=== PATIENT | male | born 1940 | race Caucasian/White ===

== ENCOUNTER 2016-07-18 06:54 | Inpatient (IN) | payer OTHER ==
[~2016-07-18] VITALS: Ht 175.3 cm; Wt 72.6 kg
[2016-07-18] VITALS (8 sets, daily range): BP systolic 85–138; BP diastolic 62–83; PULSE 54–68; TEMP 36.9–37.5; O2SAT 95–100; Ht 175.3 cm; Wt 72.6 kg
[~2016-07-18 06:54] MED LIST: ASPEC81 PO; ATOR10TA88 PO; IPRA1AER2 INH; LACTATED RINGER'S 1000ML 1,000 ML IV SCH; PRED20TA PO; calcium
--- NOTE | 2016-07-18 08:14 | History & Physical Bridge Note ---
H&P Re-Evaluation Bridge Note: I have examined the patient, reviewed the History & Physical and in the interval since the performance of the History & Physical I have noted the following changes of clinical significance: No changes noted
[2016-07-18] MEDS ORDERED: KETAMINE HCL INJ 50 MG/ML 10 ML VIAL ONE (09:08)
[2016-07-18] MEDS ORDERED: FENTANYL CITRATE INJ 50 MCG/1 ML 2 ML VIAL ONE ×3 (09:08→11:53)
[2016-07-18] MEDS ORDERED: BUPIVACAINE LIPOSOME 1/3% 266 MG/20 ML VIAL INFIL ONE (09:19)
[2016-07-18] MEDS ORDERED: CEFAZOLIN IV 2,000 MG/60 ML D5W IV ONE (10:09)
[2016-07-18] MEDS ORDERED: PROPOFOL IV EMULSION 10 MG/ML 20 ML VIAL IV ONE (10:41)
[2016-07-18] MEDS ORDERED: LIDOCAINE HCL 2% 2 ML VIAL (20MG/ML) ONE (10:41)
[2016-07-18] MEDS ORDERED: LABETALOL HCL IV 5 MG/ML 20ML ONE (10:41)
[2016-07-18] MEDS ORDERED: EpHEDrine SULFATE 50MG/5ML SYR ONE (10:41)
[2016-07-18] MEDS ORDERED: LARYING-O-JET KIT (LTA) EXT ONE ×2 (10:41)
[2016-07-18] MEDS ORDERED: ONDANSETRON INJ 2 MG/ML 2 ML VIAL ONE (10:41)
[2016-07-18] MEDS ORDERED: DEXAMETHASONE SOD INJ 4 MG/ML VIAL ONE (10:41)
[2016-07-18] MEDS ORDERED: MIX: 266 MG EXPAREL + 40 ML INJ SALINE INJ ONE (10:56)
[2016-07-18] MEDS ORDERED: NEOSTIGMINE METHYLSULFATE 5 MG/5 ML SYR ONE (11:52)
[2016-07-18] MEDS ORDERED: GLYCOPYRROLATE INJ 0.2 MG/ML VIAL ONE (11:52)
[2016-07-18] MEDS ORDERED: MoRPHine SULFATE 2 MG/ML CARP IV PRN ×2 (12:15→13:00)
[2016-07-18] MEDS ORDERED: ONDANSETRON INJ 2 MG/ML 2 ML VIAL IV PRN (12:15)
[2016-07-18] MEDS: D5W AND 1/2NSS 1,000 ML IV SCH ×2 (12:15→22:15)
--- NOTE | 2016-07-18 12:44 | DIAGNOSTIC IMAGING REPORT ---
CHEST ONE VIEW PORTABLE CLINICAL HISTORY: s/p left pneumonectomy COMPARISON STUDY: Chest radiograph July 07, 2016. FINDINGS: Gas within the left hemithorax is noted consistent with pneumonectomy. There is gas within the left chest wall. Right lung is clear. There is no evidence of pulmonary edema. Cardiac size is stable. An old left clavicular fracture is incidentally noted IMPRESSION: Expected findings following left pneumonectomy with gas within the left hemithorax and chest wall. Electronically signed by: Jose E Abdi M.D. 07/18/2016 12:43 PM
[2016-07-18 13:17] LABS: ARTERIAL BLD GAS O2 SATURATION 97.7 % (90-95); ARTERIAL BLOOD GAS BASE EXCESS -0.6 mEq/L (-9-1.8); ARTERIAL BLOOD GAS HCO3 22 mmol/L (19-24); ARTERIAL BLOOD GAS PO2 95 mm/Hg (80-95); ARTERIAL BLOOD GAS pH 7.46 (7.35-7.45)
[2016-07-18 13:18] LABS: ALLEN TEST ALINE (POS)
--- NOTE | 2016-07-18 13:18 | OPERATIVE REPORT ---
DATE OF OPERATION: 07/18/2016 PREOPERATIVE DIAGNOSIS: Squamous cell carcinoma, left hilum. POSTOPERATIVE DIAGNOSIS: Same. PROCEDURES: 1. Left pneumonectomy. 2. Mediastinal lymphadenectomy. SURGEON: Dr. David. ZINC PLATING MACHINE OPERATOR: Nathaly Nelson, Oxyacetylene Welder ANESTHESIA: General anesthesia endotracheal intubation with a double lumen tube. SPECIFICS OF PROCEDURE: Mr. Henry is a 77-year-old male who was found to have a squamous cell carcinoma, left hilum. We worked him up and appeared to be confined to his left chest; however, it involved the bifurcation of the left upper and left lower lobes, so that a lesser resection could be offered. His mediastinal nodes were negative for cancer, need for carcinoma and endobronchial ultrasound. After much deliberation with the patient and his family, we elected to proceed with a left pneumonectomy. On 07/18/2016, the patient underwent an uncomplicated intrapericardial left pneumonectomy. I had to go into the pericardium to get the inferior pulmonary veins and superior pulmonary veins. I fired a TA stapler right at the gunnar. Our margins were negative. A mediastinal lymphadenectomy followed. He really did not have much in the way of lymph nodes. Blood loss was negligible. He tolerated it well. I did do an Exparel block. DESCRIPTION OF PROCEDURE: The patient was brought to the operating, laid in supine position. General anesthesia induced and endotracheal intubation was performed with a double lumen tube. After this had been placed appropriately, the patient was then positioned in the right lateral decubitus position after Davis catheter and arterial line had been placed. The patient was then prepped and draped in usual sterile fashion. Appropriate timeout given, the prophylactic antibiotics administered. I then made an incision about the fifth interspace anteriorly and got right to the anterior border of the latissimus dorsi muscle. Upon entering the chest, it could be seen there were a few adhesions which were taken down. This actually came out quite nicely. The patient was then inspected and it could be seen that the hilum was a bit concerning anteriorly. I identified the pulmonary artery quite easily. I then opened the pericardium in order to gain access to the superior and inferior pulmonary veins. The superior pulmonary vein actually was not difficult to get without going to the pericardium; however, the pulmonary vein was a bit more concerning. I took down the inferior pulmonary ligament and sent off lymph nodes 8 and 9. There were several level 8 lymph nodes. I then went around the superior pulmonary vein with Endo-MICHELLE stapler and fired this. This came out very nicely. I then went and divided intrapericardial inferior pulmonary vein. The lingular vein was still attached. I had to go a bit more medial in order to go into the pericardium to make sure grossly all of this was clean. After firing this, it freed up nicely. I then the left mainstem bronchus from the left main pulmonary artery. I put a vessel loop around the main pulmonary artery on the left and then fired Endo-MICHELLE stapler. I let this set for several minutes before firing it slowly. There was no bleeding and this looked quite good. Attention was then turned towards the bronchus and I went all the way into the gunnar. Dr. Ian Bowers from anesthesia pulled the tube back with a bronchoscope at the tip of the bronchial lumen and was able to get above the gunnar and saw that we had closed this off almost flush with the gunnar. This was by closing the stapler. I then used a #10 blade and divided this and sent it off. I sent off the inferior pulmonary vein and the right main stem bronchus and the margins were negative. I took out the level 4 node, level 5, level 6, level 7, level 10, level 8 and level 9. There were multiple nodes from level 10 and level 8. There was no air leak. We had control bleeding quite nicely with the Aquamantys as well as the cautery. Care was taken to avoid injury to the phrenic nerve. We irrigated out the chest, there was no air leak. The left main stem bronchus retracted nicely up under the arch and it was essentially covered with soft tissue and I left this alone. I did not put a flap over this. There was no significant bleeding. 266 mg of Exparel were reconstituted with 60 mL of normal saline and injected from the 2nd to the 11th rib for an intrathoracic block. This went quite nicely. We did not fracture any ribs. A #1 PDS was used x2 to reapproximate the ribs. The serratus muscle reapproximated with 0 Vicryl in a running fashion. A 3-0 Vicryl was then used to reapproximate the skin edges in a running continuous fashion. He was awaked without difficulty in the operating room. He tolerated it well. I attest to the content of the Intraoperative Record and any orders documented therein. Any exceptions are noted below. HELEN
--- NOTE | 2016-07-18 13:18 | Anesthesiology Progress Note ---
Anesthesia Post Op Note Date & Time Jul 18, 2016 at 13:17 Vital Signs Pain Intensity: 0 Vital Signs Past 12 Hours Date Time Temp Pulse Resp B/P Pulse Ox O2 Delivery O2 Flow Rate FiO2 07/18/16 13:10 57 18 124/71 97 Room Air 07/18/16 12:55 36 53 16 104/72 99 Room Air 07/18/16 12:40 54 12 113/81 99 Room Air 07/18/16 12:30 53 16 131/75 98 Room Air 07/18/16 12:20 59 11 126/78 100 Mask 10 07/18/16 12:12 36.2 64 13 136/89 100 Mask 10 07/18/16 07:33 36.9 54 20 119/79 95 Room Air Notes Mental Status: alert / awake / arousable, participated in evaluation Pt Amnestic to Procedure: Yes Nausea / Vomiting: adequately controlled Pain: adequately controlled Airway Patency, RR, SpO2: stable & adequate BP & HR: stable & adequate Hydration State: stable & adequate Anesthetic Complications: no major complications apparent
[2016-07-18 13:20] LABS: O2 ADMINISTRATION RA
[2016-07-18] MEDS ORDERED: AMIODARONE IV BOLUS / DRIP IV PRN (13:45)
[2016-07-18] MEDS: MAGNESIUM SULFATE 1GM / D5W 1 GM in PREMIXED IN D5W 100 ML IV SCH ×2 (16:10→17:06)
[2016-07-18] MEDS: IPRATROPIUM BROMIDE/ALBUTEROL respimat INH INH SCH ×3 (16:10→21:58)
[2016-07-18] MEDS: KETOROLAC TROMETHAMINE 15 MG/ML VIAL IV. SCH ×2 (16:11→21:58)
[2016-07-18] MEDS: METOCLOPRAMIDE HCL INJ 5 MG/ML 2 ML VIAL IV. SCH ×2 (16:11→21:58)
[2016-07-18] MEDS: CEFAZOLIN IV 2,000 MG in DEXTROSE 5% 50ML 100 ML IV SCH (17:06)
--- NOTE | 2016-07-18 20:32 | Critical Care Consultation ---
Critical Care Consultation Date of Consultation: Jul 18, 2016. Attending Physician: Dixon David MD Reason for Consultation: Status post left pneumonectomy and thoracotomy for lung mass. History of Present Illness Patient is a 76-year-old male who underwent a left pneumonectomy with thoracotomy for moderately invasive squamous cell carcinoma of the lung. Social History Smoking Status: Former Smoker Drug Use: none Marital Status: Occupation Status: retired Allergies Coded Allergies: No Known Allergies (Verified , 07/18/16) Home Medications Scheduled Aspirin Enteric Coated (Ecotrin Or Generic *), 81 MG PO DAILY Atorvastatin (Lipitor), 1 TAB PO HS Ipratropium-Albuterol (Combivent Respimat), 1 PUFFS INH QID Prednisone (Prednisone), 2 TAB PO DAILY [calcium], 600 MG DAILY Current Inpatient Medications Current Inpatient Medications Medications (Trade) Dose Ordered Sig/Mamie Route Start Time Stop Time Status Last Admin Dose Admin Enoxaparin Sodium 40 mg 40 mg DAILY@0800 SQ 07/19/16 08:00 08/18/16 07:59 Dextrose/Sodium Chloride (D5W And 1/2nss) 1,000 ml @ 100 mls/hr Q10H IV 07/18/16 12:15 08/17/16 12:14 07/18/16 12:15 100 MLS/HR Ondansetron HCl 4 mg 4 mg Q4H PRN IV 07/18/16 12:15 08/17/16 12:14 Cefazolin Sodium/ Dextrose (Ancef Iv/D5 50ml) 110 ml @ 100 mls/hr Q8H IV 07/18/16 18:00 07/19/16 03:05 07/18/16 17:06 100 MLS/HR Ketorolac Tromethamine (Toradol Inj) 15 mg Q8H IV. 07/18/16 14:00 07/20/16 06:01 07/18/16 16:11 15 MG Metoclopramide HCl (Reglan Inj) 10 mg Q8 IV. 07/18/16 14:00 07/19/16 13:59 07/18/16 16:11 10 MG Oxycodone/ Acetaminophen (Percocet 5-325MG Tab) `1-2 tabs for pain 1 tab ... Q3H PRN PO 07/19/16 06:00 08/02/16 05:59 Morphine Sulfate (MoRPHine SULFATE INJ) 1 mg Q1H PRN IV 07/18/16 12:15 08/01/16 12:14 Aspirin (Ecotrin Tab) 81 mg DAILY PO 07/19/16 09:00 08/18/16 08:59 Atorvastatin Calcium (Lipitor Tab) 10 mg HS PO 07/18/16 21:00 08/17/16 20:59 Albuterol/ Ipratropium (Combivent Respimat Inh) 1 puffs QID INH 07/18/16 13:00 08/17/16 12:59 07/18/16 17:07 1 PUFFS Prednisone (PredniSONE TAB) 40 mg DAILY PO 07/19/16 09:00 08/18/16 08:59 Morphine Sulfate (MoRPHine SULFATE INJ) 2 mg Q1H PRN IV 07/18/16 13:00 08/01/16 12:59 Amiodarone HCl (Cordarone IV Bolus / Drip) 1 ea PRN PRN IV 07/18/16 13:45 08/17/16 13:44 Review of Systems No chest pain no shortness of breath, no nausea, no vomiting, 10 point review of systems is otherwise negative Physical Exam Date Time Temp Pulse Resp B/P Pulse Ox O2 Delivery O2 Flow Rate FiO2 07/18/16 18:00 67 16 104/66 95 Room Air 07/18/16 16:00 64 18 108/75 95 Room Air 115/71 07/18/16 16:00 96 Room Air 07/18/16 15:00 66 16 127/80 95 Room Air 122/83 07/18/16 14:00 66 16 130/82 97 Room Air 138/71 07/18/16 13:40 37.5 56 18 135/78 100 Room Air 07/18/16 13:10 57 18 124/71 97 Room Air 07/18/16 12:55 36 53 16 104/72 99 Room Air 07/18/16 12:40 54 12 113/81 99 Room Air 07/18/16 12:30 53 16 131/75 98 Room Air 07/18/16 12:20 59 11 126/78 100 Mask 10 07/18/16 12:12 36.2 64 13 136/89 100 Mask 10 07/18/16 07:33 36.9 54 20 119/79 95 Room Air Neuro: Sitting in his chair watching CVS S1-S2, regular rate and rhythm, no murmurs rubs gallops Pulmonary: Good air movement right lung Abdomen soft nondistended nontender Extremities no clubbing cyanosis edema Neuro: No focal deficits Laboratory Results Last 24 Hours Test 07/18/16 12:44 Arterial Blood pH 7.46 Arterial Blood Partial Pressure CO2 32 mmHg Arterial Blood Partial Pressure O2 95 mm/Hg Arterial Blood HCO3 22 mmol/L Arterial Blood Oxygen Saturation 97.7 % Arterial Blood Base Excess -0.6 mEq/L Arterial Blood Gas Delivery RA Narciso Test JUAN PABLO Assessment & Plan PLAN: Neuro: Pain well Controlled Resp: Saturating well on room air CV: Continue to monitor for possible atrial fibrillation Fluids/Renal: Tolerating fluids by mouth ID: Preop antibiotics given GI/Nutrition: Tolerating by mouth Heme: Monitor for bleeding
[2016-07-18] MEDS: ATORVASTATIN 10 MG TAB PO SCH (20:52)
[2016-07-19] VITALS (11 sets, daily range): BP systolic 99–140; BP diastolic 60–80; PULSE 59–74; TEMP 36.6–36.9; O2SAT 90–99
[2016-07-19] MEDS: CEFAZOLIN IV 2,000 MG in DEXTROSE 5% 50ML 100 ML IV SCH (01:58)
[2016-07-19] MEDS: D5W AND 1/2NSS 1,000 ML IV SCH (04:15)
[2016-07-19 05:44] LABS: ISTAT ALLEN TEST Pass; ISTAT ARTERIAL BLOOD GAS HCO3 22 meq/L (19-24); ISTAT ARTERIAL BLOOD GAS PCO2 35 mmHg (35-46); ISTAT ARTERIAL BLOOD GAS PO2 80 mmHg (80-95); ISTAT CARBON DIOXIDE 23 mEq/l (24-31); ISTAT DELIVERY SYSTEM Room Air; ISTAT SITE R Radial
[2016-07-19] MEDS: METOCLOPRAMIDE HCL INJ 5 MG/ML 2 ML VIAL IV. SCH (06:00)
[2016-07-19] MEDS ORDERED: OXYCODONE/ACETAMINOPHEN 5-325 TAB PO PRN (06:00)
[2016-07-19] MEDS: KETOROLAC TROMETHAMINE 15 MG/ML VIAL IV. SCH ×3 (06:01→20:46)
[2016-07-19 06:42] LABS: CALCIUM 8.3 mg/dl (8.5-10.1)
[2016-07-19 06:48] LABS: MAGNESIUM 2.9 mg/dl (1.8-2.4); PHOSPHORUS 3.4 mg/dl (2.5-4.9)
--- NOTE | 2016-07-19 07:27 | DIAGNOSTIC IMAGING REPORT ---
CHEST ONE VIEW PORTABLE CLINICAL HISTORY: s/p left pneumonectomy COMPARISON STUDY: 07/18/2016 FINDINGS: There are post pneumonectomy changes on the left. Air fills the left pneumonectomy space. There is subcutaneous emphysema on the left. Heart is borderline enlarged. There is subtle right lung interstitial thickening/edema. There is no lobar consolidation. There is an old left clavicular fracture.[ IMPRESSION: 1. Subtle right lung interstitial thickening/edema 2. Post pneumonectomy changes on the left. Electronically signed by: Phoenix Edwards M.D. 07/19/2016 7:25 AM
[2016-07-19] MEDS: ENOXAPARIN 40 MG/0.4 ML SYR SQ SCH (07:35)
--- NOTE | 2016-07-19 07:53 | Anesthesiology Progress Note ---
Anesthesia Post Op Note Date & Time Jul 19, 2016 at 07:51 Vital Signs Pain Intensity: 0.0 Vital Signs Past 12 Hours Date Time Temp Pulse Resp B/P Pulse Ox O2 Delivery O2 Flow Rate FiO2 07/19/16 06:01 59 18 127/71 97 Room Air 07/19/16 04:00 Room Air 07/19/16 03:59 36.6 61 20 99/61 97 Room Air 07/19/16 02:00 69 20 115/70 90 Room Air 07/19/16 00:00 Room Air 07/19/16 00:00 36.7 73 20 134/80 97 Room Air 102/60 07/18/16 21:59 66 16 110/62 97 Room Air 94/71 07/18/16 20:00 Room Air 07/18/16 19:59 68 22 93/62 97 Room Air 85/67 Notes Mental Status: alert / awake / arousable, participated in evaluation Pt Amnestic to Procedure: Yes Nausea / Vomiting: adequately controlled Pain: adequately controlled Airway Patency, RR, SpO2: stable & adequate BP & HR: stable & adequate Hydration State: stable & adequate Anesthetic Complications: no major complications apparent
[2016-07-19 08:03] LABS: BASO % 0.1 %; BASO ABS # 0.01 K/uL (0-0.2); COMPLETE YES; EOS % 0.4 %; HEMATOCRIT 40.7 % (42-52); IG% 0.4 %; LYMPH % 11.5 %; LYMPH ABS # 1.62 K/uL (1.2-3.4); MEAN CELL VOLUME 94.9 fL (80-100); MEAN CORPUSCULAR HEMOGLOBIN 31.2 pg (25-34); MEAN CORPUSCULAR HGB CONC 32.9 g/dl (32-36); MEAN PLATELET VOLUME 10.1 fL (7.4-10.4); MONO % 8.8 %; NEUT % 78.8 %; PLATELET COUNT 294 K/uL (130-400); RED BLOOD COUNT 4.29 M/uL (4.7-6.1); WHITE BLOOD COUNT 14.13 K/uL (4.8-10.8)
[2016-07-19 08:30] LABS: BUN/CREATININE RATIO 15.9 (10-20); CALCIUM 8.2 mg/dl (8.5-10.1); POTASSIUM 4.3 mmol/L (3.5-5.1)
[2016-07-19] MEDS ORDERED: FUROSEMIDE INJ 10 MG in SYRINGE 0 ML IV ONE (09:00)
[2016-07-19] MEDS: ASPIRIN 81 MG ECTAB PO SCH (09:40)
[2016-07-19] MEDS: IPRATROPIUM BROMIDE/ALBUTEROL respimat INH INH SCH ×4 (09:40→20:49)
--- NOTE | 2016-07-19 09:56 | Critical Care Progress Note ---
Critical Care Progress Note Date of Service Jul 19, 2016. Attending Dr. Marie Subjective Patient alert and oriented in bedside chair. No fever or chills. No palpitations. NSR on telemetry. No n/v/d. Last BM on Monday before admission. No acute complaints. Tolerated breakfast this morning. Urine output adequate per patient report. Objective Vital Signs - as noted below Laboratory Data - as noted below Physical Exam: General - NAD. In bedside chair Eyes - No icterus, gaze conjugate. PERRL ENT - Mucosa moist, no lesions or candidiasis Dentures in place Neck - Supple, No JVD Lungs - No bronchospasm, rales, or rhonchi. Breath sounds decreased on the left base Heart - Regular, rate controlled Chest - Dressing dry and in place to left flank. No c hest tube in place Abdomen - Soft, NT, ND, BS present Extremities - No LE edema, pedal pulses intact. SCDs in place Neuro - A&OX3 Assessment & Plan (1) Status post pneumonectomy Assessment & Plan: POD #[address] David No chest tube Pain controlled Former smoker quit 03/2016 Plan to transfer to telemetry No hypoxia Ambulating in the hallways well (2) Carcinoma of left lung Assessment & Plan: Squamous cell cancer per biopsy Being presented to tumor board Will most likely need chemotherapy as an outpatient (3) Chronic osteoarthritis Assessment & Plan: Denies pain No acute issues (4) Hyperlipidemia Assessment & Plan: Continue Atorvastatin Follow outpatient (5) Emphysema of lung Assessment & Plan: Smoked 1/2 ppd of cigarettes most of his adult life Quit smoking in March 2016 Continue bronchodilators as needed No respiratory distress or bronchospasm on examination Oxygenating well on room air and with ambulation (6) Tobacco abuse Assessment & Plan: Quit in 03/2016 Squamous cell lung CA as listed above - new diagnosis (7) Microscopic hematuria Assessment & Plan: H&H 13.4/40.7 respectively No gross hematuria Follow up with oncology for lung ca Labs stable IV ACCESS PIV in place No indication for a central line at this time DVT PROPHYLAXIS Enoxaparin CCT: 0 mins. Level II inpatient bill Thank you for including tus in the care of this patient. Please refer to Dr. Marie's addendum for further recommendations. Data Medications: Current Inpatient Medications Medications (Trade) Dose Ordered Sig/Mamie Route Start Time Stop Time Status Last Admin Dose Admin Enoxaparin Sodium (Lovenox Inj) 40 mg DAILY@0800 SQ 07/19/16 08:00 08/18/16 07:59 07/19/16 07:35 40 MG Ondansetron HCl (Zofran Inj) 4 mg Q4H PRN IV 07/18/16 12:15 08/17/16 12:14 Ketorolac Tromethamine (Toradol Inj) 15 mg Q8H IV. 07/18/16 14:00 07/20/16 06:01 07/19/16 06:01 15 MG Metoclopramide HCl (Reglan Inj) 10 mg Q8 IV. 07/18/16 14:00 07/19/16 13:59 07/19/16 06:00 10 MG Oxycodone/ Acetaminophen (Percocet 5-325MG Tab) `1-2 tabs for pain 1 tab ... Q3H PRN PO 07/19/16 06:00 08/02/16 05:59 Morphine Sulfate (MoRPHine SULFATE INJ) 1 mg Q1H PRN IV 07/18/16 12:15 08/01/16 12:14 Aspirin (Ecotrin Tab) 81 mg DAILY PO 07/19/16 09:00 08/18/16 08:59 07/19/16 09:40 81 MG Atorvastatin Calcium (Lipitor Tab) 10 mg HS PO 07/18/16 21:00 08/17/16 20:59 Albuterol/ Ipratropium (Combivent Respimat Inh) 1 puffs QID INH 07/18/16 13:00 08/17/16 12:59 07/19/16 09:40 1 PUFFS Prednisone (PredniSONE TAB) 40 mg DAILY PO 07/19/16 09:00 08/18/16 08:59 07/19/16 09:40 40 MG Morphine Sulfate (MoRPHine SULFATE INJ) 2 mg Q1H PRN IV 07/18/16 13:00 08/01/16 12:59 Amiodarone HCl (Cordarone IV Bolus / Drip) 1 ea PRN PRN IV 07/18/16 13:45 08/17/16 13:44 I & O: 24-Hour Column 07/19/16 08:00 Intake Total 2912 ml Output Total 850 ml Balance 2062 ml Vital Signs: Date Time Temp Pulse Resp B/P Pulse Ox O2 Delivery O2 Flow Rate FiO2 1/3/17 06:01 59 18 127/71 97 Room Air 07/19/16 04:00 Room Air 07/19/16 03:59 36.6 61 20 99/61 97 Room Air 07/19/16 02:00 69 20 115/70 90 Room Air 07/19/16 00:00 Room Air 07/19/16 00:00 36.7 73 20 134/80 97 Room Air 102/60 07/18/16 21:59 66 16 110/62 97 Room Air 94/71 07/18/16 20:00 Room Air 07/18/16 19:59 68 22 93/62 97 Room Air 85/67 07/18/16 18:00 67 16 104/66 95 Room Air 07/18/16 16:00 64 18 108/75 95 Room Air 115/71 07/18/16 16:00 96 Room Air 07/18/16 15:00 66 16 127/80 95 Room Air 122/83 07/18/16 14:00 66 16 130/82 97 Room Air 138/71 07/18/16 13:40 37.5 56 18 135/78 100 Room Air 07/18/16 13:10 57 18 124/71 97 Room Air 07/18/16 12:55 36 53 16 104/72 99 Room Air 07/18/16 12:40 54 12 113/81 99 Room Air 07/18/16 12:30 53 16 131/75 98 Room Air 07/18/16 12:20 59 11 126/78 100 Mask 10 07/18/16 12:12 36.2 64 13 136/89 100 Mask 10 Laboratory Results: 07/19/16 07:53 Red Blood Count 4.29, Mean Corpuscular Volume 94.9, Mean Corpuscular Hemoglobin 31.2, Mean Corpuscular Hemoglobin Concent 32.9, Mean Platelet Volume 10.1, Neutrophils (%) (Auto) 78.8, Lymphocytes (%) (Auto) 11.5, Monocytes (%) (Auto) 8.8, Eosinophils (%) (Auto) 0.4, Basophils (%) (Auto) 0.1, Neutrophils # (Auto) 11.15, Lymphocytes # (Auto) 1.62, Monocytes # (Auto) 1.25, Eosinophils # (Auto) 0.05, Basophils # (Auto) 0.01 1/3/17 07:53 Test 07/19/16 05:31 07/19/16 05:43 07/19/16 06:34 07/19/16 07:53 Blood Gas Sample Site R Radial Bedside Blood Gas pH (LAB) 7.40 (7.35-7.45) Bedside Blood Gas pCO2 (LAB) 35 mmHg (35-46) Bedside Blood Gas pO2 (LAB) 80 mmHg (80-95) Bedside Blood Gas HCO3 (LAB) 22 meq/L (19-24) Bedside Blood Gas Total CO2 23 mEq/l (24-31) Bedside Blood Gas Base Excess (LAB) -3.0 meq/L (-9-1.8) Bedside Blood Gas O2 Saturation 96.0 % (90-95) Narciso Test Pass Oxygen Delivery Device Room Air Phosphorus Level 3.4 mg/dl (2.5-4.9) Magnesium Level 2.9 mg/dl (1.8-2.4) Bedside Glucose 114 mg/dl (70-99) White Blood Count 14.13 K/uL (4.8-10.8) Red Blood Count 4.29 M/uL (4.7-6.1) Hemoglobin 13.4 g/dL (14.0-18.0) Hematocrit 40.7 % (42-52) Mean Corpuscular Volume 94.9 fL (80-100) Mean Corpuscular Hemoglobin 31.2 pg (25-34) Mean Corpuscular Hemoglobin Concent 32.9 g/dl (32-36) Platelet Count 294 K/uL (130-400) Mean Platelet Volume 10.1 fL (7.4-10.4) Neutrophils (%) (Auto) 78.8 % Lymphocytes (%) (Auto) 11.5 % Monocytes (%) (Auto) 8.8 % Eosinophils (%) (Auto) 0.4 % Basophils (%) (Auto) 0.1 % Neutrophils # (Auto) 11.15 K/uL (1.4-6.5) Lymphocytes # (Auto) 1.62 K/uL (1.2-3.4) Monocytes # (Auto) 1.25 K/uL (0.11-0.59) Eosinophils # (Auto) 0.05 K/uL (0-0.5) Basophils # (Auto) 0.01 K/uL (0-0.2) RDW Standard Deviation 47.9 fL (36.4-46.3) RDW Coefficient of Variation 14.0 % (11.5-14.5) Immature Granulocyte % (Auto) 0.4 % Immature Granulocyte # (Auto) 0.05 K/uL (0.00-0.02) Anion Gap 8.0 mmol/L (3-11) Est Creatinine Clear Calc Drug Dose 62.9 ml/min Estimated GFR () 84.4 Estimated GFR (Non- 72.8 BUN/Creatinine Ratio 15.9 (10-20) Calcium Level 8.2 mg/dl (8.5-10.1) Last 24 Hours Test 07/18/16 12:44 07/18/16 22:07 07/19/16 05:31 07/19/16 05:43 Arterial Blood pH 7.46 Arterial Blood Partial Pressure CO2 32 mmHg Arterial Blood Partial Pressure O2 95 mm/Hg Arterial Blood HCO3 22 mmol/L Arterial Blood Oxygen Saturation 97.7 % Arterial Blood Base Excess -0.6 mEq/L Arterial Blood Gas Delivery RA Narciso Test JUAN PABLO Pass Bedside Glucose 151 mg/dl Blood Gas Sample Site R Radial Bedside Blood Gas pH (LAB) 7.40 Bedside Blood Gas pCO2 (LAB) 35 mmHg Bedside Blood Gas pO2 (LAB) 80 mmHg Bedside Blood Gas HCO3 (LAB) 22 meq/L Bedside Blood Gas Total CO2 23 mEq/l Bedside Blood Gas Base Excess (LAB) -3.0 meq/L Bedside Blood Gas O2 Saturation 96.0 % Oxygen Delivery Device Room Air Calcium Level 8.3 mg/dl Phosphorus Level 3.4 mg/dl Magnesium Level 2.9 mg/dl Test 07/19/16 06:34 07/19/16 07:53 Bedside Glucose 114 mg/dl White Blood Count 14.13 K/uL Red Blood Count 4.29 M/uL Hemoglobin 13.4 g/dL Hematocrit 40.7 % Mean Corpuscular Volume 94.9 fL Mean Corpuscular Hemoglobin 31.2 pg Mean Corpuscular Hemoglobin Concent 32.9 g/dl Platelet Count 294 K/uL Mean Platelet Volume 10.1 fL Neutrophils (%) (Auto) 78.8 % Lymphocytes (%) (Auto) 11.5 % Monocytes (%) (Auto) 8.8 % Eosinophils (%) (Auto) 0.4 % Basophils (%) (Auto) 0.1 % Neutrophils # (Auto) 11.15 K/uL Lymphocytes # (Auto) 1.62 K/uL Monocytes # (Auto) 1.25 K/uL Eosinophils # (Auto) 0.05 K/uL Basophils # (Auto) 0.01 K/uL RDW Standard Deviation 47.9 fL RDW Coefficient of Variation 14.0 % Immature Granulocyte % (Auto) 0.4 % Immature Granulocyte # (Auto) 0.05 K/uL Sodium Level 139 mmol/L Potassium Level 4.3 mmol/L Chloride Level 105 mmol/L Carbon Dioxide Level 26 mmol/L Anion Gap 8.0 mmol/L Blood Urea Nitrogen 16 mg/dl Creatinine 1.00 mg/dl Est Creatinine Clear Calc Drug Dose 62.9 ml/min Estimated GFR () 84.4 Estimated GFR (Non- 72.8 BUN/Creatinine Ratio 15.9 Random Glucose 117 mg/dl Calcium Level 8.2 mg/dl
--- NOTE | 2016-07-19 15:21 | SURGERY PROGRESS NOTE ---
DATE: 07/19/2016 DATE: 07/19/2016. Mr. Henry is 1 day status post a left pneumonectomy for squamous cell carcinoma. His heart rate has been very well controlled in the 50s to the 70s and sinus rhythm. He has had no arrhythmias whatsoever. He is afebrile. Respiration rate 18 on room air with saturations in 99%. Blood pressure has been stable. He has had good urine output without a Davis catheter. Upon exam his mucous membranes are a bit dry but we have not allowed him to eat or drink since yesterday, although we are going to change that today. He has no neck vein distention. He has no tracheal deviation. He has good aeration on the right with no wheezing, rales or rhonchi. He has decreased breath sounds on the left. His dressing is dry on the left chest. He has no chest tube. He has a regular rate and rhythm of his heart at about a rate of 60 without a significant rub. His abdomen is nice and soft. He has good bowel sounds. He has no peripheral edema. He has no Davis catheter. His sequential compression devices are in place. Neurologically he is completely intact. DATA: I reviewed chest x-ray looks quite good. He is not collecting much fluid as of yet in his left chest. He has minimal deviation of his trachea to the left. His right lung is clear. Reviewing his data his white count is 14,130, hemoglobin stable at 13.4, platelet count is stable at 294,000. Blood gas this morning reveals pH 7.40, pCO2 of 35, pO2 of 80, bicarbonate of 22. Saturation was 96% on room air. Review of his chemistries reveal sodium 139, potassium 4.3, chloride 105, bicarbonate 26, BUN and creatinine of 16 and 1.0. His glucoses have been stable from 114 to 151. Calcium 8.2. His magnesium is up a bit at 2.9, but I supplemented him yesterday. ASSESSMENT AND PLAN: Postoperative day #1 status post anterior muscle sparing thoracotomy with pneumonectomy and mediastinal lymph node dissection. He looks quite good today. I had a long discussion with the patient and his . We will move him up to a monitored floor upstairs on second floor telemetry.
[2016-07-19] MEDS: ATORVASTATIN 10 MG TAB PO SCH (20:45)
[2016-07-20] VITALS (7 sets, daily range): BP systolic 120–153; BP diastolic 70–83; PULSE 50–66; TEMP 36.4–36.9; O2SAT 96–98
[2016-07-20] MEDS: KETOROLAC TROMETHAMINE 15 MG/ML VIAL IV. SCH (05:29)
--- NOTE | 2016-07-20 07:10 | DIAGNOSTIC IMAGING REPORT ---
CHEST ONE VIEW PORTABLE CLINICAL HISTORY: s/p left pneumonectomy COMPARISON STUDY: 07/19/2016 FINDINGS: The heart is mildly enlarged. There are post pneumonectomy changes present on the left. There is extensive subcutaneous emphysema on the left. There is progressive cardiac images all shift to the left. There is no focal pulmonary consolidation on the right. There is an old left clavicular fracture.[ IMPRESSION: 1. Postpneumonectomy changes in the left 2. No evidence of focal pulmonary consolidation within the right lung Electronically signed by: Phoenix Edwards M.D. 07/20/2016 7:08 AM
[2016-07-20] MEDS: ASPIRIN 81 MG ECTAB PO SCH (07:54)
[2016-07-20] MEDS: IPRATROPIUM BROMIDE/ALBUTEROL respimat INH INH SCH ×4 (07:54→20:16)
[2016-07-20] MEDS: ENOXAPARIN 40 MG/0.4 ML SYR SQ SCH (07:54)
[2016-07-20 09:17] LABS: BASO % 0.2 %; BASO ABS # 0.03 K/uL (0-0.2); COMPLETE YES; EOS % 0.5 %; HEMATOCRIT 39.6 % (42-52); IG% 0.4 %; LYMPH % 12.7 %; MEAN CORPUSCULAR HEMOGLOBIN 31.7 pg (25-34); MEAN CORPUSCULAR HGB CONC 33.3 g/dl (32-36); MEAN PLATELET VOLUME 10.4 fL (7.4-10.4); MONO % 6.2 %; PLATELET COUNT 306 K/uL (130-400); RED BLOOD COUNT 4.17 M/uL (4.7-6.1); WHITE BLOOD COUNT 15.72 K/uL (4.8-10.8)
--- NOTE | 2016-07-20 09:36 | SURGERY PROGRESS NOTE ---
DATE: 07/20/2016 Mr. Henry is seen today postop day #2 status post a left pneumonectomy with mediastinal lymph node dissection. The patient has been stable. His heart rate has been in the 50s to 70s in a sinus. He has had no arrhythmias. He has made good urine. His weight today is 70 kilograms, which I do not know that I believe that he came in at 79 kilograms. At any rate his right lung sounds clear. He has had some mild subcutaneous emphysema on the left. He has no peripheral edema. He has regular rate and rhythm of his heart. Neurologically completely awake and alert. His white count is 15,720, hemoglobin stable at 13.2. His platelet count 306,000. Blood sugars have been well controlled. Data reviewed and his chest x-ray shows no evidence of infiltrate on the right. He still has very little in the way of fluid on the left. ASSESSMENT AND PLAN: Postop day #2. The patient is ambulating without oxygen in the hallway and has done very, very well. I am going to monitor him for another 48 hours or so and if he has no arrhythmias we will discharge him home. Pathology is still pending of course.
[2016-07-20 09:47] LABS: BUN/CREATININE RATIO 21.2 (10-20); CALCIUM 8.7 mg/dl (8.5-10.1); POTASSIUM 3.8 mmol/L (3.5-5.1)
[2016-07-20] MEDS ORDERED: SOD PHOSPHATE/SOD BIPHOSPHATE ENEMA 132 ML BTL PR PRN (12:30)
[2016-07-20] MEDS ORDERED: BISACODYL 10 MG SUPP PR PRN (12:30)
[2016-07-20] MEDS ORDERED: POLYETHYLENE (MIRALAX) 17 GM PACK PO ONE (12:34)
[2016-07-20] MEDS: DOCUSATE SODIUM 100 MG CAP PO SCH (20:16)
[2016-07-20] MEDS: ATORVASTATIN 10 MG TAB PO SCH (20:17)
[2016-07-21 03:16] VITALS: BP 132/67; PULSE 67; TEMP 36.7; O2SAT 98
[2016-07-21 06:18] LABS: HEMATOCRIT 42.2 % (42-52); MEAN CELL VOLUME 95.5 fL (80-100); MEAN CORPUSCULAR HEMOGLOBIN 31.9 pg (25-34); MEAN CORPUSCULAR HGB CONC 33.4 g/dl (32-36); MEAN PLATELET VOLUME 10.9 fL (7.4-10.4); PLATELET COUNT 344 K/uL (130-400); RED BLOOD COUNT 4.42 M/uL (4.7-6.1); WHITE BLOOD COUNT 14.78 K/uL (4.8-10.8)
[2016-07-21 06:45] LABS: CREATININE 0.99 mg/dl (0.60-1.40)
[2016-07-21 07:32] LABS: BUN/CREATININE RATIO 17.1 (10-20); CALCIUM 8.9 mg/dl (8.5-10.1); CREATININE 0.96 mg/dl (0.60-1.40); POTASSIUM 4.4 mmol/L (3.5-5.1)
[2016-07-21 07:49] LABS: BASO % 0.2 %; BASO ABS # 0.03 K/uL (0-0.2); COMPLETE YES; IG% 0.5 %; LYMPH % 15.8 %; LYMPH ABS # 2.39 K/uL (1.2-3.4); MONO % 10.1 %; NEUT % 72.4 %
[2016-07-21] MEDS: ASPIRIN 81 MG ECTAB PO SCH (07:56)
[2016-07-21] MEDS: ENOXAPARIN 40 MG/0.4 ML SYR SQ SCH (07:56)
[2016-07-21] MEDS: IPRATROPIUM BROMIDE/ALBUTEROL respimat INH INH SCH ×4 (07:56→20:17)
[2016-07-21] MEDS: POLYETHYLENE (MIRALAX) 17 GM PACK PO SCH (07:56)
[2016-07-21] MEDS: DOCUSATE SODIUM 100 MG CAP PO SCH ×2 (07:56→20:14)
[2016-07-21 08:01] VITALS: BP 127/80; PULSE 57; TEMP 36.5; O2SAT 97
--- NOTE | 2016-07-21 09:28 | SURGERY PROGRESS NOTE ---
DATE: 07/21/2016 Mr. Henry was seen today on 07/21/2016. He looks great. He has been ambulating in the hallway. He moved his bowels. He slept well last night. He is asking to go home today. He has been tolerating a diet and I am quite happy with the way he looks. I have a concern though that he has been having frequent PACs. I am a bit concerned about that. I am going to start him on Lopressor 12.5 mg p.o. b.i.d. and keep him monitored for another 24 hours. I inspected his incision, it looks quite good. Overall, I think he looks very good. His hemoglobin has remained stable at 14.1. His BUN and creatinine are 21 and 1.0 with a sodium of 139. His blood sugars have been very well controlled. At this point, I am quite happy with him other than the fact that he is having PACs. Hopefully, his pathology will be out soon.
[2016-07-21] MEDS: METOPROLOL TARTRATE 25 MG TAB PO SCH ×2 (11:03→20:15)
[2016-07-21 11:18] VITALS: BP 109/70; PULSE 61; TEMP 36.7; O2SAT 97
[2016-07-21 15:19] VITALS: BP 131/69; PULSE 70; TEMP 36.9; O2SAT 96
[2016-07-21] MEDS ORDERED: POLYETHYLENE (MIRALAX) 17 GM PACK ONE (16:13)
[2016-07-21 20:09] VITALS: BP 105/69; PULSE 61; TEMP 36.8; O2SAT 94
[2016-07-21] MEDS: ATORVASTATIN 10 MG TAB PO SCH (20:14)
[2016-07-21 23:29] VITALS: BP 117/72; PULSE 73; TEMP 36.6; O2SAT 95
[2016-07-22 04:00] VITALS: BP 115/66; PULSE 54; TEMP 36.7; O2SAT 98
[2016-07-22 07:25] VITALS: BP 143/70; PULSE 68; O2SAT 98
[2016-07-22] MEDS: DOCUSATE SODIUM 100 MG CAP PO SCH (07:29)
[2016-07-22] MEDS: ENOXAPARIN 40 MG/0.4 ML SYR SQ SCH (07:29)
[2016-07-22] MEDS: ASPIRIN 81 MG ECTAB PO SCH (07:29)
[2016-07-22] MEDS: POLYETHYLENE (MIRALAX) 17 GM PACK PO SCH (07:31)
[2016-07-22] MEDS: IPRATROPIUM BROMIDE/ALBUTEROL respimat INH INH SCH (07:31)
[2016-07-22] MEDS: METOPROLOL TARTRATE 25 MG TAB PO SCH (07:31)
[2016-07-22] MEDS ORDERED: LPR25 PO (07:45)
[2016-07-22] MEDS ORDERED: TRAM-10 PO (07:49)
--- NOTE | 2016-07-22 07:49 | Discharge Instructions ---
Discharge Instructions Admission Reason for Admission: Squamous Cell Lung, Left Discharge Discharge Diagnosis / Problem: Squamous Cell Lung, Left Discharge Goals Goal(s): Learn about illness Activity Recommendations Activity Limitations: as noted below Lifting Limitations: none 1. You may shower and clean incisions with soap and water. No tub baths. 2. Do not drive or operate heavy machinery if taking ultram. 3. Do not fly until cleared to do do by Dr. David. . Instructions / Follow-Up Instructions / Follow-Up 1. Dr. David in 1 week. office will call you with date and time of appointment. You will need a chest x-ray prior to appointment. Current Hospital Diet Patient's current hospital diet: Regular Diet Discharge Diet Recommended Diet: Regular Diet Procedures Procedures Performed: Left thoracotomy, left pneumonectomy Pending Studies Studies pending at discharge: no Medical Emergencies . Who to Call and When: Medical Emergencies: If at any time you feel your situation is an emergency, please call 911 immediately. . Non-Emergent Contact Non-Emergency issues call your: Surgeon Call Non-Emergent contact if: you have a fever, temperature is above 100.5, your pain is not controlled, your pain is worsening, wound has increased drainage, wound has increased redness . "Provider Documentation" section prepared by Leo Gonzalez. VTE Core Measure Inpt VTE Proph given/why not?: Enoxaparin (Lovenox)SQ
--- NOTE | 2016-07-22 08:09 | DISCHARGE SUMMARY ---
DISCHARGE DIAGNOSIS: Squamous cell carcinoma left lung, (T2 N1 M0). HOSPITAL COURSE: This is a very nice 76-year-old male who was found to have a squamous cell carcinoma at the bifurcation of his left upper and left lower lobes. I saw him in the office and worked him up and we elected to proceed with a pneumonectomy. On 07/18/2016, the patient underwent an uncomplicated left pneumonectomy through a limited anterior thoracotomy which was muscle sparing. He had negligible blood loss. He did well, watched him in the unit overnight, and moved him up to telemetry. He was on room air right after surgery. He is ambulating in the hallway and tolerating a regular diet the following day. He really required very little in the way of any pain medications. The only issue was on postop day 3 I was waiting to discharge him and noticed he was having frequent PACs. Given high incidence of atrial fibrillation in postop pneumonectomy patients, I elected to place him on low dose Lopressor (12.5 mg p.o. b.i.d.) and watched him overnight. His heart rate was low as it was, however, he tolerated this quite well. This suppressed the PACs quite nicely. For this reason, we felt comfortable discharging him. He had no dressings. His x-ray showed very little in the way of fluid reaccumulation as of yet. He is on room air, ambulating in the hallway, moving his bowels and tolerating a house diet. I will see him back in the office next week. One point of concern to me is that the patient's margin was positive at the apparent lingular vein. It definitely was not involving the superior pulmonary vein and I sent frozens off on the inferior pulmonary vein which I was most concerned about; however, there was a lingular segment that I stapled across and it did not appear bad to me but the permanent section showed there was foci of metastatic carcinoma here. He had N1 nodes positive, but no N2 nodes positive. He certainly tolerated the procedure well. I will discuss the pathology with the patient and his family in the office next week. I have given him tramadol for pain. I have also given him my cell phone number and told him to call me should any problems arise. HELEN
--- NOTE | 2016-07-22 08:13 | DIAGNOSTIC IMAGING REPORT ---
SINGLE VIEW CHEST CLINICAL HISTORY: Status post pneumonectomy. FINDINGS: An AP, portable, upright chest radiograph is compared to study dated 07/20/2016 and correlated with chest CT dated 06/08/2016. The examination is degraded by portable technique and patient rotation. The heart is mildly enlarged and there is atherosclerotic calcification of the thoracic aorta. The pulmonary vasculature is noncongested. The left lung is surgically absent. Gas is present in the left thoracic cavity and there is pleural fluid at the left base. The right lung appears hyperinflated and is grossly clear. Emphysematous change is noted. No right-sided pneumothorax is seen. The skeletal structures are osteopenic. The bony thorax is grossly intact. Significant subcutaneous gas is present in the lower neck and along the left chest wall. IMPRESSION: 1. Post pneumonectomy change is again identified on the left. 2. The right lung appears hyperinflated but appears clear. 3. Cardiomegaly and emphysema. Electronically signed by: Bg Ambriz M.D. 07/22/2016 8:11 AM Dictated Date/Time: 07/22/2016 8:08 AM
[2016-07-22 08:28] VITALS: BP 143/70; PULSE 68; TEMP 36.7; O2SAT 98
[2016-08-09] MEDS ORDERED: CALC-354 PO (09:35)
[2016-08-09] MEDS ORDERED: ONDA8TAB6 PO (09:35)
[2016-08-09] MEDS ORDERED: PROC1TAB5 PO (09:35)
[2016-08-19] MEDS ORDERED: MULT-506 PO (13:10)
[2016-08-19] MEDS ORDERED: METO25TA56 PO (13:29)
[2016-08-19] MEDS ORDERED: IPRA1AER2 INH (13:29)
[2016-10-03] MEDS ORDERED: SUCR1TAB29 PO (09:27)
== END 2016-07-22 09:50 | disposition home or self-care (01) | DRG 165 ==
LOC: ENRESERVTM → ENRESERVDT → C.ACU 06:54 → UNDOADMIN 08:10 → C.MSICU 08:10 → C.2T 07-19 13:25
PROVIDERS: ADMIT Surgery; ATTEND Surgery
PROC: 07B70ZX Excision of Thorax Lymphatic, Open Approach, Diagnostic (ICD-10-PCS; 2016-07-18)
PROC: 0BT Respiratory System, Resection (ICD-10-PCS; principal; 2016-07-18 09:00)
DX: C34.02 Malignant neoplasm of left main bronchus (principal); Z87.891 Personal history of nicotine dependence; E78.5 Hyperlipidemia, unspecified; M15.9 Polyosteoarthritis, unspecified; G89.29 Other chronic pain; M25.552 Pain in left hip; R73.01 Impaired fasting glucose; M47.816 Spondylosis without myelopathy or radiculopathy, lumbar region; M54.32 Sciatica, left side; Z85.828 Personal history of other malignant neoplasm of skin; Z79.899 Other long term (current) drug therapy; Z79.52 Long term (current) use of systemic steroids; Z96.659 Presence of unspecified artificial knee joint; Z82.49 Family history of ischemic heart disease and other diseases of the circulatory system; Z83.6 Family history of other diseases of the respiratory system; Z80.6 Family history of leukemia; J43.9 Emphysema, unspecified; R31.29 Other microscopic hematuria; I48.91 Unspecified atrial fibrillation

== ENCOUNTER → 2016-07-27 | Outpatient (CLI) | payer OTHER ==
[~2016-07-27] MED LIST changes: +ACET325T96 PO; +CALC-354 PO; -LACTATED RINGER'S 1000ML 1,000 ML IV SCH; +LPR25 PO; +METO25TA56 PO; +MULT-506 PO; +ONDA8TAB6 PO; +PROC1TAB5 PO; +SUCR1TAB29 PO; +TRAM-10 PO
--- NOTE | 2016-07-27 11:38 | DIAGNOSTIC IMAGING REPORT ---
CHEST 2 VIEWS ROUTINE CLINICAL HISTORY: C34.92 Squamous cell lung cancer, [id number] POSTOP PNEUMONECTOMY COMPARISON STUDY: 07/22/2016 FINDINGS: There is an air-fluid level within the left pneumonectomy space. Pleural fluid is increasing as expected. There is cardiac and mediastinal shift to the left. There is decreasing subcutaneous emphysema on the left. The right lung appears clear. IMPRESSION: Postpneumonectomy changes. Increasing fluid within the left pneumonectomy space. Electronically signed by: Phoenix Edwards M.D. 07/27/2016 11:36 AM Dictated Date/Time: 07/27/2016 11:35 AM
== END | disposition home or self-care (01) ==
LOC: C.RAD1850 11:11
PROVIDERS: ATTEND Surgery
DX: C34.92 Malignant neoplasm of unspecified part of left bronchus or lung (principal)

== ENCOUNTER 2016-08-24 04:57 | Day surgery (SDC) | payer OTHER ==
[2016-08-19 13:11] VITALS: BMI 25.0
[~2016-08-24] VITALS: Ht 175.3 cm; Wt 79.5 kg
[~2016-08-24 04:57] MED LIST changes: -ACET325T96 PO; -LPR25 PO; -ONDA8TAB6 PO; -PRED20TA PO; -PROC1TAB5 PO; -SUCR1TAB29 PO; -TRAM-10 PO; -calcium
[2016-08-24 05:38] VITALS: BP 121/77; PULSE 63; TEMP 36.7; O2SAT 96; Ht 175.3 cm; Wt 79.5 kg
[2016-08-24] MEDS ORDERED: CEFAZOLIN 2000 MG/60 ML D5W IV SCH (06:00)
[2016-08-24] MEDS ORDERED: HEPARIN SOD 5000 UNIT/0.5 ML CARP SQ SCH (06:00)
[2016-08-24] MEDS ORDERED: LACTATED RINGER'S 1000ML 1,000 ML IV SCH ×2 (06:00→07:35)
[2016-08-24] MEDS ORDERED: BUPIVACAINE/EPINEPHRINE 0.5% MPF 1:200,000 30 ML VIAL ONE (06:33)
[2016-08-24] MEDS ORDERED: PROPOFOL IV EMULSION 10 MG/ML 20 ML VIAL IV ONE (06:45)
[2016-08-24] MEDS ORDERED: FENTANYL CITRATE INJ 50 MCG/1 ML 2 ML VIAL ONE (06:46)
[2016-08-24] MEDS ORDERED: KETAMINE HCL INJ 50 MG/ML 10 ML VIAL ONE (06:46)
[2016-08-24] MEDS ORDERED: LACTATED RINGER'S 1000ML 1,000 ML IV PRN (06:56)
[2016-08-24] MEDS ORDERED: FENTANYL CITRATE INJ 50 MCG/1 ML 2 ML VIAL IV PRN (07:00)
[2016-08-24] MEDS ORDERED: ONDANSETRON INJ 2 MG/ML 2 ML VIAL IV PRN ×2 (07:00→07:45)
[2016-08-24] MEDS ORDERED: ACET325T96 PO (07:09)
--- NOTE | 2016-08-24 07:11 | Discharge Instructions ---
Discharge Instructions Visit Reason for Visit: Squamous Cell Left Lung Cancer Discharge Discharge Diagnosis / Problem: A-port placement Activity Recommendations Shower/Bathe: no limitations (ok to shower) Driving or Machine Use: resume 1 day after discharge Anesthesia . Post Anesthesia Instructions: If you have had General Anesthesia or IV Sedation: * Do not drive today. * Resume driving when surgeon permits. * Do not make important decisions or sign legal documents today. * Call surgeon for: 1. Temperature elevations greater than 101 degrees F. 2. Uncontrollable pain. 3. Excessive bleeding. 4. Persistent nausea and vomiting. 5. Medication intolerance (nausea, vomiting or rash). * For nausea and vomiting use only clear liquids such as: tea, soda, bouillon until nausea subsides, then gradually increase diet as tolerated. * If you have any concerns or questions, call your surgeon's office. If physician is unavailable and it is an emergency, call 911 or go to the nearest emergency room. . Instructions / Follow-Up Instructions / Follow-Up Dr. Tao in 1-2 weeks, call [phone] if you do not already have an appt Diet Recommendations Recommended Home Diet: no limitations Pending Studies Studies pending at discharge: no Medical Emergencies . Who to Call and When: Medical Emergencies: If at any time you feel your situation is an emergency, please call 911 immediately. . Non-Emergent Contact Non-Emergency issues call your: Surgeon Call Non-Emergent contact if: you have a fever, temperature is above 101.5, your pain is not controlled . . "Provider Documentation" section prepared by Ian Easley.
[2016-08-24] MEDS ORDERED: ONDANSETRON INJ 2 MG/ML 2 ML VIAL ONE (07:21)
--- NOTE | 2016-08-24 07:44 | [facility] Operative Report ---
Operative Report Operative Date Aug 24, 2016. Pre-Operative Diagnosis Left squamous cell lung cancer Post-Operative Diagnosis same Procedure(s) Performed left subclavian mediport insertion under fluoroscopic guidance Surgeon Dr Tao Estimated Blood Loss 5ml Findings normal anatomy Anesthesia MAC/local Complication(s) None Disposition Recovery Room / PACU I attest to the content of the Intraoperative Record and any orders documented therein. Any exceptions are noted below.
[2016-08-24] MEDS ORDERED: HYDROCODONE/ACETAMOPHEN 5/325MG TAB PO PRN (07:45)
[2016-08-24] MEDS ORDERED: MoRPHine SULFATE 2 MG/ML CARP IV PRN (07:45)
--- NOTE | 2016-08-24 07:57 | Anesthesiology Progress Note ---
Anesthesia Post Op Note Date & Time Aug 24, 2016 at 07:58 Vital Signs Pain Intensity: 0 Vital Signs Past 12 Hours Date Time Temp Pulse Resp B/P Pulse Ox O2 Delivery O2 Flow Rate FiO2 08/24/16 07:43 36.0 59 16 117/74 98 Room Air 08/24/16 05:38 36.7 63 18 121/77 96 Room Air Notes Mental Status: alert / awake / arousable, participated in evaluation Pt Amnestic to Procedure: Yes Nausea / Vomiting: adequately controlled Pain: adequately controlled Airway Patency, RR, SpO2: stable & adequate BP & HR: stable & adequate Hydration State: stable & adequate Anesthetic Complications: no major complications apparent
--- NOTE | 2016-08-24 07:59 | OPERATIVE REPORT ---
DATE OF OPERATION: 08/24/2016 PREOPERATIVE DIAGNOSES: Lung cancer in need for chemotherapy. POSTOPERATIVE DIAGNOSIS: Same. PROCEDURE: Left subclavian MediPort insertion under fluoroscopic guidance. SURGEON: Dr. Tao. ESTIMATED BLOOD LOSS: 5 mL. COMPLICATIONS: No immediate. ANESTHESIA: MAC with local. The patient tolerated the procedure well. DESCRIPTION OF PROCEDURE: After informed consent was obtained, the patient was taken to the operating suite and placed in supine position. The left arm was tucked and a rolled towel was placed between his shoulder blades with the neck in slight tension. The left upper chest area was sterilely prepped and draped in usual fashion. IV sedation was given by anesthesia and titrated to effect. Some local was infiltrated around the skin under the left clavicle. A horizontal incision was made with 15 blade scalpel and carried down through the soft tissue using electrocautery. Blunt finger dissection was used to create a housing pocket for the port itself. We then used an 18 gauge needle and accessed the left subclavian vein with 1 stick. The guidewire easily passed under fluoroscopic guidance into the superior vena cava. We then cut the catheter to appropriate length and attached it to the port itself. We inserted the port into the pocket. We then removed the needle and advanced a vascular dilator and peel-away sheath over the guidewire again under fluoroscopic guidance. We then removed the guidewire and dilator leaving behind the sheath. We advanced the catheter through the sheath quite easily. After verifying position we peeled away the sheath leaving just the catheter behind. It flushed easily and withdrew dark venous blood easily. We then secured the port itself to the chest wall using 0 3-poing fixation. We irrigated the wound and closed it in 2 layers using 3-0 Monocryl for both layers. Sterile dressing was applied. The patient was awakened and transferred to recovery in stable condition. Postoperative portable chest x-ray to verify catheter position is currently pending. I attest to the content of the Intraoperative Record and any orders documented therein. Any exceptio ns are noted below.
--- NOTE | 2016-08-24 08:17 | DIAGNOSTIC IMAGING REPORT ---
SINGLE VIEW CHEST CLINICAL HISTORY: Port placement. FINDINGS: An AP, portable, upright chest radiograph is compared to study dated 07/27/2016 and correlated with chest CT dated 06/08/2016. The examination is degraded by portable technique, apical lordotic positioning, and patient rotation. A left subclavian central venous infusion port is new from previous. The tip of the catheter projects over the SVC. The cardiac silhouette is largely obscured. There is atherosclerotic calcification of the thoracic aorta. The pulmonary vasculature is noncongested. The left lung is surgically absent. There is left-sided pleural fluid with gas noted at the left apex. There is associated leftward shift of the mediastinum. There is compensatory hyperinflation of the left lung which appears grossly clear. Emphysematous change is noted. No right-sided pneumothorax is seen. The skeletal structures are osteopenic. Chronic posttraumatic deformity is noted in the left clavicle. Degenerative change is seen throughout the thoracic spine. IMPRESSION: 1. A left subclavian central venous infusion port has been placed as detailed above. 2. Post pneumonectomy change is again identified on the left with associated left-sided pleural fluid, leftward shift the mediastinum, and compensatory hyperinflation of the right lung. 3. Emphysema. The right lung is grossly clear. Electronically signed by: Bg Ambriz M.D. 08/24/2016 8:16 AM Dictated Date/Time: 08/24/2016 8:13 AM
[2016-08-24 08:25] VITALS: BP 111/69; PULSE 56; TEMP 36.6; O2SAT 94
[2016-08-24 08:55] VITALS: BP 132/68; PULSE 61; TEMP 36.3; O2SAT 95
[2016-10-03] MEDS ORDERED: SUCR1TAB29 PO (09:27)
== END 2016-08-24 09:05 | disposition home or self-care (01) ==
LOC: C.ACU 04:57
PROVIDERS: ATTEND Surgery
DX: C34.92 Malignant neoplasm of unspecified part of left bronchus or lung (principal); F17.200 Nicotine dependence, unspecified, uncomplicated; R73.01 Impaired fasting glucose; C43.9 Malignant melanoma of skin, unspecified; I49.1 Atrial premature depolarization; M15.9 Polyosteoarthritis, unspecified

== ENCOUNTER → 2016-09-05 | Outpatient (CLI) | payer OTHER ==
[~2016-09-05] MED LIST changes: +ACET325T96 PO; +SUCR1TAB29 PO
--- NOTE | 2016-09-05 10:13 | DIAGNOSTIC IMAGING REPORT ---
CHEST 2 VIEWS ROUTINE CLINICAL HISTORY: C34.92 Squamous cell lung cancer, [id number] COMPARISON STUDY: 08/24/2016 FINDINGS: There are postsurgical changes of a left-sided pneumonectomy. There is cardiac and mediastinal shift to the left. The left hemithorax is completely opaque. There is a left-sided A-Port catheter is in. There is no evidence of right lung consolidation. There is an old left clavicular fracture.[ IMPRESSION: 1. Postlaminectomy changes in the left 2. No evidence of focal right lung consolidation Electronically signed by: Phoenix Edwards M.D. 09/05/2016 10:12 AM Dictated Date/Time: 09/05/2016 10:11 AM
== END | disposition home or self-care (01) ==
LOC: C.RAD 09:37
PROVIDERS: ATTEND Surgery
DX: C34.92 Malignant neoplasm of unspecified part of left bronchus or lung (principal)

== ENCOUNTER → 2016-11-04 | Outpatient (CLI) | payer OTHER ==
[~2016-11-04] MED LIST changes: +ASPI81TA28 PO; +ATOR10TA82 PO; -ATOR10TA88 PO
[2016-11-04 09:32] VITALS: BP 105/64; PULSE 80; TEMP 36.7; O2SAT 96
--- NOTE | 2016-11-04 10:30 | Radiation Oncology Follow-Up ---
Radiation Oncology Follow-Up Date of Visit Nov 04, 2016. Reason For Visit One-month follow-up and cancer survivorship care plan Radiation Completion Date 10/03/16 Diagnosis (1) Squamous cell carcinoma of lung, stage III Onset Date: 07/07/2016 Stage: lll Permanent Comment: Mr. Henry underwent a left pneumonectomy on 07/18/2016. The tumor measured 5.0 x 4.0 x 4.0 cm. It was a keratinizing squamous cell carcinoma moderately differentiated. There was no pleural or visceral invasion however there was a positive vascular margin. Bronchial margins were negative. There was lymphovascular invasion. 2 peribronchial lymph nodes were positive and one L 10 lymph nodes was positive. Final stage was T2a N2, Stage IIIA Status post combined radiation and chemotherapy, radiation completed 10/03/2016 received 6000 cGy. Chemotherapy comprised of weekly Taxol carboplatin. Initiation of consolidation chemotherapy 11/01/2016, 4 cycles recommended Last Edited By: Lisa Vasquez on Nov 04, 2016 10:21 History of Present Illness Mr. Henry is a 76-year-old male with a long smoking history. He smoked 1-2 packs per day for 50 years. With increasing symptoms at diagnosis he recently quit 2-3 months ago. Patient presented with a cough, increasing shortness of breath and hemoptysis. He was initially treated with antibiotics but when symptoms persisted a CT scan of the chest was ordered on 06/08/2016. This showed a 4.0 x 4.0 x 3.0 cm spiculated left perihilar mass that was consistent with a neoplasm. This mass near narrowed the left upper and left lower bronchi as well as the left lower lobe are pulmonary artery. Segmental branches of the left lower lobe are pulmonary artery were occluded. Significant dependent atelectasis was noted. The left hilum was obscured by the left perihilar mass. No right hilar adenopathy was seen. No obvious mediastinal adenopathy was noted. The skeletal structures were osteopenic without evidence of metastasis. The patient was seen and evaluated by Dr. Dixon David. Dr. William proceeded with additional staging procedures. This included a PET/ CT scan on 06/29/2016. This confirmed a mass measuring 4.5 x 4.0 x 3.8 cm located in the left perihilar region. There was marked FDG uptake within the mass with an SUV max of 12.3. The mass appeared to encase the distal left main stem bronchus and extended to within 3.5 cm of the gunnar. The mass encased the left upper lobe and lower lobe bronchi. No thoracic lymphadenopathy was present. No additional pulmonary nodules or masses were noted. No suspicious FDG uptake was noted in the abdomen and pelvis and no lymphadenopathy present. No suspicious skeletal uptake was appreciated. On 07/07/2016 he underwent a navigational bronchoscopy. Fine-needle EBUS of the lymph node station 7 revealed rare atypical cells but insufficient for diagnosis. Case: [id number]. Multiple fine-needle EBUS of the left upper lobe mass including a biopsy of the L 10 lymph node was positive for malignant cells consistent with squamous cell carcinoma. Case: [id number]. FNA EBUS of the R4 lymph node revealed no malignant cells. Case: [id number]. Fine needle EBUS of the L4 lymph node revealed no malignant cells. Case: [id number]. Fine-needle aspiration of the lung mass was also positive for malignant cells consistent with squamous cell carcinoma. Case [id number]. For set biopsy of the left mainstem bronchus revealed moderately differentiated invasive squamous cell carcinoma. Case: [id number]. Bronchial washings revealed rare atypical cells suspicious for squamous cell carcinoma. Case: [id number]. After discussing treatment options with the patient he proceeded to a definitive surgical procedure that consisted of a left pneumonectomy and bryon sampling. This was performed on 07/18/2016. The left tumor mass measured 5.0 x 4.0 x 4.0 cm. This was a grade 2 moderately differentiated keratinizing squamous cell carcinoma. There was no visceral pleural invasion identified. Tumor was noted within the peribronchial soft tissue. The margins were evaluated. The bronchial margins were uninvolved by invasive carcinoma and by carcinoma in situ. The vascular margin was involved by invasive carcinoma. Parenchymal margin was not applicable and other attached tissue margin were uninvolved by invasive carcinoma. Lymphovascular invasion was identified. 3L8 lymph nodes were negative. One L9 lymph node was negative. Two level 5 lymph nodes were negative. One of 3L 10 lymph nodes were positive for metastatic carcinoma. 2L7 lymph nodes were negative. Biopsy of the L4 lymph node was negative for metastatic carcinoma. Biopsy L6 lymph nodes were negative for metastatic carcinoma. 2 of 3 peribronchial lymph nodes were positive for metastatic squamous cell carcinoma. Her for a total of 3 out of 16 lymph nodes were positive. Case: . Final stage was therefore a pT2a pN2 M0, stage IIIa moderately differentiated squamous cell carcinoma of the left lung. Patient has recovered well from his surgery. Patient was seen by Dr. Miguel Ángel Ruiz for discussion of the role of adjuvant chemotherapy. He reviewed the current NCCN Guidelines and felt the patient would be a candidate for chemoradiation followed by consolidative chemotherapy very recommended weekly Carboplatin and Paclitaxel as a radiosensitizing agent. He recommended 3 cycles of consolidative chemotherapy to follow the combined modality therapy. He recommended Mediport placement and this will be scheduled through Dr. Dixon David. We were asked to see the patient in referral to discuss with him the role of adjuvant radiation. He underwent combined radiation and chemotherapy. Radiation was completed 10/03 he received 6000 cGy. Chemotherapy comprised of weekly Taxol and Carboplatin. Interim History He is been doing well over this past month. His appetite has improved. He has gained 4 pounds. He did have radiation esophagitis at the end of therapy. This steadily improved and last for approximately 2 weeks following the completion of therapy. He did develop an area of redness of the anterior and posterior chest. There was mild itching associated. He denied pain. He feels respiratory status is stable. He did have some soreness of his legs and arms yesterday. He did have chemotherapy on the . He also is working in his garden. He saw Dr. Ruiz in follow-up and has now started consolidation chemotherapy. It is planned that he'll be receiving 4 cycles. These are going to be given every 3 weeks. Allergies Coded Allergies: No Known Allergies (Verified , 08/24/16) Home Medications Scheduled Acetaminophen Tab (Tylenol), 650 MG PO Q4H Aspirin Enteric Coated (Ecotrin Or Generic *), 81 MG PO QAM Atorvastatin (Lipitor), 1 TAB PO HS Calcium Carbonate-Cholecalcife (Caltrate 600+D), 1 TAB PO QAM Metoprolol Tartrate (Lopressor) (Lopressor), 25 MG PO QPM Multivitamin (Multivitamin), 1 TAB PO QAM Review of Systems Gastrointestinal: Symptoms: WNL GI Comments: Has antiemetics; Oral: Symptoms: No Problems Other Oral Symptoms: Dysphagia resolved; Respiratory: Symptoms: SOB With Exertion Skin: Symptoms: No Problems Other Skin Symptoms: Skin mayers and dry mid chest and left upper back;Using natural care gel Additional Notes: He completed a distress management report and answered "no" to all questions. Physical Exam Vital Signs Date Time Temp Pulse Resp B/P Pulse Ox O2 Delivery O2 Flow Rate FiO2 11/04/16 09:32 36.7 80 24 105/64 96 Fatigue: None General Appearance: no apparent distress Eyes: normal inspection, EOMI ENT: normal ENT inspection, hearing grossly normal Neck: no adenopathy, thyroid normal Respiratory/Chest: lungs clear, no respiratory distress, no accessory muscle use, + respiratory distress, + pertinent finding (he has an area of hyperpigmentation and dry skin of the anterior and posterior chest. There is no wet desquamation. There are no signs of infection.) Cardiovascular: regular rate, rhythm, no gallop, no murmur Extremities: no pedal edema Neurologic/Psychiatric: no motor/sensory deficits, alert, normal mood/affect Skin: warm/dry Laboratory Studies Test 09/21/16 08:35 09/28/16 09:15 10/25/16 11:09 11/02/16 08:30 Est Creatinine Clear Calc Drug Dose 66.2 ml/min 66.9 ml/min White Blood Count 5.19 K/uL (4.8-10.8) 7.68 K/uL (4.8-10.8) Red Blood Count 4.37 M/uL (4.7-6.1) 4.28 M/uL (4.7-6.1) Hemoglobin 13.8 g/dL (14.0-18.0) 13.7 g/dL (14.0-18.0) Hematocrit 40.0 % (42-52) 40.8 % (42-52) Mean Corpuscular Volume 91.5 fL (80-100) 95.3 fL (80-100) Mean Corpuscular Hemoglobin 31.6 pg (25-34) 32.0 pg (25-34) Mean Corpuscular Hemoglobin Concent 34.5 g/dl (32-36) 33.6 g/dl (32-36) Platelet Count 247 K/uL (130-400) 242 K/uL (130-400) Mean Platelet Volume 8.9 fL (7.4-10.4) 9.4 fL (7.4-10.4) Neutrophils (%) (Auto) 64.4 % 92.9 % Lymphocytes (%) (Auto) 17.0 % 6.5 % Monocytes (%) (Auto) 16.4 % 0.5 % Eosinophils (%) (Auto) 0.8 % 0.0 % Basophils (%) (Auto) 0.8 % 0.0 % Neutrophils # (Auto) 3.35 K/uL (1.4-6.5) 7.13 K/uL (1.4-6.5) Lymphocytes # (Auto) 0.88 K/uL (1.2-3.4) 0.50 K/uL (1.2-3.4) Monocytes # (Auto) 0.85 K/uL (0.11-0.59) 0.04 K/uL (0.11-0.59) Eosinophils # (Auto) 0.04 K/uL (0-0.5) 0.00 K/uL (0-0.5) Basophils # (Auto) 0.04 K/uL (0-0.2) 0.00 K/uL (0-0.2) RDW Standard Deviation 56.3 fL (36.4-46.3) 60.4 fL (36.4-46.3) RDW Coefficient of Variation 16.9 % (11.5-14.5) 17.3 % (11.5-14.5) Immature Granulocyte % (Auto) 0.6 % 0.1 % Immature Granulocyte # (Auto) 0.03 K/uL (0.00-0.02) 0.01 K/uL (0.00-0.02) Sodium Level 140 mmol/L (136-145) 139 mmol/L (136-145) Potassium Level 4.0 mmol/L (3.5-5.1) 4.2 mmol/L (3.5-5.1) Chloride Level 106 mmol/L (98-107) 107 mmol/L (98-107) Carbon Dioxide Level 28 mmol/L (21-32) 25 mmol/L (21-32) Anion Gap 6.0 mmol/L (3-11) 7.0 mmol/L (3-11) Blood Urea Nitrogen 12 mg/dl (7-18) 13 mg/dl (7-18) Creatinine 0.95 mg/dl (0.60-1.40) 0.96 mg/dl (0.60-1.40) Estimated GFR () 89.8 88.6 Estimated GFR (Non- 77.4 76.5 BUN/Creatinine Ratio 12.4 (10-20) 13.1 (10-20) Random Glucose 91 mg/dl (70-99) 264 mg/dl (70-99) Calcium Level 9.1 mg/dl (8.5-10.1) 8.7 mg/dl (8.5-10.1) Total Bilirubin 0.4 mg/dl (0.2-1) 0.3 mg/dl (0.2-1) Aspartate Amino Transferase (AST) 19 U/L (15-37) 17 U/L (15-37) Alanine Aminotransferase (ALT) 22 U/L (12-78) 20 U/L (12-78) Alkaline Phosphatase 98 U/L (45-117) 99 U/L (45-117) Total Protein 6.9 gm/dl (6.4-8.2) 6.8 gm/dl (6.4-8.2) Albumin 3.3 gm/dl (3.4-5.0) 3.1 gm/dl (3.4-5.0) Globulin 3.6 gm/dl (2.5-4.0) 3.7 gm/dl (2.5-4.0) Albumin/Globulin Ratio 0.9 (0.9-2) 0.8 (0.9-2) Assessment & Plan Plan: Continue follow-up with Dr. Gudino, Dr. Ruiz, and . He started consolidation chemotherapy 11/01/2016. He'll be receiving 4 cycles. These were given every 3 weeks. Today we completed a cancer survivorship care plan. A copy of the document was given to the patient. Later side effects were reviewed. Especially discussed esophageal changes. I reviewed with him that he could possibly develop a esophageal stricture. If he has problems with difficulty swallowing that are persistent, he was instructed to call our office. See the survivorship document for further information. Dr. Ruiz is planning follow-up scanning after the consolidation chemotherapy. We asked patient return to our office in 6 months. He may call if he has any questions or concerns in the interim. Total Time In Follow-Up I spent 20 minutes speaking to the patient and performing examination. I spent 20 minutes reviewing information, preparing the survivorship document, and completing this note. Copy To Jay Gudino M.D.; Miguel Ángel Ruiz D.O.; Dixon David MD Problem Qualifiers (1) Squamous cell carcinoma of lung, stage III: Laterality: left Qualified Codes: C34.92 - Malignant neoplasm of unspecified part of left bronchus or lung
== END | disposition home or self-care (01) ==
LOC: C.ONC 09:19
PROVIDERS: ATTEND Physician Assistant Medical
DX: Z08 Encounter for follow-up examination after completed treatment for malignant neoplasm (principal); Z92.3 Personal history of irradiation; Z85.118 Personal history of other malignant neoplasm of bronchus and lung

== ENCOUNTER → 2016-12-03 | Outpatient (CLI) | payer OTHER ==
[~2016-12-03] MED LIST changes: -IPRA1AER2 INH; -SUCR1TAB29 PO
--- NOTE | 2016-12-03 08:14 | DIAGNOSTIC IMAGING REPORT ---
CHEST 2 VIEWS ROUTINE CLINICAL HISTORY: C34.92 Squamous cell lung cancer, left COMPARISON STUDY: 09/05/2016 FINDINGS: Stable post left pneumonectomy. Right lung is clear. Hemidiaphragm is smooth. Central catheter in superior vena cava. IMPRESSION: Negative study status post left pneumonectomy. No change from the prior exam. Electronically signed by: Ravin Wilson M.D. 12/03/2016 8:12 AM Dictated Date/Time: 12/03/2016 8:11 AM
== END | disposition home or self-care (01) ==
LOC: C.RAD 07:39
PROVIDERS: ATTEND Physician Assistant
DX: C34.92 Malignant neoplasm of unspecified part of left bronchus or lung (principal); Z98.890 Other specified postprocedural states

== ENCOUNTER → 2016-12-30 | Outpatient (CLI) | payer OTHER ==
--- NOTE | 2016-12-30 09:02 | DIAGNOSTIC IMAGING REPORT ---
CHEST CT WITHOUT CONTRAST CT DOSE: 433.16 mGycm HISTORY: C34.92 Squamous cell lung cancer TECHNIQUE: Multiaxial CT images of the chest were performed without contrast. COMPARISON: 07/01/2016 FINDINGS: Interval left pneumonectomy. Compensatory cardiomediastinal silhouette shift to the left. Moderate abscess chronic change thoracic aorta. No significant hilar or mediastinal adenopathy. Right lung shows evidence for subsegmental atelectasis medial trace pleural fluid right base. No significant parenchymal nodularity the current time. Aspect right upper lobe. This appears to be nonneoplastic finding. IMPRESSION: 1. Interval left pneumonectomy. 2. Expected postoperative changes 3. Scattered atelectatic changes right lung. Electronically signed by: Ravin Wilson M.D. 12/30/2016 9:00 AM Dictated Date/Time: 12/30/2016 8:54 AM
== END | disposition home or self-care (01) ==
LOC: C.CTS 08:37
PROVIDERS: ATTEND Surgery
DX: C34.92 Malignant neoplasm of unspecified part of left bronchus or lung (principal); J98.4 Other disorders of lung

== ENCOUNTER → 2017-01-05 | Outpatient (CLI) | payer OTHER ==
--- NOTE | 2017-01-05 10:20 | DIAGNOSTIC IMAGING REPORT ---
BILATERAL LOWER EXTREMITY VENOUS DOPPLER HISTORY: Pain. Edema. METASTASIS OF CANCER TO LYMPH NODES;SQUAMOS CELL LUNG CANCER COMPARISON STUDY: None. FINDINGS: There is normal compressibility, flow, and augmentation within the bilateral lower extremity deep venous systems. IMPRESSION: No DVT within the right or left lower extremity. Electronically signed by: Ravin Wilson M.D. 01/05/2017 10:19 AM Dictated Date/Time: 01/05/2017 10:19 AM
--- NOTE | 2017-01-10 13:42 | CODING QUERY MEDICAL NECESSITY ---
SUPPORTING DIAGNOSIS NEEDED A supporting diagnosis is required for the test/procedure performed on this patient in order for us to be reimbursed by the patient's insurance. Please provide a supporting diagnosis for the following test/procedure listed below next to the test name along with your signature. *If there is no additional diagnosis for this patient that would support the following test/procedure please document that below next to the test/procedure. Test(s)/Procedure(s) that require a supporting diagnosis: * US VENOUS DOPPLER LWR EXT BILA DIAGNOSIS: Provider Signature: Date: Thank you Fabiola [place] [employer] Information Management Once completed, please kindly fax back to [phone] For questions please call [phone]
== END | disposition home or self-care (01) ==
LOC: C.ULTR 09:18
PROVIDERS: ATTEND Nurse Practitioner Family
DX: C34.02 Malignant neoplasm of left main bronchus (principal); C77.1 Secondary and unspecified malignant neoplasm of intrathoracic lymph nodes; R60.9 Edema, unspecified; M79.604 Pain in right leg; M79.605 Pain in left leg

== ENCOUNTER → 2017-01-24 | Outpatient (CLI) | payer OTHER ==
[~2017-01-24] MED LIST changes: -ASPI81TA28 PO; -ATOR10TA82 PO; +ATOR10TA88 PO; +OPTIRAY 320 IV PRN
--- NOTE | 2017-01-24 12:39 | DIAGNOSTIC IMAGING REPORT ---
ABDOMEN AND PELVIS CT WITH IV AND ORAL CONTRAST CT DOSE: 304.18 mGy.cm HISTORY: Lung carcinoma LUNG CA TECHNIQUE: Multiaxial CT images of the abdomen and pelvis were performed following the use of intravenous and oral contrast. COMPARISON STUDY: 04/09/2014 FINDINGS: Changes left base consistent with postoperative pneumonectomy. Right base is considered clear. Liver enhances uniformly. 2 small hypodensities within the right hepatic lobe unchanged. Kidneys enhance uniformly. The adrenal glands are within normal limits. Pancreas is uniform. Bowel pattern overall is nonobstructive no significant retroperitoneal abdominal or pelvic adenopathy. Atherosclerotic change abdominal and pelvic arterial stature. Postoperative changes involving the right femur are noted. Moderate degenerative changes of the osseous structures with no evidence for true lytic or blastic process. IMPRESSION: Chronic and postoperative change. No acute process. Electronically signed by: Ravin Wilson M.D. 01/24/2017 12:38 PM Dictated Date/Time: 01/24/2017 12:34 PM
== END | disposition home or self-care (01) ==
LOC: C.CTS 09:59
PROVIDERS: ATTEND Nurse Practitioner Family
DX: C34.02 Malignant neoplasm of left main bronchus (principal)

== ENCOUNTER → 2017-04-19 | Outpatient (CLI) | payer OTHER ==
[~2017-04-19] MED LIST changes: -ACET325T96 PO
--- NOTE | 2017-04-19 09:56 | DIAGNOSTIC IMAGING REPORT ---
CT OF THE ABDOMEN AND PELVIS WITH CONTRAST CLINICAL HISTORY: Lung cancer. COMPARISON STUDY: CT of the abdomen and pelvis January 24, 2017. TECHNIQUE: Following IV administration of 120 mL of Optiray-320, axial images of the abdomen and pelvis were obtained from the lung bases to the proximal femurs. Images were reviewed in the axial, sagittal, and coronal planes. IV contrast was administered without complication. A dose lowering technique was utilized adhering to the principles of ALARA. Oral contrast was administered. FINDINGS: A left pneumonectomy cavity is partially imaged on this exam and better depicted on the chest CT. A few water attenuation hepatic lesions reflect cysts. Bilateral adrenal nodularity is unchanged since earlier exams. This is similar to CT of March 15, 2013. The spleen, kidneys and pancreas are unremarkable with the exception of a few subcentimeter hypodense renal lesions which likely reflect cysts. There is a diverticulum of the second portion of the duodenum. Moderate atherosclerotic plaque of the abdominal aorta is noted. No enlarged abdominal or pelvic lymph nodes are present. Caliber and wall thickness of small and large bowel are normal. Prostate is moderately enlarged. A previous right femoral internal fixation is noted. There are no suspicious osseous lesions. IMPRESSION: 1. No evidence of metastatic disease within the abdomen or pelvis. 2. Left pneumonectomy cavity which is better depicted on the chest CT. Electronically signed by: Jose E Abdi M.D. 04/19/2017 9:55 AM Dictated Date/Time: 04/19/2017 9:44 AM
--- NOTE | 2017-04-19 10:02 | DIAGNOSTIC IMAGING REPORT ---
(CHEST) THORAX WITH CLINICAL HISTORY: 77 years-old Male presenting with LUNG CA, status post left lung cancer resection. TECHNIQUE: Multidetector CT imaging of the chest was performed after the administration of intravenous contrast. IV contrast: 120 milliliters of Optiray 320. A dose lowering technique was used consistent with the principles of ALARA (as low as reasonably achievable). COMPARISON: 12/30/2016. CT DOSE (mGy.cm): The estimated cumulative dose is 846.03 mGycm. FINDINGS: [employer] topogram: Complete opacification of the left hemithorax as on prior exam. Partially visualized intramedullary nail in the right femur. On soft tissue windows, left subclavian Mediport terminates in the mid SVC. Normal thyroid and thoracic inlet. No axillary, supraclavicular, hilar, or mediastinal lymphadenopathy. Atherosclerosis of the aorta. Postsurgical changes of left pulmonary artery resection. Leftward mediastinal shift as on prior exam. Coronary artery and aortic valve calcification. Normal heart size. Large left pleural effusion unchanged. No gross soft tissue nodularity within the pleural fluid. Focus of early arterial enhancement in the right hepatic lobe suggests flash filling hemangioma. Multiple well-defined hypodensities noted in the left lobe, likely hepatic cysts. These are unchanged from prior exam in 06/08/2016. On lung windows, postsurgical changes of left pneumonectomy and resection of the left bronchus. No gross evidence of abnormal soft tissue density at the suture margin. Minimal groundglass opacities dependently in the right lung likely atelectasis. Trace emphysema at the right apex. Bandlike opacity in the paramediastinal right lung could suggest post radiation change. No new pulmonary nodule in the right lung. Mild bronchial wall thickening in the right lung. On bone windows, degenerative changes of the spine. No destructive osseous lesion. IMPRESSION: 1. Expected postsurgical changes status post left pneumonectomy with large left pleural effusion. 2. Minimal right basilar atelectasis. No right pulmonary nodule or lymphadenopathy. Electronically signed by: Jay Sheehan M.D. 04/19/2017 10:00 AM Dictated Date/Time: 04/19/2017 9:54 AM
== END | disposition home or self-care (01) ==
LOC: C.CTS 08:47
PROVIDERS: ATTEND Internal Medicine Hematology & Oncology
DX: C34.2 Malignant neoplasm of middle lobe, bronchus or lung (principal); C77.1 Secondary and unspecified malignant neoplasm of intrathoracic lymph nodes

== ENCOUNTER → 2017-05-09 | Outpatient (CLI) | payer OTHER ==
[~2017-05-09] MED LIST changes: -OPTIRAY 320 IV PRN
--- NOTE | 2017-05-09 10:30 | DIAGNOSTIC IMAGING REPORT ---
CHEST 2 VIEWS ROUTINE HISTORY: 77 years-old Male J90 Pleural [id number] history of prior left pneumonectomy. COMPARISON: CT chest 04/19/2017, chest radiograph 12/03/2016 TECHNIQUE: PA and lateral views of the chest FINDINGS: Postsurgical changes from prior left-sided pneumonectomy with large left pleural effusion redemonstrated left subclavian [id number] catheter is again seen with distal tip in the region of the mid SVC. Expected mediastinal shift to the left is again seen. The right lung is generally clear with compensatory hyperinflation. Persistent minimal subsegmental linear perihilar opacities are noted suggesting atelectasis or scarring. Bones are grossly intact. Degenerative changes are seen about the shoulders and spine. Remote mid left collicular fracture. IMPRESSION: Stable exam with postsurgical changes again seen compatible with left-sided pneumonectomy and large left pleural effusion. The above report was generated using voice recognition software. It may contain grammatical, syntax or spelling errors. Electronically signed by: Aubrey Jason M.D. 05/09/2017 10:29 AM Dictated Date/Time: 05/09/2017 10:27 AM
== END | disposition home or self-care (01) ==
LOC: C.RAD 09:57
PROVIDERS: ATTEND Surgery
DX: J90 Pleural effusion, not elsewhere classified (principal)

== ENCOUNTER → 2017-06-21 | Day surgery (SDC) | payer OTHER ==
[2017-06-07 11:54] VITALS: Ht 176.5 cm; Wt 75.5 kg
[~2017-06-21] VITALS: Ht 176.5 cm; Wt 75.5 kg
[~2017-06-21] MED LIST changes: +500ML BSS 0.3ML EPI 1:1000PF IRRIG ONE; +ACETAMINOPHEN 325 MG TAB ONE; +ACETAMINOPHEN 325 MG TAB PO PRN; +AMVISC PLUS 0.8ML SYRINGE INT OCU ONE; -ASPEC81 PO; +ASPI81TA28 PO; +ATOR10TA82 PO; -ATOR10TA88 PO; +ATROPINE SULFATE 0.1 MG/ML 5ML SYR IV PRN; +BSS FLUSH ONE; +ENDOCOAT 0.85ML SYRINGE INT OCU ONE; +EpHEDrine SULFATE INJ 50 MG/ML AMP IV PRN; +EpINEphrine INJ 1MG/ML AMP 1 MG/ML AMP ONE; +LACTATED RINGER'S 1000ML 500 ML IV SCH; +LIDOCAINE 4% OP SOLN DROP CHARGE ONE; +LIDOCAINE 4% OP SOLN DROP CHARGE OPR SCH; +LIDOCAINE HCL 1% MPF 2 ML VIAL ONE; +MIDAZOLAM HCL 1 MG/ML 2ML VIAL ONE; +MIX: 4ML BSS 1ML EPI 1:1000 PF TOP ONE; +MOXIFLOXACIN OPH SOLN PER DROP CHARGE ONE; +POVIDONE-IODINE OP SOLN 30 ML BTL ONE; +PROPARACAINE 0.5% OP SOLN PER DROP CHARGE OPR SCH; +TOBRAMYCIN/DEXAMETHASONE OPH OINT PER APPLN CHARGE ONE
[2017-06-21] MEDS: PHENYLEPHRINE HCL 2.5% OP SOLN PER DROP CHARGE OPR SCH ×3 (10:55→11:05)
[2017-06-21] MEDS: TROPICAMIDE 1% OP SOLN PER DROP CHARGE OPR SCH ×3 (10:56→11:05)
[2017-06-21] MEDS: MOXIFLOXACIN OPH SOLN PER DROP CHARGE OPR SCH ×3 (10:57→11:07)
[2017-06-21] MEDS: CYCLOPENTOLATE HCL 1% OP SOLN PER DROP CHARGE OPR SCH ×3 (10:57→11:06)
--- NOTE | 2017-06-21 12:04 | [facility] Post Operative Brief Note ---
Immediate Operative Summary Operative Date Jun 21, 2017. Pre-Operative Diagnosis Cataract Right Eye Post-Operative Diagnosis Same Procedure(s) Performed Right Cataract Phacoemulsification With Intraocular Lens Implant Surgeon Dr. Taylor Running Rigger Surgeon(s) None Estimated Blood Loss 0 Findings right cataract Specimens None Complication(s) None Disposition
[2017-06-21 12:05] VITALS: TEMP 36.1
--- NOTE | 2017-06-21 12:05 | Discharge Instructions-SurgCtr ---
Discharge Instructions Date of Service Jun 21, 2017. Visit Reason for Visit: Cataract Right Eye Discharge Discharge Diagnosis / Problem: right cataract Discharge Goals Goal(s): Decrease discomfort, Improve function Activity Recommendations Activity Limitations: as noted below Anesthesia . Post Anesthesia Instructions: If you have had General Anesthesia or IV Sedation: * Do not drive today. * Resume driving when surgeon permits. * Do not make important decisions or sign legal documents today. * Call surgeon for: 1. Temperature elevations greater than 101 degrees F. 2. Uncontrollable pain. 3. Excessive bleeding. 4. Persistent nausea and vomiting. 5. Medication intolerance (nausea, vomiting or rash). * For nausea and vomiting use only clear liquids such as: tea, soda, bouillon until nausea subsides, then gradually increase diet as tolerated. * If you have any concerns or questions, call your surgeon's office. If physician is unavailable and it is an emergency, call 911 or go to the nearest emergency room. . Instructions / Follow-Up Instructions / Follow-Up ACTIVITY RECOMMENDATIONS: * Light activities. * You may walk outside, read, watch television. * You may notice redness on the white part of the eye and some blurry vision - this is normal. MEDICATIONS: Resume previous medications unless instructed otherwise by your surgeon. Start all eye drops at 2 pm today: * Eye drops (today): Prednisone - one drop in operative eye every 2 hours while awake Ofloxacin - one drop in operative eye every 2 hours while awake Bromfenac - one drop in operative eye daily SPECIAL CARE INSTRUCTIONS: * Tape plastic shield over eye to sleep at night. Call your doctor at with any concerns or problems. FOLLOW UP VISIT: Follow-up with Dr Taylor at [place] office as scheduled. Diet Recommendations Home Diet: no limitations Procedures Procedures Performed: Right Cataract Phacoemulsification With Intraocular Lens Implant Pending Studies Studies pending at discharge: no Medical Emergencies . Who to Call and When: Medical Emergencies: If at any time you feel your situation is an emergency, please call 911 immediately. . Non-Emergent Contact Non-Emergency issues call your: Surgeon . . "Provider Documentation" section prepared by Edward Taylor. .
--- NOTE | 2017-06-21 12:05 | [facility] Operative Report ---
Operative Report Date of Service Jun 21, 2017. Operative Report DATE OF OPERATION: 06/21/17 PREOPERATIVE DIAGNOSIS: Senile nuclear cataract, right eye POSTOPERATIVE DIAGNOSIS: Senile nuclear cataract, right eye PROCEDURE PERFORMED: Phacoemulsification with intraocular lens implantation, right eye SURGEON: Dr. Edward Taylor ANESTHESIA: Topical with 1% intracameral lidocaine and monitored anesthesia care COMPLICATIONS: None DESCRIPTION OF PROCEDURE: After positively identifying the patient both verbally and by wristband in the preoperative area, the right eye was marked as the operative eye. The patient was then brought back to the operating room by the anesthesia and nursing staff where they were given a drop of Lidocaine and betadine into the operative eye. They were then sterilely prepped and draped in the standard fashion typical for ophthalmic surgery. Steri-strips were placed along the upper eyelids to keep the lashes back, and a lid speculum was placed into the operative eye. At this point, a documented time out was performed with members of the ophthalmology, nursing, and anesthesia staffs all agreeing upon the correct patient, correct location for surgery, correct procedure, and correct type and power of intraocular lens to be implanted. The microscope was then swung into position. First, a paracentesis wound was made using a sideport blade. Then, in sequence, 1% preservative-free lidocaine followed by Endocoat viscoelastic was injected into the anterior chamber. Next , the main incision was made with a keratome blade in triplanar fashion. A sharp cystotome was introduced into the eye and used to create a tear in the anterior capsule, which was directed into a continuous curvilinear capsulorrhexis using Utrata forceps. Hydrodissection was then performed with BSS on a flat-tip cannula. Next, the phacoemulsification handpiece was introduced into the eye and used to remove the nucleus in a [id number] fashion. This was done without complication and then the irrigation-aspiration handpiece was introduced into the eye and used to remove all remaining cortical and epinuclear material. Amvisc was then injected into the anterior chamber as well as into the capsular bag and using the lens injector system, an MX60 24.5 D lens, serial number [id number], and expiration date 02/2020 was injected into the capsular bag and rotated into the correct position. Next, the irrigation- aspiration handpiece was used to remove all remaining Amvisc. BSS was used to hydrate the main wound, and then BSS was injected into the paracentesis site to reach physiologic pressure and then the main wound was checked and found to be watertight. The patient was given drops of Vigamox and Tobradex ointment into the operative eye, and then the surrounding area was cleaned and dried. A clear plastic shield was placed over the eye and the patient was then sat up and taken from the operating room by the anesthesia staff having tolerated the procedure well and suffering no complications. DISPOSITION: The patient was returned to the recovery room in stable condition. I attest to the content of the Intraoperative Record and any orders documented therein. Any exceptions are noted below.
--- NOTE | 2017-06-21 12:13 | Anesthesia Progress Nt - [facility] ---
Anesthesia Post Op Note Date & Time Jun 21, 2017 at 12:13 Vital Signs Pain Intensity: 0 Vital Signs Past 12 Hours Date Time Temp Pulse Resp B/P (MAP) Pulse Ox O2 Delivery O2 Flow Rate FiO2 06/21/17 10:40 36.3 77 16 143/64 (90) 100 Room Air Notes Mental Status: alert / awake / arousable, participated in evaluation Pt Amnestic to Procedure: Yes Nausea / Vomiting: adequately controlled Pain: adequately controlled Airway Patency, RR, SpO2: stable & adequate BP & HR: stable & adequate Hydration State: stable & adequate Anesthetic Complications: no major complications apparent
[2017-06-21 12:24] VITALS: BP 125/74; PULSE 69; O2SAT 100
== END | disposition home or self-care (01) ==
LOC: X.SURG 10:33
PROVIDERS: ATTEND Ophthalmology
DX: H25.11 Age-related nuclear cataract, right eye (principal); I10 Essential (primary) hypertension; M19.90 Unspecified osteoarthritis, unspecified site; Z85.118 Personal history of other malignant neoplasm of bronchus and lung; Z96.651 Presence of right artificial knee joint

== ENCOUNTER → 2017-07-26 | Outpatient (CLI) | payer OTHER ==
[~2017-07-26] MED LIST changes: -500ML BSS 0.3ML EPI 1:1000PF IRRIG ONE; -ACETAMINOPHEN 325 MG TAB ONE; -ACETAMINOPHEN 325 MG TAB PO PRN; -AMVISC PLUS 0.8ML SYRINGE INT OCU ONE; -ATROPINE SULFATE 0.1 MG/ML 5ML SYR IV PRN; -BSS FLUSH ONE; -ENDOCOAT 0.85ML SYRINGE INT OCU ONE; -EpHEDrine SULFATE INJ 50 MG/ML AMP IV PRN; -EpINEphrine INJ 1MG/ML AMP 1 MG/ML AMP ONE; -LACTATED RINGER'S 1000ML 500 ML IV SCH; -LIDOCAINE 4% OP SOLN DROP CHARGE ONE; -LIDOCAINE 4% OP SOLN DROP CHARGE OPR SCH; -LIDOCAINE HCL 1% MPF 2 ML VIAL ONE; -METO25TA56 PO; -MIDAZOLAM HCL 1 MG/ML 2ML VIAL ONE; -MIX: 4ML BSS 1ML EPI 1:1000 PF TOP ONE; -MOXIFLOXACIN OPH SOLN PER DROP CHARGE ONE; -POVIDONE-IODINE OP SOLN 30 ML BTL ONE; -PROPARACAINE 0.5% OP SOLN PER DROP CHARGE OPR SCH; -TOBRAMYCIN/DEXAMETHASONE OPH OINT PER APPLN CHARGE ONE
--- NOTE | 2017-07-26 11:42 | DIAGNOSTIC IMAGING REPORT ---
PET/CT HISTORY: LUNG CANCER TECHNIQUE: PET/CT was performed from the base of the skull through the pelvis following the intravenous administration of 14 mCi of F18-FDG. Non-contrast CT imaging was performed over the same range without breath-hold for attenuation correction of PET images and anatomic correlation, but not for primary interpretation as it is not of standard diagnostic quality. CT DOSE: COMPARISON: Chest abdomen pelvis CT 04/19/2017. PET CT 06/29/2016. FINDINGS: HEAD AND NECK: There is no FDG-avid disease or significant lymphadenopathy in the imaged portions of the head and the neck. CHEST: 1.5 cm focus of moderate FDG uptake with an SUV max of 4 within the right hilum adjacent to the distal right main pulmonary artery. No definite corresponding CT abnormality. Therefore, this could be vascular. FDG uptake within the subcarinal location appears to be related to the esophagus but is difficult to characterize due to the motion artifact. There is no air-space disease. There is a new 7 mm subpleural nodule within the superior segment of the right lower lobe on image 81. There is mild FDG uptake adjacent to this nodule overlying the cortex of the adjacent vertebral body. This could be misregistration and therefore this is concerning for FDG uptake associated with this nodule. There appears to be 6 mm nodule within the right lower lobe in image 101 with mild FDG uptake with an SUV max of 1.4. Possible 7 mm nodule within the right lung base in image 114 and possible 4 mm nodule within the superior segment of the right lower lobe on image 72. However, these nodules are difficult to assess due to the motion artifact at this location. The possible 7 mm nodule the right lung base may also demonstrate FDG uptake but is difficult to assess due to the motion artifact/misregistration. Linear scarlike density within the right upper lobe anteriorly, unchanged. Postoperative changes consistent with a prior left pneumonectomy. There is fluid filling the pneumonectomy cavity, unchanged. Small hiatus hernia. ABDOMEN/PELVIS: Below the diaphragm, tracer is distributed physiologically in the gastrointestinal and genitourinary tracts. There is no significant lymphadenopathy and no FDG-avid disease. Left hepatic lobe cysts are again noted. Moderate renal gland thickening, unchanged. MUSCULOSKELETAL: Focal area of mild FDG uptake within the left posterior seventh rib with an SUV max of 2.9. No definite corresponding bony abnormality. However, this is new from the prior study. Stable postoperative changes within the proximal right femur. IMPRESSION: 1. A few new and FDG avid subcentimeter pulmonary nodules within the right lower lobe as described above. This is consistent with metastatic disease. 2. Additional sites of FDG uptake seen within the right hilum, subcarinal location, and left posterior seventh rib as described above. No definite corresponding abnormality by CT. However, these bear watching on future examinations to exclude developing metastatic disease. Electronically signed by: Zelalem Nolan M.D. 07/26/2017 11:40 AM Dictated Date/Time: 07/26/2017 11:11 AM
== END | disposition home or self-care (01) ==
LOC: C.PET 08:05
PROVIDERS: ATTEND Surgery
DX: C34.92 Malignant neoplasm of unspecified part of left bronchus or lung (principal)

== ENCOUNTER → 2017-08-02 | Day surgery (SDC) | payer OTHER ==
[2017-07-03 12:21] VITALS: Ht 176.5 cm; Wt 75.5 kg
[~2017-08-02] VITALS: Ht 176.5 cm; Wt 75.5 kg
[~2017-08-02] MED LIST changes: +500ML BSS 0.3ML EPI 1:1000PF IRRIG ONE; +ACETAMINOPHEN 325 MG TAB PO PRN; +AMVISC PLUS 0.8ML SYRINGE INT OCU ONE; +ATROPINE SULFATE 0.1 MG/ML 5ML SYR IV PRN; +BSS FLUSH ONE; +ENDOCOAT 0.85ML SYRINGE INT OCU ONE; +EpHEDrine SULFATE INJ 50 MG/ML AMP IV PRN; +EpINEphrine INJ 1MG/ML AMP 1 MG/ML AMP ONE; +LACTATED RINGER'S 1000ML 500 ML IV SCH; +LIDOCAINE 4% OP SOLN DROP CHARGE ONE; +LIDOCAINE 4% OP SOLN DROP CHARGE OPL SCH; +LIDOCAINE HCL 1% MPF 2 ML VIAL ONE; +MIDAZOLAM HCL 1 MG/ML 2ML VIAL ONE; +MIX: 4ML BSS 1ML EPI 1:1000 PF TOP ONE; +MOXIFLOXACIN OPH SOLN PER DROP CHARGE ONE; +POVIDONE-IODINE OP SOLN 30 ML BTL ONE; +PROPARACAINE 0.5% OP SOLN PER DROP CHARGE OPL SCH; +TOBRAMYCIN/DEXAMETHASONE OPH OINT PER APPLN CHARGE ONE
[2017-08-02] MEDS: PHENYLEPHRINE HCL 2.5% OP SOLN PER DROP CHARGE OPL SCH ×3 (06:38→06:48)
[2017-08-02] MEDS: TROPICAMIDE 1% OP SOLN PER DROP CHARGE OPL SCH ×3 (06:39→06:49)
[2017-08-02] MEDS: CYCLOPENTOLATE HCL 1% OP SOLN PER DROP CHARGE OPL SCH ×3 (06:40→06:50)
[2017-08-02] MEDS: MOXIFLOXACIN OPH SOLN PER DROP CHARGE OPL SCH ×3 (06:41→06:51)
--- NOTE | 2017-08-02 07:59 | [facility] Post Operative Brief Note ---
Immediate Operative Summary Operative Date Aug 02, 2017. Pre-Operative Diagnosis Cataract Left Eye Post-Operative Diagnosis same as preop Procedure(s) Performed Left Cataract Phacoemulsification With Intraocular Lens Implant Surgeon Dr. Taylor Petroleum Inspector Supervisor Surgeon(s) none Estimated Blood Loss 0ml Findings left cataract Specimens none Complication(s) None Disposition
[2017-08-02 08:01] VITALS: TEMP 36.4
--- NOTE | 2017-08-02 08:01 | [facility] Operative Report ---
Operative Report Date of Service Aug 02, 2017. Operative Report DATE OF OPERATION: 08/02/17 PREOPERATIVE DIAGNOSIS: Senile nuclear cataract, left eye POSTOPERATIVE DIAGNOSIS: Senile nuclear cataract, left eye PROCEDURE PERFORMED: Phacoemulsification with intraocular lens implantation, left eye SURGEON: Dr. Edward Taylor ANESTHESIA: Topical with 1% intracameral lidocaine and monitored anesthesia care COMPLICATIONS: None DESCRIPTION OF PROCEDURE: After positively identifying the patient both verbally and by wristband in the preoperative area, the left eye was marked as the operative eye. The patient was then brought back to the operating room by the anesthesia and nursing staff where they were given a drop of Lidocaine and betadine into the operative eye. They were then sterilely prepped and draped in the standard fashion typical for ophthalmic surgery. Steri-strips were placed along the upper eyelids to keep the lashes back, and a lid speculum was placed into the operative eye. At this point, a documented time out was performed with members of the ophthalmology, nursing, and anesthesia staffs all agreeing upon the correct patient, correct location for surgery, correct procedure, and correct type and power of intraocular lens to be implanted. The microscope was then swung into position. First, a paracentesis wound was made using a sideport blade. Then, in sequence, 1% preservative-free lidocaine followed by Endocoat viscoelastic was injected into the anterior chamber. Next , the main incision was made with a keratome blade in triplanar fashion. A Malyugin ring was inserted due to poor pupil dilation. A sharp cystotome was introduced into the eye and used to create a tear in the anterior capsule, which was directed into a continuous curvilinear capsulorrhexis using Utrata forceps. Hydrodissection was then performed with BSS on a flat-tip cannula. Next, the phacoemulsification handpiece was introduced into the eye and used to remove the nucleus in a [id number] fashion. This was done without complication and then the irrigation-aspiration handpiece was introduced into the eye and used to remove all remaining cortical and epinuclear material. Amvisc was then injected into the anterior chamber as well as into the capsular bag and using the lens injector system, an MX60 24.0 D lens, serial number [id number], and expiration date 02/2020 was injected into the capsular bag and rotated into the correct position. The Malyugin ring was removed. Next, the irrigation-aspiration handpiece was used to remove all remaining Amvisc. BSS was used to hydrate the main wound, and then BSS was injected into the paracentesis site to reach physiologic pressure and then the main wound was checked and found to be watertight. The patient was given drops of Vigamox and Tobradex ointment into the operative eye, and then the surrounding area was cleaned and dried. A clear plastic shield was placed over the eye and the patient was then sat up and taken from the operating room by the anesthesia staff having tolerated the procedure well and suffering no complications. DISPOSITION: The patient was returned to the recovery room in stable condition. I attest to the content of the Intraoperative Record and any orders documented therein. Any exceptions are noted below.
--- NOTE | 2017-08-02 08:02 | Discharge Instructions-[facility]urgCtr ---
Discharge Instructions Date of Service Aug 02, 2017. Visit Reason for Visit: Cataract Left Eye Discharge Discharge Diagnosis / Problem: left cataract Discharge Goals Goal(s): Decrease discomfort, Improve function Activity Recommendations Activity Limitations: as noted below Anesthesia . Post Anesthesia Instructions: If you have had General Anesthesia or IV Sedation: * Do not drive today. * Resume driving when surgeon permits. * Do not make important decisions or sign legal documents today. * Call surgeon for: 1. Temperature elevations greater than 101 degrees F. 2. Uncontrollable pain. 3. Excessive bleeding. 4. Persistent nausea and vomiting. 5. Medication intolerance (nausea, vomiting or rash). * For nausea and vomiting use only clear liquids such as: tea, soda, bouillon until nausea subsides, then gradually increase diet as tolerated. * If you have any concerns or questions, call your surgeon's office. If physician is unavailable and it is an emergency, call 911 or go to the nearest emergency room. . Instructions / Follow-Up Instructions / Follow-Up ACTIVITY RECOMMENDATIONS: * Light activities. * You may walk outside, read, watch television. * You may notice redness on the white part of the eye and some blurry vision - this is normal. MEDICATIONS: Resume previous medications unless instructed otherwise by your surgeon. Start all eye drops at 10 am today: * Eye drops (today): Prednisone - one drop in operative eye every 2 hours while awake Ofloxacin - one drop in operative eye every 2 hours while awake Bromfenac - one drop in operative eye daily SPECIAL CARE INSTRUCTIONS: * Tape plastic shield over eye to sleep at night. Call your doctor at with any concerns or problems. FOLLOW UP VISIT: Follow-up with Dr Taylor at [facility] as scheduled. Diet Recommendations Home Diet: no limitations Procedures Procedures Performed: Left Cataract Phacoemulsification With Intraocular Lens Implant Pending Studies Studies pending at discharge: no Medical Emergencies . Who to Call and When: Medical Emergencies: If at any time you feel your situation is an emergency, please call 911 immediately. . Non-Emergent Contact Non-Emergency issues call your: Surgeon . . "Provider Documentation" section prepared by Edward Taylor. .
--- NOTE | 2017-08-02 08:18 | Anesthesia Progress Nt - [facility] ---
Anesthesia Post Op Note Date & Time Aug 02, 2017 at 08:18 Vital Signs Pain Intensity: 0 Vital Signs Past 12 Hours Date Time Temp Pulse Resp B/P (MAP) Pulse Ox O2 Delivery O2 Flow Rate FiO2 08/02/17 08:01 36.4 83 16 103/68 (80) 96 Room Air 08/02/17 06:24 36.4 83 20 114/75 (88) 97 Room Air Notes Mental Status: alert / awake / arousable, participated in evaluation Pt Amnestic to Procedure: Yes Nausea / Vomiting: adequately controlled Pain: adequately controlled Airway Patency, RR, SpO2: stable & adequate BP & HR: stable & adequate Hydration State: stable & adequate Anesthetic Complications: no major complications apparent
[2017-08-02 08:22] VITALS: BP 120/78; PULSE 73; O2SAT 97
== END | disposition home or self-care (01) ==
LOC: X.SURG 06:13
PROVIDERS: ATTEND Ophthalmology
DX: H25.12 Age-related nuclear cataract, left eye (principal); Z85.118 Personal history of other malignant neoplasm of bronchus and lung; Z90.89 Acquired absence of other organs; E78.00 Pure hypercholesterolemia, unspecified; Z96.651 Presence of right artificial knee joint

== ENCOUNTER → 2017-08-31 | Outpatient (CLI) | payer OTHER ==
[~2017-08-31] MED LIST changes: -500ML BSS 0.3ML EPI 1:1000PF IRRIG ONE; -ACETAMINOPHEN 325 MG TAB PO PRN; -AMVISC PLUS 0.8ML SYRINGE INT OCU ONE; -ATROPINE SULFATE 0.1 MG/ML 5ML SYR IV PRN; +B-CO-25 PO; -BSS FLUSH ONE; -ENDOCOAT 0.85ML SYRINGE INT OCU ONE; +EYED OPL; -EpHEDrine SULFATE INJ 50 MG/ML AMP IV PRN; -EpINEphrine INJ 1MG/ML AMP 1 MG/ML AMP ONE; -LACTATED RINGER'S 1000ML 500 ML IV SCH; -LIDOCAINE 4% OP SOLN DROP CHARGE ONE; -LIDOCAINE 4% OP SOLN DROP CHARGE OPL SCH; -LIDOCAINE HCL 1% MPF 2 ML VIAL ONE; -MIDAZOLAM HCL 1 MG/ML 2ML VIAL ONE; -MIX: 4ML BSS 1ML EPI 1:1000 PF TOP ONE; -MOXIFLOXACIN OPH SOLN PER DROP CHARGE ONE; -MULT-506 PO; -POVIDONE-IODINE OP SOLN 30 ML BTL ONE; -PROPARACAINE 0.5% OP SOLN PER DROP CHARGE OPL SCH; -TOBRAMYCIN/DEXAMETHASONE OPH OINT PER APPLN CHARGE ONE; +[UNRECOGNIZED DRUG - OTHER] OPL
--- NOTE | 2017-08-31 15:31 | DIAGNOSTIC IMAGING REPORT ---
CHEST 2 VIEWS ROUTINE CLINICAL HISTORY: SQUAMOUS CELL LUNG CA lung carcinoma COMPARISON STUDY: No previous studies for comparison. FINDINGS: Prior left-sided pneumonectomy unchanged in appearance. Right lung is considered clear. Potential minimal nodularity seen scattered throughout as described to the patient's PET/CT scan. IMPRESSION: 1. Minimal potential parenchymal nodularity right lung corresponding to the prior PET scan. Prior left-sided pneumonectomy. The above report was generated using voice recognition software. It may contain grammatical, syntax or spelling errors. Electronically signed by: Ravin Wilson M.D. 08/31/2017 3:30 PM Dictated Date/Time: 08/31/2017 3:28 PM
== END | disposition home or self-care (01) ==
LOC: C.RAD 15:11
PROVIDERS: ATTEND Internal Medicine Hematology & Oncology
DX: C34.02 Malignant neoplasm of left main bronchus (principal)

== ENCOUNTER 2017-09-01 06:55 | Inpatient (IN) | payer OTHER ==
[2017-08-17 09:23] VITALS: BMI 24.0
--- NOTE | 2017-08-17 10:00 | PAT Medication Instructions ---
Service Date Aug 17, 2017. Current Home Medication List Aspirin (Aspirin Ec), 81 MG PO QAM Atorvastatin (Lipitor), 1 TAB PO HS B-Complex W/ Folic Acid (Super B Complex Maxi), 1 TAB PO QAM Calcium Carbonate-Cholecalcife (Caltrate 600+D), 1 TAB PO QAM Eye Drops (Eye Drops), 1 DROP OPL QID [Prednisone Forte], 1 DROP OPL BID Medication Instructions For Your Scheduled Surgery - Hold the following medications the morning of surgery: B-Complex W/ Folic Acid (Super B Complex Maxi), 1 TAB PO QAM Calcium Carbonate-Cholecalcife (Caltrate 600+D), 1 TAB PO QAM - Take the following medications the morning of surgery with a sip of water: Eye Drops (Eye Drops), 1 DROP OPL QID (AND BRING THEM WITH YOU TO THE HOSPITAL) [Prednisone Forte], 1 DROP OPL BID Aspirin (Aspirin Ec), 81 MG PO QAM - Take the following medications as scheduled the night before surgery: Eye Drops (Eye Drops), 1 DROP OPL QID [Prednisone Forte], 1 DROP OPL BID Atorvastatin (Lipitor), 1 TAB PO HS If you have any questions please call us at [phone] or [phone] or [phone]
[2017-08-17 11:23] LABS: BASO % 0.6 %; BASO ABS # 0.04 K/uL (0-0.2); EOS % 4.6 %; EOS ABS # 0.29 K/uL (0-0.5); HEMATOCRIT 46.5 % (42-52); IG# 0.01 K/uL (0.00-0.02); LYMPH % 21.6 %; LYMPH ABS # 1.35 K/uL (1.2-3.4); MEAN CELL VOLUME 97.3 fL (80-100); MEAN CORPUSCULAR HEMOGLOBIN 33.5 pg (25-34); MEAN CORPUSCULAR HGB CONC 34.4 g/dl (32-36); MEAN PLATELET VOLUME 10.9 fL (7.4-10.4); MONO % 11.1 %; MONO ABS # 0.69 K/uL (0.11-0.59); NEUT % 61.9 %; NEUT ABS # 3.86 K/uL (1.4-6.5); PLATELET COUNT 208 K/uL (130-400); RED CELL DISTRIBUTION WIDTH CV 13.5 % (11.5-14.5); RED CELL DISTRIBUTION WIDTH SD 47.8 fL (36.4-46.3); WHITE BLOOD COUNT 6.24 K/uL (4.8-10.8)
[2017-08-17 12:06] LABS: CREATININE 1.03 mg/dl (0.60-1.40); POTASSIUM 4.9 mmol/L (3.5-5.1)
[~2017-09-01] VITALS: Ht 175.3 cm; Wt 74.5 kg
[2017-09-01] VITALS (11 sets, daily range): BP systolic 91–148; BP diastolic 58–87; PULSE 56–76; TEMP 36–36.9; O2SAT 94–100; Ht 175.3 cm; Wt 74.5 kg
[~2017-09-01 06:55] MED LIST changes: +LACTATED RINGER'S 1000ML 1,000 ML IV SCH
[2017-09-01] MEDS ORDERED: PROPOFOL IV EMULSION 10 MG/ML 20 ML VIAL IV ONE (07:59)
[2017-09-01] MEDS ORDERED: ONDANSETRON INJ 2 MG/ML 2 ML VIAL ONE (07:59)
[2017-09-01] MEDS ORDERED: DEXAMETHASONE SOD INJ 4 MG/ML VIAL ONE (07:59)
[2017-09-01] MEDS ORDERED: ROCURONIUM BROMIDE 10 MG/ML 5 ML VIAL IV ONE (07:59)
[2017-09-01] MEDS ORDERED: LIDOCAINE HCL 2% 2 ML VIAL (20MG/ML) ONE (07:59)
[2017-09-01] MEDS ORDERED: FENTANYL CITRATE INJ 50 MCG/1 ML 2 ML VIAL ONE ×2 (07:59)
[2017-09-01] MEDS ORDERED: BUPIVACAINE 0.5 % 5 MG/1 ML MPF 30ML VIAL ONE (08:45)
[2017-09-01] MEDS ORDERED: SODIUM CHLORIDE 0.9% PF 50 ML VIAL ONE ×2 (08:45→08:46)
[2017-09-01] MEDS ORDERED: BUPIVACAINE LIPOSOME 1/3% 266 MG/20 ML VIAL INFIL ONE (08:46)
[2017-09-01] MEDS ORDERED: HYDROmorphone INJ 2 MG/ML SYR/VIAL IV PRN (09:00)
[2017-09-01] MEDS ORDERED: ONDANSETRON INJ 2 MG/ML 2 ML VIAL IV PRN ×2 (09:00→10:15)
[2017-09-01] MEDS ORDERED: ATROPINE SULFATE 0.1 MG/ML 5ML SYR IV PRN (09:00)
[2017-09-01] MEDS ORDERED: CEFAZOLIN SOD 1 GM VIAL ONE (09:27)
[2017-09-01] MEDS ORDERED: GLYCOPYRROLATE INJ 0.2 MG/ML VIAL ONE (09:39)
[2017-09-01] MEDS ORDERED: NEOSTIGMINE METHYLSULFATE 5 MG/5 ML SYR ONE (09:39)
--- NOTE | 2017-09-01 10:02 | [facility] Post Operative Brief Note ---
Immediate Operative Summary Operative Date Sep 01, 2017. Pre-Operative Diagnosis Right lower lobe lung masses Post-Operative Diagnosis Right lower lobe lung masses Procedure(s) Performed Right Video Assisted Thoracoscopy with Right Lower Lobe Wedge Resection X2 Surgeon Dr David Quality Control Assessor Surgeon(s) Theodore Gonzalez PA-C Estimated Blood Loss 10ml Findings Consistent with Post-Op Diagnosis Specimens Frozen section #1 superior segment right lower lobe sent out at 0942 A.Right lower lobe lung nodule Anesthesia Type General
[2017-09-01] MEDS ORDERED: MoRPHine SULFATE 2 MG/ML CARP IV PRN ×2 (10:15→11:30)
--- NOTE | 2017-09-01 10:48 | OPERATIVE REPORT ---
DATE OF OPERATION: 09/01/2017 PREOPERATIVE DIAGNOSES: 1. New nodules, right lower lobe. 2. Status post radical left pneumonectomy for squamous cell carcinoma. POSTOPERATIVE DIAGNOSIS: Apparent metastatic squamous carcinoma, right lower lobe. OPERATIVE PROCEDURE: Right thoracoscopy with wedge resection x2, right lower lobe. SURGEON: Dr. David. SORTING SUPERVISOR: Leo Gonzalez. (Mr. Chengard was present for the entire case and was instrumental holding in the camera and closed the skin incisions at the conclusion.) ANESTHESIA: General anesthesia single lumen intubation. INDICATION FOR PROCEDURE AND FINDINGS: Alex Henry is extremely nice 77-year-old male who underwent a radical pneumonectomy for what turned out to be a stage IIIA nonsmall cell lung carcinoma which was a squamous cell carcinoma last year. This was about 13 months ago. He presented back for routine surveillance. He has no signs or symptoms, but a CT scan showed that he had at least 2 new nodules which were small but concerning. Despite the fact that the patient had a pneumonectomy, felt that we could safely do a thoracoscopy and wedge these out for a diagnosis. On 09/01/2017, the patient underwent an uncomplicated right thoracoscopy with CO2 insufflation. We wedged out the superior segment of the right lower lobe apex and then a small segment of the lower lobe. Frozen section showed this to be metastatic squamous cell carcinoma in the apical portion of the superior segment of lower lobe. He tolerated it very well. DESCRIPTION OF PROCEDURE: The patient brought to the operating room and laid in supine position. General anesthesia induced and endotracheal intubation was performed single lumen tube. The patient was turned in left lateral decubitus position, his right chest prepped and draped in the sterile fashion. Appropriate timeout had been called and prophylactic antibiotics given. A 5 mm port was placed just posterior to the tip of the scapula 2 to interspaces. Carbon dioxide was insufflated. When this camera was placed, it could be seen that the lung had collapsed nicely. We still had some ventilation of course and his saturations were very good. Another 5 mm port was placed just anterior to the latissimus dorsi muscle at about the fourth interspace and a 12 mm port was placed about the eighth interspace anteriorly. We immediately found the nodule in the superior segment of the lower lobe and we wedged this out without difficulty with an Endo-MICHELLE stapler. We were then able to find the other nodule in the lower lobe and we wedged this out along the diaphragmatic sulci. We had no bleeding and no air leak from either one of these. 266 mg of Exparel were mixed with 30 mL of 0.5% bupivacaine and 150 mL of normal saline and used to make an intercostal block from the 2nd to the 12th rib. This went very nicely. I also injected the incisions with this Exparel. The frozen section showed the superior segment mass to be a squamous cell carcinoma. A 24-Indian chest tube was directed towards the apex and brought out through the anterior inferior most incision. A 4-0 Monocryl was used in a running subcuticular fashion to approximate the wounds areas of all 3 incisions. He tolerated it well. I attest to the content of the Intraoperative Record and any orders documented therein. Any exception s are noted below.
--- NOTE | 2017-09-01 11:13 | DIAGNOSTIC IMAGING REPORT ---
CHEST ONE VIEW PORTABLE CLINICAL HISTORY: right wedge resection postoperative evaluation COMPARISON STUDY: No previous studies for comparison. FINDINGS: Postoperative changes right hemithorax. Right-sided chest tube in good position. No significant and/or only minimal right apical postprocedural pneumothorax. IMPRESSION: Minimal post procedural right apical pneumothorax. Prior left pneumonectomy. The above report was generated using voice recognition software. It may contain grammatical, syntax or spelling errors. Electronically signed by: Ravin Wilson M.D. 09/01/2017 11:12 AM Dictated Date/Time: 09/01/2017 11:08 AM
--- NOTE | 2017-09-01 11:36 | Anesthesiology Progress Note ---
Anesthesia Post Op Note Date & Time Sep 01, 2017 at 11:35 Vital Signs Pain Intensity: 2.0 Vital Signs Past 12 Hours Date Time Temp Pulse Resp B/P (MAP) Pulse Ox O2 Delivery O2 Flow Rate FiO2 09/01/17 11:22 99 Nasal Cannula 3.0 09/01/17 11:14 36.3 74 19 147/82 (103) 100 Nasal Cannula 3.0 09/01/17 11:01 126/80 09/01/17 10:58 58 22 09/01/17 10:58 58 22 100 09/01/17 10:56 36.4 09/01/17 10:56 128/72 09/01/17 10:53 61 23 09/01/17 10:53 60 23 100 09/01/17 10:52 62 15 09/01/17 10:52 61 15 100 09/01/17 10:51 152/93 09/01/17 10:47 62 15 100 09/01/17 10:47 63 15 09/01/17 10:46 128/88 09/01/17 10:42 74 18 100 09/01/17 10:42 75 18 09/01/17 10:41 136/93 09/01/17 10:37 75 15 100 09/01/17 10:37 75 15 09/01/17 10:36 147/89 09/01/17 10:32 77 14 100 09/01/17 10:32 77 14 09/01/17 10:31 134/91 09/01/17 10:30 78 21 100 09/01/17 10:30 79 21 09/01/17 10:26 150/87 09/01/17 10:25 81 17 100 09/01/17 10:25 81 17 09/01/17 10:20 83 21 09/01/17 10:20 100 21 100 09/01/17 10:16 149/96 09/01/17 10:15 36.0 86 16 149/96 99 Oxymask 10 09/01/17 07:20 36.5 18 129/78 (95) 97 Room Air Notes Mental Status: alert / awake / arousable, participated in evaluation Pt Amnestic to Procedure: Yes Nausea / Vomiting: adequately controlled Pain: adequately controlled Airway Patency, RR, SpO2: stable & adequate BP & HR: stable & adequate Hydration State: stable & adequate Anesthetic Complications: no major complications apparent
[2017-09-01] MEDS ORDERED: D5W AND 1/2NSS 1,000 ML IV SCH (13:00)
[2017-09-01] MEDS: ACETAMINOPHEN IV 1,000 MG in EMPTY BAG 0 ML IV SCH ×2 (13:44→22:06)
[2017-09-01] MEDS: KETOROLAC TROMETHAMINE 15 MG/ML VIAL IV. SCH ×2 (13:44→22:05)
[2017-09-01] MEDS: METOCLOPRAMIDE HCL INJ 5 MG/ML 2 ML VIAL IV. SCH ×2 (13:44→22:05)
[2017-09-01] MEDS: DOCUSATE SODIUM 100 MG CAP PO SCH (20:55)
[2017-09-01] MEDS: ATORVASTATIN 10 MG TAB PO SCH (20:55)
[2017-09-02] VITALS (7 sets, daily range): BP systolic 103–145; BP diastolic 68–88; PULSE 59–81; TEMP 36.5–36.7; O2SAT 92–96
[2017-09-02] MEDS: ACETAMINOPHEN IV 1,000 MG in EMPTY BAG 0 ML IV SCH ×3 (05:46→21:57)
[2017-09-02] MEDS: KETOROLAC TROMETHAMINE 15 MG/ML VIAL IV. SCH ×3 (05:47→21:58)
[2017-09-02] MEDS: METOCLOPRAMIDE HCL INJ 5 MG/ML 2 ML VIAL IV. SCH (05:47)
--- NOTE | 2017-09-02 07:38 | DIAGNOSTIC IMAGING REPORT ---
CHEST ONE VIEW PORTABLE HISTORY: right wedge resection COMPARISON: Chest 09/01/2017. FINDINGS: Prior left pneumonectomy with complete opacification of the left hemithorax and left mediastinal shift. This remains unchanged. Left subclavian Port-A-Cath terminates in the expected location of the proximal SVC. This is also unchanged in position. Old, healed clavicle fracture. Right-sided chest tube has been pulled back and now resides within the lateral mid lung zone. Tiny right apical pneumothorax has decreased in size. Small amount of right chest wall subcutaneous emphysema. Small patchy airspace opacities within the periphery of the right lung base. IMPRESSION: Tiny right apical pneumothorax has improved. Right chest tube is in slightly pulled back compared to the prior study. Right chest wall subcutaneous emphysema has progressed. Left-sided pneumonectomy is again noted. Electronically signed by: Zelalem Nolan M.D. 09/02/2017 7:36 AM Dictated Date/Time: 09/02/2017 7:32 AM
[2017-09-02] MEDS: DOCUSATE SODIUM 100 MG CAP PO SCH ×2 (09:12→20:42)
[2017-09-02] MEDS: CALCIUM 600MG + VIT D 400 IU TAB PO SCH (09:12)
[2017-09-02] MEDS: ASPIRIN 81 MG ECTAB PO SCH (09:14)
[2017-09-02] MEDS: VITAMIN B COMPLEX TAB PO SCH (09:15)
[2017-09-02] MEDS: ENOXAPARIN 40 MG/0.4 ML SYR SQ SCH (09:17)
--- NOTE | 2017-09-02 11:15 | SURGERY PROGRESS NOTE ---
DATE: 09/02/2017 SUBJECTIVE: Mr. Henry was seen today. He is on room air, ambulating in the hallway and looks quite good. Unfortunately, he has a small air leak. I thought his x-ray looked good, but at this point, I do not want to chance removing his chest tube. I had a long talk with the patient and his daughter and . He looks good otherwise. We are going to keep him for another day, at least. He is moving air well on auscultation and he does have some subcutaneous emphysema. His air leak is small and he is not draining really much in the way of fluid. HELEN
[2017-09-02] MEDS: ATORVASTATIN 10 MG TAB PO SCH (20:42)
[2017-09-03] VITALS (7 sets, daily range): BP systolic 115–158; BP diastolic 74–94; PULSE 77–102; TEMP 36.6–36.8; O2SAT 92–97
[2017-09-03] MEDS: ACETAMINOPHEN IV 1,000 MG in EMPTY BAG 0 ML IV SCH (05:41)
[2017-09-03] MEDS: KETOROLAC TROMETHAMINE 15 MG/ML VIAL IV. SCH (05:42)
[2017-09-03] MEDS: VITAMIN B COMPLEX TAB PO SCH (09:15)
[2017-09-03] MEDS: ASPIRIN 81 MG ECTAB PO SCH (09:16)
[2017-09-03] MEDS: ENOXAPARIN 40 MG/0.4 ML SYR SQ SCH (09:16)
[2017-09-03] MEDS: DOCUSATE SODIUM 100 MG CAP PO SCH ×2 (09:16→21:21)
[2017-09-03] MEDS: CALCIUM 600MG + VIT D 400 IU TAB PO SCH (09:16)
--- NOTE | 2017-09-03 11:10 | Progress Note ---
Progress Note Date of Service Sep 03, 2017. Progress Note Mr. Alex Henry was seen today. He is ambulating in the hallway on room air without difficulty. It appears he does have some cutaneous emphysema. He has a very tiny intermittent air leak however, given the fact he has a pneumonectomy on the left, I would like to leave this right chest tube in for a bit longer. His incisions are clean. We will check a chest x-ray in the morning. It is possible we can remove this chest tube tomorrow or more likely on Monday. He did complain of an inability to breathe which he stated was intermittent and he is "fine now". Looks great on physical exam.
[2017-09-03] MEDS ORDERED: NURSING VERBAL MED ORDER ONE ×2 (15:30→23:45)
[2017-09-03] MEDS: ACETAMINOPHEN 500 MG TAB PO SCH ×2 (16:23→23:34)
[2017-09-03] MEDS: ATORVASTATIN 10 MG TAB PO SCH (21:21)
--- NOTE | 2017-09-03 23:17 | DIAGNOSTIC IMAGING REPORT ---
CHEST ONE VIEW PORTABLE HISTORY: increased swelling. COMPARISON: Chest 09/02/2017. FINDINGS: Progressive subcutaneous emphysema seen throughout the neck and chest, right greater than left. Moderate right pneumothorax has increased in size. This demonstrates a maximal pleural gap of 2.3 cm. The right chest tube has moved to the right midlung zone likely due to the change in position of the lung. Left subclavian Port-A-Cath terminates in the expected location of the proximal SVC. There is persistent left mediastinal shift. Left pneumonectomy with near complete opacification the left hemithorax is again noted. IMPRESSION: Increase in size in the moderate right pneumothorax. There is also significant progression in the subcutaneous emphysema predominantly along the right chest wall. Findings discussed with Dr. David at 11:20 PM on 09/03/2017. Electronically signed by: Zelalem Nolan M.D. 09/03/2017 11:22 PM Dictated Date/Time: 09/03/2017 11:12 PM
[2017-09-03] MEDS ORDERED: LORAZEPAM 0.5 MG TAB PO PRN (23:45)
[2017-09-04 03:15] VITALS: BP 118/81; PULSE 101; TEMP 37; O2SAT 98
--- NOTE | 2017-09-04 06:30 | DIAGNOSTIC IMAGING REPORT ---
CHEST ONE VIEW PORTABLE CLINICAL HISTORY: chest tube, increased swelling. COMPARISON STUDY: Chest radiograph September 03, 2017. FINDINGS: A right chest tube is in place. A small right pneumothorax has decreased in size. Pleural separation now measures 7 mm. A left subclavian [id number]-[id number]-Afwn placed. The patient is status post left pneumonectomy. Near complete opacification of the left hemithorax is noted. Lucency projects over the pneumonectomy cavity which may reflect pneumomediastinum/subcutaneous gas. Extensive subcutaneous gas within the chest wall and neck has progressed. Pneumomediastinum is noted. IMPRESSION: 1. Right chest tube in place. Small right pneumothorax has decreased in size. 2. Progression of extensive subcutaneous gas within the chest wall and neck as well as pneumomediastinum since exam of September 03, 2017. 3. Status post left pneumonectomy. Near complete opacification of the left hemithorax. Lucency projecting over the pneumonectomy bed may reflect pneumomediastinum/subcutaneous gas. Electronically signed by: Jose E Abdi M.D. 09/04/2017 6:28 AM Dictated Date/Time: 09/04/2017 6:25 AM
--- NOTE | 2017-09-04 06:33 | DIAGNOSTIC IMAGING REPORT ---
CHEST ONE VIEW PORTABLE CLINICAL HISTORY: CHEST TUBE, INCREASED SWELLING COMPARISON STUDY: Chest radiograph September 03, 2017 11:46 PM. FINDINGS: A right chest tube is in place. A small right pneumothorax is noted with superior pleural separation of 1.2 cm. This is slightly increased since prior exam. A left subclavian [id number]-g-Ljbz is in place. The patient is status post left pneumonectomy. There is near complete opacification of left hemithorax. Extensive subcutaneous gas within the neck and chest is noted with pneumomediastinum. This has mildly progressed. IMPRESSION: 1. Right chest tube in place. Small right pneumothorax which has slightly increased in size. 2. Extensive subcutaneous gas within the chest and neck and pneumomediastinum which has slightly progressed. 3. Near complete opacification of left hemithorax status post pneumonectomy. Abnormal partial aeration of the left pneumonectomy bed. Electronically signed by: Jose E Abdi M.D. 09/04/2017 6:31 AM Dictated Date/Time: 09/04/2017 6:28 AM
[2017-09-04 07:02] VITALS: BP 128/86; PULSE 99; TEMP 36.8; O2SAT 96
--- NOTE | 2017-09-04 08:35 | SURGERY PROGRESS NOTE ---
DATE: 09/04/2017 Mr. Henry is now postoperative day #3 status post a thoracoscopic wedge resection x2 of apparent metastatic squamous cell carcinoma, although the final pathology is not back yet. The patient developed increasing subcutaneous emphysema last night. I came in and readjusted his chest tube and he has had a small but persistent air leak this morning. I have explained to the patient that the subcutaneous emphysema will go away. His oxygenation is great with 97% sats on room air. He is ambulating in the hallway. He has very little fluid drainage from his chest tube. I think that he will settle down from this, but it is going to take some time.
[2017-09-04] MEDS: DOCUSATE SODIUM 100 MG CAP PO SCH ×2 (08:50→20:32)
[2017-09-04] MEDS: ACETAMINOPHEN 500 MG TAB PO SCH ×3 (08:50→23:41)
[2017-09-04] MEDS: CALCIUM 600MG + VIT D 400 IU TAB PO SCH (08:50)
[2017-09-04] MEDS: ENOXAPARIN 40 MG/0.4 ML SYR SQ SCH (08:50)
[2017-09-04] MEDS: VITAMIN B COMPLEX TAB PO SCH (08:50)
[2017-09-04] MEDS: ASPIRIN 81 MG ECTAB PO SCH (08:50)
[2017-09-04 15:09] VITALS: BP 127/78; PULSE 102; TEMP 37; O2SAT 94
--- NOTE | 2017-09-04 15:33 | DIAGNOSTIC IMAGING REPORT ---
SINGLE VIEW CHEST CLINICAL HISTORY: Right-sided pneumothorax. FINDINGS: An AP, portable, upright chest radiograph is compared to study performed earlier the same day 09/04/17 and correlated with chest CT dated 04/19/2017. The examination is severely degraded by portable technique and patient rotation. The examination is also degraded by extensive subcutaneous emphysema which appears clear as the lung markings. A left subclavian central venous infusion port is unchanged in position. A chest tube is again seen on the right. Advanced emphysema and chronic interstitial thickening are similar to previous. There are postoperative changes from left pneumonectomy with leftward shift of mediastinum and compensatory hypertrophy of the right lung. The heart is enlarged and there is atherosclerotic calcification of the thoracic aorta. Pleural fluid is again seen on the left. A trace right apical pneumothorax likely persists but is difficult to discretely visualize. The skeletal structures are osteopenic. There is chronic posttraumatic deformity of the left clavicle. IMPRESSION: 1. Cardiomegaly, emphysema, and postoperative change from left pneumonectomy as above. 2. A right-sided chest tube is again noted. A trace right apical pneumothorax likely persists but is difficult to visualize due to extensive overlying subcutaneous emphysema. Electronically signed by: Bg Ambriz M.D. 09/04/2017 3:31 PM Dictated Date/Time: 09/04/2017 3:28 PM
--- NOTE | 2017-09-04 15:51 | ONCOLOGY CONSULTATION ---
DATE OF CONSULTATION: 09/04/2017 MEDICAL ONCOLOGY CONSULTATION REASON FOR CONSULTATION: A 77-year-old gentleman with metastatic squamous cell carcinoma of the lung. HISTORY OF PRESENT ILLNESS: Alex is a pleasant 77-year-old gentleman well known to [facility] with the original diagnosis of locally advanced squamous cell carcinoma status post left pneumonectomy and chemoradiation. The patient has also received 4 cycles of consolidative chemotherapy. I would continue to follow Alex in clinic both clinically and radiographically. A PET scan performed in early July suggested 2 enlarging right lower lobe pulmonary nodules that were in close proximity. The patient was subsequently referred back to Dr. Dixon David and he had recommended a wedge resection for biopsy. The patient underwent right video-assisted thoracoscopy and right lower lobe wedge resection x2 on 09/01/2017. Unfortunately, developed a pneumomediastinum and subcutaneous emphysema as a result and continues in observatory status on the 3rd floor. Preliminary pathology suggests metastatic squamous cell carcinoma. PD-L1 testing is recommended to determine Alex's next course of treatment. Clinically, doing quite well other than the subcutaneous emphysema which is translated to the upper chest wall into his neck and into his eyelids. He is experiencing no significant discomfort at this time. PAST MEDICAL HISTORY: Again, significant for original diagnosis of stage IIIA squamous cell carcinoma, adrenal disorder, dyslipidemia, skin cancer and osteoarthritis. PAST SURGICAL HISTORY: Includes a left pneumonectomy and an internal fixation of femur. MEDICATIONS: He is on albuterol nebulizer 4 times daily, aspirin 81 mg p.o. daily, Caltrate with vitamin D 1 p.o. daily, cholecalciferol 1000 units p.o. daily, gabapentin 100 mg p.o. at bedtime, and vitamin B complex. ALLERGIES: No known drug allergies. 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 He is a nondrinker. FAMILY HISTORY: Father of myocardial infarction. Mother's cause of is unclear. No first degree family members with history of neoplasia otherwise. REVIEW OF SYSTEMS: GENERAL: Negative for fevers, chills or sweats. HEENT: Denies headaches, lightheadedness or dizziness presently, no acute visual or hearing deficits. No sinus symptoms, sore throat or dysphagia. LYMPH: No history of lymphadenopathy or lymphoproliferative disorder. CARDIAC: No history of coronary artery disease. No current angina or palpitations. PULMONARY: As per HPI, a recent right video-assisted thoracoscopy with wedge resection x2, current pneumomediastinum and translated subcutaneous emphysema. GASTROINTESTINAL: Negative for abdominal pain, nausea, vomiting, diarrhea or constipation, hematochezia or melena stools. GENITOURINARY: No history of prostate cancer. No hematuria, dysuria, urinary incontinence. PSYCHIATRIC: Negative for anxiety, depression or psychoses. ENDOCRINE: Negative for diabetes or thyroid disease. NEUROLOGIC: Negative for seizure, stroke, or migraine headache by history. HEMATOLOGIC: Negative for anemia, thrombophilia or bleeding diathesis. PHYSICAL EXAMINATION: GENERAL: Very pleasant 77-year-old gentleman in no acute distress. VITAL SIGNS: Temperature 36.8, pulse 99, respiratory rate 18, blood pressure 128/86. SKIN: Without rash or lesion. HEENT: HEAD: Atraumatic, normocephalic. EYES: Could not be examined, difficult to open at this juncture because of the subcutaneous emphysema. NOSE: Nares are patent. MOUTH: Throat is clear. Tongue is midline. Mucous membranes are moist. NECK: Considerable swelling again from subcutaneous emphysema with translation down into the anterior chest wall. HEART: Regular rate and rhythm. No clicks, rubs, murmurs, gallops. LUNGS: Breath sounds in the right hemithorax are clear. Chest tube in place. ABDOMEN: Soft, nontender, nondistended. EXTREMITIES: No clubbing, cyanosis or edema. Pulses and strength are equal otherwise. NEUROLOGICALLY: Grossly intact. LABORATORY DATA: There are no current labs pending. IMAGING DATA: Radiographically, a chest x-ray performed today reveals adequate placement of right chest tube, small right pneumothorax which is decreased in size, progression of extensive subcutaneous gas within the chest wall, neck as well as pneumomediastinum, since exam of September 03. Status post left pneumonectomy is also noted. ASSESSMENT: 1. Status post video-assisted thoracoscopic surgery and right lower lobe wedge resection x2. 2. Metastatic squamous cell carcinoma. 3. Subcutaneous emphysema. PLAN: I had the pleasure of visiting with Alex and his family at bedside today. Puffiness of his eyes, neck and anterior chest is certainly impressive. However, Dr. David feels air leak should subside over time and the subcutaneous emphysema resolve spontaneously. PD-L1 testing has been ordered, and we will make arrangements to see Alex in the clinic upon recovery. I have nothing from an oncologic standpoint at this juncture. I look forward to seeing him as outpatient. Thank you very much for allowing me to participate in his care. If there are questions or concerns, feel free to contact me at any time.
[2017-09-04] MEDS: ATORVASTATIN 10 MG TAB PO SCH (20:32)
[2017-09-04 23:20] VITALS: BP 115/78; PULSE 95; TEMP 36.8; O2SAT 97
--- NOTE | 2017-09-05 07:16 | DIAGNOSTIC IMAGING REPORT ---
CHEST ONE VIEW PORTABLE HISTORY: lung resection COMPARISON: Chest 09/04/2017. FINDINGS: Trace right pneumothorax persists and is not significant changed. Right chest tube is unchanged in position. Postoperative changes consistent with prior left pneumonectomy with left mediastinal shift. Left subclavian Port-A-Cath terminates at the expected location of the proximal SVC. Extensive subcutaneous emphysema throughout the neck and chest was also unchanged. IMPRESSION: No change compared to the prior study. Trace right pneumothorax and the severe subcutaneous emphysema persists. Electronically signed by: Zelalem Nolan M.D. 09/05/2017 7:14 AM Dictated Date/Time: 09/05/2017 7:13 AM
[2017-09-05 07:35] VITALS: O2SAT 96
[2017-09-05 08:09] VITALS: BP 133/88; PULSE 101; TEMP 36.6; O2SAT 96
[2017-09-05] MEDS: ACETAMINOPHEN 500 MG TAB PO SCH ×3 (08:39→23:51)
[2017-09-05] MEDS: DOCUSATE SODIUM 100 MG CAP PO SCH ×2 (08:39→21:18)
[2017-09-05] MEDS: CALCIUM 600MG + VIT D 400 IU TAB PO SCH (08:39)
[2017-09-05] MEDS: VITAMIN B COMPLEX TAB PO SCH (08:40)
[2017-09-05] MEDS: ASPIRIN 81 MG ECTAB PO SCH (08:40)
[2017-09-05] MEDS: ENOXAPARIN 40 MG/0.4 ML SYR SQ SCH (08:40)
--- NOTE | 2017-09-05 11:40 | Progress Note ---
Progress Note Date of Service Sep 05, 2017. Progress Note Mr. Henry was seen today. I had a very long conversation with the patient, his , and his daughter last night. He has an air leak and it is getting smaller in his chest tube. I have explained to him that the reason for his subcutaneous emphysema was a and occlusion of his chest tube. This is resolved now but it will take some time for the subcutaneous emphysema to be resorbed. He remains on room air 96% saturation is ambulating in the hallway. He has marked subcutaneous emphysema but I believe his chest is less tense than yesterday. I really do not see much of a pneumothorax on today's chest x-ray. Final pathology is still pending.
[2017-09-05 14:57] VITALS: BP 107/69; PULSE 109; TEMP 36.8; O2SAT 95
[2017-09-05 15:30] VITALS: O2SAT 95
[2017-09-05] MEDS ORDERED: LIDOCAINE HCL 1% 20 ML VIAL ONE (18:58)
--- NOTE | 2017-09-05 19:33 | Procedure Note ---
Procedure Note Date of Service Sep 05, 2017. Procedure Note Preoperative diagnosis: Increasing subcutaneous emphysema status post wedge resection Postoperative diagnosis: The same Procedure insertion of 24 Slovak right thoracostomy tube Surgeon: Dr. David Anesthesia: Local Procedure the patient's bedside after long discussion with the patient's daughter and the patient and after appropriate consent been signed patient' s right lateral chest was prepped and draped in usual sterile fashion. 1% Xylocaine without epinephrine using a stage of skin subtends tissues. 1.5 cm incision was made. He had a large amount of substantial emphysema I do palpate down to the chest wall then anesthetized the subcutaneous tissues intercostal muscles and the pleura. A guidewire was inserted through the needle and air was obtained and then the needle removed. A gentle dilation was performed to the dilator and then removed and then a 24 Slovak chest tube with an obturator were placed over this guidewire into the chest cavity. The obturator was removed. Small harley of air noted. There was no bleeding. 2-0 silk suture was used [address] We had a small air leak including the case. He tolerated very well. A chest x-ray was performed and showed the chest tube' s tip to be in the apex. He tolerated it well.
--- NOTE | 2017-09-05 20:04 | DIAGNOSTIC IMAGING REPORT ---
SINGLE VIEW CHEST CLINICAL HISTORY: Chest tube placement. Pneumothorax. FINDINGS: An AP, portable, upright chest radiograph is compared to study performed earlier the same day 09/05/2017 and correlated with chest CT dated 04/19/2017. The examination is severely degraded by portable technique and patient rotation. The examination is also degraded by extensive subcutaneous emphysema which obscures the lung markings. A left subclavian central venous infusion port is unchanged in position. A chest tube in the right midlung is unchanged in position. There is a new chest tube is seen at the right apex. Advanced emphysema and chronic interstitial thickening are similar to previous. There are postoperative changes from left pneumonectomy with leftward shift of mediastinum and compensatory hypertrophy of the right lung. The heart is enlarged and there is atherosclerotic calcification of the thoracic aorta. Pleural fluid is again seen on the left. A trace right apical pneumothorax likely persists but is difficult to discretely visualize. The skeletal structures are osteopenic. There is chronic posttraumatic deformity of the left clavicle. IMPRESSION: 1. Cardiomegaly, emphysema, and postoperative change from left pneumonectomy as above. 2. There are now 2 right-sided chest tubes in place. A small right apical pneumothorax likely persists. Electronically signed by: Bg Ambriz M.D. 09/05/2017 8:03 PM Dictated Date/Time: 09/05/2017 8:01 PM
[2017-09-05] MEDS: ATORVASTATIN 10 MG TAB PO SCH (21:19)
[2017-09-05 23:02] VITALS: BP 150/84; PULSE 107; TEMP 36.7; O2SAT 96
[2017-09-06] VITALS (7 sets, daily range): BP systolic 119–154; BP diastolic 80–87; PULSE 74–102; TEMP 36.7–37; O2SAT 94–96
--- NOTE | 2017-09-06 07:12 | DIAGNOSTIC IMAGING REPORT ---
CHEST ONE VIEW PORTABLE CLINICAL HISTORY: lung resection postoperative evaluation COMPARISON STUDY: 09/05/2017 FINDINGS: Extensive bilateral subcutaneous emphysema over both hemithoracic regions. 2 right-sided chest tubes are unchanged in position. Within limitations no significant residual pneumothorax is present. Postoperative changes left hemithorax is stable. Central catheter remains in superior vena cava. IMPRESSION: 1. Extensive subcutaneous emphysema unchanged. Postoperative changes of left hemithoracic region unchanged. 2. 2 right-sided chest tubes in good position with no significant residual pneumothorax the current time. The above report was generated using voice recognition software. It may contain grammatical, syntax or spelling errors. Electronically signed by: Ravin Wilson M.D. 09/06/2017 7:11 AM Dictated Date/Time: 09/06/2017 7:05 AM
[2017-09-06] MEDS: OXYCODONE HCL IR 5 MG TAB (IMMEDIATE RELEASE) PO PRN ×2 (07:35→15:51)
[2017-09-06] MEDS: CALCIUM 600MG + VIT D 400 IU TAB PO SCH (08:34)
[2017-09-06] MEDS: ASPIRIN 81 MG ECTAB PO SCH (08:34)
[2017-09-06] MEDS: ACETAMINOPHEN 500 MG TAB PO SCH ×3 (08:34→23:39)
[2017-09-06] MEDS: DOCUSATE SODIUM 100 MG CAP PO SCH ×2 (08:34→20:53)
[2017-09-06] MEDS: VITAMIN B COMPLEX TAB PO SCH (08:35)
[2017-09-06] MEDS: ENOXAPARIN 40 MG/0.4 ML SYR SQ SCH (08:35)
--- NOTE | 2017-09-06 10:39 | SURGERY PROGRESS NOTE ---
DATE: 09/06/2017 SUBJECTIVE: Mr. Henry was seen today. His subcutaneous emphysema is improved. His chest tube that was placed last night, has a very tiny air leak, but it is in good position at the apex. His subcutaneous emphysema is not as tense. I see no pneumothorax on today's film. I explained to the family it is going to take time for the subcutaneous emphysema to resolve. The mass from the superior segment of his right lower lobe is metastatic squamous cell carcinoma, but the other mass was not. There are clean resection margins. I will be curious to see what treatment is offered by Dr. Ruiz. [facility]ENT[facility]
[2017-09-06] MEDS: ATORVASTATIN 10 MG TAB PO SCH (20:53)
[2017-09-07 07:45] VITALS: BP 128/85; PULSE 93; TEMP 36.9; O2SAT 94
--- NOTE | 2017-09-07 08:48 | SURGERY PROGRESS NOTE ---
DATE: 09/07/2017 Mr. Henry was seen today on 09/07/2017. He looks much better. His subcutaneous emphysema has noticeably decreased. The chest tube which was placed 36 hours ago has a small air leak. His other tube really is not working well, I think this is the base of the above problem. We are going to remove this chest tube today. When his air leak resolves, we will discharge him home. He does look much better. One of the 2 biopsy results was positive for squamous cell carcinoma. He had clean resection margins. I am going to discuss this with Dr. Ruiz.
--- NOTE | 2017-09-07 08:56 | DIAGNOSTIC IMAGING REPORT ---
SINGLE VIEW CHEST CLINICAL HISTORY: Status post pulmonary resection. Chest tube removal. FINDINGS: An AP, portable, upright chest radiograph is compared to study dated 09/06/2017 and correlated with chest CT dated 04/19/2017. The examination is severely degraded by portable technique and patient rotation. The examination is also degraded by extensive subcutaneous emphysema which obscures the lung markings. A left subclavian central venous infusion port is unchanged in position. A chest tube in the right midlung is unchanged in position. The right apical chest tube has been removed. Advanced emphysema and chronic interstitial thickening are similar to previous. There are postoperative changes from left pneumonectomy with leftward shift of the mediastinum and compensatory hyperinflation of the right lung. The heart is enlarged and there is atherosclerotic calcification of the thoracic aorta. Pleural fluid is again seen on the left. No right-sided pneumothorax is clearly identified. The skeletal structures are osteopenic. There is chronic posttraumatic deformity of the left clavicle. IMPRESSION: 1. Cardiomegaly, emphysema, and postoperative change from left pneumonectomy as above. 2. The right apical chest tube has been removed. No definite pneumothorax is identified. This is difficult to assess due to overlying subcutaneous emphysema. Electronically signed by: Bg Ambriz M.D. 09/07/2017 8:55 AM Dictated Date/Time: 09/07/2017 8:52 AM
[2017-09-07] MEDS: ACETAMINOPHEN 500 MG TAB PO SCH ×3 (09:46→23:54)
[2017-09-07] MEDS: ASPIRIN 81 MG ECTAB PO SCH (09:46)
[2017-09-07] MEDS: DOCUSATE SODIUM 100 MG CAP PO SCH ×2 (09:47→20:39)
[2017-09-07] MEDS: VITAMIN B COMPLEX TAB PO SCH (09:47)
[2017-09-07] MEDS: CALCIUM 600MG + VIT D 400 IU TAB PO SCH (09:47)
[2017-09-07] MEDS: ENOXAPARIN 40 MG/0.4 ML SYR SQ SCH (09:48)
[2017-09-07 15:17] VITALS: BP 114/80; PULSE 99; TEMP 36.8; O2SAT 95
[2017-09-07] MEDS: ATORVASTATIN 10 MG TAB PO SCH (20:39)
[2017-09-07 22:45] VITALS: BP 134/88; PULSE 100; TEMP 36.8; O2SAT 94
--- NOTE | 2017-09-08 06:55 | DIAGNOSTIC IMAGING REPORT ---
CHEST ONE VIEW PORTABLE CLINICAL HISTORY: lung resection postoperative evaluation COMPARISON STUDY: 09/07/2017 FINDINGS: Stable postoperative changes post left pneumonectomy. Central catheter remains in the superior vena cava. Moderate compensatory shift of the cardiomediastinal silhouette to the left unchanged. Right basilar chest tube unchanged in appearance. No significant pneumothorax. Unchanging diffuse subcutaneous emphysema IMPRESSION: Unchanged exam. Extensive subcutaneous emphysematous change. Stable postoperative changes. No significant pneumothorax The above report was generated using voice recognition software. It may contain grammatical, syntax or spelling errors. Electronically signed by: Ravin Wilson M.D. 09/08/2017 6:54 AM Dictated Date/Time: 09/08/2017 6:52 AM
--- NOTE | 2017-09-08 07:46 | SURGERY PROGRESS NOTE ---
DATE: 09/08/2017 Mr. Henry looks very good. His subcutaneous emphysema has decreased. He really does not have an air leak; however, to be sure I am going to keep him 1 more day and then pull the chest tube in the morning and let him go.
[2017-09-08 08:06] VITALS: BP 114/72; PULSE 78; TEMP 36.7; O2SAT 97
[2017-09-08] MEDS: ACETAMINOPHEN 500 MG TAB PO SCH ×3 (08:17→23:38)
[2017-09-08] MEDS: ASPIRIN 81 MG ECTAB PO SCH (08:17)
[2017-09-08] MEDS: CALCIUM 600MG + VIT D 400 IU TAB PO SCH (08:18)
[2017-09-08] MEDS: VITAMIN B COMPLEX TAB PO SCH (08:18)
[2017-09-08] MEDS: ENOXAPARIN 40 MG/0.4 ML SYR SQ SCH (08:18)
[2017-09-08] MEDS: DOCUSATE SODIUM 100 MG CAP PO SCH ×2 (08:18→20:59)
[2017-09-08 08:39] VITALS: O2SAT 97
[2017-09-08 15:41] VITALS: BP 117/85; PULSE 88; TEMP 36.8; O2SAT 93
[2017-09-08 16:26] VITALS: O2SAT 94
[2017-09-08] MEDS: ATORVASTATIN 10 MG TAB PO SCH (20:59)
[2017-09-08 23:15] VITALS: BP 130/84; PULSE 95; TEMP 36.9; O2SAT 96
[2017-09-09 07:10] VITALS: BP 117/80; PULSE 95; TEMP 36.7; O2SAT 96
--- NOTE | 2017-09-09 07:23 | DIAGNOSTIC IMAGING REPORT ---
CHEST ONE VIEW PORTABLE CLINICAL HISTORY: Lung resection. Previous left pneumonectomy. COMPARISON STUDY: Chest radiograph September 08, 2017. FINDINGS: Right chest tube is in place. Note is again made of extensive subcutaneous emphysema within the lower neck and chest. There is also is suspected pneumomediastinum. Lucency projects over the left pneumonectomy bed. Left hemithorax lying loss is noted. A left subclavian Debqel-t-Fawm is in place. A subtle left clavicular fracture. No pneumothorax is identified although evaluation is difficult given extensive subcutaneous emphysema. IMPRESSION: 1. Right chest tube in place. No pneumothorax identified although evaluation is difficult given extensive subcutaneous emphysema. 2. No significant change in extensive subcutaneous emphysema and suspected pneumomediastinum since prior exam. Electronically signed by: Jose E Abdi M.D. 09/09/2017 7:21 AM Dictated Date/Time: 09/09/2017 7:18 AM
[2017-09-09] MEDS: ENOXAPARIN 40 MG/0.4 ML SYR SQ SCH (08:57)
[2017-09-09] MEDS: DOCUSATE SODIUM 100 MG CAP PO SCH ×2 (08:57→20:34)
[2017-09-09] MEDS: ACETAMINOPHEN 500 MG TAB PO SCH ×3 (08:57→23:31)
[2017-09-09] MEDS: CALCIUM 600MG + VIT D 400 IU TAB PO SCH (08:57)
[2017-09-09] MEDS: ASPIRIN 81 MG ECTAB PO SCH (08:57)
[2017-09-09] MEDS: VITAMIN B COMPLEX TAB PO SCH (08:57)
--- NOTE | 2017-09-09 11:04 | Surgery Progress Note ---
Subjective Date of Service: Sep 09, 2017. Pt. notes his breathing is comfortable. He is voiding without difficulty, tolerating diet , and ambulating easily. Objective Vitals Date Time Temp Pulse Resp B/P (MAP) Pulse Ox O2 Delivery O2 Flow Rate FiO2 09/09/17 09:00 Room Air 09/09/17 07:10 36.7 95 20 117/80 (92) 96 Room Air 09/08/17 23:35 Room Air 09/08/17 23:15 36.9 95 18 130/84 (99) 96 Room Air 09/08/17 16:26 94 Room Air 09/08/17 15:42 Room Air 09/08/17 15:41 36.8 88 18 117/85 (96) 93 Room Air Physical Exam General: + well developed, + well nourished, No distress CV: + RRR Pulmonary: + pertinent finding (friction rub noted on auscultation), No accessory muscle use, No respiratory distress Extremities: No calf tenderness Neurologic: + alert & oriented x 3 Additional Notes: Pt. noted to have crepitus in soft tissue of back, chest cueto bilaterally, neck , and anterior chest wall. The swelling and sub-q air noted on prior exams has markedly improved. Assessment & Plan 77 year old male s/p right lung wedge resection -continue use of IS and ambulation -due to increased sub-q air pt. required insertion of additional chest tube -clinical improvement noted -will keep CT in today and possibly remove tomorrow -serial CXR to be followed OTHER -lovenox is in place for DVT prevention
[2017-09-09 15:43] VITALS: BP 110/76; PULSE 92; TEMP 36.7; O2SAT 97
[2017-09-09] MEDS: ATORVASTATIN 10 MG TAB PO SCH (20:34)
[2017-09-09 22:50] VITALS: BP 128/85; PULSE 90; TEMP 36.4; O2SAT 96
--- NOTE | 2017-09-10 07:26 | DIAGNOSTIC IMAGING REPORT ---
CHEST ONE VIEW PORTABLE CLINICAL HISTORY: pneumothorax COMPARISON STUDY: September 09, 2017 venous catheter[ FINDINGS: There is a left clavicular fracture. The left subclavian A-Port catheter remains unchanged in position. There is no change the position right-sided chest tube. There is marked left lung volume loss with cardiac and mediastinal shift to the left. There is extensive subcutaneous emphysema and suspected pneumomediastinum. There is a suspected prior left pneumonectomy. No pneumothorax is visualized however evaluation is limited due to the extensive subcutaneous emphysema. IMPRESSION: No significant change from the prior study. No change the position of the right-sided chest tube or left-sided A-Port catheter extensive subcutaneous emphysema and suspected pneumomediastinum. Electronically signed by: Phoenix Edwards M.D. 09/10/2017 7:25 AM Dictated Date/Time: 09/10/2017 7:23 AM
[2017-09-10 07:47] VITALS: BP 121/75; PULSE 98; TEMP 36.6; O2SAT 98
[2017-09-10] MEDS: OXYCODONE HCL IR 5 MG TAB (IMMEDIATE RELEASE) PO PRN (07:49)
[2017-09-10] MEDS ORDERED: ULT/50 PO (08:11)
[2017-09-10] MEDS ORDERED: TYLOTC325 PO (08:11)
[2017-09-10] MEDS ORDERED: CLC100 PO (08:11)
[2017-09-10] MEDS ORDERED: IBUP-1050 PO (08:11)
--- NOTE | 2017-09-10 08:18 | DIAGNOSTIC IMAGING REPORT ---
CHEST ONE VIEW PORTABLE CLINICAL HISTORY: Chest tube removal COMPARISON STUDY: 09/10/2017 FINDINGS: Post pneumonectomy changes are again visualized on the left. The right-sided chest tube has been removed. The left-sided A-Port catheter remains unchanged in position. There is extensive subcutaneous emphysema. Pneumomediastinum is also suspected. No pneumothorax is visualized.[ IMPRESSION: No pneumothorax identified status post removal of the right-sided chest tube. Extensive subcutaneous emphysema persists Electronically signed by: Phoenix Edwards M.D. 09/10/2017 8:16 AM Dictated Date/Time: 09/10/2017 8:15 AM
--- NOTE | 2017-09-10 08:18 | Discharge Instructions ---
Discharge Instructions Date of Service Sep 10, 2017. Admission Reason for Admission: Squamous Cell Lung Cancer, Right Discharge Discharge Diagnosis / Problem: Squamous Cell Lung Cancer Discharge Goals Goal(s): Learn about illness Activity Recommendations Activity Limitations: as noted below Lifting Limitations: none 1. You may remove dressings in 3 days and shower thereafter. No tub baths. 2. Do not drive if taking ultram. 3. Do not drive until cleared to do so by Dr. David. . Instructions / Follow-Up Instructions / Follow-Up 1. Office appointment with Dr. David on Monday, September 11, 2017 @ 10:15. Go to hospital 1 hour before appointment to have a chest x-ray taken. 2. Call Dr. David's office or go to the nearest emergency room if you experience worsening shortness of breath or if you develop worsening swelling of you chest, neck, or face. Current Hospital Diet Patient's current hospital diet: Regular Diet Discharge Diet Recommended Diet: Regular Diet Procedures Procedures Performed: Right Video Assisted Thoracoscopy with Right Lower Lobe Wedge Resection X2 Pending Studies Studies pending at discharge: no Medical Emergencies . Who to Call and When: Medical Emergencies: If at any time you feel your situation is an emergency, please call 911 immediately. . Non-Emergent Contact Non-Emergency issues call your: Surgeon Call Non-Emergent contact if: you have a fever, your pain is not controlled, wound has increased drainage . "Provider Documentation" section prepared by Leo Gonzalez. . VTE Core Measure Inpt VTE Proph given/why not?: Enoxaparin (Lovenox)SQ
[2017-09-10] MEDS: ACETAMINOPHEN 500 MG TAB PO SCH (09:20)
[2017-09-10] MEDS: DOCUSATE SODIUM 100 MG CAP PO SCH (09:21)
[2017-09-10] MEDS: ASPIRIN 81 MG ECTAB PO SCH (09:21)
[2017-09-10] MEDS: CALCIUM 600MG + VIT D 400 IU TAB PO SCH (09:21)
[2017-09-10] MEDS: VITAMIN B COMPLEX TAB PO SCH (09:22)
[2017-09-10] MEDS: ENOXAPARIN 40 MG/0.4 ML SYR SQ SCH (09:22)
[2017-09-10 09:49] VITALS: BP 121/75; PULSE 98; TEMP 36.6; O2SAT 98
== END 2017-09-10 10:30 | disposition home or self-care (01) | DRG 167 ==
LOC: C.ACU 06:55 → C.MSN 08:30 → ENRESERV 10:40
PROVIDERS: ADMIT Surgery; ATTEND Surgery
PROC: 0BBF4ZX Excision of Right Lower Lung Lobe, Percutaneous Endoscopic Approach, Diagnostic (ICD-10-PCS; principal; 2017-09-01 08:55)
PROC: 0W9930Z Drainage of Right Pleural Cavity with Drainage Device, Percutaneous Approach (ICD-10-PCS; 2017-09-05)
DX: C34.31 Malignant neoplasm of lower lobe, right bronchus or lung (principal); J95.812 Postprocedural air leak; T81.82XA Emphysema (subcutaneous) resulting from a procedure, initial encounter; R91.1 Solitary pulmonary nodule; Z79.82 Long term (current) use of aspirin; Z79.899 Other long term (current) drug therapy; Z92.3 Personal history of irradiation; Z90.2 Acquired absence of lung [part of]; Y84.8 Other medical procedures as the cause of abnormal reaction of the patient, or of later complication, without mention of misadventure at the time of the procedure; Z87.891 Personal history of nicotine dependence

== ENCOUNTER → 2017-09-11 | Outpatient (CLI) | payer OTHER ==
[~2017-09-11] MED LIST changes: +CLC100 PO; -EYED OPL; +IBUP-1050 PO; -LACTATED RINGER'S 1000ML 1,000 ML IV SCH; +TYLOTC325 PO; +ULT/50 PO; -[UNRECOGNIZED DRUG - OTHER] OPL
--- NOTE | 2017-09-11 09:41 | DIAGNOSTIC IMAGING REPORT ---
CHEST 2 VIEWS ROUTINE CLINICAL HISTORY: 77 years-old Male presenting with C34.92 Squamous cell lung cancer, leftS/P R VATS W WEDGE RESECTI. TECHNIQUE: PA and lateral views of the chest were obtained. COMPARISON: 09/10/2017. FINDINGS: Severe subcutaneous and soft tissue emphysema. Left subclavian Mediport terminates in the SVC. Mediastinal surgical clip also noted. Persistent leftward mediastinal shift. Postsurgical changes of left pneumonectomy. Left pleural fluid suspected. Expansion of the right lung, which is grossly clear. No large pneumothorax allowing for limited visualization secondary to the extent of subcutaneous emphysema. Osteopenia may be present. IMPRESSION: 1. No gross evidence of right pneumothorax. 2. Extensive subcutaneous and soft tissue emphysema. 3. Post surgical changes of left pneumonectomy. Electronically signed by: Jay Sheehan M.D. 09/11/2017 9:40 AM Dictated Date/Time: 09/11/2017 9:36 AM
== END | disposition home or self-care (01) ==
LOC: C.RAD 09:12
PROVIDERS: ATTEND Surgery
DX: C34.92 Malignant neoplasm of unspecified part of left bronchus or lung (principal); J43.9 Emphysema, unspecified

== ENCOUNTER → 2017-09-28 | Outpatient (CLI) | payer OTHER ==
--- NOTE | 2017-09-28 11:30 | DIAGNOSTIC IMAGING REPORT ---
CHEST 2 VIEWS ROUTINE CLINICAL HISTORY: Squamous lung cancer. COMPARISON STUDY: Chest radiograph September 11, 2017. FINDINGS: There is no right pneumothorax. There is moderate subcutaneous gas of the chest wall and the lower neck which has significantly improved since exam of September 11, 2017. Lucency projects over the left pneumonectomy cavity. A left subclavian Fojeap-a-Uyxh is in place. Left hemithorax volume loss is noted as expected. Old left clavicular fracture is noted. Minimal right lower lung opacity persists. IMPRESSION: 1. No right pneumothorax. 2. Moderate subcutaneous gas within the chest wall and lower neck which has significantly improved since previous exam. 3. Lucency projecting over the left pneumonectomy cavity. This may be intra or extrathoracic. 4. Persistent minimal right lower lung opacity. Electronically signed by: Jose E Abdi M.D. 09/28/2017 11:28 AM Dictated Date/Time: 09/28/2017 11:26 AM
== END | disposition home or self-care (01) ==
LOC: C.RAD 11:03
PROVIDERS: ATTEND Physician Assistant
DX: C34.92 Malignant neoplasm of unspecified part of left bronchus or lung (principal)

== ENCOUNTER 2018-08-11 01:35 | Inpatient (IN) ==
[2018-08-11 04:21] LABS: Basophils # (auto) 0.01 K/uL (0-0.2); Basophils % (auto) 0.3 %; Hematocrit (blood only) 29.2 % (42-52); Hemoglobin 9.5 g/dL (14.0-18.0); Immature Granulocytes # (auto) 0.03 K/uL (0.00-0.02); Immature Granulocytes % (auto) 0.8 %; Lymphocytes # (auto) 0.25 K/uL (1.2-3.4); Lymphocytes % (auto) 6.6 %; Mean Corpuscular Hgb Conc 32.5 g/dL (32-36); Mean Corpuscular Volume 90.7 fL (80-100); Mean Platelet Volume 9.9 fL (7.4-10.4); Monocytes # (auto) 0.98 K/uL (0.11-0.59); Monocytes % (auto) 25.9 %; Neutrophils # (auto) 2.52 K/uL (1.4-6.5); Neutrophils % (auto) 66.4 %; Nucleated RBC # (auto) 0.07 K/uL (0-0); Nucleated RBC % (auto) 1.9 %; Platelet Count 324 K/uL (130-400); RDW Coefficient of Variation 15.9 % (11.5-14.5); RDW Standard Deviation 51.9 fL (36.4-46.3); Red Blood Count 3.22 M/uL (4.7-6.1); White Blood Count 3.79 K/uL (4.8-10.8)
[2018-08-11 04:32] LABS: INR 1.3 (0.9-1.1); Partial Thromboplastin Time 25.9 Seconds (21.0-31.0)
[2018-08-11 04:33] LABS: Potassium 4.2 mmol/L (3.5-5.1)
[2018-08-11 04:39] LABS: Albumin Level 2.4 gm/dl (3.4-5.0); BUN Creatinine Ratio 19.9 (10-20); Calcium 7.9 mg/dl (8.5-10.1); Creatinine Clr Calc Pharmacy 68.5 ml/min; Est GFR (African American) 96.3; Est GFR (Non-African American) 83.1
[2018-08-11 05:09] LABS: Albumin Globulin Ratio 0.7 (0.9-2); Bilirubin,Total 0.3 mg/dl (0.2-1); Globulin 3.4 gm/dl (2.5-4.0); Total Protein 5.8 gm/dl (6.4-8.2); Troponin I 0.046 ng/ml (0-0.045)
[2018-08-11] MEDS ORDERED: LEVOFLOXACIN/D5W 750 MG/150 ML BAG IV STA (05:22)
[2018-08-11] MEDS ORDERED: ACETAMINOPHEN 500 MG TAB PO STA (05:29)
[2018-08-11] MEDS ORDERED: PIPERACILL/TAZOBAC CONSULT ACTIVE PRN ×2 (05:29→08:12)
[2018-08-11] MEDS ORDERED: PIPERACILLIN/TAZOBACTAM 4.5 GM/120 ML BAG IV ONE (05:29)
--- NOTE | 2018-08-11 06:27 | History & Physical Report ---
Date of Service August 11, 2018 Assessment & Plan (1) Acute respiratory failure with hypoxia: Acute respiratory failure with hypoxia/pneumonia/COPD exacerbation/ hx of left pneumonectomy-- Placed on Solu-Medrol 40 mg IV every 8 hours. Start vancomycin IV per pharmacokinetic monitoring. Continue Zosyn IV and levofloxacin IV begun in the ED. Sputum Gram stain and culture. Humidified nasal cannula oxygen, titrate to keep pulse ox around 92% Guaifenesin extended release 600 mg p.o. twice daily For mucositis secondary to chemotherapy, however he will do a trial of triamcinolone in [facility], as Magic mouthwash has only been partially effective. Consult Dr. David Present on Admission?: Yes (2) Pneumonia: as above Present on Admission?: Yes (3) Emphysema of lung: as above. Present on Admission?: Yes (4) History of pneumonectomy: as above Present on Admission?: Yes (5) Metastatic lung cancer (metastasis from lung to other site): Continuing to undergo chemotherapy with Dr. Ruiz, with last treatment 1 week ago Present on Admission?: Yes (6) Elevated troponin: Troponin elevation of 0.046 continues to trend lower from elevated troponins in May. We will continue to trend this visit as well. Present on Admission?: Yes (7) Hyperlipidemia: Continue atorvastatin 20 mg p.o. daily Present on Admission?: Yes History of Present Illness Chief Complaint: The patient reports to the emergency department with several days of shortness of breath and large volumes of mucus production with coughing. Primary Care Provider: Jay Gudino MD The patient is a 78-year-old male with a past medical history including non- small cell lung cancer of left and right lung, recurrent pneumonia, status post left pneumonectomy, who called his thoracic surgeon Dr. Spicer after several days of productive cough and then worsening shortness of breath, who advised the patient to come the emergency department for assessment. His last hospitalization was from 05/17-05/18 2018 for a right parietotemporal CVA. Allergies Allergy/AdvReac Type Severity Reaction Status Date / Time No Known Allergies Allergy Unknown Verified 08/11/18 02:13 Home Medications Home Medications Medication Instructions Recorded Confirmed Type clopidogrel [Plavix] 75 mg PO DAILY #30 tab 05/18/18 08/11/18 Rx Ca-D3-mag ft-ahrd-qjv-berny-bor 1 tab PO DAILY 08/11/18 08/11/18 History [Calcium 600-D3 Plus] atorvastatin 20 mg PO DAILY 08/11/18 08/11/18 History lcpqanvb-tkv-mrehn-vit K-lycop 1 tab PO DAILY 08/11/18 08/11/18 History [Men's 50 Plus Multivitamin] Past Med/Surg History Medical History Adrenal hyperplasia Hypercholesteremia 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 Polyneuropathy Surgical History H/O pneumonectomy (Resolved) Left - 2017 Family History Other Heart attack Leukemia No pertinent family history Pulmonary embolism Social History Current Living Situation: Spouse Feels Safe at Home: Yes Smoking Status: Former smoker Second Hand Exposure: No Hx Alcohol Use: No Hx Substance Use: No Beliefs That Will Affect Care: Voodoo Voodoo Beliefs: Restorationist Preferred Language: Latvian Review of Systems The patient denies chest pain, palpitations, lower extremity swelling, fevers, chills, sweats, nausea, vomiting, diarrhea, constipation, abdominal pain, pelvic pain, blood in urine or stool, dysuria, urinary frequency or urgency, lightheadedness, dizziness, headache, memory loss, loss of consciousness, abnormal bruising or bleeding, imbalance, focal weakness, numbness or tingling in arms or legs, generalized arthralgias or myalgias, back or neck pain, or night sweats. The review of systems is otherwise negative other than for that already noted above, and at least 10 systems have been reviewed. Physical Exam 2 Vital Signs (Past 24 Hours): Last Vital Signs Temp 38.1 C H 08/11/18 01:58 Pulse 128 H 08/11/18 01:58 Resp 36 H 08/11/18 01:58 BP 103/62 08/11/18 01:58 Pulse Ox 92 08/11/18 03:36 Physical Exam: The patient is awake, alert and oriented 3, normocephalic and atraumatic, lying in bed and in no acute distress. HEENT--PERRL, EOMI, mucous membranes with multiple surface ulcerations on tongue and buccal mucosa , oropharynx moist. Neck--supple. No JVD. No bruits. Thyroid normal, trachea midline, no adenopathy. Heart--normal S1 and S2. No murmurs, rubs or gallops. Lungs--absent breath sounds on left, tubular breath sounds with scattered coarse sounds on right Abdomen--normal bowel sounds and soft. Nontender. Nondistended. Extremities--no cyanosis or clubbing. No edema. There are good distal pulses b/ l. Dermatologic--normal skin turgor, normal color, no abnormal lymph nodes, no rash. Neurologic--cranial nerves II through XII grossly intact. Rheumatologic--normal range of motion. Psychiatric--normal affect. Results & Data Laboratory Results Laboratory Results WBC 3.79 K/uL (4.8-10.8) L 08/11/18 04:15 RBC 3.22 M/uL (4.7-6.1) L 08/11/18 04:15 Hgb 9.5 g/dL (14.0-18.0) L 08/11/18 04:15 Hct 29.2 % (42-52) L 08/11/18 04:15 MCV 90.7 fL (80-100) 08/11/18 04:15 MCH 29.5 pg (25-34) 08/11/18 04:15 MCHC 32.5 g/dL (32-36) 08/11/18 04:15 RDW Std Deviation 51.9 fL (36.4-46.3) H 08/11/18 04:15 RDW Coeff of Louise 15.9 % (11.5-14.5) H 08/11/18 04:15 Plt Count 324 K/uL (130-400) 08/11/18 04:15 MPV 9.9 fL (7.4-10.4) 08/11/18 04:15 Immature Gran % (Auto) 0.8 % 08/11/18 04:15 Neut % (Auto) 66.4 % 08/11/18 04:15 Lymph % (Auto) 6.6 % 08/11/18 04:15 [place] % (Auto) 25.9 % 08/11/18 04:15 Eos % (Auto) 0.0 % 08/11/18 04:15 Baso % (Auto) 0.3 % 08/11/18 04:15 Immature Gran # (Auto) 0.03 K/uL (0.00-0.02) H 08/11/18 04:15 Neut # (Auto) 2.52 K/uL (1.4-6.5) 08/11/18 04:15 Lymph # (Auto) 0.25 K/uL (1.2-3.4) L 08/11/18 04:15 [place] # (Auto) 0.98 K/uL (0.11-0.59) H 08/11/18 04:15 Eos # (Auto) 0.00 K/uL (0-0.5) 08/11/18 04:15 Baso # (Auto) 0.01 K/uL (0-0.2) 08/11/18 04:15 Absolute Nucleated RBC 0.07 K/uL (0-0) H 08/11/18 04:15 Nucleated RBC % (auto) 1.9 % 08/11/18 04:15 PT 13.0 Seconds (9.0-12.0) H 08/11/18 04:15 INR 1.3 (0.9-1.1) H 08/11/18 04:15 APTT 25.9 Seconds (21.0-31.0) 08/11/18 04:15 PTT Ratio 1.0 08/11/18 04:15 Sodium 134 mmol/L (136-145) L 08/11/18 04:15 Potassium 4.2 mmol/L (3.5-5.1) 08/11/18 04:15 Chloride 107 mmol/L (98-107) 08/11/18 04:15 Carbon Dioxide 23 mmol/L (21-32) 08/11/18 04:15 Anion Gap 4.0 (3-11) 08/11/18 04:15 BUN 17 mg/dl (7-18) 08/11/18 04:15 Creatinine 0.86 mg/dl (0.6-1.4) 08/11/18 04:15 Est Cr Clr Drug Dosing 68.5 ml/min 08/11/18 04:15 Est GFR ( Amer) 96.3 08/11/18 04:15 Est GFR (Non-Af Amer) 83.1 08/11/18 04:15 BUN/Creatinine Ratio 19.9 (10-20) 08/11/18 04:15 Glucose 132 mg/dl (70-99) H 08/11/18 04:15 Lactate 2.3 mmol/L (0.4-2.0) H* 08/11/18 05:35 Calcium 7.9 mg/dl (8.5-10.1) L 08/11/18 04:15 Total Bilirubin 0.3 mg/dl (0.2-1) 08/11/18 04:15 AST 30 U/L (15-37) 08/11/18 04:15 ALT 32 U/L (12-78) 08/11/18 04:15 Alkaline Phosphatase 69 U/L (45-117) 08/11/18 04:15 Troponin I 0.046 ng/ml (0-0.045) H* 08/11/18 04:15 NT-Pro-B Natriuret Pep 1900 pg/ml (0-1800) H 08/11/18 04:15 Total Protein 5.8 gm/dl (6.4-8.2) L 08/11/18 04:15 Albumin 2.4 gm/dl (3.4-5.0) L 08/11/18 04:15 Globulin 3.4 gm/dl (2.5-4.0) 08/11/18 04:15 Albumin/Globulin Ratio 0.7 (0.9-2) L 08/11/18 04:15 Medications Administered Home Medications Medication Instructions Recorded Confirmed Ca-D3-mag fg-umvo-pfh-berny-bor 1 tab PO DAILY 08/11/18 08/11/18 [Calcium 600-D3 Plus] atorvastatin 20 mg PO DAILY 08/11/18 08/11/18 lydiuduo-uzm-gpsoi-vit K-lycop 1 tab PO DAILY 08/11/18 08/11/18 [Men's 50 Plus Multivitamin] Previous Rx's Medication Instructions Recorded clopidogrel [Plavix] 75 mg PO DAILY #30 tab 05/18/18 Code Status & VTE Plan Code Status Full code VTE Prophylaxis Plan VTE Prophylaxis will be ordered: Yes _ (1) Metastatic lung cancer (metastasis from lung to other site) Laterality: unspecified laterality Qualified Code(s): C34.90 - Malignant neoplasm of unspecified part of unspecified bronchus or lung (2) Emphysema of lung Emphysema type: unspecified Qualified Code(s): J43.9 - Emphysema, unspecified (3) Hyperlipidemia Hyperlipidemia type: unspecified Qualified Code(s): E78.5 - Hyperlipidemia, unspecified
--- NOTE | 2018-08-11 06:35 | XRay Report ---
XR chest 1V portable HISTORY: 78 years-old Male Dyspnea acute shortness of breath with prior left pneumonectomy COMPARISON: Chest radiograph 05/17/2018, CT the chest 04/26/2018. TECHNIQUE: Portable AP view of the chest FINDINGS: Postoperative changes from prior left pneumonectomy. Chronic left lung volume loss with leftward medi astinal shift of the mediastinal structures. Stable positioning of left subclavian Skzldl-e-Hnfb cath eter. Cardiac silhouette is obscured. Emphysema. Trace right pleural effusion. Reticular nodular opac ities throughout the right lung are noted with ill-defined alveolar opacities about the right lung ba se. Degenerative changes are seen about the shoulders and spine. Remote mid left clavicular fracture. IMPRESSION: 1. Postoperative changes from prior left pneumonectomy. 2. Trace right pleural effusion. 3. Reticular nodular opacities throughout the right lung have progressively worsened from prior study . These findings suggest infectious pneumonitis with superimposed pulmonary edema also within the dif ferential. Follow-up recommended to exclude metastasis. 4. emphysema. The above report was generated using voice recognition software. It may contain grammatical, syntax o r spelling errors. Electronically signed by: Aubrey Jason M.D. 08/11/2018 6:33 AM
[2018-08-11] MEDS ORDERED: VANCOMYCIN HCL 1,000 MG/270 ML BAG IV STA (08:12)
[2018-08-11] MEDS ORDERED: ACETAMINOPHEN 1000 MG/100 ML IV IV PRN (08:12)
[2018-08-11] MEDS ORDERED: PIPERACILLIN/TAZOBACTAM 3.375 GM in DEXTROSE 5% 100 ML IV SCH (08:12)
[2018-08-11] MEDS ORDERED: ONDANSETRON INJ 2 MG/ML 2 ML VIAL IV PRN (08:12)
[2018-08-11] MEDS ORDERED: ALUMINUM/MAGNESIUM SUSP 30 ML UDC PO PRN (08:12)
[2018-08-11] MEDS ORDERED: MAGNESIUM HYDROXIDE SUSP 30 ML UDC PO PRN (08:12)
[2018-08-11] MEDS ORDERED: ACETAMINOPHEN 325 MG TAB PO PRN (08:12)
[2018-08-11] MEDS ORDERED: TRIAMCINOLONE ACET 0.1% ORABASE 5 GM TUBE MT PRN (08:12)
[2018-08-11] MEDS ORDERED: POLYETHYLENE (MIRALAX) 17 GM PACK PO PRN (08:12)
[2018-08-11] MEDS ORDERED: VANCOMYCIN CONSULT ACTIVE PRN (08:12)
--- NOTE | 2018-08-11 08:29 | Emergency Department Note ---
Entered by Jeet Grayson acting as a scribe for History of Present Illness General Chief complaint: Shortness of Breath/Dyspnea Time Seen by Provider: 08/11/18 02:27 Source: patient Limitations: no limitations History of Present Illness Onset (ago): day(s) (few days) Location: chest Pain Consistency: + constant and + intermittent (diarrhea) Maximum Pain Intensity: 0 Quality: + constant Associated symptoms: + denies other symptoms (leg cramping or swelling) and + other (mouth ulcers, diarrhea); no chest pain, no nausea/vomiting and no weakness The patient is a 78 year old male who presents to the Emergency Room with complaints of constant SOB for the past few days. The patient states he had really bad SOB today and was coughing up clear sputum. He notes he has been coughing up bloody sputum in the ED. He notes he has lung cancer and has been receiving chemotherapy every week for 3 weeks. He notes he has ulcers in his mouth from the chemotherapy. He states he only has one lung on his right side. He states he does not wear O2 at home. The patient notes he has had diarrhea for a couple weeks and notes it is intermittent. The patient mentions he went to his PCP, Dr. Gudino, on Monday for his sore mouth. He states he went to his PCP 2 weeks ago for his cough. The patient denies any chest pain, nausea, vomiting, weakness, pneumonia or bronchitis in the past couple months, and leg cramping or swelling. He notes he is feeling good right now. Home Medications Home Medications Medication Instructions Recorded Confirmed Type clopidogrel [Plavix] 75 mg PO DAILY #30 tab 05/18/18 08/11/18 Rx Ca-D3-mag tq-ywwu-muu-berny-bor 1 tab PO DAILY 08/11/18 08/11/18 History [Calcium 600-D3 Plus] atorvastatin 20 mg PO DAILY 08/11/18 08/11/18 History gsnsshyb-yxc-jpepl-vit K-lycop 1 tab PO DAILY 08/11/18 08/11/18 History [Men's 50 Plus Multivitamin] Allergies Allergy/AdvReac Type Severity Reaction Status Date / Time No Known Allergies Allergy Unknown Verified 08/11/18 02:13 Past Med/Surg History Medical History Adrenal hyperplasia Hypercholesteremia 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 Polyneuropathy Surgical History H/O pneumonectomy (Resolved) Left - 2017 Family History Other Heart attack Leukemia No pertinent family history Pulmonary embolism Social History Current Living Situation: Spouse Other Information That Helps Us Care for You: No Feels Safe at Home: Yes Safety Concerns: Feels Safe At This Time Smoking Status: Former smoker Tobacco Type: cigarettes Cigarettes per Day: 20 Do You Dip or Chew Tobacco: No Smoking End Date: 2015 Second Hand Exposure: No Tobacco Cessation Education Requested by Patient: No Hx Alcohol Use: No Hx Substance Use: No Beliefs That Will Affect Care: None Preferred Language: Qatari Communication Ability: Effective Communication Ability Comment: [facility] 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 and A total of 10 systems reviewed and were otherwise negative Physical Exam Vital Signs Vital Signs - 24 hr 08/11/18 01:18 08/11/18 01:47 08/11/18 01:49 Temperature 38.1 C H Temperature Source Oral Sepsis Recent Fever Within 48 Hours Sepsis New/Unexplained Change in Mental Status Sepsis Action Taken by Nursing Pulse Rate Pulse Rate [Finger] Pulse Rate [Left Apical] 128 H Pulse Rhythm [Finger] Pulse Rhythm [Left Apical] Regular Pulse Strength [Finger] Pulse Strength [Left Apical] Normal Respiratory Rate 36 H Respiratory Effort / Characteristics Spontaneous Short of Breath Spontaneous Labored Short of Breath SOB on Exertion Respiratory Depth Normal Shallow Respiratory Pattern Tachypnea Tachypnea Blood Pressure Blood Pressure [Left Arm] 103/62 Blood Pressure Mean Blood Pressure Mean [Left Arm] 75 Blood Pressure Position Blood Pressure Position [Left Arm] Sitting Pulse Oximetry 91 91 Oxygen Delivery Method Nasal Cannula Room Air Nasal Cannula Oxygen Flow Rate 5 5 5 08/11/18 01:58 08/11/18 03:25 08/11/18 03:36 Temperature 38.1 C H Temperature Source Oral Sepsis Recent Fever Within 48 Hours No Sepsis New/Unexplained Change in Mental Status No Sepsis Action Taken by Nursing No Action Required Pulse Rate 128 H Pulse Rate [Finger] Pulse Rate [Left Apical] Pulse Rhythm [Finger] Pulse Rhythm [Left Apical] Pulse Strength [Finger] Pulse Strength [Left Apical] Respiratory Rate 36 H Respiratory Effort / Characteristics Non-Labored Spontaneous Short of Breath SOB on Exertion Respiratory Depth Shallow Respiratory Pattern Tachypnea Blood Pressure 103/62 Blood Pressure [Left Arm] Blood Pressure Mean 75 Blood Pressure Mean [Left Arm] Blood Pressure Position Sitting Blood Pressure Position [Left Arm] Pulse Oximetry 91 78 L 92 Oxygen Delivery Method Nasal Cannula Room Air Nasal Cannula Oxygen Flow Rate 5 5 08/11/18 06:19 08/11/18 07:25 08/11/18 08:12 Temperature 37.1 C Temperature Source Oral Sepsis Recent Fever Within 48 Hours Sepsis New/Unexplained Change in Mental Status Sepsis Action Taken by Nursing Pulse Rate Pulse Rate [Finger] Pulse Rate [Left Apical] 98 H 92 H 96 H Pulse Rhythm [Finger] Pulse Rhythm [Left Apical] Regular Regular Pulse Strength [Finger] Pulse Strength [Left Apical] Normal Absent Respiratory Rate 20 20 18 Respiratory Effort / Characteristics Non-Labored Spontaneous Short of Breath SOB on Exertion Non-Labored Non-Labored Spontaneous Respiratory Depth Normal Normal Normal Respiratory Pattern Tachypnea Regular Regular Blood Pressure Blood Pressure [Left Arm] 99/56 L 94/60 L 112/67 Blood Pressure Mean Blood Pressure Mean [Left Arm] 70 71 82 Blood Pressure Position Blood Pressure Position [Left Arm] Sitting Sitting Pulse Oximetry 97 99 92 Oxygen Delivery Method Nasal Cannula Nasal Cannula Nasal Cannula Oxygen Flow Rate 6 6 6 08/11/18 08:13 08/11/18 11:06 08/11/18 11:30 Temperature 37.4 C 36.3 C L Temperature Source Oral Oral Sepsis Recent Fever Within 48 Hours Sepsis New/Unexplained Change in Mental Status Sepsis Action Taken by Nursing Pulse Rate Pulse Rate [Finger] Pulse Rate [Left Apical] 90 94 H Pulse Rhythm [Finger] Pulse Rhythm [Left Apical] Pulse Strength [Finger] Pulse Strength [Left Apical] Respiratory Rate 16 20 Respiratory Effort / Characteristics Non-Labored Spontaneous Respiratory Depth Respiratory Pattern Blood Pressure Blood Pressure [Left Arm] 108/66 Blood Pressure Mean Blood Pressure Mean [Left Arm] 80 Blood Pressure Position Blood Pressure Position [Left Arm] Lying Pulse Oximetry 97 96 Oxygen Delivery Method Nasal Cannula Nasal Cannula Oxygen Flow Rate 6 6 08/11/18 14:58 08/11/18 15:34 Temperature 36.4 C L Temperature Source Oral Sepsis Recent Fever Within 48 Hours Sepsis New/Unexplained Change in Mental Status Sepsis Action Taken by Nursing Pulse Rate Pulse Rate [Finger] 87 101 H Pulse Rate [Left Apical] Pulse Rhythm [Finger] Regular Pulse Rhythm [Left Apical] Pulse Strength [Finger] Normal Pulse Strength [Left Apical] Respiratory Rate 16 18 Respiratory Effort / Characteristics Non-Labored Spontaneous Non-Labored Respiratory Depth Normal Respiratory Pattern Blood Pressure Blood Pressure [Left Arm] 107/68 Blood Pressure Mean Blood Pressure Mean [Left Arm] 81 Blood Pressure Position Blood Pressure Position [Left Arm] Lying Pulse Oximetry 97 93 Oxygen Delivery Method Nasal Cannula Nasal Cannula Oxygen Flow Rate 4 3 HEENT: Head - normocephalic and atraumatic Pupils are equal, round, and reactive to light. Extraocular eye muscles are intact, and sclera are anicteric. Nose - moist nasal mucosa without discharge. Mouth - moist buccal mucosa. Oropharynx is nonerythematous and there is no tonsillar exudate or edema noted. Neck: Supple; no JVD, nuchal rigidity, cervical lymphadenopathy, or auscultated bruits. Heart: Regular rate and rhythm. There is a normal S1 and S2 with no murmurs, clicks, or gallops appreciated. Lungs: No breath sounds on the left. Diminished breath sounds on the right. Abdomen: Soft, completely nontender, nondistended, with good bowel sounds. There are no palpable pulsatile masses or hepatosplenomegaly. There is no guarding, rigidity, or rebound noted. Extremities: No evidence of cyanosis, clubbing, or edema. There are easily palpable peripheral pulses. Skin: warm and dry with good turgor and no rashes. Course 0255: Past medical records reviewed. The patient was evaluated in room C7, and a complete history and physical examination were performed. Without Oxygen the patient's O2 sat was 78. Laboratory studies were drawn as above. A 12-lead EKG was obtained. The patient had a portable chest x-ray as described above. The patient was noted to have a fever and received oral Tylenol and had completion of a septic workup. 0410: The patient is resting comfortably at this time on supplemental oxygen with normal oxygen saturations. I discussed the results of far with the patient and his family. 0513: I reevaluated the patient. 0522: Levaquin 750 mg in 150 ml IV STA and IV Zosyn. 0525: I reviewed the patient's case with Dr. Velazquez - [facility]. He will evaluate the patient for further management. Administered Medications Albuterol (Duoneb) 3 ml NEB QIDR [facility] Stop: 09/10/18 08:11 Last Admin: 08/11/18 14:57 Dose: 3 ml Admin: 08/11/18 11:03 Dose: 3 ml Admin: 08/11/18 11:03 Dose: Not Given Atorvastatin Calcium (Lipitor) 20 mg PO DAILY [facility] Stop: 09/10/18 08:59 Last Admin: 08/11/18 09:57 Dose: 20 mg Clopidogrel Bisulfate (Plavix) 75 mg PO DAILY [facility] Stop: 09/10/18 08:59 Last Admin: 08/11/18 09:57 Dose: 75 mg Guaifenesin (Mucinex) 600 mg PO Q12 [facility] Stop: 09/10/18 08:59 Last Admin: 08/11/18 09:57 Dose: 600 mg Piperacillin Sod/Tazobactam (Sod 3.375 gm/ Dextrose) 115 mls @ 28.75 mls/hr IV Q8H [facility]; Protocol Stop: 08/18/18 07:59 Last Infusion: 08/11/18 17:31 Dose: 0 mls/hr Admin: 08/11/18 13:10 Dose: 28.8 mls/hr Multivitamins/Minerals (Multivitamin W/ Minerals Tab) 1 tab PO DAILY [facility] Stop: 09/10/18 08:59 Last Admin: 08/11/18 09:57 Dose: 1 tab Multivitamins/Minerals (Caltrate Plus) 1 tab PO DAILY [facility] Stop: 09/10/18 09:29 Last Admin: 08/11/18 09:57 Dose: 1 tab Discontinued Medications Acetaminophen (Tylenol) 1,000 mg PO NOW STA Stop: 08/11/18 05:30 Last Admin: 08/11/18 06:13 Dose: 1,000 mg Levofloxacin/Dextrose (Levaquin/D5w) 750 mg in 150 mls @ 100 mls/hr IV NOW STA Stop: 08/11/18 06:51 Last Infusion: 08/11/18 07:45 Dose: 0 mls/hr Admin: 08/11/18 06:13 Dose: 100 mls/hr Piperacillin Sod/Tazobactam Sod (Zosyn) 4.5 gm in 120 mls @ 240 mls/hr IV NOW ONE Stop: 08/11/18 05:58 Last Infusion: 08/11/18 11:53 Dose: 0 mls/hr Admin: 08/11/18 07:45 Dose: 240 mls/hr Vancomycin HCl 2,000 mg/ (Sodium Chloride) 540 mls @ 200 mls/hr IV NOW STA Stop: 08/11/18 11:16 Last Infusion: 08/11/18 13:05 Dose: 0 mls/hr Admin: 08/11/18 09:57 Dose: 200 mls/hr Methylprednisolone 40 mg/ (Syringe) 0.64 mls @ 1.5 mls/min IV Q8H [facility] Stop: 09/10/18 09:59 Last Admin: 08/11/18 09:57 Dose: 1.5 mls/min Medical Decision Making Differential Diagnosis The patient is a 78 year old male who presents to the Emergency Room with complaints of constant SOB for the past few days. Differential Diagnosis includes: CHF, pneumonia, sepsis, bronchitis, and pneumothorax Medical Records Attestation: I reviewed the patient's medical records. Home Medications Current Medication List: was personally reviewed by me Laboratory Data Attestation: I reviewed the patient's lab results. Result diagrams: 08/11/18 04:15 08/11/18 04:15 Lab Results 08/11/18 08/11/18 08/11/18 Range/Units 04:15 04:15 04:15 WBC 3.79 L (4.8-10.8) K/uL RBC 3.22 L (4.7-6.1) M/uL Hgb 9.5 L (14.0-18.0) g/dL Hct 29.2 L (42-52) % MCV 90.7 (80-100) fL MCH 29.5 (25-34) pg MCHC 32.5 (32-36) g/dL RDW Std Deviation 51.9 H (36.4-46.3) fL RDW Coeff of Louise 15.9 H (11.5-14.5) % Plt Count 324 (130-400) K/uL MPV 9.9 (7.4-10.4) fL Immature Gran % (Auto) 0.8 % Neut % (Auto) 66.4 % Lymph % (Auto) 6.6 % Pratt % (Auto) 25.9 % Eos % (Auto) 0.0 % Baso % (Auto) 0.3 % Immature Gran # (Auto) 0.03 H (0.00-0.02) K/uL Neut # (Auto) 2.52 (1.4-6.5) K/uL Lymph # (Auto) 0.25 L (1.2-3.4) K/uL Pratt # (Auto) 0.98 H (0.11-0.59) K/uL Eos # (Auto) 0.00 (0-0.5) K/uL Baso # (Auto) 0.01 (0-0.2) K/uL Absolute Nucleated RBC 0.07 H (0-0) K/uL Nucleated RBC % (auto) 1.9 % PT 13.0 H (9.0-12.0) Seconds INR 1.3 H (0.9-1.1) APTT 25.9 (21.0-31.0) Seconds PTT Ratio 1.0 Sodium 134 L (136-145) mmol/L Potassium 4.2 (3.5-5.1) mmol/L Chloride 107 (98-107) mmol/L Carbon Dioxide 23 (21-32) mmol/L Anion Gap 4.0 (3-11) BUN 17 (7-18) mg/dl Creatinine 0.86 (0.6-1.4) mg/dl Est Cr Clr Drug Dosing 68.5 ml/min Est GFR ( Amer) 96.3 Est GFR (Non-Af Amer) 83.1 BUN/Creatinine Ratio 19.9 (10-20) Glucose 132 H (70-99) mg/dl Lactate (0.4-2.0) mmol/L Calcium 7.9 L (8.5-10.1) mg/dl Total Bilirubin 0.3 (0.2-1) mg/dl AST 30 (15-37) U/L ALT 32 (12-78) U/L Alkaline Phosphatase 69 (45-117) U/L Troponin I 0.046 H* (0-0.045) ng/ml NT-Pro-B Natriuret Pep 1900 H (0-1800) pg/ml Total Protein 5.8 L (6.4-8.2) gm/dl Albumin 2.4 L (3.4-5.0) gm/dl Globulin 3.4 (2.5-4.0) gm/dl Albumin/Globulin Ratio 0.7 L (0.9-2) 08/11/18 08/11/18 Range/Units 05:35 15:49 WBC (4.8-10.8) K/uL RBC (4.7-6.1) M/uL Hgb (14.0-18.0) g/dL Hct (42-52) % MCV (80-100) fL MCH (25-34) pg MCHC (32-36) g/dL RDW Std Deviation (36.4-46.3) fL RDW Coeff of Louise (11.5-14.5) % Plt Count (130-400) K/uL MPV (7.4-10.4) fL Immature Gran % (Auto) % Neut % (Auto) % Lymph % (Auto) % Pratt % (Auto) % Eos % (Auto) % Baso % (Auto) % Immature Gran # (Auto) (0.00-0.02) K/uL Neut # (Auto) (1.4-6.5) K/uL Lymph # (Auto) (1.2-3.4) K/uL Pratt # (Auto) (0.11-0.59) K/uL Eos # (Auto) (0-0.5) K/uL Baso # (Auto) (0-0.2) K/uL Absolute Nucleated RBC (0-0) K/uL Nucleated RBC % (auto) % PT (9.0-12.0) Seconds INR (0.9-1.1) APTT (21.0-31.0) Seconds PTT Ratio Sodium (136-145) mmol/L Potassium (3.5-5.1) mmol/L Chloride (98-107) mmol/L Carbon Dioxide (21-32) mmol/L Anion Gap (3-11) BUN (7-18) mg/dl Creatinine (0.6-1.4) mg/dl Est Cr Clr Drug Dosing ml/min Est GFR ( Amer) Est GFR (Non-Af Amer) BUN/Creatinine Ratio (10-20) Glucose (70-99) mg/dl Lactate 2.3 H* 2.4 H* (0.4-2.0) mmol/L Calcium (8.5-10.1) mg/dl Total Bilirubin (0.2-1) mg/dl AST (15-37) U/L ALT (12-78) U/L Alkaline Phosphatase (45-117) U/L Troponin I (0-0.045) ng/ml NT-Pro-B Natriuret Pep (0-1800) pg/ml Total Protein (6.4-8.2) gm/dl Albumin (3.4-5.0) gm/dl Globulin (2.5-4.0) gm/dl Albumin/Globulin Ratio (0.9-2) Imaging Data Attestation: I personally reviewed and interpreted this imaging study as follows : My Impression: Chest X-ray 1 view: Evidence of pulmonary edema. Pneumonectomy on the left. ECG Data Indication: SOB/dyspnea Rate (beats per minute): 98 Rhythm: sinus rhythm Findings: no acute ischemic change and no ectopy Blood Pressure Blood Pressure Findings: Normal blood pressure Blood Pressure Disposition: further management by hospitalist JOSÉ MIGUEL [place] The patient is a 78 year old male who presents to the Emergency Room with complaints of constant SOB for the past few days. The patient has a history of lung cancer for which he receives chemotherapy. He has had a previous left-sided pneumonectomy. His shortness of breath has worsened over the past 3 days. O2 saturation without oxygen is in the 70s. Chest x-ray shows evidence of pulmonary edema to the right lung but the patient is febrile and has symptoms concerning for pneumonia. A septic protocol was performed and the patient was treated with IV Zosyn and IV Levaquin. The patient was also noted to have an elevated troponin concerning for an STEMI. EKG was unremarkable and the patient had no chest pain. I discussed these findings with the patient and his family along with Dr. Naidu and he will evaluate for further management Impression & Plan Hypoxia, Non-ST elevation [place] (NSTEMI) Critical Care Time I have personally spent greater than 60 minutes of critical care time in the direct management of this patient with significant hypoxia and end STEMI. This includes bedside care, interpretation of diagnostic studies, and testing, discussion with consultants, patient, and family members, and other required patient management activities. This 60 minutes is in excess of all separately billable procedures. Critical Care Time: Yes Total Critical Care Time: 60 Discharge Plan Visit Data *Final* Discharge Date/Time: 08/11/18 08:13 Chief Complaint: Shortness of Breath/Dyspnea ED Provider: Trinidad De La Torre Discharge Problem: Hypoxia, Non-ST elevation [place] (NSTEMI) Patient Disposition: Admitted As Inpatient Discharge Instructions Interventions: ED Discharge Assessment Last Done: 08/11/18 08:13 The scribe's documentation has been prepared under my direction and personally reviewed by me in its entirety. I confirm that the note above accurately reflects all work, treatment, procedures, and medical decision making performed by me.
[2018-08-11] MEDS ORDERED: VANCOMYCIN HCL 2,000 MG in SODIUM CHLORIDE 0.9% 500 ML IV STA (08:35)
--- NOTE | 2018-08-11 09:09 | Pharmacy Report ---
Pharmacy Abx Dose Short Note - Date of Service August 11, 2018 - Assessment & Plan Assessment * 78 year old M admitted 08/11/18 for acute respiratory failure with hypoxia 2nd HAP +/- COPD exacerbation. * CXR with progression of opacities suggestive of infectious pneumonitis +/- pulmonary edema * PMH * Recent hospitalization May 2018 for CVA * Metastatic NSCLC of R and L lungs, s/p left pneumonectomy and currently receiving chemotherapy (last 1 week [employer]) * Currently on Zosyn, levofloxacin, and vancomycin which is appropriate * Nasal MRSA swab not ordered 2nd significant pulmonary structural abnormalities increasing risk for false negative result * SCr at baseline with eCrCL 69 mL/min Vancomycin * Loading dose of 25 mg/kg to be administered, followed by 15 mg/kg maintenance dose * Estimated vancomycin t1/2 of 11.2 hr (based on eCrCL). Will select interval close to t1/2 * Trough prior to the 4th overall dose * Goal vancomycin trough 15-20 mcg/mL Plan * Vancomycin 2000 mg IV x1 then 1250 mg IV q12h * Trough 08/12 @ 2029 Pharmacy will continue to follow and will adjust dose/frequency as necessary. Thank you.
[2018-08-11] MEDS: CEROVITE ADV FORMULA TAB PO SCH (09:57)
[2018-08-11] MEDS: ATORVASTATIN 20 MG TAB PO SCH (09:57)
[2018-08-11] MEDS: CALCIUM 600MG + VIT D 400 IU TAB PO SCH (09:57)
[2018-08-11] MEDS: guaiFENesin 600 MG TABCR PO SCH ×2 (09:57→21:51)
[2018-08-11] MEDS: CLOPIDOGREL BISULFATE 75 MG TAB PO SCH (09:57)
[2018-08-11] MEDS ORDERED: methylPREDNISolone 40 MG in SYRINGE 0 ML IV SCH (10:00)
[2018-08-11] MEDS: ALBUT/IPRATROP 3MG/0.5MG NEB 3 ML VIAL NEB SCH ×4 (11:03→19:09)
[2018-08-11] MEDS: PIPERACILLIN/TAZOBACTAM 3.375 GM in DEXTROSE 5% 100 ML IV SCH ×2 (13:10→20:18)
--- NOTE | 2018-08-11 13:34 | History & Physical Bridge Note ---
Date of Service August 11, 2018 History & Physical Bridge Note Patient seen and examined today. Feeling better already. Seen with pulm with no change in current plans.
--- NOTE | 2018-08-11 14:47 | Consultation Report ---
DATE OF CONSULTATION: 08/11/2018 REASON FOR CONSULTATION: Hypoxemia in a patient, status post pneumonectomy. HISTORY OF PRESENT ILLNESS: Alex Henry is a 78-year-old male whom I know quite well. More than 2 years ago, I performed a radical left pneumonectomy for a squamous cell carcinoma of the lung, which turned out to be a stage IIIa. He was given chemotherapy and radiation. About 1 year ago, he developed a nodule in his right side, and I performed a wedge resection. He had an air leak and developed subcutaneous emphysema. This finally settled down, but he had recurrent disease. Dr. Ruiz has been treating him. Quite frankly, it is amazing he has done as well as he has. He suffered a right temporoparietal infarct and had symptomatic right carotid stenosis, underwent a right carotid endarterectomy at [facility] in May. He has done very well from a neurologic standpoint. Patient became short of breath and was found to be hypoxemic. His family called me last night, I told them to go to the Emergency Room, but he refused. Finally, his called 911 last midnight, and he was brought to the Emergency Room. This morning he was walking in the room without difficulty. He states that he feels "much better." His chest x-ray shows no effusion and no obvious focal infiltrate, but he does have changes that are consistent with probable progression of disease which is diffuse throughout his remaining right lung. I have been asked to comment on him from a thoracic surgery standpoint. PAST MEDICAL HISTORY: 1. Metastatic squamous cell carcinoma of the lung. 2. Hyperlipidemia. 3. Adrenal hyperplasia. 4. Polyneuropathy. 5. Cerebrovascular disease. 6. Status post right parietal occipital cerebrovascular accident. 7. History of cigarette smoking in the past. PAST SURGICAL HISTORY: 1. Left radical pneumonectomy with mediastinal lymphadenectomy with mediastinoscopy. 2. Right thoracoscopy with wedge resection x2, right lower lobe, 09/01/2017. 3. Right carotid endarterectomy, 05/2018. 4. Insertion of left Port-A-Cath. 5. Cataract extraction. 6. Total knee arthroplasty and repair of femur fracture. ALLERGIES: No known drug allergies. MEDICATIONS: 1. Atorvastatin. 2. Vitamin and mineral supplementation. 3. Plavix. SOCIAL HISTORY: Patient lives at home with his . His children are very supportive. He does not smoke or drink now. 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 He smoked for about 60 years but quit 3 years ago. FAMILY MEDICAL HISTORY: There is a history of leukemia in the family. Also, his father at 52, mother at 73. They both apparently had coronary artery disease. There is also a history of pulmonary embolism. REVIEW OF SYSTEMS: Up until this time the patient has done fairly well. He has complained of a cough recently. He also had some ulcers in his mouth along his mandibular gums. He is edentulous and has denture plates but has not been wearing them. 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 He has had no new neurologic events. He has recovered completely from the cerebrovascular accident in April. He has had no visual or auditory problems. He has been eating well. He has had no urinary or abdominal problems. He has had no new neurologic problems. He has had no wound breakdown. He has had a cough productive of white sputum but no hemoptysis. He has been complaining of marked shortness of breath. PHYSICAL EXAMINATION: GENERAL: This is a 5 feet 8 and 140 pound white male who is awake, alert, and oriented. He wears glasses. HEENT: His extraocular movements are intact. Sclerae are a bit pale. His pupils are equal, round, and reactive. He has had evidence of cataract extractions. He has no nasolabial flattening. He is edentulous. He has his upper denture plate in. I see no evidence of candidiasis. I also do not see alterations along his mandibular gumline. NECK: Supple. He has a well-healed right carotid incision. He really does not have any lymphadenopathy in the axillary, supraclavicular, or cervical area, and I do not really detect bruits. RESPIRATORY: He is actually moving air fairly well in the right. He has a well-healed left thoracotomy incision and well-healed right thoracoscopy incision. CARDIOVASCULAR: He has a regular rate and rhythm of his heart. He has a well-healed left infraclavicular port site. GASTROINTESTINAL: His abdomen is soft, nontender, and no evidence of ascites or hepatosplenomegaly. MUSCULOSKELETAL: He has no peripheral edema. He has no joint effusions. He has good perfusion in his lower extremities. NEUROLOGIC: He is completely intact. LABORATORY DATA: I reviewed his labs. His white count is 3790, with a hemoglobin which has dropped to 9.5. His lactate level was a bit high at 2.3, but rest of his numbers were unremarkable with a bicarbonate of 23 and a BUN and creatinine of 17 and 0.86 respectively. His troponin level is essentially not elevated nor is his BNP. IMAGING: His chest x-ray does show mild diffuse involvement of the right lung, which is remarkably different than his x-ray from 10 months ago. ASSESSMENT: Hypoxemia. I think this is an acute process. The fact that he is on chemotherapy is concerning. RECOMMENDATIONS: 1. Consult Dr. Ruiz/Oncology. 2. Consult Dr. Medina from pulmonary. In addition, I agree with the corticosteroids and broad-spectrum antibiotic coverage.
--- NOTE | 2018-08-11 15:27 | Pulmonary Consultation ---
Date of Consultation August 11, 2018 Assessment & Plan (1) Acute respiratory failure with hypoxia: Impression: 1. Febrile neutropenia. 2. Right lower lobe pneumonia, possible aspiration. 3. Squamous cell lung CA status post pneumonectomy for stage III followed by adjuvant chemotherapy. Ongoing. 4. COPD. 5. History of coronary artery disease and TIA. Plan: 1. Agree with Vanco, Zosyn and Levaquin. 2. Obtain sputum culture. 3. Change Solu-Medrol to every 12 hours. 4. Check lactic acid. 5. Continue bronchodilators. 6. Continue with oxygen. Case discussed with the staff in details, will follow. History of Present Illness Reason for Consultation: Hypoxia Requesting Physician: Dr. Carbone Attending Physician: Darrell Carbone MD History of Present Illness Dear Dr. Carbone: Thank you for the kind referral Mr. Henry to pulmonary service. This is a 78- year-old gentleman with history of squamous cell lung CA stage III, status post left pneumonectomy 2 years ago, status post ongoing chemotherapy treatment, most recently last week, presented to the hospital with productive cough, increasing shortness of breath, and hypoxia. The patient O2 saturation was low and required 4 L of nasal cannula oxygen where his O2 sat came up to 95%. The patient underwent a workup including a chest x-ray which showed increased groundglass opacity in the right lower lobe, and started on broad-spectrum antibiotics and admitted to the hospital. When I interviewed the patient, he denies any fever or constitutional symptoms but he did have chills at home. He did not have a similar reaction with previous cycles of chemotherapy. He felt his shortness of breath has been worsened, his was at the bedside and she was excellent informant. The patient did not have any chest pain, he does have mild orthopnea but he sleeps in upright position due to her GERD and to avoid aspiration to his single lung. No epigastric pain no nausea or vomiting no diarrhea, denies any change in bowel movements, no increased swelling in his lower extremities and no pain in his calves. The rest of his review of system was unremarkable. The patient is ex-smoker quit 20 years ago, he lives with his , he does not have any industrial exposure in the past, family history is not contributing. Allergies Allergy/AdvReac Type Severity Reaction Status Date / Time No Known Allergies Allergy Unknown Verified 08/11/18 02:13 Home Medications Home Medications Medication Instructions Recorded Confirmed Type clopidogrel [Plavix] 75 mg PO DAILY #30 tab 05/18/18 08/11/18 Rx Ca-D3-mag uj-uusq-yst-berny-bor 1 tab PO DAILY 08/11/18 08/11/18 History [Calcium 600-D3 Plus] atorvastatin 20 mg PO DAILY 08/11/18 08/11/18 History hxegslck-kwx-ixlek-vit K-lycop 1 tab PO DAILY 08/11/18 08/11/18 History [Men's 50 Plus Multivitamin] Patient History Medical History Adrenal hyperplasia Hypercholesteremia 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 Polyneuropathy Surgical History H/O pneumonectomy (Resolved) Left - 2016 Family History Other Heart attack Leukemia No pertinent family history Pulmonary embolism Social History Current Living Situation: Spouse Other Information That Helps Us Care for You: No Feels Safe at Home: Yes Safety Concerns: Feels Safe At This Time Smoking Status: Former smoker Tobacco Type: cigarettes Cigarettes per Day: 20 Do You Dip or Chew Tobacco: No Smoking End Date: 2015 Second Hand Exposure: No Tobacco Cessation Education Requested by Patient: No Hx Alcohol Use: No Hx Substance Use: No Beliefs That Will Affect Care: None Preferred Language: Italian Communication Ability: Effective Communication Ability Comment: [facility] Embossed Or Impressed Lettering Painter Required: No Review of Systems 14 systems has been reviewed, unremarkable except for the above. Physical Exam 2 Vital Signs (Past 24 Hours): Last Vital Signs Temp 36.3 C L 08/11/18 11:30 Pulse 87 08/11/18 14:58 Resp 16 08/11/18 14:58 BP 108/66 08/11/18 11:30 Pulse Ox 97 08/11/18 14:58 Physical Exam: Vital signs are stable, no fever reported, O2 sat 97% on 4 L, no JVP, crackles mainly at the right base, absence of breath sounds on the left , heart examination S1-S2 regular rate and rhythm, abdomen is benign, no edema. Results & Data Laboratory Results Labs consistent with neutropenia and recovering, hematocrit is stable, lactate is elevated at 2.3, positive troponin. BUN and creatinine has been stable. Diagnostic Findings Chest x-ray which I reviewed showed increased groundglass opacity, pulmonary vascular congestion on the right, absence of the left lung, Port-A-Cath on the left.
[2018-08-11] MEDS: VANCOMYCIN HCL 1,250 MG in SODIUM CHLORIDE 0.9% 250 ML IV SCH (21:45)
[2018-08-11] MEDS: methylPREDNISolone 40 MG in SYRINGE 0 ML IV SCH (21:51)
[2018-08-12] MEDS: PIPERACILLIN/TAZOBACTAM 3.375 GM in DEXTROSE 5% 100 ML IV SCH ×3 (03:45→20:40)
[2018-08-12 06:38] LABS: Hematocrit (blood only) 32.2 % (42-52); Hemoglobin 10.2 g/dL (14.0-18.0); Immature Granulocytes # (auto) 0.07 K/uL (0.00-0.02); Immature Granulocytes % (auto) 1.5 %; Lymphocytes # (auto) 0.38 K/uL (1.2-3.4); Lymphocytes % (auto) 8.1 %; Mean Corpuscular Hgb Conc 31.7 g/dL (32-36); Mean Corpuscular Volume 92.3 fL (80-100); Mean Platelet Volume 10.2 fL (7.4-10.4); Monocytes # (auto) 0.76 K/uL (0.11-0.59); Monocytes % (auto) 16.2 %; Neutrophils # (auto) 3.47 K/uL (1.4-6.5); Neutrophils % (auto) 74.2 %; Nucleated RBC # (auto) 0.08 K/uL (0-0); Nucleated RBC % (auto) 1.8 %; Platelet Count 401 K/uL (130-400); RDW Coefficient of Variation 16.2 % (11.5-14.5); RDW Standard Deviation 53.9 fL (36.4-46.3); Red Blood Count 3.49 M/uL (4.7-6.1); White Blood Count 4.68 K/uL (4.8-10.8)
[2018-08-12 06:52] LABS: INR 1.2 (0.9-1.1); Partial Thromboplastin Ratio 1.1; Partial Thromboplastin Time 29.6 Seconds (21.0-31.0)
[2018-08-12] MEDS: ALBUT/IPRATROP 3MG/0.5MG NEB 3 ML VIAL NEB SCH ×4 (07:02→19:29)
[2018-08-12 07:23] LABS: Albumin Level 2.5 gm/dl (3.4-5.0); Creatinine Clr Calc Pharmacy 63.3 ml/min; Est GFR (Non-African American) 79.4; Potassium 4.6 mmol/L (3.5-5.1)
[2018-08-12 07:25] LABS: Albumin Globulin Ratio 0.6 (0.9-2); Bilirubin,Total 0.4 mg/dl (0.2-1); Globulin 4.1 gm/dl (2.5-4.0); Total Protein 6.6 gm/dl (6.4-8.2)
[2018-08-12] MEDS: LEVOFLOXACIN/D5W 500 MG/100 ML BAG IV SCH (07:45)
[2018-08-12] MEDS: CLOPIDOGREL BISULFATE 75 MG TAB PO SCH (07:48)
[2018-08-12] MEDS: ATORVASTATIN 20 MG TAB PO SCH (07:48)
[2018-08-12] MEDS: guaiFENesin 600 MG TABCR PO SCH ×2 (07:48→22:40)
[2018-08-12] MEDS: CALCIUM 600MG + VIT D 400 IU TAB PO SCH (07:49)
[2018-08-12] MEDS: CEROVITE ADV FORMULA TAB PO SCH (07:49)
[2018-08-12] MEDS ORDERED: VANCOMYCIN CONSULT ACTIVE PRN (08:55)
[2018-08-12] MEDS: VANCOMYCIN HCL 1,250 MG in SODIUM CHLORIDE 0.9% 250 ML IV SCH ×2 (09:41→20:41)
[2018-08-12] MEDS: methylPREDNISolone 40 MG in SYRINGE 0 ML IV SCH ×2 (09:41→22:40)
--- NOTE | 2018-08-12 10:42 | Oncology Consultation ---
Date of Consultation August 12, 2018 Assessment & Plan (1) Metastatic lung cancer (metastasis from lung to other site): Mr. Henry's respiratory issues are likely multifactorial. He may have an infectious component, given the fevers, so I agree with antibiotics. However, the appearance of his x-ray is also concerning for disease progression. His cancer in his right lung has a reticulo-nodular pattern and this appearance, at least by x-ray, seems to have worsened. I would get a chest CT to better clarify this, particularly as he was due for a CT for restaging anyway. If he has progressive disease, this would be primary treatment failure of Abraxane. Given that he has seen multiple previous regimens, if he is progressing, hospice care may be an appropriate consideration. I will defer this conversation to his primary oncologist, Dr. Ruiz. Present on Admission?: Yes History of Present Illness Attending Physician: Darrell Carbone MD History of Present Illness Mr. Henry is a 78 year old man with a history of metastatic squamous cell lung cancer. He has undergone left pneumonectomy followed by multiple lines of chemotherapy. He started Abraxane about 2 months ago and is due for first interval restaging scans in the next week. He was brought here by EMS at the insistence of his for worsening shortness of breath and hypoxia. He denies any change in his sputum or chest pain. He was febrile on admission (38.1C) but has not been again since. His chest x-ray revealed some possibly progressive nodularity in his right lung, consistent with infection vs inflammation vs tumor progression. He is feeling better today and is breathing comfortably on nasal cannula oxygen. His PS remains excellent despite his progressive cancer. 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 He is totally independent in his ADLs. Allergies Allergy/AdvReac Type Severity Reaction Status Date / Time No Known Allergies Allergy Unknown Verified 08/11/18 02:13 Home Medications Home Medications Medication Instructions Recorded Confirmed Type clopidogrel [Plavix] 75 mg PO DAILY #30 tab 05/18/18 08/11/18 Rx Ca-D3-mag nk-elog-bao-berny-bor 1 tab PO DAILY 08/11/18 08/11/18 History [Calcium 600-D3 Plus] atorvastatin 20 mg PO DAILY 08/11/18 08/11/18 History qvnexqgm-dyl-wgpxa-vit K-lycop 1 tab PO DAILY 08/11/18 08/11/18 History [Men's 50 Plus Multivitamin] Patient History Medical History Adrenal hyperplasia Hypercholesteremia 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 Polyneuropathy Surgical History H/O pneumonectomy (Resolved) Left - 2017 Family History Other Heart attack Leukemia No pertinent family history Pulmonary embolism Social History Current Living Situation: Spouse Other Information That Helps Us Care for You: No Feels Safe at Home: Yes Safety Concerns: Feels Safe At This Time Smoking Status: Former smoker Tobacco Type: cigarettes Cigarettes per Day: 20 Do You Dip or Chew Tobacco: No Smoking End Date: 2015 Second Hand Exposure: No Tobacco Cessation Education Requested by Patient: No Hx Alcohol Use: No Hx Substance Use: No Beliefs That Will Affect Care: None Preferred Language: [place] Communication Ability: Effective Communication Ability Comment: [facility] Wire Roller Required: No Review of Systems Constitutional: + fatigue; no fever and no chills Eyes: no worsening vision Respiratory: as per Subjective / HPI Cardiovascular: no chest pain, no palpitations and no edema Gastrointestinal: no abdominal pain, no nausea and no diarrhea/loose stools Genitourinary (Male): no dysuria and no urinary frequency Musculoskeletal: no back pain and no joint pain Integumentary: no rash Neurologic: no dizziness and no headache(s) Hematologic / Lymphatic: no easy bleeding and no lymphadenopathy Physical Exam 2 Vital Signs (Past 24 Hours): Last Vital Signs Temp 36.6 C 08/12/18 07:50 Pulse 124 H 08/12/18 07:50 Resp 20 08/12/18 07:50 BP 113/71 08/12/18 07:50 Pulse Ox 86 L 08/12/18 07:50 Constitutional: + ill appearing (chronically) and comfortable; no acute distress Eyes: + anicteric sclerae and EOM intact bilaterally ENMT: external ear and nose normal, oropharynx normal Respiratory: no respiratory distress and does not use accessory muscles Absent respiratory sounds on the left, status post pneumonectomy. Coarse BS on the right in all fiels Cardiovascular: RRR, no murmur, no edema Gastrointestinal (Abdomen): normal bowel sounds, soft, nontender, no hepatosplenomegaly Skin: no rashes, warm and dry Psychiatric: A+Ox3, euthymic affect Lymphatic: no cervical or axillary lymphadenopathy Results & Data Laboratory Results Abnormal lab results 08/11/18 08/12/18 08/12/18 Range/Units 15:49 06:10 06:10 WBC 4.68 L (4.8-10.8) K/uL RBC 3.49 L (4.7-6.1) M/uL Hgb 10.2 L (14.0-18.0) g/dL Hct 32.2 L (42-52) % MCHC 31.7 L (32-36) g/dL RDW Std Deviation 53.9 H (36.4-46.3) fL RDW Coeff of Louise 16.2 H (11.5-14.5) % Plt Count 401 H (130-400) K/uL Immature Gran # (Auto) 0.07 H (0.00-0.02) K/uL Lymph # (Auto) 0.38 L (1.2-3.4) K/uL [place] # (Auto) 0.76 H (0.11-0.59) K/uL Absolute Nucleated RBC 0.08 H (0-0) K/uL INR 1.2 H (0.9-1.1) BUN/Creatinine Ratio (10-20) Glucose (70-99) mg/dl Lactate 2.4 H* (0.4-2.0) mmol/L Albumin (3.4-5.0) gm/dl Globulin (2.5-4.0) gm/dl Albumin/Globulin Ratio (0.9-2) 08/12/18 Range/Units 06:10 WBC (4.8-10.8) K/uL RBC (4.7-6.1) M/uL Hgb (14.0-18.0) g/dL Hct (42-52) % MCHC (32-36) g/dL RDW Std Deviation (36.4-46.3) fL RDW Coeff of Louise (11.5-14.5) % Plt Count (130-400) K/uL Immature Gran # (Auto) (0.00-0.02) K/uL Lymph # (Auto) (1.2-3.4) K/uL [place] # (Auto) (0.11-0.59) K/uL Absolute Nucleated RBC (0-0) K/uL INR (0.9-1.1) BUN/Creatinine Ratio 9.0 L (10-20) Glucose 128 H (70-99) mg/dl Lactate (0.4-2.0) mmol/L Albumin 2.5 L (3.4-5.0) gm/dl Globulin 4.1 H (2.5-4.0) gm/dl Albumin/Globulin Ratio 0.6 L (0.9-2) _ (1) Metastatic lung cancer (metastasis from lung to other site) Laterality: unspecified laterality Qualified Code(s): C34.90 - Malignant neoplasm of unspecified part of unspecified bronchus or lung
--- NOTE | 2018-08-12 11:39 | CT Scan Report ---
CT chest wo con CLINICAL HISTORY: 78 years-old Male presenting with Lung cancer. TECHNIQUE: Multidetector CT imaging of the chest was performed without the use of intravenous contras t. IV contrast: None. A dose lowering technique was used consistent with the principles of ALARA (as low as reasonably achievable). COMPARISON: 04/26/2018. CT DOSE (mGy.cm): The estimated cumulative dose is 250.46 mGy.cm. FINDINGS: Pastry Cook Apprentice topogram: Complete opacification of the left hemithorax. Left subclavian Mediport terminates in the lower SVC. On soft tissue windows, normal thyroid. Fatty atrophy of the right supraspinatus and infraspinatus mu scles. Left subclavian Mediport terminates in the SVC. No axillary, supraclavicular, or mediastinal l ymphadenopathy. Evaluation of the juno limited without intravenous contrast. Atherosclerosis of the a annalise. Normal heart size. Coronary artery and aortic valve calcification. Leftward mediastinal shift w ith chronic left pleural effusion status post left pneumonectomy. No pericardial or right pleural eff usion. Well-defined hypodensities in the left lobe of the liver likely hepatic cysts. Nodular thicken ing of the left adrenal gland, nonspecific and unchanged from prior. On lung windows, no pneumothorax. Occlusion of the left mainstem bronchus status post left pneumonect fabio. Mild diffuse bronchial wall thickening in the left lung, which demonstrates diffuse added densit y near from prior. Patchy groundglass opacities also evident new from prior. Moderate to severe arlene eptal and centrilobular emphysema. Scattered areas of focal scarring and bronchiectasis as on prior e xam. The previously noted solid nodule in the lateral basal right lower lobe has slightly decreased i n size now measuring 1.6 cm, previously 2.4 cm (series 4 image 235). This demonstrates greater spicul ation and regional architectural distortion, likely postradiation change. On bone windows, redemonstration of a severe compression deformity of T7 with mild retropulsion of th e posterior cortex. Mild to moderate compression deformity of T6. There is a focal fracture plane con taining gas and T6 and T7. No destructive osseous lesion. Deformities of several left ribs likely ind icate prior fracture. IMPRESSION: 1. Findings most consistent with interval post radiation change with diffuse added density and patch y groundglass opacity in the right lung most suggesting post radiation pneumonitis. An infectious ruth ology is considered less likely. 2. Interval decreased size of the solid right lower lobe nodule compatible with treatment response o f the metastatic disease. 3. Background severe emphysema. 4. Postsurgical changes of left pneumonectomy. Chronic left pleural effusion. 5. Interval development of a mild to moderate compression fracture of T6. This does not appear to gr ossly represent a pathologic compression fracture. 6. Nonspecific nodular thickening of the left adrenal gland, unchanged from prior and not overly con vincing for metastatic disease. Electronically signed by: Jay Sheehan M.D. 08/12/2018 11:38 AM
--- NOTE | 2018-08-12 13:08 | Hospitalist Progress Note ---
Date of Service August 12, 2018 Assessment & Plan (1) Acute respiratory failure with hypoxia: Acute respiratory failure with hypoxia/pneumonia/COPD exacerbation/ hx of left pneumonectomy-- - Placed on Solu-Medrol 40 mg IV every 8 hours. - Start vancomycin IV per pharmacokinetic monitoring. - Continue Zosyn IV and levofloxacin IV begun in the ED. - Sputum Gram stain and culture. - Humidified nasal cannula oxygen, titrate to keep pulse ox around 92% - Guaifenesin extended release 600 mg p.o. twice daily - On 08/12, got CT scan showing improvement in cancer and radiation pneumonitis. Will be seen by Dr. Ruiz tomorrow for further cancer plan. - Pneumonitis likely improving with steroids. (2) Bacteremia: Blood cultures from 08/11 growing Gram(+) cocci. Given pneumonia and abnormal lung anatomy, will continue vancomycin IV until it speciates. - Continue vanc; could consider stopping if it is likely contaminant after pulm approval. (3) Pneumonia: as above (4) Emphysema of lung: as above. (5) History of pneumonectomy: as above (6) Metastatic lung cancer (metastasis from lung to other site): Continuing to undergo chemotherapy with Dr. Ruiz, with last treatment 1 week ago. - Plan as above (7) Hyperlipidemia: Continue atorvastatin 20 mg p.o. daily (8) DVT prophylaxis: Lovenox Subjective 78yo M w/ hx of metastatic squamous cell lung cancer who was admitted with shortness of breath and fever, concern for pneumonia. Doing well today. 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 Physical Exam 2 Vital Signs (Past 24 Hours): Last Vital Signs Temp 37.0 C 08/12/18 12:05 Pulse 123 H 08/12/18 12:05 Resp 22 08/12/18 12:05 BP 107/67 08/12/18 12:05 Pulse Ox 91 08/12/18 12:05 Constitutional: + ill appearing (chronically) and comfortable; no acute distress Eyes: + anicteric sclerae and EOM intact bilaterally ENMT: external ear and nose normal, oropharynx normal Respiratory: no respiratory distress and does not use accessory muscles Cardiovascular: RRR, no murmur, no edema Gastrointestinal (Abdomen): normal bowel sounds, soft, nontender, no hepatosplenomegaly Skin: no rashes, warm and dry Psychiatric: A+Ox3, euthymic affect Lymphatic: no cervical or axillary lymphadenopathy _ (1) Emphysema of lung Emphysema type: unspecified Qualified Code(s): J43.9 - Emphysema, unspecified (2) Metastatic lung cancer (metastasis from lung to other site) Laterality: unspecified laterality Qualified Code(s): C34.90 - Malignant neoplasm of unspecified part of unspecified bronchus or lung (3) Hyperlipidemia Hyperlipidemia type: unspecified Qualified Code(s): E78.5 - Hyperlipidemia, unspecified
--- NOTE | 2018-08-12 16:16 | Pulmonology Progress Note ---
Date of Service August 12, 2018 Assessment & Plan (1) Acute respiratory failure with hypoxia: Impression: 1. Febrile neutropenia. 2. Right lower lobe pneumonia, possible aspiration versus radiation pneumonitis which is too soon given the fact the patient received radiation recently only. 3. Squamous cell lung CA status post pneumonectomy for stage III followed by adjuvant chemotherapy. Ongoing. 4. COPD, honeycombing was noted in the periphery consistent with conversion to pulmonary fibrosis. 5. History of coronary artery disease and TIA. 6. 2 pulmonary nodules on the right, smaller after chemotherapy. Plan: 1. Agree with Adalid Hurtado and Chinedu. De-escalate antibiotics after 3 days once the WBC is recovered. 2. Follow sputum culture results. 3. Change Solu-Medrol to every 12 hours, continue with current dose prior to changing to prednisone p.o. 4. Lactic acidosis supports the diagnosis of pneumonia rather than radiation pneumonitis. 5. Continue bronchodilators. 6. Continue with oxygen. 7. PT consult in the morning. Case discussed with the staff in details, will follow. Subjective The patient is feeling better, however his oxygen requirement remains at 3 L with 92%. At rest. His cough has been dry, no fever, no chest pain, no new symptoms. Physical Exam 2 Vital Signs (Past 24 Hours): Last Vital Signs Temp 37.0 C 08/12/18 15:39 Pulse 113 H 08/12/18 15:39 Resp 20 08/12/18 15:39 BP 111/70 08/12/18 15:39 Pulse Ox 92 08/12/18 15:39 Physical Exam: Physical exam reveals vital signs are stable, S1-S2 regular rate and rhythm, crackles mainly audible at the right base, no breath sounds on the left, abdomen is benign, no edema. Neurologically he is intact. Results & Data Laboratory Results Labs were reviewed which showed stable CBC, recovering white count of 4.6, stable BMP. Diagnostic Findings CAT scan of the chest was reviewed which showed honeycombing on the right, multiple patchy infiltrates although it could represent inflammatory changes secondary to radiation can represent also infectious process. Pulmonary hypertension. Absence of the left lung.
[2018-08-12] MEDS ORDERED: VANCOMYCIN TROUGH ONE (20:30)
[2018-08-13] MEDS: PIPERACILLIN/TAZOBACTAM 3.375 GM in DEXTROSE 5% 100 ML IV SCH ×3 (04:09→20:27)
[2018-08-13] MEDS: ALBUT/IPRATROP 3MG/0.5MG NEB 3 ML VIAL NEB SCH ×4 (07:12→18:53)
[2018-08-13 07:20] LABS: Basophils # (auto) 0.02 K/uL (0-0.2); Basophils % (auto) 0.3 %; Hematocrit (blood only) 32.7 % (42-52); Hemoglobin 10.2 g/dL (14.0-18.0); Immature Granulocytes # (auto) 0.31 K/uL (0.00-0.02); Immature Granulocytes % (auto) 4.7 %; Lymphocytes # (auto) 0.52 K/uL (1.2-3.4); Lymphocytes % (auto) 7.8 %; Mean Corpuscular Hgb Conc 31.2 g/dL (32-36); Mean Corpuscular Volume 93.4 fL (80-100); Mean Platelet Volume 9.8 fL (7.4-10.4); Monocytes # (auto) 0.97 K/uL (0.11-0.59); Monocytes % (auto) 14.6 %; Neutrophils # (auto) 4.83 K/uL (1.4-6.5); Neutrophils % (auto) 72.6 %; Nucleated RBC # (auto) 0.28 K/uL (0-0); Nucleated RBC % (auto) 4.2 %; Platelet Count 402 K/uL (130-400); RDW Coefficient of Variation 16.7 % (11.5-14.5); RDW Standard Deviation 55.5 fL (36.4-46.3); White Blood Count 6.65 K/uL (4.8-10.8)
[2018-08-13 07:29] LABS: INR 1.2 (0.9-1.1)
[2018-08-13] MEDS: CALCIUM 600MG + VIT D 400 IU TAB PO SCH (07:44)
[2018-08-13] MEDS: LEVOFLOXACIN/D5W 500 MG/100 ML BAG IV SCH (07:44)
[2018-08-13] MEDS: guaiFENesin 600 MG TABCR PO SCH ×2 (07:45→20:28)
[2018-08-13] MEDS: ENOXAPARIN INJ 40 MG/0.4 ML SYR SQ SCH ×2 (07:45→08:05)
[2018-08-13 07:58] LABS: Albumin Level 2.5 gm/dl (3.4-5.0); BUN Creatinine Ratio 14.3 (10-20); Calcium 8.8 mg/dl (8.5-10.1); Creatinine Clr Calc Pharmacy 65.4 ml/min; Est GFR (African American) 94.9; Est GFR (Non-African American) 81.9; Magnesium 2.3 mg/dl (1.8-2.4); Potassium 4.4 mmol/L (3.5-5.1)
[2018-08-13] MEDS: CLOPIDOGREL BISULFATE 75 MG TAB PO SCH (07:59)
[2018-08-13] MEDS: ATORVASTATIN 20 MG TAB PO SCH (07:59)
[2018-08-13] MEDS: CEROVITE ADV FORMULA TAB PO SCH (07:59)
[2018-08-13 08:00] LABS: Polychromasia 1+
[2018-08-13 08:01] LABS: Albumin Globulin Ratio 0.6 (0.9-2); Bilirubin,Total 0.5 mg/dl (0.2-1); Globulin 4.1 gm/dl (2.5-4.0); Total Protein 6.6 gm/dl (6.4-8.2)
[2018-08-13] MEDS: VANCOMYCIN HCL 1,250 MG in SODIUM CHLORIDE 0.9% 250 ML IV SCH ×2 (09:11→20:29)
[2018-08-13] MEDS: methylPREDNISolone 40 MG in SYRINGE 0 ML IV SCH ×2 (09:11→22:08)
--- NOTE | 2018-08-13 09:45 | Progress Note ---
DATE: 08/13/2018 DIAGNOSES: 1. Acute respiratory failure with hypoxia. 2. Metastatic lung cancer. 3. Bacteremia. 4. Pneumonia. 5. Emphysema of the lung. 6. Status post pneumonectomy. SUBJECTIVE: I had the pleasure of visiting with the patient and his at bedside today. Nonrebreather is in place, but the patient seems to be doing much better. Apparently, he was seen by my partner over the weekend and thought to be progressing radiographically and therefore CT scan of the chest was performed. I reviewed the films and report today and clearly I do not agree that there is evidence of progression at this time. Specifically radiation induced pneumonitis. In fact, the interpreting radiologist pointed out interval decreased size of the right lower lobe nodule compatible with treatment response was pointed out. The patient apparently has been producing a clear progressive sputum; however, denied any fevers leading up to admission. According to the Hospitalist Service, blood cultures from 08/11/2018 were positive for Gram positive cocci. He now continues vancomycin. Clinically other than persistent hypoxia, the patient seems to be progressing relatively well. Nursing reports no overnight difficulties. PHYSICAL EXAMINATION: GENERAL: At bedside reveals a very pleasant 78-year-old gentleman, awake, alert and appropriate, in no acute distress. VITAL SIGNS: Temperature 36.3, pulse 125, respiratory rate 22, blood pressure 104/71. SKIN: Without rash or lesion. HEENT: Oral mucosa without erythema or ulceration. NECK: Supple. HEART: Tachycardic, but regular. LUNGS: Clear to auscultation. ABDOMEN: Soft, nontender, nondistended without palpable hepatosplenomegaly. EXTREMITIES: No clubbing, cyanosis or edema. NEUROLOGIC: Grossly intact. LABORATORY DATA: WBC count 6650, hemoglobin 12.2, platelet count 402,000. Electrolytes are for the most part unremarkable. His albumin is decreased to 0.5. IMPRESSION: 1. Acute respiratory failure. 2. Bacteremia. 3. Pneumonia. 4. Emphysema. 5. History of metastatic lung cancer. PLAN: I reviewed CT scan ordered by my partner over the weekend. It would appear this gentleman is not progressing, in fact seems to be responding to current therapy. The patient is presently receiving weekly Abraxane which has been relatively well tolerated. His peripheral blood counts and serum chemistries are otherwise unremarkable for the patient. I suspect his ongoing hypoxia is most likely attributable to pneumonia and his chronic lung disease in general. Obviously status post pneumonectomy he is much more vulnerable with one lung and needs to be treated aggressively. I suspect he may require home oxygen when all set and done. From a cancer standpoint, there is no indication that treatment needs to be changed and we will plan on continuing his current regimen upon discharge. I have nothing further to add and completely agree with medical approach at this time. We will continue to follow the patient periodically during his hospital stay. Thank you again for your assistance in the care of this very pleasant gentleman. HELEN
--- NOTE | 2018-08-13 11:02 | Progress Note ---
DATE: 08/13/2018 TIME: 10:15 a.m. SUBJECTIVE: The patient is feeling some better. He is less short of breath than a few days ago. Also, his cough has decreased significantly in the past few days. His was present during this evaluation and she agrees with these. He is expectorating mucus that seems fairly clear based upon what he is spitting into a basin. He denies chest pains. He does get very winded with minimal exertion. Nursing staff indicates that his oxygen saturations have been decreased today and when he goes to the bathroom, they dropped even more. OBJECTIVE: GENERAL: The patient appeared fairly comfortable at rest. VITAL SIGNS: Temperature is 36.3. The only fever was immediately at the time of admission. The patient has mild hoarseness. His believes this is a change from what it had been, although the patient seems somewhat uncertain about this. Heart rate is 103 per minute. The rhythm was regular. Blood pressure 104/71. Respiratory rate 22 breaths per minute. Oxygen saturation at the time of my exam 88% on 5 liters nasal cannula. Reportedly, the patient did not like an OxyMask. LUNGS: Auscultation of the right lung posteriorly reveals mild rales. No wheezing was heard. ABDOMEN: Soft. Bowel sounds were present. There was no tenderness to palpation. EXTREMITIES: Showed no cyanosis, clubbing or edema. DIAGNOSTIC DATA: The patient had a CAT scan of the chest done yesterday. This was reviewed. He has a somewhat diffuse patchy ground glass opacity in the right lung which is both interstitial and alveolar in nature. It does reflect the change. The radiologist suggested the possibility of radiation pneumonitis. However, the patient's radiation was a couple of years ago according to the patient and his . That would make acute radiation change much less likely. It does not exactly look typical for an infectious agent either. Aspiration would be a consideration. Lymphangitic spread could be a consideration. However, the nodule in the right lower lobe has decreased in size from 2.4 cm down to 1.6 cm. The patient does have significant emphysema. Considering these changes, it is not surprised that he is hypoxic considering he has only one lung. LABORATORY DATA: White count today is 6.65. Hemoglobin 10.2. Platelets 402,000. The neutrophils were normal at 4.83. INR today is 1.2. Electrolytes show sodium 136, potassium 4.4, chloride 104, bicarb 26. The patient has 1 blood culture from August 11 positive reporting coag-negative staph. This may be contaminant. A sputum sample from the suggests probable upper respiratory contamination in light of large amounts of squamous cells. A reorder is pending. IMPRESSION: 1. Extensive right lung infiltrate - questionable pneumonia versus aspiration versus medication-induced versus radiation. 2. Extensive emphysema. 3. Hypoxia. 4. Status post left pneumonectomy. COMMENTS AND RECOMMENDATIONS: The patient remains on IV steroids as well as multiple antibiotics including vancomycin, Zosyn, and levofloxacin. I would continue the above. Would also continue the neb treatments. It is bothersome that he is getting more hypoxic even though he clinically feels better. In all likelihood, discussion should be held with the patient regarding his wishes and whether he would want to be considered a full code candidate or not. I did explain to the patient that we need to treat things that are potentially treatable in light of the fact we do not know what the ultimate source of the infiltrates are. Obviously, he is compromised because he has only 1 lung and the remaining lung has a lot of emphysema even without other problems.
--- NOTE | 2018-08-13 15:17 | Progress Note ---
DATE: 08/13/2018 Mr. Henry was seen today on 08/13/2017. I had a long discussion with the patient and his . I reviewed his CT scan from yesterday. The patient does not look bad, but he is requiring more oxygen. I agree with the assessment. This may well be radiation pneumonitis. He is still coughing up some light yellow sputum, however, so an infectious process or even a combination of radiation pneumonitis and an upper respiratory infection could be at play here. At this point, he really does not have any fluid to drain and there is nothing surgical for us to do. We will continue to follow along, however. He is being treated with steroids and with antibiotics, which I think is appropriate. HELEN
--- NOTE | 2018-08-13 15:24 | Hospitalist Progress Note ---
Date of Service August 13, 2018 Assessment & Plan (1) Acute respiratory failure with hypoxia: (2) Bacteremia: (3) Pneumonia: (4) Emphysema of lung: (5) History of pneumonectomy: (6) Metastatic lung cancer (metastasis from lung to other site): (7) Hyperlipidemia: (8) DVT prophylaxis: 78yo M w/ hx of metastatic squamous cell lung cancer who was admitted with shortness of breath and fever, concern for pneumonia. Acute respiratory failure with hypoxia upon admission, likely secondary to pneumonia/COPD exacerbation/ Febrile neutropenia upon admission resolved, hx of Squamous cell lung CA status post pneumonectomy for stage III followed by adjuvant chemotherapy. pneumonia/COPD exacerbation Possible bacteremia however cultures shows possible contamination with "Coag neg staph not lugdunensis" Has been on placed on Solu-Medrol 40 mg IV every 8 hours. Continue vancomycin IV per pharmacokinetic monitoring. Continue Zosyn IV and levofloxacin IV begun in the ED. Follow-up sputum Gram stain and culture. Continue guaifenesin extended release 600 mg p.o. twice daily On 08/12, got CT scan showing improvement in cancer and radiation pneumonitis, will be follow-up with Dr. Ruiz for further cancer plan. Bacteremia: see above , Blood cultures from 08/11 growing Gram(+) cocci, which is Coag neg staph not lugdunensis, Given pneumonia and abnormal lung anatomy, will continue vancomycin IV for 1 day Continue vanc; could consider stopping if it is likely contaminant Hyperlipidemia: Continue atorvastatin 20 mg p.o. daily DVT prophylaxis: Lovenox d/w'ed with the satellite project site monitor and patient and family about condition and care plan, patient is okay CPR but no resuscitation no cardioversion Subjective Reports generally feeling tired and weakness, mild cough, no sputum, still on 5 L nasal cannula oxygen, Review of Systems Constitutional: Positive weakness, or fatigue Respiratory: See HPI, Cardiac: No chest pain, No orthopnea, No PND, Abdomen: No pain, No nausea, No vomiting, No diarrhea, No constipation, No GI bleeding Musculoskeletal: No joint pain, No muscle pain, No swelling, : No dysuria, No urinary frequency, No incontinence, Neurologic: No paralysis, No weakness, No numbness/tingling, Psychiatric: No depression symptoms, No anhedonism, No anxiety, Heme: No abnormal bleeding/bruising, No clotting problems, N Skin: No rash, No itch, No new/changing skin lesions, No color change, No bleeding Physical Exam 2 Vital Signs (Past 24 Hours): Last Vital Signs Temp 36.8 C 08/13/18 11:34 Pulse 107 H 08/13/18 15:03 Resp 18 08/13/18 15:03 BP 105/69 08/13/18 11:34 Pulse Ox 95 08/13/18 15:03 Physical Exam: General Appearance: Looks frail, however pleasant, WD/WN, no apparent distress, Eyes: normal inspection, PERRL, EOMI, sclerae normal ENT: normal ENT inspection, hearing grossly normal, pharynx normal Neck: supple, no adenopathy, thyroid normal, no JVD, no carotid bruits, trachea midline Respiratory/Chest: Decreased breath sounds, occasional wheezing , no respiratory distress, no accessory muscle use, breath sounds, rales, Cardiovascular: regular rate, rhythm, no JVD, no murmur Abdomen: normal bowel sounds, non tender, soft, no organomegaly, Extremities: normal range of motion, non-tender, normal inspection, no pedal edema, no calf tenderness, normal capillary refill , pelvis stable, joint has no limited range of motion, c Neurologic/Psychiatric: cafeteria assistant II-XII nml as tested, no motor/sensory deficits, Skin: normal color, warm/dry, no rash Lymphatic: no adenopathy Results & Data Laboratory Results Laboratory Results - last 24 hr 08/11/18 08/12/18 08/13/18 05:30 20:35 06:55 WBC 6.65 RBC 3.50 L Hgb 10.2 L Hct 32.7 L MCV 93.4 MCH 29.1 MCHC 31.2 L RDW Std Deviation 55.5 H RDW Coeff of Louise 16.7 H Plt Count 402 H MPV 9.8 Immature Gran % (Auto) 4.7 Neut % (Auto) 72.6 Lymph % (Auto) 7.8 [place] % (Auto) 14.6 Eos % (Auto) 0.0 Baso % (Auto) 0.3 Immature Gran # (Auto) 0.31 H Neut # (Auto) 4.83 Lymph # (Auto) 0.52 L [place] # (Auto) 0.97 H Eos # (Auto) 0.00 Baso # (Auto) 0.02 Absolute Nucleated RBC 0.28 H Nucleated RBC % (auto) 4.2 Polychromasia 1+ PT INR Sodium Potassium Chloride Carbon Dioxide Anion Gap BUN Creatinine Est Cr Clr Drug Dosing Est GFR ( Amer) Est GFR (Non-Af Amer) BUN/Creatinine Ratio Glucose Calcium Magnesium Total Bilirubin AST ALT Alkaline Phosphatase Total Protein Albumin Globulin Albumin/Globulin Ratio Vancomycin Trough 14.5 Bld Cult Staph aureus PCR Negative Blood Culture MRSA PCR Negative 08/13/18 08/13/18 06:55 06:55 WBC RBC Hgb Hct MCV MCH MCHC RDW Std Deviation RDW Coeff of Louise Plt Count MPV Immature Gran % (Auto) Neut % (Auto) Lymph % (Auto) [place] % (Auto) Eos % (Auto) Baso % (Auto) Immature Gran # (Auto) Neut # (Auto) Lymph # (Auto) [place] # (Auto) Eos # (Auto) Baso # (Auto) Absolute Nucleated RBC Nucleated RBC % (auto) Polychromasia PT 12.0 INR 1.2 H Sodium 136 Potassium 4.4 Chloride 104 Carbon Dioxide 26 Anion Gap 6.0 BUN 13 D Creatinine 0.89 Est Cr Clr Drug Dosing 65.4 Est GFR ( Amer) 94.9 Est GFR (Non-Af Amer) 81.9 BUN/Creatinine Ratio 14.3 Glucose 114 H Calcium 8.8 Magnesium 2.3 Total Bilirubin 0.5 AST 32 ALT 40 Alkaline Phosphatase 80 Total Protein 6.6 Albumin 2.5 L Globulin 4.1 H Albumin/Globulin Ratio 0.6 L Vancomycin Trough Bld Cult Staph aureus PCR Blood Culture MRSA PCR Microbiology 08/11/18 05:30 Blood Blood Culture - Preliminary Coag neg staph not lugdunensis 08/13/18 07:50 Sputum, Expectorated Gram Stain - Final 08/12/18 Unknown Sputum, Expectorated Gram Stain - Final 08/12/18 Unknown Sputum, Expectorated Sputum Culture - Final 08/11/18 05:35 Blood Blood Culture - Preliminary No growth to date. _ (1) Emphysema of lung Emphysema type: unspecified Qualified Code(s): J43.9 - Emphysema, unspecified (2) Metastatic lung cancer (metastasis from lung to other site) Laterality: unspecified laterality Qualified Code(s): C34.90 - Malignant neoplasm of unspecified part of unspecified bronchus or lung (3) Hyperlipidemia Hyperlipidemia type: unspecified Qualified Code(s): E78.5 - Hyperlipidemia, unspecified
[2018-08-13] MEDS: DEXAMETHASONE CONC 3.75 MG, NYSTATIN 30 ML, DiphenhydrAMINE Syrup 300 MG, ORA-SWEET SYR... PO PRN (18:36)
[2018-08-14] MEDS: DEXAMETHASONE CONC 3.75 MG, NYSTATIN 30 ML, DiphenhydrAMINE Syrup 300 MG, ORA-SWEET SYR... PO PRN ×3 (01:13→15:33)
[2018-08-14] MEDS: PIPERACILLIN/TAZOBACTAM 3.375 GM in DEXTROSE 5% 100 ML IV SCH ×2 (03:42→11:50)
[2018-08-14 07:11] LABS: Basophils # (auto) 0.03 K/uL (0-0.2); Basophils % (auto) 0.3 %; Hematocrit (blood only) 34.2 % (42-52); Immature Granulocytes # (auto) 0.44 K/uL (0.00-0.02); Lymphocytes # (auto) 0.66 K/uL (1.2-3.4); Lymphocytes % (auto) 7.4 %; Mean Corpuscular Hgb Conc 32.2 g/dL (32-36); Mean Corpuscular Volume 92.9 fL (80-100); Mean Platelet Volume 10.1 fL (7.4-10.4); Monocytes # (auto) 0.95 K/uL (0.11-0.59); Monocytes % (auto) 10.7 %; Neutrophils # (auto) 6.78 K/uL (1.4-6.5); Neutrophils % (auto) 76.6 %; Nucleated RBC # (auto) 0.47 K/uL (0-0); Nucleated RBC % (auto) 5.3 %; Platelet Count 428 K/uL (130-400); RDW Coefficient of Variation 16.9 % (11.5-14.5); RDW Standard Deviation 56.2 fL (36.4-46.3); Red Blood Count 3.68 M/uL (4.7-6.1); White Blood Count 8.86 K/uL (4.8-10.8)
[2018-08-14] MEDS: ALBUT/IPRATROP 3MG/0.5MG NEB 3 ML VIAL NEB SCH ×3 (07:12→15:33)
[2018-08-14 07:19] LABS: INR 1.2 (0.9-1.1)
[2018-08-14 07:48] LABS: Albumin Level 2.6 gm/dl (3.4-5.0); BUN Creatinine Ratio 14.8 (10-20); Calcium 8.9 mg/dl (8.5-10.1); Est GFR (African American) 93.2; Est GFR (Non-African American) 80.4; Magnesium 2.3 mg/dl (1.8-2.4); Potassium 4.5 mmol/L (3.5-5.1)
[2018-08-14 07:51] LABS: Albumin Globulin Ratio 0.6 (0.9-2); Bilirubin,Total 0.4 mg/dl (0.2-1); Globulin 4.1 gm/dl (2.5-4.0); Total Protein 6.7 gm/dl (6.4-8.2)
[2018-08-14] MEDS: LEVOFLOXACIN/D5W 500 MG/100 ML BAG IV SCH (08:11)
--- NOTE | 2018-08-14 08:53 | Progress Note ---
DATE: 08/14/2018 DIAGNOSES: 1. Acute respiratory failure with hypoxia. 2. Metastatic lung cancer. 3. Bacteremia. 4. Pneumonia. 5. Emphysema of the lung. 6. Status post pneumonectomy. SUBJECTIVE: I visited with Alex and his at bedside again this morning. I was pleasantly surprised to see he is now on nasal cannula. O2 saturation remains in the low 90s. Alex still has not engaged in very much activity, requires assistance with ambulation. Hopefully, primary service will get PT and OT involved to push Alex towards discharge. Blood cultures were positive for gram-positive cocci, currently covered with vancomycin. He is tolerating his diet, moving his bowels regularly. He offers no complaint of pain. PHYSICAL EXAMINATION: GENERAL: Very pleasant 78-year-old male, in no acute distress. VITAL SIGNS: Temperature 36.9, pulse 107, respiratory rate 18, blood pressure 85/58. SKIN: Without rash or lesion. HEENT: Oral mucosa without erythema or ulceration. NECK: Supple. Trachea midline. HEART: Regular rate and rhythm. LUNGS: Right hemithorax appears to be cleared. ABDOMEN: Soft, nontender, nondistended. EXTREMITIES: No clubbing, cyanosis or edema. NEUROLOGIC: Grossly intact. LABORATORY DATA: WBC count 8860, hemoglobin 11, platelet count 428,000. Sodium 136, potassium 4.5, chloride 102, carbon dioxide 26, BUN 13, creatinine 0.91, albumin 2.6. IMPRESSION: 1. Acute respiratory failure. 2. Bacteremia. 3. Pneumonia. 4. Hypoalbuminemia. 5. History of metastatic lung cancer. 6. Emphysema. PLAN: I had the pleasure of visiting with Alex again at bedside. Clinically, he looks much better, now on nasal cannula. Obviously, he will probably require close pulmonary followup moving forward, utilizing bronchodilators, perhaps inhaled corticosteroids and supplemental oxygen. He continues to receive Levaquin intravenously. We will continue to hold chemotherapy until Alex is medically stable. Again, radiographically, I was not impressed that his disease is currently progressing and hope to resume his treatment again upon stabilization of his current condition. Alex overall seems to be in good spirits and working towards discharge. We will continue to follow him periodically through his hospital stay. Appreciate medical services effort and pulmonary services input. HELEN
[2018-08-14] MEDS: CALCIUM 600MG + VIT D 400 IU TAB PO SCH (09:05)
[2018-08-14] MEDS: ATORVASTATIN 20 MG TAB PO SCH (09:06)
[2018-08-14] MEDS: guaiFENesin 600 MG TABCR PO SCH ×2 (09:09→19:42)
[2018-08-14] MEDS: CLOPIDOGREL BISULFATE 75 MG TAB PO SCH (09:10)
[2018-08-14] MEDS: CEROVITE ADV FORMULA TAB PO SCH (09:10)
[2018-08-14] MEDS: ENOXAPARIN INJ 40 MG/0.4 ML SYR SQ SCH (09:11)
[2018-08-14] MEDS: methylPREDNISolone 40 MG in SYRINGE 0 ML IV SCH ×2 (09:20→19:42)
[2018-08-14] MEDS: VANCOMYCIN HCL 1,250 MG in SODIUM CHLORIDE 0.9% 250 ML IV SCH (09:23)
--- NOTE | 2018-08-14 12:54 | Hospitalist Progress Note ---
Date of Service August 14, 2018 Assessment & Plan (1) Acute respiratory failure with hypoxia: (2) Bacteremia: (3) Pneumonia: (4) Emphysema of lung: (5) History of pneumonectomy: (6) Metastatic lung cancer (metastasis from lung to other site): (7) Hyperlipidemia: (8) DVT prophylaxis: 78yo M w/ hx of metastatic squamous cell lung cancer who was admitted on August 11, 2018, with shortness of breath and fever, concern for pneumonia, has been generally improving and stable, Acute respiratory failure with hypoxia upon admission, likely secondary to pneumonia/COPD exacerbation/ Febrile neutropenia upon admission, resolved, hx of Squamous cell lung CA status post pneumonectomy in the left lung, for stage III followed by adjuvant chemotherapy. New acute respiratory failure, possible home O2 dependent with no need of home O2 prior to this admission pneumonia/COPD exacerbation Possible bacteremia however cultures shows possible contamination with "Coag neg staph not lugdunensis" Has been on placed on Solu-Medrol 40 mg IV every 8 hours, will change to acute Has been on vancomycin IV per pharmacokinetic monitoring. Has been on Zosyn IV and levofloxacin IV begun in the ED. We will discontinue Vanco and Zosyn, continue Levaquin because patient general condition improving and culture is unremarkable Continue guaifenesin extended release 600 mg p.o. twice daily On 08/12, got CT scan showing improvement in cancer and radiation pneumonitis, will be follow-up with Dr. Ruiz for further cancer plan. Bacteremia: see above , Blood cultures from 08/11 growing Gram(+) cocci, which is Coag neg staph not lugdunensis, Given pneumonia and abnormal lung anatomy, has been on Vanco, Zosyn, Levaquin since admission on August 11 which has been 4 days, change antibiotic to Levaquin today, Hyperlipidemia: Continue atorvastatin 20 mg p.o. daily DVT prophylaxis: Lovenox d/w'ed with the junior manufacturing engineer and patient and family about condition and care plan, patient is okay CPR but no resuscitation no cardioversion Transfer to [facility] today, possible discharge in day 1 or 2, with evaluation of home O2 need by two-step Subjective Sitting up in chair, eating lunch, pleasant, conversational, mild cough, no sputum, oxygen level improved at 3 L/min now, was not on oxygen at home, Review of Systems Constitutional: Positive weakness, or fatigue Respiratory: See HPI, Cardiac: No chest pain, No orthopnea, No PND, Abdomen: No pain, No nausea, No vomiting, No diarrhea, No constipation, No GI bleeding Musculoskeletal: No joint pain, No muscle pain, No swelling, : No dysuria, No urinary frequency, No incontinence, Neurologic: No paralysis, No weakness, No numbness/tingling, Psychiatric: No depression symptoms, No anhedonism, No anxiety, Heme: No abnormal bleeding/bruising, No clotting problems, N Skin: No rash, No itch, No new/changing skin lesions, No color change, No bleeding Physical Exam 2 Vital Signs (Past 24 Hours): Last Vital Signs Temp 37.0 C 08/14/18 11:40 Pulse 115 H 08/14/18 11:40 Resp 26 H 08/14/18 11:40 BP 113/73 08/14/18 11:40 Pulse Ox 92 08/14/18 11:40 Physical Exam: General Appearance: Looks frail, however pleasant, WD/WN, no apparent distress, Eyes: normal inspection, PERRL, EOMI, sclerae normal ENT: normal ENT inspection, hearing grossly normal, pharynx normal Neck: supple, no adenopathy, thyroid normal, no JVD, no carotid bruits, trachea midline Respiratory/Chest: no BS in left lung, Decreased breath sounds in right lung, occasional wheezing , no respiratory distress, no accessory muscle use, breath sounds, rales, Cardiovascular: regular rate, rhythm, no JVD, no murmur Abdomen: normal bowel sounds, non tender, soft, no organomegaly, Extremities: normal range of motion, non-tender, normal inspection, no pedal edema, no calf tenderness, normal capillary refill , pelvis stable, joint has no limited range of motion, c Neurologic/Psychiatric: fur operator II-XII nml as tested, no motor/sensory deficits, Skin: normal color, warm/dry, no rash Lymphatic: no adenopathy Results & Data Laboratory Results Laboratory Results - last 24 hr 08/14/18 08/14/18 08/14/18 06:50 06:50 06:50 WBC 8.86 RBC 3.68 L Hgb 11.0 L Hct 34.2 L MCV 92.9 MCH 29.9 MCHC 32.2 RDW Std Deviation 56.2 H RDW Coeff of Louise 16.9 H Plt Count 428 H MPV 10.1 Immature Gran % (Auto) 5.0 Neut % (Auto) 76.6 Lymph % (Auto) 7.4 [place] % (Auto) 10.7 Eos % (Auto) 0.0 Baso % (Auto) 0.3 Immature Gran # (Auto) 0.44 H Neut # (Auto) 6.78 H Lymph # (Auto) 0.66 L [place] # (Auto) 0.95 H Eos # (Auto) 0.00 Baso # (Auto) 0.03 Absolute Nucleated RBC 0.47 H Nucleated RBC % (auto) 5.3 PT 12.0 INR 1.2 H Sodium 136 Potassium 4.5 Chloride 102 Carbon Dioxide 26 Anion Gap 8.0 BUN 13 Creatinine 0.91 Est Cr Clr Drug Dosing 64.0 Est GFR ( Amer) 93.2 Est GFR (Non-Af Amer) 80.4 BUN/Creatinine Ratio 14.8 Glucose 105 H Calcium 8.9 Magnesium 2.3 Total Bilirubin 0.4 AST 25 ALT 38 Alkaline Phosphatase 80 Total Protein 6.7 Albumin 2.6 L Globulin 4.1 H Albumin/Globulin Ratio 0.6 L Microbiology 08/13/18 07:50 Sputum, Expectorated Gram Stain - Final 08/13/18 07:50 Sputum, Expectorated Sputum Culture - Preliminary Light normal humphrey present, final report to follow. 08/11/18 05:30 Blood Blood Culture - Final Coag neg staph not lugdunensis _ (1) Emphysema of lung Emphysema type: unspecified Qualified Code(s): J43.9 - Emphysema, unspecified (2) Metastatic lung cancer (metastasis from lung to other site) Laterality: unspecified laterality Qualified Code(s): C34.90 - Malignant neoplasm of unspecified part of unspecified bronchus or lung (3) Hyperlipidemia Hyperlipidemia type: unspecified Qualified Code(s): E78.5 - Hyperlipidemia, unspecified
--- NOTE | 2018-08-14 13:47 | Progress Note ---
DATE: 08/14/2018 Mr. Henry was seen today. He appears to be getting better. His A-a gradient is improving. He looks better. He sounds very good on auscultation. At this point, there is nothing surgical to add. We would be glad to see him at any time.
--- NOTE | 2018-08-14 17:28 | Progress Note ---
DATE: 08/14/2018 TIME: 4:20 p.m. SUBJECTIVE: The patient feels better. He feels less short of breath. In the last couple of hours, he feels that he has coughed up more phlegm. He was transferred up to fourth floor from his prior ICU room on . OBJECTIVE: GENERAL: The patient appears comfortable. He is sitting in a chair. VITAL SIGNS: Temperature is 36.8, and he has had no fevers. CARDIOVASCULAR: Heart rate has increased to 120 per minute. The rhythm is regular. Review of his chart shows he has been tachycardic above 100 with each check on the vitals. Blood pressure 105/66. RESPIRATORY: Respiratory rate is 20. There are dry rales heard throughout the right chest. The breath sounds on the left are absent. EXTREMITIES: Showed no cyanosis, clubbing, or edema. LABORATORY DATA: White count is 8.86, hemoglobin 11, platelets 428,000. Electrolytes show sodium 136, potassium 4.5, chloride 102, bicarbonate 26, BUN 13, with a creatinine of 0.91, albumin is decreased at 2.6, and globulin is slightly elevated at 4.1. IMPRESSION: 1. Extensive right lung infiltrate of uncertain etiology. 2. Emphysema. 3. Hypoxia. 4. Status post left pneumonectomy. 5. Tachycardia. RECOMMENDATIONS: I believe the methylprednisolone can be stopped and changed to p.o. prednisone. In light of the tachycardia, would change the nebulizer treatments from DuoNebs to levalbuterol 0.63 plus ipratropium.
[2018-08-14] MEDS: IPRATROPIUM BROMIDE NEB SOLN 0.02% 2.5 ML VIAL INH SCH (19:05)
[2018-08-14] MEDS: LEVALBUTEROL HCL 0.63 MG/3 ML NEB NEB SCH (19:05)
[2018-08-14] MEDS ORDERED: XOPENEX/ATROVENT 0.63mg/0.5MG NEB COMBO NEB SCH (20:00)
[2018-08-15] MEDS: LEVALBUTEROL HCL 0.63 MG/3 ML NEB NEB SCH ×2 (02:07→07:24)
[2018-08-15] MEDS: IPRATROPIUM BROMIDE NEB SOLN 0.02% 2.5 ML VIAL INH SCH ×2 (02:07→07:24)
[2018-08-15 07:00] LABS: Basophils # (auto) 0.03 K/uL (0-0.2); Basophils % (auto) 0.3 %; Hematocrit (blood only) 34.4 % (42-52); Hemoglobin 11.1 g/dL (14.0-18.0); Immature Granulocytes # (auto) 0.51 K/uL (0.00-0.02); Immature Granulocytes % (auto) 4.9 %; Lymphocytes # (auto) 0.82 K/uL (1.2-3.4); Lymphocytes % (auto) 7.8 %; Mean Corpuscular Hgb Conc 32.3 g/dL (32-36); Mean Platelet Volume 9.8 fL (7.4-10.4); Monocytes # (auto) 1.05 K/uL (0.11-0.59); Neutrophils # (auto) 8.06 K/uL (1.4-6.5); Nucleated RBC # (auto) 0.43 K/uL (0-0); Nucleated RBC % (auto) 4.1 %; Platelet Count 397 K/uL (130-400); RDW Coefficient of Variation 17.2 % (11.5-14.5); RDW Standard Deviation 56.4 fL (36.4-46.3); Red Blood Count 3.66 M/uL (4.7-6.1); White Blood Count 10.47 K/uL (4.8-10.8)
[2018-08-15 07:30] LABS: Polychromasia 1+
[2018-08-15 07:36] LABS: BUN Creatinine Ratio 17.6 (10-20); Calcium 8.9 mg/dl (8.5-10.1); Creatinine Clr Calc Pharmacy 63.1 ml/min; Est GFR (African American) 94.5; Est GFR (Non-African American) 81.5; Magnesium 2.6 mg/dl (1.8-2.4); Potassium 4.2 mmol/L (3.5-5.1)
[2018-08-15] MEDS: LEVOFLOXACIN/D5W 500 MG/100 ML BAG IV SCH (08:02)
[2018-08-15] MEDS: CALCIUM 600MG + VIT D 400 IU TAB PO SCH (08:02)
[2018-08-15] MEDS: ATORVASTATIN 20 MG TAB PO SCH (08:02)
[2018-08-15] MEDS: ENOXAPARIN INJ 40 MG/0.4 ML SYR SQ SCH (08:03)
[2018-08-15] MEDS: guaiFENesin 600 MG TABCR PO SCH ×2 (08:04→19:57)
[2018-08-15] MEDS: CEROVITE ADV FORMULA TAB PO SCH (08:04)
[2018-08-15] MEDS: CLOPIDOGREL BISULFATE 75 MG TAB PO SCH (08:04)
[2018-08-15] MEDS ORDERED: IPRATROPIUM BROMIDE NEB SOLN 0.02% 2.5 ML VIAL NEB PRN ×2 (09:03→09:04)
[2018-08-15] MEDS ORDERED: LEVALBUTEROL HCL 0.63 MG/3 ML NEB NEB PRN (09:06)
--- NOTE | 2018-08-15 10:13 | Progress Note ---
DATE: 08/15/2018 DIAGNOSES: 1. Acute respiratory failure with hypoxia. 2. Metastatic lung cancer. 3. Bacteremia. 4. Pneumonia. 5. Emphysema of the lung. 6. Status post pneumonectomy. SUBJECTIVE: Alex was seen and examined at bedside this morning. He overnight was transferred from telemetry up to medical oncology floor. He continues on a fair amount of oxygen, approximately 6 L via nasal cannula. Currently, any attempt to wean him results in profound hypoxia. He otherwise seems to be doing well, tolerating diet, he is moving his bowels and ambulating with minimal assistance. Nursing reports no overnight difficulties otherwise. OBJECTIVE: GENERAL: Alex is in no acute distress. VITAL SIGNS: Temperature 36.8, pulse 108, respiratory rate 28, blood pressure 172/74. SKIN: Without rash or lesion. HEENT: No buccal lesions or ulcerations. NECK: Supple. Trachea midline. HEART: Tachycardic but regular. LUNGS: Clear to auscultation, right side only, status post left pneumonectomy. ABDOMEN: Soft, nontender, nondistended. EXTREMITIES: No clubbing, cyanosis, or edema. NEUROLOGIC: Grossly intact. LABORATORY DATA: WBC count 10,470, hemoglobin 11.1, platelet count 397,000. Sodium 138, potassium 4.2, chloride 104, carbon dioxide 30, creatinine 0.9, BUN 16. IMPRESSION: 1. Acute respiratory failure/hypoxia. 2. Bacteremia. 3. Pneumonia. 4. Hypoalbuminemia. 5. Metastatic nonsmall cell lung cancer. 6. Emphysema. PLAN: Alex seems to be making slow but steady progress. He was transferred from telemetry to medical floor overnight. He remains very hypoxic, and hopefully, with further aggressive pulmonary care, he can be sent home with the lesser amounts of oxygen. Will leave that in the competent hands of the pulmonary service. As soon as he is medically stable, will plan to resume his chemo regimen. I think he is subsequently a day or two away from being discharged. I have nothing further to add at this time, and we will continue to follow Alex periodically during his hospital stay. Thank you very much for assisting us in the care of this very pleasant gentleman.
[2018-08-15] MEDS: LISINOPRIL 10 MG TAB PO SCH (10:40)
[2018-08-15] MEDS: predniSONE 10 MG TABLET PO SCH (10:40)
[2018-08-15] MEDS: levoFLOXacin 500 MG TAB PO SCH (10:40)
[2018-08-15] MEDS ORDERED: IOVERSOL 100ml IV PRN (13:31)
--- NOTE | 2018-08-15 13:47 | CT Scan Report ---
CT abd pelvis oral and IV con CLINICAL HISTORY: 78 years-old Male presenting with abdominal pain, history of lung cancer. TECHNIQUE: Multidetector CT of the abdomen and pelvis was performed after the administration of oral and intravenous contrast. IV contrast: None. One or more dose lowering techniques were used consisten t with the principles of ALARA (as low as reasonably achievable), including automatic exposure contro l, mA or kV adjustment to individual patient size, and/or use of iterative reconstruction. COMPARISON: 04/26/2018. CT DOSE (mGy.cm): The estimated cumulative dose is 505.91 mGycm. FINDINGS: [place] Tender topogram: Internal fixation of the right femur. Complete opacification of the left hemithorax. Lung bases: Postsurgical changes of left pneumonectomy. Resultant leftward mediastinal shift. Signifi cant paraseptal emphysema of the right lung. Diffuse added density of the right lung with patchy grou ndglass opacities. Spiculated solid nodule in the lateral basal right lower lobe has significantly de creased since the prior exam. The adjacent cavitary peripheral right lower lobe nodule is no longer v isualized. Resolution of prior peripheral nodular opacities in the right middle lobe and right lower lobe. Subsegmental bronchial debris in the right lower lobe. Mitral annular calcification suggested. Normal heart size. Large left pleural effusion. Liver: Normal morphology. Several well-defined hypodense lesions likely hepatic cysts and/or hamartom as. These are unchanged. No suspicious lesion. Patent hepatic vasculature. Biliary: No intrahepatic or extrahepatic biliary ductal dilatation. Normal gallbladder. Pancreas: Mild parenchymal atrophy. Spleen: Normal. Adrenal glands: Nodular thickening of the bilateral adrenal glands similar to prior exam. Kidneys and ureters: Subcentimeter well-defined hypodensity at the upper pole the left kidney likely simple cyst. Mild multifocal cortical thinning in the right kidney may represent changes related to p rior infarct, infection, or chronic reflux nephropathy. No nephrolithiasis or hydronephrosis. Ureters nondistended. Bladder: Circumferential bladder wall thickening. Pelvic organs: Prostate enlargement likely secondary to benign prostatic hyperplasia. Bowel: Liquid stool noted throughout the large bowel suggesting a diarrheal state. The appendix is no rmal. No bowel obstruction. Postsurgical changes of Anastacia procedure suggested. Peritoneal cavity: No free fluid or intraperitoneal gas. Lymph nodes: No enlarged lymph nodes in the abdomen or pelvis. Vasculature: Calcified and noncalcified atherosclerotic plaque of the abdominal aorta, which demonstr ates mild irregularity in the infrarenal portion. There is ulceration in some areas of the plaque (fo r example series 3 image 207). Abdominal wall: Normal. Musculoskeletal: Degenerative changes of the spine. Intramedullary nail fixation of the proximal righ t femoral metadiaphysis. Advanced degenerative changes of the right hip. IMPRESSION: 1. No acute intra-abdominal pathology. 2. Significant interval decrease in size of the spiculated solid nodule in the lateral basal right l ower lobe. Resolution of additional nodules/nodular consolidation. However, new patchy groundglass op acity and added density right lung. This may suggest radiation pneumonitis and posttreatment changes. 3. Large left pleural effusion with postsurgical changes of left pneumonectomy. 4. No evidence of metastatic disease in the abdomen or pelvis. No lymphadenopathy. 5. Chronic bladder outlet obstruction secondary to prostatomegaly. 6. Possible postsurgical changes of Anastacia procedure. Electronically signed by: Jay Sheehan M.D. 08/15/2018 1:46 PM
[2018-08-15] MEDS ORDERED: LEVALBUTEROL HCL 0.63 MG/3 ML NEB NEB SCH (14:00)
--- NOTE | 2018-08-15 14:11 | Progress Note ---
DATE: 08/15/2018 PULMONARY PROGRESS NOTE TIME: 1:00 p.m. SUBJECTIVE: The patient generally feels okay. He indicates his breathing is better. He has very little cough. He is somewhat upset about taking a CAT scan this afternoon. He was supposed to have outpatient CAT scan of the abdomen, pelvis and chest. He is going to get them this afternoon while he is still here in the hospital. He actually did just have a CAT scan of the chest on 08/12. I spoke with Dr. Ruiz and he acknowledged that part of the CAT scan does not need to be repeated. OBJECTIVE: GENERAL: The patient looks comfortable, but slightly anxious. VITAL SIGNS: Temperature is 36.6. The heart rate remains elevated at 109. He has been tachycardic almost always throughout his hospital stay. The rhythm is regular. Blood pressure 110/76. LUNGS: Lung kamara revealed an absence of breath sounds on the left. On the right side, there are at most very faint rales. Respiratory rate is 20. Saturation is 90% on 4 liters. EXTREMITIES: Showed no cyanosis, clubbing or edema. LABORATORY DATA: The patient's white count today is 10.47. Hemoglobin 11.1. Platelets 397,000. Sodium 130, potassium 4.2, chloride 104, bicarb 30. BUN is 16 with a creatinine of 0.9. IMPRESSION: 1. Extensive right lung infiltrative of undetermined origin. 2. Emphysema. 3. Hypoxia. 4. Status post left pneumonectomy. COMMENTS AND RECOMMENDATIONS: The patient does not need a CAT scan of the chest, but we should do a followup chest x-ray. I will put in that order for tomorrow morning. The patient's nebulizer treatments were changed to p.r.n. and it seems reasonable. He is not having any bronchospasm at present. I believe the patient ideally should have followup by pulmonary. This would be to evaluate for ultimate clearance of the infiltrates and also obtaining pulmonary function testing. Obviously, the patient will need home oxygen in light of the fact he is still on 4 liters and only 90% saturation. He would need to have the portable tanks here prior to discharge obviously. Tomorrow's weather is supposed to be exceedingly cold and it will remain to be seen if it is feasible to discharge him at that time with those conditions or not.
--- NOTE | 2018-08-15 15:17 | Hospitalist Progress Note ---
Date of Service August 15, 2018 Assessment & Plan (1) Acute respiratory failure with hypoxia: (2) Bacteremia: (3) Pneumonia: (4) Emphysema of lung: (5) History of pneumonectomy: (6) Metastatic lung cancer (metastasis from lung to other site): (7) Hyperlipidemia: (8) DVT prophylaxis: 78yo M w/ hx of metastatic squamous cell lung cancer who was admitted on August 11, 2018, with shortness of breath and fever, concern for pneumonia, has been generally improving and stable, Acute respiratory failure with hypoxia upon admission, likely secondary to pneumonia/COPD exacerbation, stable improving, Febrile neutropenia upon admission, resolved, hx of Squamous cell lung CA status post pneumonectomy in the left lung, for stage III followed by adjuvant chemotherapy. New acute respiratory failure, possible home O2 dependent with no need of home O2 prior to this admission pneumonia/COPD exacerbation Possible bacteremia however cultures shows possible contamination with "Coag neg staph not lugdunensis" Possible pneumonia, or radiation pneumonitis Has been on placed on Solu-Medrol 40 mg IV , will change to oral prednisone, 30 mg p.o. daily Had been on vancomycin IV per pharmacokinetic monitoring. Had been on Zosyn IV and levofloxacin IV begun in the ED. discontinued Vanco and Zosyn yesterday, continue Levaquin because patient general condition improving and culture is unremarkable, change Levaquin to p.o. today Continue guaifenesin extended release 600 mg p.o. twice daily On 08/12, got CT scan showing improvement in cancer and radiation pneumonitis, will be follow-up with Dr. Ruiz for further cancer plan. Bacteremia: see above , Blood cultures from 08/11 growing Gram(+) cocci, which is Coag neg staph not lugdunensis, Given pneumonia and abnormal lung anatomy, has been on Vanco, Zosyn, Levaquin since admission on August 11 which has been 4 days, change antibiotic to Levaquin today, Hyperlipidemia: Continue atorvastatin 20 mg p.o. daily DVT prophylaxis: Lovenox d/w'ed with the coach mechanic and patient and family about condition and care plan, patient is okay CPR but no resuscitation no cardioversion Planning to discharge home tomorrow, two-step for home oxygen ordered Subjective Continue doing good, mild cough, no sputum, oxygen level improved at 5 L/min , was not on oxygen at home, Deny wheezing sputum, denies chest pain Review of Systems Constitutional: Positive weakness, or fatigue Respiratory: See HPI, Cardiac: No chest pain, No orthopnea, No PND, Abdomen: No pain, No nausea, No vomiting, No diarrhea, No constipation, No GI bleeding Musculoskeletal: No joint pain, No muscle pain, No swelling, : No dysuria, No urinary frequency, No incontinence, Neurologic: No paralysis, No weakness, No numbness/tingling, Psychiatric: No depression symptoms, No anhedonism, No anxiety, Heme: No abnormal bleeding/bruising, No clotting problems, N Skin: No rash, No itch, No new/changing skin lesions, No color change, No bleeding Physical Exam 2 Vital Signs (Past 24 Hours): Last Vital Signs Temp 36.6 C 08/15/18 11:37 Pulse 109 H 08/15/18 11:37 Resp 20 08/15/18 11:37 BP 110/76 08/15/18 11:37 Pulse Ox 90 08/15/18 11:37 Physical Exam: General Appearance: Looks frail, however pleasant, WD/WN, no apparent distress, Eyes: normal inspection, PERRL, EOMI, sclerae normal ENT: normal ENT inspection, hearing grossly normal, pharynx normal Neck: supple, no adenopathy, thyroid normal, no JVD, no carotid bruits, trachea midline Respiratory/Chest: no BS in left lung, Decreased breath sounds in right lung, occasional wheezing , no respiratory distress, no accessory muscle use, breath sounds, rales, Cardiovascular: regular rate, rhythm, no JVD, no murmur Abdomen: normal bowel sounds, non tender, soft, no organomegaly, Extremities: normal range of motion, non-tender, normal inspection, no pedal edema, no calf tenderness, normal capillary refill , pelvis stable, joint has no limited range of motion, c Neurologic/Psychiatric: commission broker II-XII nml as tested, no motor/sensory deficits, Skin: normal color, warm/dry, no rash Lymphatic: no adenopathy Results & Data Laboratory Results Laboratory Results - last 24 hr 08/15/18 08/15/18 06:35 06:35 WBC 10.47 RBC 3.66 L Hgb 11.1 L Hct 34.4 L MCV 94.0 MCH 30.3 MCHC 32.3 RDW Std Deviation 56.4 H RDW Coeff of Louise 17.2 H Plt Count 397 MPV 9.8 Immature Gran % (Auto) 4.9 Neut % (Auto) 77.0 Lymph % (Auto) 7.8 [place] % (Auto) 10.0 Eos % (Auto) 0.0 Baso % (Auto) 0.3 Immature Gran # (Auto) 0.51 H Neut # (Auto) 8.06 H Lymph # (Auto) 0.82 L [place] # (Auto) 1.05 H Eos # (Auto) 0.00 Baso # (Auto) 0.03 Absolute Nucleated RBC 0.43 H Nucleated RBC % (auto) 4.1 Polychromasia 1+ Sodium 138 Potassium 4.2 Chloride 104 Carbon Dioxide 30 Anion Gap 4.0 BUN 16 Creatinine 0.90 Est Cr Clr Drug Dosing 63.1 Est GFR ( Amer) 94.5 Est GFR (Non-Af Amer) 81.5 BUN/Creatinine Ratio 17.6 Glucose 94 Calcium 8.9 Phosphorus 4.0 Magnesium 2.6 H Microbiology 08/13/18 07:50 Sputum, Expectorated Gram Stain - Final 08/13/18 07:50 Sputum, Expectorated Sputum Culture - Final Light normal humphrey. _ (1) Emphysema of lung Emphysema type: unspecified Qualified Code(s): J43.9 - Emphysema, unspecified (2) Metastatic lung cancer (metastasis from lung to other site) Laterality: unspecified laterality Qualified Code(s): C34.90 - Malignant neoplasm of unspecified part of unspecified bronchus or lung (3) Hyperlipidemia Hyperlipidemia type: unspecified Qualified Code(s): E78.5 - Hyperlipidemia, unspecified
[2018-08-16 05:56] LABS: Basophils # (auto) 0.01 K/uL (0-0.2); Basophils % (auto) 0.1 %; Eosinophils # (auto) 0.05 K/uL (0-0.5); Eosinophils % (auto) 0.4 %; Hematocrit (blood only) 34.7 % (42-52); Hemoglobin 10.9 g/dL (14.0-18.0); Immature Granulocytes # (auto) 0.51 K/uL (0.00-0.02); Immature Granulocytes % (auto) 4.4 %; Lymphocytes # (auto) 0.87 K/uL (1.2-3.4); Lymphocytes % (auto) 7.6 %; Mean Corpuscular Hgb Conc 31.4 g/dL (32-36); Mean Corpuscular Volume 95.3 fL (80-100); Mean Platelet Volume 9.9 fL (7.4-10.4); Monocytes # (auto) 1.09 K/uL (0.11-0.59); Monocytes % (auto) 9.5 %; Neutrophils # (auto) 8.98 K/uL (1.4-6.5); Nucleated RBC # (auto) 0.16 K/uL (0-0); Nucleated RBC % (auto) 1.4 %; Platelet Count 368 K/uL (130-400); RDW Coefficient of Variation 17.5 % (11.5-14.5); RDW Standard Deviation 57.9 fL (36.4-46.3); Red Blood Count 3.64 M/uL (4.7-6.1); White Blood Count 11.51 K/uL (4.8-10.8)
[2018-08-16 06:29] LABS: BUN Creatinine Ratio 17.2 (10-20); Calcium 8.8 mg/dl (8.5-10.1); Creatinine Clr Calc Pharmacy 65.3 ml/min; Est GFR (African American) 95.8; Est GFR (Non-African American) 82.7; Magnesium 2.5 mg/dl (1.8-2.4); Potassium 4.1 mmol/L (3.5-5.1)
[2018-08-16 06:34] LABS: Phosphorus 3.1 mg/dl (2.5-4.9)
--- NOTE | 2018-08-16 08:32 | XRay Report ---
XR chest 2V routine CLINICAL HISTORY: lung infiltrates pneumonia COMPARISON STUDY: 08/11/2017 FINDINGS: Stable postoperative changes of a left pneumonectomy. Interstitial changes throughout the r ight hemithorax are at least moderately improved. There is moderate residual within the right midlung and right base with the right apex now considered clear. Central catheter remains this. Vena cava. IMPRESSION: 1. Moderately improved exam. 2. Improved parenchymal/interstitial infiltrates right hemithorax with right apex now considered alexandre r. 3. Residual infiltrative change right lung base and right midlung. 4. Continued close radiographic follow-up is suggested. The above report was generated using voice recognition software. It may contain grammatical, syntax or spelling errors. Electronically signed by: Ravin Wilson M.D. 08/16/2018 8:31 AM
[2018-08-16] MEDS: ATORVASTATIN 20 MG TAB PO SCH (08:36)
[2018-08-16] MEDS: CEROVITE ADV FORMULA TAB PO SCH (08:36)
[2018-08-16] MEDS: CALCIUM 600MG + VIT D 400 IU TAB PO SCH (08:36)
[2018-08-16] MEDS: guaiFENesin 600 MG TABCR PO SCH ×2 (08:36→21:05)
[2018-08-16] MEDS: LISINOPRIL 10 MG TAB PO SCH (08:36)
[2018-08-16] MEDS: CLOPIDOGREL BISULFATE 75 MG TAB PO SCH (08:36)
[2018-08-16] MEDS: ENOXAPARIN INJ 40 MG/0.4 ML SYR SQ SCH (08:37)
[2018-08-16] MEDS: predniSONE 10 MG TABLET PO SCH (08:37)
--- NOTE | 2018-08-16 09:42 | Progress Note ---
DATE: 08/16/2018 DIAGNOSES: 1. Acute respiratory failure with hypoxia. 2. Metastatic lung cancer. 3. Bacteremia. 4. Pneumonia. 5. Emphysema of the lung. 6. Status post pneumonectomy. SUBJECTIVE: Alex was seen and examined at bedside this morning. I noted his oxygen levels have decreased, which is certainly a positive sign. Alex feels relatively well and hopefully a day or two away from discharge. He is ambulating with minimal assistance, tolerating his diet, moving his bowels regularly. He has no complaints of pain otherwise. Obviously goal moving forward is to discharge him with the least amount of oxygen required. OBJECTIVE: GENERAL: A very pleasant 78-year-old gentleman, in no acute distress. VITAL SIGNS: Temperature 36.7, pulse 91, respiratory rate 20, blood pressure 122/70. SKIN: Without rash or lesion. HEENT: No buccal lesions or ulcerations. NECK: Supple. Trachea midline. HEART: A little less tachycardic, continues to be regular. LUNGS: Right hemithorax clear to auscultation. ABDOMEN: Soft, nontender, nondistended. EXTREMITIES: No clubbing, cyanosis, or edema. NEUROLOGIC: Grossly intact. LABORATORY DATA: WBC count 11,510, hemoglobin 10.9, platelet count 368,000. Sodium 136, potassium 4.1, chloride 103, carbon dioxide 27, BUN 15, creatinine 0.87. ASSESSMENT: 1. Acute respiratory failure/hypoxia. 2. Staphylococcus coag negative bacteremia. 3. Pneumonia. 4. Hypoalbuminemia. 5. Metastatic nonsmall cell lung cancer. 6. Emphysema. PLAN: Alex seems to be making steady progress. His oxygen is being weaned to minimal levels prior to discharge. Recommend regular pulmonary followup. Will plan to reconvene with Alex in the next week or two for chemotherapy. According to hospitalist note, I believe Alex is poised to be discharged today. I have nothing further to add and will officially sign off today. I look forward to seeing Alex at the [facility] for a followup. Thank you again for allowing me to participate in this gentleman's care. [facility]OSPITALRaimundo
[2018-08-16] MEDS: levoFLOXacin 500 MG TAB PO SCH (12:16)
--- NOTE | 2018-08-16 13:09 | Hospitalist Progress Note ---
Date of Service August 16, 2018 Assessment & Plan (1) Acute respiratory failure with hypoxia: (2) Bacteremia: (3) Pneumonia: (4) Emphysema of lung: (5) History of pneumonectomy: (6) Metastatic lung cancer (metastasis from lung to other site): (7) Hyperlipidemia: (8) DVT prophylaxis: 78yo M w/ hx of metastatic squamous cell lung cancer who was admitted on August 11, 2018, with shortness of breath and fever, concern for pneumonia, has been generally improving and stable, Acute respiratory failure with hypoxia upon admission, likely secondary to pneumonia/COPD exacerbation, stable improving, Febrile neutropenia upon admission, resolved, hx of Squamous cell lung CA status post pneumonectomy in the left lung, for stage III followed by adjuvant chemotherapy. New acute respiratory failure, possible home O2 dependent with no need of home O2 prior to this admission pneumonia/COPD exacerbation/radiation pneumonitis Possible bacteremia however cultures shows possible contamination with "Coag neg staph not lugdunensis Has been on placed on Solu-Medrol 40 mg IV , has changed to oral prednisone, 30 mg p.o. daily Had been on vancomycin IV per pharmacokinetic monitoring. Had been on Zosyn IV and levofloxacin IV begun in the ED. discontinued Vanco and Zosyn yesterday, continue Levaquin because patient general condition improving and culture is unremarkable, change Levaquin to p.o. , has been 9 days totally on antibiotics since admission, possible stop antibiotic tomorrow and has complete full course of antibiotic treatment Continue guaifenesin extended release 600 mg p.o. twice daily On 08/12, got CT scan showing improvement in cancer and radiation pneumonitis, will be follow-up with Dr. Ruiz for further cancer plan. Sepsis upon admission with bacteremia: see above , Blood cultures from 08/11 growing Gram(+) cocci, which is Coag neg staph not lugdunensis, Given pneumonia and abnormal lung anatomy, has been on Vanco, Zosyn, Levaquin since admission on August 11 which has been 4 days, change antibiotic to Levaquin likely Sepsis upon admission, with no bacteremia Hyperlipidemia: Continue atorvastatin 20 mg p.o. daily DVT prophylaxis: Lovenox okay CPR but no resuscitation no cardioversion Was planning to discharge patient home today, however patient and family concerning about so cold weather may easily get sick again, pt has pneumonia in the recovery, and has underlying cancer just went through chemo and radiation therapy, and he has only 1 lung, I agree continue to hold him until tomorrow when weather is more warm up and discharged him. Planning to discharge home tomorrow, two-step for home oxygen ordered Subjective Continue doing ok , mild cough, no sputum, oxygen level still at 5 L/min , was not on oxygen at home, Deny wheezing sputum, denies chest pain Review of Systems Constitutional: Positive weakness, or fatigue Respiratory: See HPI, Cardiac: No chest pain, No orthopnea, No PND, Abdomen: No pain, No nausea, No vomiting, No diarrhea, No constipation, No GI bleeding Musculoskeletal: No joint pain, No muscle pain, No swelling, : No dysuria, No urinary frequency, No incontinence, Neurologic: No paralysis, No weakness, No numbness/tingling, Psychiatric: No depression symptoms, No anhedonism, No anxiety, Heme: No abnormal bleeding/bruising, No clotting problems, N Skin: No rash, No itch, No new/changing skin lesions, No color change, No bleeding Physical Exam 2 Vital Signs (Past 24 Hours): Last Vital Signs Temp 36.4 C L 08/16/18 12:01 Pulse 100 H 08/16/18 12:01 Resp 16 08/16/18 12:01 BP 90/58 L 08/16/18 12:01 Pulse Ox 92 08/16/18 12:01 Physical Exam: General Appearance: Looks frail, pleasant, WD/WN, conversational, speech for sentence, no apparent distress, Eyes: normal inspection, PERRL, EOMI, sclerae normal ENT: normal ENT inspection, hearing grossly normal, pharynx normal Neck: supple, no adenopathy, thyroid normal, no JVD, no carotid bruits, trachea midline Respiratory/Chest: no BS in left lung, Decreased breath sounds in right lung, occasional wheezing , no respiratory distress, no accessory muscle use, breath sounds, rales, Cardiovascular: regular rate, rhythm, no JVD, no murmur Abdomen: normal bowel sounds, non tender, soft, no organomegaly, Extremities: normal range of motion, non-tender, normal inspection, no pedal edema, no calf tenderness, normal capillary refill , pelvis stable, joint has no limited range of motion, c Neurologic/Psychiatric: computer operations manager II-XII nml as tested, no motor/sensory deficits, Skin: normal color, warm/dry, no rash Lymphatic: no adenopathy Results & Data Laboratory Results Laboratory Results - last 24 hr 08/16/18 08/16/18 05:39 05:39 WBC 11.51 H RBC 3.64 L Hgb 10.9 L Hct 34.7 L MCV 95.3 MCH 29.9 MCHC 31.4 L RDW Std Deviation 57.9 H RDW Coeff of Louise 17.5 H Plt Count 368 MPV 9.9 Immature Gran % (Auto) 4.4 Neut % (Auto) 78.0 Lymph % (Auto) 7.6 [place] % (Auto) 9.5 Eos % (Auto) 0.4 Baso % (Auto) 0.1 Immature Gran # (Auto) 0.51 H Neut # (Auto) 8.98 H Lymph # (Auto) 0.87 L [place] # (Auto) 1.09 H Eos # (Auto) 0.05 Baso # (Auto) 0.01 Absolute Nucleated RBC 0.16 H Nucleated RBC % (auto) 1.4 Sodium 136 Potassium 4.1 Chloride 103 Carbon Dioxide 27 Anion Gap 6.0 BUN 15 Creatinine 0.87 Est Cr Clr Drug Dosing 65.3 Est GFR ( Amer) 95.8 Est GFR (Non-Af Amer) 82.7 BUN/Creatinine Ratio 17.2 Glucose 73 Calcium 8.8 Phosphorus 3.1 Magnesium 2.5 H Microbiology 08/13/18 07:50 Sputum, Expectorated Gram Stain - Final 08/13/18 07:50 Sputum, Expectorated Sputum Culture - Final Light normal humphrey. _ (1) Emphysema of lung Emphysema type: unspecified Qualified Code(s): J43.9 - Emphysema, unspecified (2) Metastatic lung cancer (metastasis from lung to other site) Laterality: unspecified laterality Qualified Code(s): C34.90 - Malignant neoplasm of unspecified part of unspecified bronchus or lung (3) Hyperlipidemia Hyperlipidemia type: unspecified Qualified Code(s): E78.5 - Hyperlipidemia, unspecified
--- NOTE | 2018-08-16 16:20 | Progress Note ---
DATE: 08/16/2018 PULMONARY PROGRESS NOTE TIME: 3:30. SUBJECTIVE: The patient feels better today. He believes he is much less short of breath than he had been. His was present during this evaluation. The patient indicated he would like to walk more. Apparently, he has not had any walking outside of his room. In light of his potentially being discharged tomorrow, we should certainly ambulate the patient with oxygen to see how well he does. OBJECTIVE: GENERAL: The patient appears comfortable. He was cooperative, alert and oriented. VITAL SIGNS: Temperature is 36.4. There have been no fevers. Cardiac rate was 100. Blood pressure was 90/58 most recently. His pressures are up and down at various times. LUNGS: Lung kamara reveal absent breath sounds on the left. On the right, there were very mild crackles, especially in the mid and lower lung field. Respiratory rate 16. Oxygen saturation at the time of my exam was 95% on 2 liters. EXTREMITIES: Showed no edema. IMAGING DATA: The patient had a chest x-ray done. This was reviewed. There is improvement in the infiltrates in the upper part of the right lung. He has residual infiltrates in the lower half of the right lung which are not significantly changed, but there was definite improvement in the upper part of the lung kamara. LABORATORY DATA: White count is 11.51. Hemoglobin 10.9. Platelets 368,000. Electrolytes show sodium 136, potassium 4.1, chloride 103, bicarbonate 27. BUN 15, creatinine 0.87. IMPRESSION: 1. Extensive right lung infiltrate - improved. 2. Emphysema. 3. Status post left pneumonectomy. 4. Hypoxia. COMMENTS AND RECOMMENDATIONS: The patient seems improved. He is currently taking levofloxacin and should have a 7-day course of that total. He is on prednisone 30 mg daily. I would taper that very gradually as an outpatient. Would taper by 10 mg every 5 days. He ultimately should have a followup x-ray until clear. The patient will need assessment for his oxygen needs before discharge.
[2018-08-17] MEDS: CLOPIDOGREL BISULFATE 75 MG TAB PO SCH (08:06)
[2018-08-17] MEDS: predniSONE 10 MG TABLET PO SCH (08:06)
[2018-08-17] MEDS: ATORVASTATIN 20 MG TAB PO SCH (08:06)
[2018-08-17] MEDS: guaiFENesin 600 MG TABCR PO SCH (08:06)
[2018-08-17] MEDS: CEROVITE ADV FORMULA TAB PO SCH (08:06)
[2018-08-17] MEDS: ENOXAPARIN INJ 40 MG/0.4 ML SYR SQ SCH (08:07)
[2018-08-17] MEDS: LISINOPRIL 10 MG TAB PO SCH (08:07)
[2018-08-17] MEDS: CALCIUM 600MG + VIT D 400 IU TAB PO SCH (08:07)
[2018-08-17] MEDS: DEXAMETHASONE CONC 3.75 MG, NYSTATIN 30 ML, DiphenhydrAMINE Syrup 300 MG, ORA-SWEET SYR... PO PRN (08:12)
[2018-08-17] MEDS: levoFLOXacin 500 MG TAB PO SCH (10:58)
[2018-08-18] MEDS ORDERED: LISINOPRIL 5 MG TAB PO SCH (09:00)
--- NOTE | 2018-09-12 07:31 | Discharge Summary ---
Date of Service for DC summary 08/17/2018 Principal Diagnosis no Discharge Data Allergies Allergy/AdvReac Type Severity Reaction Status Date / Time No Known Allergies Allergy Unknown Verified 08/24/18 10:25 Consultations 08/11/18 05:21 ED Decision to Admit Stat 08/11/18 08:12 Consult Case Management - Discharge Planning Routine Consult Thoracic Surgery Stat 08/11/18 10:49 Consult Pulmonology Routine 08/11/18 15:46 Consult Oncology Routine Ordered Studies 08/12/18 10:37 CT chest wo con Routine 08/15/18 10:56 CT abd pelvis oral and IV con Routine Hospital Course (1) Acute and chronic respiratory failure with hypoxia: Assessment & Plan (1) Acute respiratory failure with hypoxia: (2) Bacteremia: (3) Pneumonia: (4) Emphysema of lung: (5) History of pneumonectomy: (6) Metastatic lung cancer (metastasis from lung to other site): (7) Hyperlipidemia: (8) DVT prophylaxis: 78yo M w/ hx of metastatic squamous cell lung cancer who was admitted on August 11, 2018, with shortness of breath and fever, concern for pneumonia, has been generally improving and stable, Acute respiratory failure with hypoxia upon admission, likely secondary to pneumonia/COPD exacerbation, stable improving, Febrile neutropenia upon admission, resolved, hx of Squamous cell lung CA status post pneumonectomy in the left lung, for stage III followed by adjuvant chemotherapy. New acute respiratory failure, possible home O2 dependent with no need of home O2 prior to this admission pneumonia/COPD exacerbation/radiation pneumonitis Possible bacteremia however cultures shows possible contamination with "Coag neg staph not lugdunensis Has been on placed on Solu-Medrol 40 mg IV , has changed to oral prednisone, 30 mg p.o. daily Had been on vancomycin IV per pharmacokinetic monitoring. Had been on Zosyn IV and levofloxacin IV begun in the ED. discontinued Vanco and Zosyn yesterday, continue Levaquin because patient general condition improving and culture is unremarkable, change Levaquin to p.o., has been 9 days totally on antibiotics since admission, possible stop antibiotic tomorrow and has complete full course of antibiotic treatment Continue guaifenesin extended release 600 mg p.o. twice daily On 08/12, got CT scan showing improvement in cancer and radiation pneumonitis, will be follow-up with Dr. Ruiz for further cancer plan. Sepsis upon admission with bacteremia: see above , Blood cultures from 08/11 growing Gram(+) cocci, which is Coag neg staph not lugdunensis, Given pneumonia and abnormal lung anatomy, has been on Vanco, Zosyn, Levaquin since admission on August 11 which has been 4 days, change antibiotic to Levaquin likely Sepsis upon admission, with no bacteremia Hyperlipidemia: Continue atorvastatin 20 mg p.o. daily DVT prophylaxis: Lovenox okay CPR but no resuscitation no cardioversion Was planning to discharge patient home today, however patient and family concerning about so cold weather may easily get sick again, pt has pneumonia in the recovery, and has underlying cancer just went through chemo and radiation therapy, and he has only 1 lung, I agree continue to hold him until tomorrow when weather is more warm up and discharged him. discharge on 08/17/2018 Subjective Subjective upon discharge Continue doing ok , mild cough, no sputum, oxygen level still at 5 L/min , was not on oxygen at home, Deny wheezing sputum, denies chest pain Review of Systems upon dischargedischarge Constitutional: Positive weakness, or fatigue Respiratory: See HPI, Cardiac: No chest pain, No orthopnea, No PND, Abdomen: No pain, No nausea, No vomiting, No diarrhea, No constipation, No GI bleeding Musculoskeletal: No joint pain, No muscle pain, No swelling, : No dysuria, No urinary frequency, No incontinence, Neurologic: No paralysis, No weakness, No numbness/tingling, Psychiatric: No depression symptoms, No anhedonism, No anxiety, Heme: No abnormal bleeding/bruising, No clotting problems, N Skin: No rash, No itch, No new/changing skin lesions, No color change, No bleeding Physical Exam upon discharge Physical Exam: General Appearance: Looks frail, pleasant, WD/WN, conversational, speech for sentence, no apparent distress, Eyes: normal inspection, PERRL, EOMI, sclerae normal ENT: normal ENT inspection, hearing grossly normal, pharynx normal Neck: supple, no adenopathy, thyroid normal, no JVD, no carotid bruits, trachea midline Respiratory/Chest: no BS in left lung, Decreased breath sounds in right lung, occasional wheezing , no respiratory distress, no accessory muscle use, breath sounds, rales, Cardiovascular: regular rate, rhythm, no JVD, no murmur Abdomen: normal bowel sounds, non tender, soft, no organomegaly, Extremities: normal range of motion, non-tender, normal inspection, no pedal edema, no calf tenderness, normal capillary refill, pelvis stable, joint has no limited range of motion, 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, no motor/sensory deficits, Skin: normal color, warm/dry, no rash Lymphatic: no adenopathy Total Time Total Time Spent Total Time Spent (In Minutes): 35 Total Time Includes: Examination of the Patient, Discharge Planning, Medication Reconciliation and Communication With Other Providers Discharge Plan Discharge Items Patient Disposition: Home - Self-Care Reason For Visit: ACUTE RESPIRATORY FAILURE WITH HYPOXIA Discharge Diagnosis: you have Acute respiratory failure with hypoxia: you have Pneumonia and Emphysema of lung: you have history of pneumonectomy and Metastatic lung cancer Possible now chronic home O2 dependent and chronic respiratory failure Condition: Fair Discharge Goals: Decrease discomfort, Diagnostic testing, Improve disease control, Improve function, Increase independence and Improve nutritional status Activity: Resume your previous activity Non-emergency contact: Primary Care Provider, 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 Jay Gudino on MondayAugust 24 at 3:00 pm. *If you need to change this appointment, call the office at [phone].) Diet: Heart Healthy Addtl Provider Instructions: you have pneumonia/COPD exacerbation better you have Febrile neutropenia upon admission, you have hx of Squamous cell lung CA status post pneumonectomy in the left lung, for stage III followed by adjuvant chemotherapy. you are possible home O2 dependent with chronic respiratory failure oral prednisone, 30 mg p.o. daily, you need to taper oral prednisone 10 mg in 5- day,, ie, 30 mg p.o. daily for 5 days, then 20 mg p.o. daily for 5 days, then 10 mg p.o. daily for 5 days and then stop You need to follow-up with Dr. acuna in 2-3 weeks, and follow-up with PCP in 1 week, and follow-up with Dr. Ruiz as instructed you need to follow up with your primary care physician in 1 week, - take medication as instructed, never overdose or any misuse, or take with alcohol, because misuse of medicine may cause organ damage or , call me, or your primary care physician if have questions of discharge medicaitons. - call your primary care physician, or go to local emergency room if has any fever/chill, chest pain, shortness of breathing, nausea/vomiting/abdominal pain, facial droop/slurry speech/local weakness, or if has any questions. - fall precaution - diet as instructed Prescriptions: New ipratropium-albuterol [Combivent Respimat] 20-100 mcg/actuation mist 1 puffs INH Q6H PRN (Reason: sob) Qty: 4 RF: 0 Continued atorvastatin 20 mg tablet 20 mg PO QAM RF: 0 [id number]-[id number]-vit K-lycop [Men's 50 Plus Multivitamin] 400-20-370 mcg Tablet 1 tab PO QAM RF: 0 Ca-D3-mag sh-gwmw-iqi-berny-bor [Calcium 600-D3 Plus] 600 mg calcium- 800 unit- 50 mg Tablet 1 tab PO QAM RF: 0 No Action clopidogrel [Plavix] 75 mg tablet 75 mg PO QAM RF: 0 rivaroxaban [Xarelto] 15 mg Tablet 15 mg PO BIDM Qty: 21 RF: 0 potassium chloride [Klor-Con M20] 20 mEq Tablet,Er Particles/Crystals 20 meq PO QAM 14 Days Qty: 14 RF: 0 furosemide 20 mg Tablet 20 mg PO QAM 14 Days Qty: 14 RF: 0 prednisone 10 mg tablet 10 mg PO DIRECTED Qty: 42 RF: 0 Stand-Alone Forms: [facility] Discharge Orders: Discharge Order (Routine); Ordered 08/17/18 Ordered By: Aroldo Yusuf Admission Data Admit Date/Time: 08/11/18 06:10 Attending Provider: Aroldo Yusuf Admit Provider: Patricio Velazquez Primary Care Provider: Jay Gudino Other Providers: Darrell Carbone ; Patricio Velazquez ; Dixon David ; Jordan Medina James V Service: Medical Other Interventions: Discharge Summary Assessment (RN) Last Done: 08/17/18 12:53 DC Date/Time DO NOT enter until pt leaves facility: 08/17/18 15:54
--- NOTE | 2018-09-12 09:50 | Coding Query ---
SEPSIS To promote full compliance with coding requirements relating to patient care, physician participation is requested in all cases of coder operator uncertainty. Please assist us with the question(s) below: In responding to this query, please exercise your independent professional judgement. The fact that a question is asked does not imply that any particular answer is desired or expected. We appreciate your clarification on this issue. Throughout the medical record, you have clearly documented a localized infection and your patient has clinical evidence of a generalized sepsis or severe sepsis. The term urosepsis is a nonspecific entity and is coded as an UTI. If the patient has sepsis, severe sepsis, from an urinary source or some other source, please clarify in your response below. The medical record reflects the following clinical findings: Patient admitted with acute respiratory failure. Discharge Summary documents no bacteremia. Please below the diagnosis you treated during this IP stay. Thanks for your help! [facility] ____ (x )Bacteremia (Nonspecific laboratory finding of bacteria in the blood) Specify Organism ( x) Present on Admission ( ) Not present on admission ( ) Unable to clinically determine ( ) Septicemia (Systemic disease associated with the presence of pathogenic microorganisms in the blood): Specify Organism ( ) Present on Admission ( ) Not present on admission ( ) Unable to clinically determine ( ) Sepsis Specify Organism Specify Associated Condition/Diagnosis ( ) Present on Admission ( ) Not present on admission( ) Unable to clinically determine ( ) Severe Sepsis (Sepsis associated with acute organ dysfunction) Specify Organism Specify Associated Condition/Diagnosis () Present on Admission () Not present on admission () Unable to clinically determine ( ) Septic Shock (Severe sepsis with acute circulatory failure, unexplained by other causes) ( ) Present on Admission ( ) Not present on admission ( ) Unable to clinically determine () Other, patient has: MTDD
== END 2018-08-17 15:54 | disposition home or self-care (01) | DRG 205 ==
LOC: ED 01:35 → SUATTDRO 06:10 → 2E 06:10 → 4E 08-14 15:13

== ENCOUNTER 2018-08-24 09:00 | Inpatient (IN) ==
[2018-08-24 09:59] LABS: Basophils # (auto) 0.01 K/uL (0-0.2); Basophils % (auto) 0.1 %; Eosinophils # (auto) 0.01 K/uL (0-0.5); Eosinophils % (auto) 0.1 %; Hematocrit (blood only) 36.4 % (42-52); Hemoglobin 11.4 g/dL (14.0-18.0); Immature Granulocytes # (auto) 0.09 K/uL (0.00-0.02); Immature Granulocytes % (auto) 0.5 %; Lymphocytes # (auto) 0.77 K/uL (1.2-3.4); Lymphocytes % (auto) 4.3 %; Mean Corpuscular Hgb Conc 31.3 g/dL (32-36); Mean Corpuscular Volume 94.1 fL (80-100); Mean Platelet Volume 9.7 fL (7.4-10.4); Monocytes # (auto) 0.47 K/uL (0.11-0.59); Monocytes % (auto) 2.6 %; Neutrophils # (auto) 16.65 K/uL (1.4-6.5); Neutrophils % (auto) 92.4 %; Platelet Count 281 K/uL (130-400); RDW Coefficient of Variation 18.4 % (11.5-14.5); RDW Standard Deviation 61.8 fL (36.4-46.3); Red Blood Count 3.87 M/uL (4.7-6.1)
[2018-08-24 10:09] LABS: INR 1.1 (0.9-1.1); Partial Thromboplastin Time 26.2 Seconds (21.0-31.0); Prothrombin Time 11.4 Seconds (9.0-12.0)
[2018-08-24] MEDS ORDERED: SODIUM CHLORIDE 0.9% 1000ML 1,000 ML IV ONE (10:10)
[2018-08-24 10:14] LABS: Alanine Aminotransferase 32 U/L (12-78); Albumin Level 2.4 gm/dl (3.4-5.0); Aspartate Aminotransferase 19 U/L (15-37); BUN Creatinine Ratio 27.8 (10-20); Blood Urea Nitrogen 25 mg/dl (7-18); Calcium 8.5 mg/dl (8.5-10.1); Carbon Dioxide 29 mmol/L (21-32); Chloride 101 mmol/L (98-107); Est GFR (African American) 95.4; Est GFR (Non-African American) 82.3; Glucose 130 mg/dl (70-99); Potassium 4.1 mmol/L (3.5-5.1); Sodium 135 mmol/L (136-145)
[2018-08-24 10:19] LABS: Albumin Globulin Ratio 0.6 (0.9-2); Alkaline Phosphatase 80 U/L (45-117); Bilirubin,Total 0.4 mg/dl (0.2-1); Globulin 3.7 gm/dl (2.5-4.0); Total Protein 6.1 gm/dl (6.4-8.2); Troponin I 0.016 ng/ml (0-0.045)
[2018-08-24 10:30] LABS: iSTAT Hemoglobin 11.6 g/dl (14.0-18.0); iSTAT Ionized Calcium 1.14 mmol/l (1.12-1.32)
[2018-08-24] MEDS ORDERED: OPTIRAY 320 125ml IV PRN (10:45)
--- NOTE | 2018-08-24 11:02 | CT Scan Report ---
CT angio chest PE protocol CT DOSE: 250.26 mGy.cm HISTORY: 78 years-old Male with sob/tachy power port. Acute shortness of breath with tachycardia. H istory of primary bronchogenic carcinoma and prior left pneumonectomy TECHNIQUE: Multiple CTA images of the chest were obtained after the intravenous administration of 74 ml Optiray 320. Coronal and sagittal MIPS were obtained from the axial data set and were submitted f or review. All measurements were obtained according to NASCET criteria. A dose lowering technique wa s utilized adhering to the principles of ALARA. COMPARISON: Chest radiographs of same day, CT chest 08/12/2018. FINDINGS: Study is limited secondary to respiratory motion. CTA: Moderate multichamber cardiac enlargement. Coronary arterial calcifications are noted. Left subclavia n Dwnyvu-i-Brgb catheter distal tip terminates about the superior aspect of the right atrium. No thor acic aortic aneurysm or dissection. Tortuosity and patency of the imaged great vessels. Tortuosity of the descending thoracic aorta. Is opacified to the level of the subsegmental branches. The segmental and subsegmental branches however are not well-seen secondary to respiratory motion. Pulmonary bulla e are seen within right upper lobe are, segmental and subsegmental branches with probable additional emboli noted about the right middle and lower lobes. Mild straightening of the intraventricular septu m. CT CHEST: No dominant thyroid nodule. No new adenopathy of the chest identified. Postoperative changes from jaden or left pneumonectomy with unchanged left pleural effusion. Trace right pleural effusion. No pneumoth orax. Severe emphysema throughout the right lung with chronic interstitial coarsening. Superimposed p atchy groundglass densities and irregular consolidative opacities are also noted throughout the right lung with the areas of consolidation progressively worsened from comparison. Spiculated irregular no dule about the basal right lower lobe measures 1.5 x 1.1 cm, unchanged. Irregular 1.2 cm consolidatio n of the posterior basal segment right lower lobe. Central airways appear to be patent. No acute process of the imaged upper abdomen. Wall thickening with gaseous distention throughout the entirety of the esophagus with moderate hiatal hernia. Soft tissues are unremarkable. Demineralized a ppearance of the bones with degenerative changes of the shoulders and spine. Compression deformities about the T6 and T7 vertebral bodies appear unchanged. Multilevel intervertebral disc space narrowing with spondylitic spurring and facet arthropathy. No suspicious lytic or blastic bony lesions . IMPRESSION: 1. Limited exam secondary to extensive respiratory motion. 2. Pulmonary emboli noted within all of the lobes of the right lung. Mild straightening of the intrav entricular septum may reflect associated right heart strain. 3. Trace right pleural effusion. 4. Progressive patchy multifocal groundglass and consolidative opacities about the right lung. Differ ential considerations would include postradiation pneumonitis with superimposed aspiration pneumoniti s or multifocal pneumonia also within the differential. 5. Irregular spiculated nodule about the basal right lower lobe is unchanged. 6. Postoperative changes from prior left pneumonectomy with stable left pleural effusion. 7. Additional findings as above. The above report was generated using voice recognition software. It may contain grammatical, syntax o r spelling errors. Electronically signed by: Aubrey Jason M.D. 08/24/2018 11:00 AM
[2018-08-24] MEDS ORDERED: PIPERACILL/TAZOBAC CONSULT ACTIVE PRN (11:35)
[2018-08-24] MEDS ORDERED: PIPERACILLIN/TAZOBACTAM 4.5 GM/120 ML BAG IV ONE (11:35)
[2018-08-24] MEDS ORDERED: HEPARIN SOD (PORCINE) 1000 UNIT/ML 10 ML VIAL IV ONE (12:00)
[2018-08-24] MEDS: HEPARIN STANDARD DEXTROSE 25,000 UNITS/500 ML IV SCH (12:17)
--- NOTE | 2018-08-24 15:08 | Ultrasound Report ---
BILATERAL LOWER EXTREMITY VENOUS DOPPLER HISTORY: Acute pulmonary embolus Pulmonary embolism COMPARISON STUDY: CTA chest of same day. FINDINGS: RIGHT: Occlusive thrombus about the popliteal and peroneal veins. The remaining the venous structures about the right lower extremity are patent. LEFT: There is normal compressibility, flow, and augmentation within the left lower extremity deep venous s tructures. IMPRESSION: 1. Occlusive deep venous thrombosis of the right popliteal and peroneal veins. 2. No sonographic evidence of left deep venous thrombosis. Electronically signed by: Aubrey Jason M.D. 08/24/2018 3:06 PM
[2018-08-24] MEDS ORDERED: KEFZOL SPECIAL PROCEDURE STOCK 1 GM ADDVIAL IV ONE ×2 (15:16→17:01)
--- NOTE | 2018-08-24 15:29 | Critical Care Consultation ---
Date of Consultation August 24, 2018 Assessment & Plan (1) Pulmonary embolism: 78-year-old male was admitted on 24 August 2018 for shortness of breath and PE. He has a notable history of metastatic squamous cell lung cancer with a recent admission from to 2018 for acute hypoxic respiratory failure, bacteremia, and pneumonia. INCREMENT MANAGER: CAM-ICU negative. No known acute issues. PMH right TIA in May 2018. Pulm: Improved SOB. CTA chest notes multiple PEs within the right lung as well as progressive patchy multifocal groundglass / consolidative opacities. PMH metastatic SC lung cancer s/p left pneumonectomy and chemotherapy, radiation pneumonitis, emphysema. Stable left pleural effusion by CT chest. Started on heparin. Has some occlusive thrombus in RLE but none seen in LLE on BLE u/s doppler. - Extensive discussion with patient and family. Clot burden seems stable at present. He would not want intubation, thus if further acute pulmonary clot occurred he may not survive transfer to a tertiary care center for catheter directed tPA. He and his family are content with remaining here for treatment of his current level of disease. - Bg Resendiz, PAC spoke with his oncologist, Dr. Ruiz. His current cancer therapy can be continued here. - Consulted vascular surgery for possible IVC filter placement. CVS: No immediate issues. Transient hypotension to SBP 60�s, spontaneously back to SBP 100�s. EKG sinus tachy 129, LAFB. Stat echo EF 60-65%, moderate concentric LVH, RV SF normal, moderate TR. PMH NSTEMI, carotid stenosis, HLD. ID: On previous admit, completed 9-day course of antibiotics ending with Levaquin. On admit now, afebrile, WBC 18, lactate 2.0, influenza negative. BCx sent. Empiric Zosyn started. - Recommend stopping empiric antibiotics. Endo: HbA1c in May 2018 was 6.3. TSH on was normal. Monitoring blood sugars. Has recently been on daily prednisone. Renal/Lytes: Normal Cr. Hypermagnesemia 2.5. GI: No known acute issues. Heme: Admit Hb 11.4 (around baseline). No known acute bleeding. DVT prophy: Heparin as discussed above. Lines: PIV. Code status: After discussion with patient and his family, the patient does not wish to be intubated or on any breathing machines. His overall CODE STATUS will be confirmed by the primary team. PT/OT: Deferred. Disposition: Admit to telemetry. Critical care will remain on consult. (2) Metastatic lung cancer (metastasis from lung to other site): (3) Emphysema of lung: (4) Status post pneumonectomy: (5) History of OH (myocardial infarction): (6) Carotid stenosis: (7) Hyperlipidemia: (8) Hypermagnesemia: (9) Chronic anemia: Supervising Physician Co-Signing Physician Notes Resident Physician Supervision Note: I was present with Dr. Qureshi during the history and exam. I discussed the case with the resident and agree with the findings and plan as documented in the note. Any exceptions or clarifications are listed here: I have discussed the case with Dr. Fan who took the patient for IVC filter placement. The IVC filter has been already placed and we have also discussed with the patient and he seems to be doing much better, hemodynamically stable and is oxygenating well. The patient will require lifelong filter because of his metastatic disease and only one lung because he has got left pneumonectomy. We have discussed that as well with Dr. Fan with home who is going to follow from outpatient. We have also discussed with the patient and the family. Documented By: Bryce Boone History of Present Illness Attending Physician: Darrell Carobne MD History of Present Illness 78-year-old male presented to emergency department with progressive shortness of breath since his discharge from the hospital on 17 August. He has a notable history of metastatic squamous cell lung cancer with a recent admission from to 2018 for acute hypoxic respiratory failure, bacteremia, and pneumonia. On evaluation in the emergency department, patient was awake, alert, speaking very comfortably, and requested some coffee. He denied any chest pain, shortness of breath, or any particular acute physical concerns. He states that he had a recent PET scan that showed no evidence of spread of his lung cancer. He denies any known previous history of blood clots. Allergies Allergy/AdvReac Type Severity Reaction Status Date / Time No Known Allergies Allergy Unknown Verified 08/24/18 10:25 Home Medications Home Medications Medication Instructions Recorded Confirmed Type Ca-D3-mag jc-okwk-hpw-berny-bor 1 tab PO QAM 08/11/18 08/24/18 History [Calcium 600-D3 Plus] atorvastatin 20 mg PO QAM 08/11/18 08/24/18 History fjnnqsyb-erf-atcrx-vit K-lycop 1 tab PO QAM 08/11/18 08/24/18 History [Men's 50 Plus Multivitamin] ipratropium-albuterol [Combivent 1 puffs INH Q6H PRN #4 gm 08/17/18 08/24/18 Rx Respimat] lisinopril [Zestril] 5 mg PO QAM 30 Days #30 tab 08/17/18 08/24/18 Rx clopidogrel [Plavix] 75 mg PO QAM 08/24/18 08/24/18 History levofloxacin 500 mg PO DAILY 08/24/18 08/24/18 History prednisone 30 mg PO QAM 08/24/18 08/24/18 History Patient History Medical History Pneumonia Acute respiratory failure with hypoxia Non-ST elevation OH (NSTEMI) (Acute) Carotid stenosis with cerebral infarction less than 8 weeks ago Acute thrombotic stroke TIA (transient ischemic attack) (Acute) Metastatic lung cancer (metastasis from lung to other site) (Acute) Carcinoma of left lung Chronic osteoarthritis Emphysema of lung (Chronic) Hyperlipidemia Squamous cell carcinoma of lung, 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 Henry underwent a left pneumonectomy on 07/18/2016. The tumor measured 5.0 x 4.0 x 4.0 cm. It was a keratinizing squamous cell carcinoma moderately differentiated. There was no pleural or visceral invasion however there was a positive vascular margin. Bronchial margins were negative. There was lymphovascular invasion. 2 peribronchial lymph nodes were positive and one L 10 lymph nodes was positive. Final stage was T2a N2, Stage IIIA Status post combined radiation and chemotherapy, radiation completed 2016 received 6000 cGy. Chemotherapy comprised of weekly Taxol carboplatin. Initiation of consolidation chemotherapy 11/01/2016, 4 cycles recommended" On 10/12/16 11:21 Lisa Vasquez wrote "Mr. Henry underwent a left pneumonectomy on 07/18/2016. The tumor measured 5.0 x 4.0 x 4.0 cm. It was a keratinizing squamous cell carcinoma moderately differentiated. There was no pleural or visceral invasion however there was a positive vascular margin. Bronchial margins were negative. There was lymphovascular invasion. 2 peribronchial lymph nodes were positive and one L 10 lymph nodes was positive. Final stage was T2a N2, Stage IIIA Status post combined radiation and chemotherapy, radiation completed 2016 received 6000 cGy. Chemotherapy comprised of weekly Taxol carboplatin." On 08/09/16 10:26 Hector Conley wrote "Mr. Henry underwent a left pneumonectomy on 07/18/2016. The tumor measured 5.0 x 4.0 x 4.0 cm. It was a keratinizing squamous cell carcinoma moderately differentiated. There was no pleural or visceral invasion however there was a positive vascular margin. Bronchial margins were negative. There was lymphovascular invasion. 2 peribronchial lymph nodes were positive and one L 10 lymph nodes was positive. 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 Polyneuropathy Surgical History History of pneumonectomy (Acute) H/O pneumonectomy (Resolved) Left - 2016 Family History Other Heart attack Leukemia No pertinent family history Pulmonary embolism Social History marital status: Current Living Situation: Spouse Other Information That Helps Us Care for You: No Feels Safe at Home: Yes Safety Concerns: Feels Safe At This Time Smoking Status: Former smoker Tobacco Type: cigarettes Cigarettes per Day: 20 Second Hand Exposure: No Hx Alcohol Use: No Hx Substance Use: No Beliefs That Will Affect Care: None Preferred Language: Jamaican Communication Ability: Effective Review of Systems Constitutional: Denies fevers, chills, focal weakness Eyes: Denies any visual loss or diplopia ENT: Denies any ear/nose/throat pain or difficulty speaking or swallowing Respiratory: See HPI. No noted hemoptysis. Cardiovascular: Denies any chest pain or feeling of edema Gastrointestinal: Denies any abdominal pain, nausea/vomiting/diarrhea Musculoskeletal: Denies any acute extremity pains, myalgias, or focal weakness Skin: Denies any known acute rashes or lesions Neuro: Denies any headache, acute focal weakness or numbness, or difficulties with speech or swallow. Physical Exam 2 Vital Signs (Past 24 Hours): Last Vital Signs Temp 36.8 C 08/24/18 09:08 Pulse 109 H 08/24/18 13:30 Resp 24 08/24/18 13:30 BP 101/57 L 08/24/18 13:30 Pulse Ox 100 08/24/18 13:30 Physical Exam: GENERAL: Awake, alert, well-appearing, in no acute distress HENT: Normocephalic, atraumatic. Oropharynx unremarkable. EYES: Normal conjunctiva. Sclera non-icteric. NECK: Inspection normal. Non-tender. Supple and full ROM. No nuchal rigidity. CARDIAC: +S1S2 RRR, no murmurs. Left upper chest mediport. RESPIRATORY: Transmitted lung sounds towards the left. Overall sounds clear. Nasal cannula oxygen in place. GI: +BS, soft, non-distended. No tenderness to palpation. No rebound or guarding. EXTREMITIES: No pedal edema or calf tenderness. Moving all extremities naturally and easily. NEURO: No gross neuro deficits. Results & Data Laboratory Results 08/24/18 08/24/18 08/24/18 Range/Units 10:23 10:16 09:47 WBC (4.8-10.8) K/uL RBC (4.7-6.1) M/uL Hgb (14.0-18.0) g/dL POC Hgb 11.6 L (14.0-18.0) g/dl Hct (42-52) % POC Hct 34 L (42-52) % MCV (80-100) fL MCH (25-34) pg MCHC (32-36) g/dL RDW Std Deviation (36.4-46.3) fL RDW Coeff of Louise (11.5-14.5) % Plt Count (130-400) K/uL MPV (7.4-10.4) fL Immature Gran % (Auto) % Neut % (Auto) % Lymph % (Auto) % Wheeler % (Auto) % Eos % (Auto) % Baso % (Auto) % Immature Gran # (Auto) (0.00-0.02) K/uL Neut # (Auto) (1.4-6.5) K/uL Lymph # (Auto) (1.2-3.4) K/uL Wheeler # (Auto) (0.11-0.59) K/uL Eos # (Auto) (0-0.5) K/uL Baso # (Auto) (0-0.2) K/uL PT (9.0-12.0) Seconds INR (0.9-1.1) APTT (21.0-31.0) Seconds PTT Ratio POC Sodium 137 (135-144) mEq/L Sodium (136-145) mmol/L POC Potassium 4.3 (3.3-5.0) mEq/L Potassium (3.5-5.1) mmol/L POC Chloride 98 L (101-112) mEq/L Chloride (98-107) mmol/L Carbon Dioxide (21-32) mmol/L POC Total CO2 29 (24-31) mEq/l Anion Gap (3-11) POC Anion Gap 15.0 L (16-25) mmol/L POC BUN 22 H (7-18) mg/dl BUN (7-18) mg/dl Creatinine (0.6-1.4) mg/dl POC Creatinine 0.7 (0.6-1.3) mg/dl Est Cr Clr Drug Dosing Est GFR ( Amer) Est GFR (Non-Af Amer) BUN/Creatinine Ratio (10-20) Glucose (70-99) mg/dl POC Glucose (other) 121 H (70-99) mg/dl Lactate 2.0 (0.4-2.0) mmol/L Calcium (8.5-10.1) mg/dl POC Ioniz Calcium Ailyn 1.14 (1.12-1.32) mmol/l Total Bilirubin (0.2-1) mg/dl AST (15-37) U/L ALT (12-78) U/L Alkaline Phosphatase (45-117) U/L Troponin I (0-0.045) ng/ml Total Protein (6.4-8.2) gm/dl Albumin (3.4-5.0) gm/dl Globulin (2.5-4.0) gm/dl Albumin/Globulin Ratio (0.9-2) Influenza Type A Ag Neg for Influ A (Neg) Influenza Type B Ag Neg for Influ B (Neg) 08/24/18 08/24/18 08/24/18 Range/Units 09:45 09:45 09:45 WBC 18.00 H (4.8-10.8) K/uL RBC 3.87 L (4.7-6.1) M/uL Hgb 11.4 L (14.0-18.0) g/dL POC Hgb (14.0-18.0) g/dl Hct 36.4 L (42-52) % POC Hct (42-52) % MCV 94.1 (80-100) fL MCH 29.5 (25-34) pg MCHC 31.3 L (32-36) g/dL RDW Std Deviation 61.8 H (36.4-46.3) fL RDW Coeff of Louise 18.4 H (11.5-14.5) % Plt Count 281 (130-400) K/uL MPV 9.7 (7.4-10.4) fL Immature Gran % (Auto) 0.5 % Neut % (Auto) 92.4 % Lymph % (Auto) 4.3 % Wheeler % (Auto) 2.6 % Eos % (Auto) 0.1 % Baso % (Auto) 0.1 % Immature Gran # (Auto) 0.09 H (0.00-0.02) K/uL Neut # (Auto) 16.65 H (1.4-6.5) K/uL Lymph # (Auto) 0.77 L (1.2-3.4) K/uL Wheeler # (Auto) 0.47 (0.11-0.59) K/uL Eos # (Auto) 0.01 (0-0.5) K/uL Baso # (Auto) 0.01 (0-0.2) K/uL PT 11.4 (9.0-12.0) Seconds INR 1.1 (0.9-1.1) APTT 26.2 (21.0-31.0) Seconds PTT Ratio 1.0 POC Sodium (135-144) mEq/L Sodium 135 L (136-145) mmol/L POC Potassium (3.3-5.0) mEq/L Potassium 4.1 (3.5-5.1) mmol/L POC Chloride (101-112) mEq/L Chloride 101 (98-107) mmol/L Carbon Dioxide 29 (21-32) mmol/L POC Total CO2 (24-31) mEq/l Anion Gap 5.0 (3-11) POC Anion Gap (16-25) mmol/L POC BUN (7-18) mg/dl BUN 25 H (7-18) mg/dl Creatinine 0.88 (0.6-1.4) mg/dl POC Creatinine (0.6-1.3) mg/dl Est Cr Clr Drug Dosing Not Reportable Est GFR ( Amer) 95.4 Est GFR (Non-Af Amer) 82.3 BUN/Creatinine Ratio 27.8 H (10-20) Glucose 130 H (70-99) mg/dl POC Glucose (other) (70-99) mg/dl Lactate (0.4-2.0) mmol/L Calcium 8.5 (8.5-10.1) mg/dl POC Ioniz Calcium Ailyn (1.12-1.32) mmol/l Total Bilirubin 0.4 (0.2-1) mg/dl AST 19 (15-37) U/L ALT 32 (12-78) U/L Alkaline Phosphatase 80 (45-117) U/L Troponin I 0.016 (0-0.045) ng/ml Total Protein 6.1 L (6.4-8.2) gm/dl Albumin 2.4 L (3.4-5.0) gm/dl Globulin 3.7 (2.5-4.0) gm/dl Albumin/Globulin Ratio 0.6 L (0.9-2) Influenza Type A Ag (Neg) Influenza Type B Ag (Neg) Diagnostic Findings CT angio chest PE protocol CT DOSE: 250.26 mGy.cm HISTORY: 78 years-old Male with sob/tachy power port. Acute shortness of breath with tachycardia. History of primary bronchogenic carcinoma and prior left pneumonectomy TECHNIQUE: Multiple CTA images of the chest were obtained after the intravenous administration of 74 ml Optiray 320. Coronal and sagittal MIPS were obtained from the axial data set and were submitted for review. All measurements were obtained according to NASCET criteria. A dose lowering technique was utilized adhering to the principles of ALARA. COMPARISON: Chest radiographs of same day, CT chest 08/12/2018. FINDINGS: Study is limited secondary to respiratory motion. CTA: Moderate multichamber cardiac enlargement. Coronary arterial calcifications are noted. Left subclavian Vfjjjj-[id number] catheter distal tip terminates about the superior aspect of the right atrium. No thoracic aortic aneurysm or dissection. Tortuosity and patency of the imaged great vessels. Tortuosity of the descending thoracic aorta. Is opacified to the level of the subsegmental branches. The segmental and subsegmental branches however are not well-seen secondary to respiratory motion. Pulmonary bullae are seen within right upper lobe are, segmental and subsegmental branches with probable additional emboli noted about the right middle and lower lobes. Mild straightening of the intraventricular septum. CT CHEST: No dominant thyroid nodule. No new adenopathy of the chest identified. Postoperative changes from prior left pneumonectomy with unchanged left pleural effusion. Trace right pleural effusion. No pneumothorax. Severe emphysema throughout the right lung with chronic interstitial coarsening. Superimposed patchy groundglass densities and irregular consolidative opacities are also noted throughout the right lung with the areas of consolidation progressively worsened from comparison. Spiculated irregular nodule about the basal right lower lobe measures 1.5 x 1.1 cm, unchanged. Irregular 1.2 cm consolidation of the posterior basal segment right lower lobe. Central airways appear to be patent. No acute process of the imaged upper abdomen. Wall thickening with gaseous distention throughout the entirety of the esophagus with moderate hiatal hernia. Soft tissues are unremarkable. Demineralized appearance of the bones with degenerative changes of the shoulders and spine. Compression deformities about the T6 and T7 vertebral bodies appear unchanged. Multilevel intervertebral disc space narrowing with spondylitic spurring and facet arthropathy. No suspicious lytic or blastic bony lesions . IMPRESSION: 1. Limited exam secondary to extensive respiratory motion. 2. Pulmonary emboli noted within all of the lobes of the right lung. Mild straightening of the intraventricular septum may reflect associated right heart strain. 3. Trace right pleural effusion. 4. Progressive patchy multifocal groundglass and consolidative opacities about the right lung. Differential considerations would include postradiation pneumonitis with superimposed aspiration pneumonitis or multifocal pneumonia also within the differential. 5. Irregular spiculated nodule about the basal right lower lobe is unchanged. 6. Postoperative changes from prior left pneumonectomy with stable left pleural effusion. 7. Additional findings as above. BILATERAL LOWER EXTREMITY VENOUS DOPPLER HISTORY: Acute pulmonary embolus Pulmonary embolism COMPARISON STUDY: CTA chest of same day. FINDINGS: RIGHT: Occlusive thrombus about the popliteal and peroneal veins. The remaining the venous structures about the right lower extremity are patent. LEFT: There is normal compressibility, flow, and augmentation within the left lower extremity deep venous structures. IMPRESSION: 1. Occlusive deep venous thrombosis of the right popliteal and peroneal veins. 2. No sonographic evidence of left deep venous thrombosis. Medications Administered Current Inpatient Medications Cefazolin Sodium (Ancef) 1 gm IV ONE ONE Stop: 08/24/18 15:17 Heparin Sodium/Dextrose (Heparin Sodium/Dextrose) 25,000 units in 500 mls @ 25 mls/hr IV .Q20H BEE; Protocol Stop: 09/23/18 11:56 Last Admin: 08/24/18 12:17 Dose: 1,250 units/hr, 25 mls/hr Ioversol (Optiray 320 125ml) 74 ml IV ONCE PRN PRN Reason: Interaction Checking Stop: 08/28/18 10:44 Last Admin: 08/24/18 10:45 Dose: 74 ml Resident Activity Tracking Resident Involvement: Resident Care Provided Care Provided: [facility] _ (1) Metastatic lung cancer (metastasis from lung to other site) Laterality: unspecified laterality Qualified Code(s): C34.90 - Malignant neoplasm of unspecified part of unspecified bronchus or lung (2) Hyperlipidemia Hyperlipidemia type: unspecified Qualified Code(s): E78.5 - Hyperlipidemia, unspecified (3) Emphysema of lung Emphysema type: unspecified Qualified Code(s): J43.9 - Emphysema, unspecified
[2018-08-24] MEDS ORDERED: CEFAZOLIN 1000MG 1,000 MG/7.5 ML SYR IV SCH (15:30)
--- NOTE | 2018-08-24 16:09 | Consultation ---
Date of Consultation August 24, 2018 Assessment & Plan (1) Pulmonary embolism: Pt discussed with Dr Fan, recommends IVC filter insertion today. Procedure discussed with pt, he is agreeable. Patient was seen, examined, and chart reviewed. Agree with exam and treatment plan of the Vascular PA. Patient for urgent filter insertion. I have discussed the risks options and benefits of the procedure with the patient. The patient understands the risks options and benefits and agrees to the procedure. Present on Admission?: Yes History of Present Illness Reason for Consultation: DVT, PE with R heart strain Attending Physician: Darrell Carbone MD History of Present Illness 78 yo m with multiple medical problems, including metastatic lung ca, L pneumonectomy, hx CVA and R CEA, DE, hyperlipidemia, admitted wtih extensive PE with possible R heart strain and RLE DVT, seen in consultation today for possible IVC filter insertion. Pt admits SOB and VIGIL, fatigue, malaise. Denies ADRIAN, fever, chills, chest pain,abd pain, N/V, rest pain, claudication, other complaints. Allergies Allergy/AdvReac Type Severity Reaction Status Date / Time No Known Allergies Allergy Unknown Verified 08/24/18 10:25 Home Medications Home Medications Medication Instructions Recorded Confirmed Type Ca-D3-mag kt-qngk-sae-berny-bor 1 tab PO QAM 08/11/18 08/24/18 History [Calcium 600-D3 Plus] atorvastatin 20 mg PO QAM 08/11/18 08/24/18 History lpmqbrgy-juj-dijar-vit K-lycop 1 tab PO QAM 08/11/18 08/24/18 History [Men's 50 Plus Multivitamin] ipratropium-albuterol [Combivent 1 puffs INH Q6H PRN #4 gm 08/17/18 08/24/18 Rx Respimat] lisinopril [Zestril] 5 mg PO QAM 30 Days #30 tab 08/17/18 08/24/18 Rx clopidogrel [Plavix] 75 mg PO QAM 08/24/18 08/24/18 History levofloxacin 500 mg PO DAILY 08/24/18 08/24/18 History prednisone 30 mg PO QAM 08/24/18 08/24/18 History Patient History Medical History Adrenal hyperplasia Hypercholesteremia 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 Polyneuropathy Surgical History H/O pneumonectomy (Resolved) Left - 2017 Family History Other Heart attack Leukemia No pertinent family history Pulmonary embolism Social History marital status: Current Living Situation: Spouse Other Information That Helps Us Care for You: No Feels Safe at Home: Yes Safety Concerns: Feels Safe At This Time Smoking Status: Former smoker Tobacco Type: cigarettes Cigarettes per Day: 20 Second Hand Exposure: No Hx Alcohol Use: No Hx Substance Use: No Beliefs That Will Affect Care: None Preferred Language: Pashto Communication Ability: Effective Review of Systems Constitutional: + fatigue and + malaise; no fever, no chills, no sweats and no weight loss Eyes: no blind spots and no problem reported Ear, Nose, Mouth, Throat: no hearing loss and no sore throat Respiratory: + dyspnea and + dyspnea on exertion; no cough and no hemoptysis Cardiovascular: no chest pain, no palpitations, no syncope, no claudication and no problem reported Gastrointestinal: no abdominal pain, no early satiety, no nausea, no vomiting, no cramping, no change in bowel habits, no diarrhea/loose stools and no blood in stools Musculoskeletal: no back pain, no joint pain, no swelling and no muscle weakness Integumentary: no rash, no non-healing lesions, no skin ulcer, no wounds and no erythema Neurologic: no localized weakness, no generalized weakness, no paralysis, no loss of sensation, no tingling, no numbness, no paresthesia, no seizure-like activity, no syncope, no headache(s) and no confusion Psychiatric: as per Subjective / HPI Hematologic / Lymphatic: no easy bleeding, no easy bruising, no coagulopathy, no night sweats and no unexplained weight loss Physical Exam 2 Vital Signs (Past 24 Hours): Last Vital Signs Temp 36.8 C 08/24/18 09:08 Pulse 100 H 08/24/18 15:36 Resp 20 08/24/18 15:36 BP 93/59 L 08/24/18 15:36 Pulse Ox 99 08/24/18 15:36 Physical Exam: WD/WN, vitals as above well developed, well nourished, + ill appearing (mildly chronically), + thin, + frail appearing, well groomed, cooperative and comfortable; not disheveled and not in distress Eyes: PERRL, conjunctivae normal, anicteric sclerae EOM intact bilaterally ENMT: external ear and nose normal, oropharynx normal Ears: + hearing impairment Nose: no nasal discharge Throat: no posterior oropharynx abnormality Neck: trachea midline, no thyromegaly no tracheal deviation, no neck crepitus and neck nontender Respiratory: normal respiratory effort, lungs clear to auscultation able to speak in complete sentences; does not use accessory muscles, no cough, not tachypneic and no audible wheezes Auscultation: lungs clear to auscultation bilaterally, + breath sounds absent (L lower lung) and + diminished lung sounds ; no rhonchi and no wheezes Cardiovascular: RRR, no murmur, no edema Heart Sounds: no gallop and no murmur Vessels: normal peripheral pulses, femoral pulses present, posterior tibial pulses present, dorsalis pedis pulses present, brachial pulses present and radial pulses present; no carotid bruit and no femoral bruit Extremities: normal capillary refill; no edema Chest (Breasts): Chest: normal inspection of chest Gastrointestinal (Abdomen): normal bowel sounds, soft, nontender, no hepatosplenomegaly Inspection/Auscultation: abdomen normal to inspection and normal bowel sounds; abdomen not distended and no abdominal edema Percussion/ Palpation: abdomen soft; abdomen nontender, no guarding and abdomen not rigid Musculoskeletal: no cyanosis or clubbing, extremities motor strength 5/5 Head/Neck/Chest: normocephalic, head atraumatic and neck supple Extremities: extremities normal to inspection; full ROM of extremities and + abnormal strength Skin: no rashes, warm and dry normal turgor; turgor not decreased, no rashes, no lesions, no ulcers, no induration, no dry skin, no erythema, no eschar and no mottling Neurologic: moves all extremities and awake; no focal motor deficits and not confused Speech / Cognition: no expressive aphasia and no receptive aphasia Motor/Sensory: no tremor, no pronator drift and no sensory deficit Cranial Nerves: EOM intact bilaterally, normal facial strength and tongue midline Psychiatric: Orientation: alert, oriented x 3, oriented to person, oriented to place, oriented to time and cooperative Apperance: appropriately dressed, appropriately groomed and appeared stated age; not disheveled Affect: euthymic affect and + irritable affect Thought Process: goal directed thought process, linear/logical thought process and clear/coherent thought process Cognition: recent memory grossly intact, remote memory grossly intact, attention grossly intact and language grossly intact Estimated Intelligence: average estimated intelligence
[2018-08-24] MEDS ORDERED: MIDAZOLAM HCL 1 MG/ML 2ML VIAL ONE (16:29)
[2018-08-24] MEDS ORDERED: LIDOCAINE HCL 1% 20 ML VIAL ONE (16:29)
[2018-08-24] MEDS ORDERED: fentaNYL citrate 100 MCG/2 ML VIAL ONE (16:29)
[2018-08-24] MEDS ORDERED: ONDANSETRON INJ 2 MG/ML 2 ML VIAL IV PRN (16:42)
[2018-08-24] MEDS ORDERED: ACETAMINOPHEN 325 MG TAB PO PRN (16:42)
--- NOTE | 2018-08-24 16:45 | Pre Anesthesia Assessment ---
Date of Service August 24, 2018 Pre Sedation Assessment Vital Signs Temp Pulse Pulse Resp BP BP Pulse Ox 08/24/18 15:36 100 H 20 93/59 L 99 08/24/18 13:30 109 H 24 101/57 L 100 08/24/18 13:29 109 H 30 H 94/64 L 100 08/24/18 13:15 110 H 20 94/64 L 98 08/24/18 13:00 117 H 24 83/53 L 95 08/24/18 12:49 115 H 20 103/62 99 08/24/18 12:45 116 H 23 103/62 98 08/24/18 12:40 117 H 20 92 08/24/18 12:35 122 H 25 H 89/59 L 88 L 08/24/18 12:31 88/64 L 08/24/18 12:25 115 H 17 69/47 L 96 08/24/18 12:20 115 H 21 96 08/24/18 12:10 118 H 29 H 92 08/24/18 12:00 112 H 31 H 91/62 L 97 08/24/18 11:50 110 H 25 H 97 08/24/18 11:45 113 H 25 H 99/63 L 97 08/24/18 11:40 113 H 25 H 99 08/24/18 11:30 112 H 16 85/59 L 97 08/24/18 11:20 116 H 27 H 99 08/24/18 11:17 113 H 35 H 86/67 L 100 08/24/18 11:15 113 H 33 H 86/56 L 98 08/24/18 11:11 113 H 26 H 91/59 L 97 08/24/18 11:10 113 H 35 H 99 08/24/18 11:00 119 H 26 H 77/51 L 95 08/24/18 10:51 116 H 22 91/62 L 97 08/24/18 10:50 118 H 33 H 98 08/24/18 10:49 117 H 22 08/24/18 10:27 97 08/24/18 10:20 121 H 31 H 98 08/24/18 10:15 118 H 32 H 82/53 L 100 08/24/18 10:10 122 H 19 97 08/24/18 10:00 123 H 22 82/53 L 98 08/24/18 09:59 97 08/24/18 09:57 125 H 124 H 19 84/54 L 84/54 L 100 08/24/18 09:56 97 08/24/18 09:50 124 H 20 100 08/24/18 09:46 123 H 31 H 84/50 L 95 08/24/18 09:40 124 H 18 100 08/24/18 09:30 125 H 29 H 99 08/24/18 09:26 130 H 30 H 99 08/24/18 09:08 36.8 C 131 H 20 97/61 L Cardiovascular + regular rate and + regular rhythm Respiratory + respiratory effort normal; no respiratory distress Pre-Sedation Airway Assessment Smoking Status: Former smoker Hx Sleep Apnea: No Short, Thick Neck: No Thyromental Distance: > or= 3.5 Finger Breadths Oral Cavity: + Dentures Mallampati Class: II ASA: ASA3 NPO Status Date of Last Intake of Fluids: 08/24/18 Time of Last Intake of Fluids: 15:00 Date of Last Intake of Solid Food: 08/24/18 Time of Last Intake of Solid Foods: 06:00 Procedure Planning Contraindications for Sedation: none Current Medications Reviewed: Yes Notes The planned sedation has been discussed with the patient. Informed Consent was obtained. I have identified the patient, determined the appropriateness of sedation and have assessed the patient immediately prior to the procedure. All medicine(s) and interventions are by my order.
--- NOTE | 2018-08-24 16:54 | Emergency Department Note ---
Entered by Gertrude Yusuf acting as a scribe for Jose Arnold MD History of Present Illness General Chief complaint: Shortness of Breath/Dyspnea Stated complaint: SHORTNESS OF BREATH Source: patient and family Mode of arrival: ambulatory Limitations: no limitations History of Present Illness Provider complaint: Shortness of breath Onset (ago): week(s) 1 Location: chest Radiation: non-radiation Pain Consistency: + other (worsening) Quality: + other (shortness of breath) Relieved By: + none Associated symptoms: + cough (productive) and + other (Additional symptoms: heart racing, mouth ulcers. Denies: dehyration, leg swelling/pain, lightheadedness); no chest pain, no fever/chills, no loss of appetite and no nausea/vomiting The patient is a 78 year old male with a history of lung cancer, a left lobectomy, a heart attack, and a stroke who presents to the Emergency Room with complaints of worsening shortness of breath starting 1 week ago. The patient reports that he was discharged from the hospital 1 week ago. He states that his doctor was unsure if he had pneumonia or just a "lung infection" but that he was prescribed antibiotics and steroids. He notes that he has been on 4L O2 at home, but he states that he has slowly been becoming short of breath, which makes his heart race. He states that he feels as if he will have a heart attack if his symptoms continue. He denies any chest pain or discomfort. The patient reports that he feels good now, although his family reports that he has been bringing up a lot of phlegm when he coughs. The patient denies any fevers, vomiting, chest pain, loss of appetite, dehydration, leg swelling/pain, and lightheadedness. He states that he last had chemotherapy 3 weeks ago for his lung cancer. His family reports that the patient has developed mouth ulcers from chemotherapy and is currently using a mouth wash to treat it. The patient denies a history of DVTs. Per family, the patient received his flu shot this year. Home Medications Home Medications Medication Instructions Recorded Confirmed Type Ca-D3-mag gu-gpzy-vil-berny-bor 1 tab PO QAM 08/11/18 08/24/18 History [Calcium 600-D3 Plus] atorvastatin 20 mg PO QAM 08/11/18 08/24/18 History zkmqdpdj-nsg-gitmg-vit K-lycop 1 tab PO QAM 08/11/18 08/24/18 History [Men's 50 Plus Multivitamin] ipratropium-albuterol [Combivent 1 puffs INH Q6H PRN #4 gm 08/17/18 08/24/18 Rx Respimat] lisinopril [Zestril] 5 mg PO QAM 30 Days #30 tab 08/17/18 08/24/18 Rx clopidogrel [Plavix] 75 mg PO QAM 08/24/18 08/24/18 History levofloxacin 500 mg PO DAILY 08/24/18 08/24/18 History prednisone 30 mg PO QAM 08/24/18 08/24/18 History Allergies Allergy/AdvReac Type Severity Reaction Status Date / Time No Known Allergies Allergy Unknown Verified 08/24/18 10:25 Past Med/Surg History Medical History Pneumonia Acute respiratory failure with hypoxia Non-ST elevation NE (NSTEMI) (Acute) Carotid stenosis with cerebral infarction less than 8 weeks ago Acute thrombotic stroke TIA (transient ischemic attack) (Acute) Metastatic lung cancer (metastasis from lung to other site) (Acute) Carcinoma of left lung Chronic osteoarthritis Emphysema of lung (Chronic) Hyperlipidemia Squamous cell carcinoma of lung, 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 Henry underwent a left pneumonectomy on 07/18/2016. The tumor measured 5.0 x 4.0 x 4.0 cm. It was a keratinizing squamous cell carcinoma moderately differentiated. There was no pleural or visceral invasion however there was a positive vascular margin. Bronchial margins were negative. There was lymphovascular invasion. 2 peribronchial lymph nodes were positive and one L 10 lymph nodes was positive. Final stage was T2a N2, Stage IIIA Status post combined radiation and chemotherapy, radiation completed 2016 received 6000 cGy. Chemotherapy comprised of weekly Taxol carboplatin. Initiation of consolidation chemotherapy 11/01/2016, 4 cycles recommended" On 10/12/16 11:21 Lisa Vasquez wrote "Mr. Henry underwent a left pneumonectomy on 07/18/2016. The tumor measured 5.0 x 4.0 x 4.0 cm. It was a keratinizing squamous cell carcinoma moderately differentiated. There was no pleural or visceral invasion however there was a positive vascular margin. Bronchial margins were negative. There was lymphovascular invasion. 2 peribronchial lymph nodes were positive and one L 10 lymph nodes was positive. Final stage was T2a N2, Stage IIIA Status post combined radiation and chemotherapy, radiation completed 2016 received 6000 cGy. Chemotherapy comprised of weekly Taxol carboplatin." On 08/09/16 10:26 Hector Conley wrote "Mr. Henry underwent a left pneumonectomy on 07/18/2016. The tumor measured 5.0 x 4.0 x 4.0 cm. It was a keratinizing squamous cell carcinoma moderately differentiated. There was no pleural or visceral invasion however there was a positive vascular margin. Bronchial margins were negative. There was lymphovascular invasion. 2 peribronchial lymph nodes were positive and one L 10 lymph nodes was positive. 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 Polyneuropathy Surgical History History of pneumonectomy (Acute) H/O pneumonectomy (Resolved) Left - 2016 Family History Other Heart attack Leukemia No pertinent family history Pulmonary embolism Social History marital status: Current Living Situation: Spouse Other Information That Helps Us Care for You: No Feels Safe at Home: Yes Safety Concerns: Feels Safe At This Time Smoking Status: Former smoker Tobacco Type: cigarettes Cigarettes per Day: 20 Second Hand Exposure: No Hx Alcohol Use: No Hx Substance Use: No Beliefs That Will Affect Care: None Preferred Language: Yoruba Communication Ability: Effective Review of Systems See HPI for pertinent positives & negatives. and A total of 10 systems reviewed and were otherwise negative Physical Exam Vital Signs Vital Signs - 24 hr 08/24/18 09:08 08/24/18 09:26 08/24/18 09:30 Temperature 36.8 C Temperature Source Oral Sepsis Recent Fever Within 48 Hours No Sepsis New/Unexplained Change in Mental Status No Sepsis Action Taken by Nursing No Action Required Pulse Rate 131 H 130 H 125 H Pulse Rate [Apical] Pulse Rhythm [Apical] Pulse Strength [Apical] Respiratory Rate 20 30 H 29 H Respiratory Effort / Characteristics Respiratory Depth Normal Respiratory Pattern Blood Pressure 97/61 L Blood Pressure [Right Arm] Blood Pressure Mean 73 Blood Pressure Mean [Right Arm] Pulse Oximetry 99 99 Oxygen Delivery Method Oxygen Flow Rate 08/24/18 09:40 08/24/18 09:46 08/24/18 09:50 Temperature Temperature Source Sepsis Recent Fever Within 48 Hours Sepsis New/Unexplained Change in Mental Status Sepsis Action Taken by Nursing Pulse Rate 124 H 123 H 124 H Pulse Rate [Apical] Pulse Rhythm [Apical] Pulse Strength [Apical] Respiratory Rate 18 31 H 20 Respiratory Effort / Characteristics Respiratory Depth Respiratory Pattern Blood Pressure 84/50 L Blood Pressure [Right Arm] Blood Pressure Mean 61 Blood Pressure Mean [Right Arm] Pulse Oximetry 100 95 100 Oxygen Delivery Method Oxygen Flow Rate 08/24/18 09:56 08/24/18 09:57 08/24/18 09:59 Temperature Temperature Source Sepsis Recent Fever Within 48 Hours Sepsis New/Unexplained Change in Mental Status Sepsis Action Taken by Nursing Pulse Rate 125 H Pulse Rate [Apical] 124 H Pulse Rhythm [Apical] Regular Pulse Strength [Apical] Normal Respiratory Rate 19 Respiratory Effort / Characteristics Non-Labored Spontaneous Respiratory Depth Normal Respiratory Pattern Regular Blood Pressure 84/54 L Blood Pressure [Right Arm] 84/54 L Blood Pressure Mean 64 Blood Pressure Mean [Right Arm] 64 Pulse Oximetry 97 100 97 Oxygen Delivery Method Nasal Cannula Nasal Cannula Nasal Cannula Oxygen Flow Rate 4 4 4 08/24/18 10:00 08/24/18 10:10 08/24/18 10:15 Temperature Temperature Source Sepsis Recent Fever Within 48 Hours Sepsis New/Unexplained Change in Mental Status Sepsis Action Taken by Nursing Pulse Rate 123 H 122 H Pulse Rate [Apical] 118 H Pulse Rhythm [Apical] Regular Pulse Strength [Apical] Normal Respiratory Rate 22 19 32 H Respiratory Effort / Characteristics Spontaneous Respiratory Depth Normal Respiratory Pattern Regular Blood Pressure 82/53 L Blood Pressure [Right Arm] 82/53 L Blood Pressure Mean 62 Blood Pressure Mean [Right Arm] 62 Pulse Oximetry 98 97 100 Oxygen Delivery Method Nasal Cannula Oxygen Flow Rate 4 08/24/18 10:20 08/24/18 10:27 08/24/18 10:49 Temperature Temperature Source Sepsis Recent Fever Within 48 Hours Sepsis New/Unexplained Change in Mental Status Sepsis Action Taken by Nursing Pulse Rate 121 H 117 H Pulse Rate [Apical] Pulse Rhythm [Apical] Pulse Strength [Apical] Respiratory Rate 31 H 22 Respiratory Effort / Characteristics Respiratory Depth Respiratory Pattern Blood Pressure Blood Pressure [Right Arm] Blood Pressure Mean Blood Pressure Mean [Right Arm] Pulse Oximetry 98 97 Oxygen Delivery Method Nasal Cannula Oxygen Flow Rate 08/24/18 10:50 08/24/18 10:51 08/24/18 11:00 Temperature Temperature Source Sepsis Recent Fever Within 48 Hours Sepsis New/Unexplained Change in Mental Status Sepsis Action Taken by Nursing Pulse Rate 118 H 116 H 119 H Pulse Rate [Apical] Pulse Rhythm [Apical] Pulse Strength [Apical] Respiratory Rate 33 H 22 26 H Respiratory Effort / Characteristics Respiratory Depth Respiratory Pattern Blood Pressure 91/62 L 77/51 L Blood Pressure [Right Arm] Blood Pressure Mean 71 59 Blood Pressure Mean [Right Arm] Pulse Oximetry 98 97 95 Oxygen Delivery Method Oxygen Flow Rate 08/24/18 11:10 08/24/18 11:11 08/24/18 11:15 Temperature Temperature Source Sepsis Recent Fever Within 48 Hours Sepsis New/Unexplained Change in Mental Status Sepsis Action Taken by Nursing Pulse Rate 113 H 113 H 113 H Pulse Rate [Apical] Pulse Rhythm [Apical] Pulse Strength [Apical] Respiratory Rate 35 H 26 H 33 H Respiratory Effort / Characteristics Respiratory Depth Respiratory Pattern Blood Pressure 91/59 L 86/56 L Blood Pressure [Right Arm] Blood Pressure Mean 69 66 Blood Pressure Mean [Right Arm] Pulse Oximetry 99 97 98 Oxygen Delivery Method Oxygen Flow Rate 08/24/18 11:17 08/24/18 11:20 08/24/18 11:30 Temperature Temperature Source Sepsis Recent Fever Within 48 Hours Sepsis New/Unexplained Change in Mental Status Sepsis Action Taken by Nursing Pulse Rate 113 H 116 H 112 H Pulse Rate [Apical] Pulse Rhythm [Apical] Pulse Strength [Apical] Respiratory Rate 35 H 27 H 16 Respiratory Effort / Characteristics Respiratory Depth Respiratory Pattern Blood Pressure 86/67 L 85/59 L Blood Pressure [Right Arm] Blood Pressure Mean 73 67 Blood Pressure Mean [Right Arm] Pulse Oximetry 100 99 97 Oxygen Delivery Method Oxygen Flow Rate 08/24/18 11:40 08/24/18 11:45 08/24/18 11:50 Temperature Temperature Source Sepsis Recent Fever Within 48 Hours Sepsis New/Unexplained Change in Mental Status Sepsis Action Taken by Nursing Pulse Rate 113 H 113 H 110 H Pulse Rate [Apical] Pulse Rhythm [Apical] Pulse Strength [Apical] Respiratory Rate 25 H 25 H 25 H Respiratory Effort / Characteristics Respiratory Depth Respiratory Pattern Blood Pressure 99/63 L Blood Pressure [Right Arm] Blood Pressure Mean 75 Blood Pressure Mean [Right Arm] Pulse Oximetry 99 97 97 Oxygen Delivery Method Oxygen Flow Rate 08/24/18 12:00 08/24/18 12:10 08/24/18 12:20 Temperature Temperature Source Sepsis Recent Fever Within 48 Hours Sepsis New/Unexplained Change in Mental Status Sepsis Action Taken by Nursing Pulse Rate 112 H 118 H 115 H Pulse Rate [Apical] Pulse Rhythm [Apical] Pulse Strength [Apical] Respiratory Rate 31 H 29 H 21 Respiratory Effort / Characteristics Respiratory Depth Respiratory Pattern Blood Pressure 91/62 L Blood Pressure [Right Arm] Blood Pressure Mean 71 Blood Pressure Mean [Right Arm] Pulse Oximetry 97 92 96 Oxygen Delivery Method Oxygen Flow Rate 08/24/18 12:25 08/24/18 12:31 08/24/18 12:35 Temperature Temperature Source Sepsis Recent Fever Within 48 Hours Sepsis New/Unexplained Change in Mental Status Sepsis Action Taken by Nursing Pulse Rate 115 H 122 H Pulse Rate [Apical] Pulse Rhythm [Apical] Pulse Strength [Apical] Respiratory Rate 17 25 H Respiratory Effort / Characteristics Respiratory Depth Respiratory Pattern Blood Pressure 69/47 L 88/64 L 89/59 L Blood Pressure [Right Arm] Blood Pressure Mean 54 72 69 Blood Pressure Mean [Right Arm] Pulse Oximetry 96 88 L Oxygen Delivery Method Oxygen Flow Rate 08/24/18 12:40 08/24/18 12:45 08/24/18 12:49 Temperature Temperature Source Sepsis Recent Fever Within 48 Hours Sepsis New/Unexplained Change in Mental Status Sepsis Action Taken by Nursing Pulse Rate 117 H 116 H Pulse Rate [Apical] 115 H Pulse Rhythm [Apical] Pulse Strength [Apical] Respiratory Rate 20 23 20 Respiratory Effort / Characteristics Non-Labored Spontaneous Respiratory Depth Normal Respiratory Pattern Regular Blood Pressure 103/62 Blood Pressure [Right Arm] 103/62 Blood Pressure Mean 75 Blood Pressure Mean [Right Arm] 75 Pulse Oximetry 92 98 99 Oxygen Delivery Method Nasal Cannula Oxygen Flow Rate 4 08/24/18 13:00 08/24/18 13:15 08/24/18 13:29 Temperature Temperature Source Sepsis Recent Fever Within 48 Hours Sepsis New/Unexplained Change in Mental Status Sepsis Action Taken by Nursing Pulse Rate 117 H 110 H 109 H Pulse Rate [Apical] Pulse Rhythm [Apical] Pulse Strength [Apical] Respiratory Rate 24 20 30 H Respiratory Effort / Characteristics Respiratory Depth Respiratory Pattern Blood Pressure 83/53 L 94/64 L 94/64 L Blood Pressure [Right Arm] Blood Pressure Mean 63 74 Blood Pressure Mean [Right Arm] Pulse Oximetry 95 98 100 Oxygen Delivery Method Nasal Cannula Oxygen Flow Rate 4 08/24/18 13:30 08/24/18 15:36 Temperature Temperature Source Sepsis Recent Fever Within 48 Hours Sepsis New/Unexplained Change in Mental Status Sepsis Action Taken by Nursing Pulse Rate 109 H 100 H Pulse Rate [Apical] Pulse Rhythm [Apical] Pulse Strength [Apical] Respiratory Rate 24 20 Respiratory Effort / Characteristics Respiratory Depth Respiratory Pattern Blood Pressure 101/57 L 93/59 L Blood Pressure [Right Arm] Blood Pressure Mean 71 Blood Pressure Mean [Right Arm] Pulse Oximetry 100 99 Oxygen Delivery Method Nasal Cannula Oxygen Flow Rate 3 Constitutional: Vital signs reviewed. Hypotensive and tachycardic. Eyes: Pupils are equal round reactive to light. Conjunctiva are noninjected. ENT: Pharynx is clear without erythema or exudate. Mucous membranes are moist. Neck supple without meningeal signs. Respiratory: Slightly diminished breath sounds to the left base. Scattered rhonchi. Cardiovascular: Tachycardic. Regular rhythm. GI: Soft, nondistended and nontender. Bowel sounds are present. Musculoskeletal: No peripheral edema. No lower extremity tenderness. Integumentary: No cyanosis. Neurological: The patient is awake and alert. No focal deficits. Psychiatric: Normal affect. Course 1002: Past medical records reviewed. The patient was evaluated in room B11B, and a complete history and physical examination were performed. 1119: I reevaluated the patient at this time. The patient's blood pressure is 86/67 and his heart rate is 117. Food bolus is going in. I discussed his test results with him and his family. The patient is on Plavix, and there is no contraindication to anticoagulation. The patient will go to the ICU. 1122: I reviewed the patient's case with Dr. Boone - ICU, [facility]. Dr. Boone recommends starting the patient on Heparin and getting an ABG and stat echo. 1129: I reviewed the patient's case with Dr. Vogel - Cardiology, [facility]. Dr. Vogel will send the tech down at this time. 1134: I reviewed the patient's case with Dr. Carbone - Hospitalist, [facility]. 1140: Echo showed high pulmonary pressures and normal RV and LV function. 1205: I checked on the patient and his blood pressure is slightly improved at 91 /62. I discussed his preliminary echo results with Dr. Carbone. I talked to the patient about his resuscitation status and he is agreeable to CPR and intubation but would not want to stay on a ventilator if that is the only thing keeping him alive. Herparin has been started. 1230: I reevaluated the patient and his blood pressure is now 69 systolic. He denies feeling lightheaded and wants to stand up to urinate. 1245: I checked on the patient at this time. His blood pressure is up to 89 systolic, and his heart rate is 116. He currently has no complaints. Dr. Carbone is talking to Dr. Boone at the moment. 1350: I spoke to Dr. Boone and he is comfortable keeping the patient in the ICU. He does not think the patient needs tPA. The patient will be taken to the ICU at this time. 1449: The patient is currently getting a doppler of the lower extremities. Consultations Consultation #1: I reviewed the patient's case with Dr. Boone - ICU, [facility]. Dr. Boone recommends starting the patient on Heparin and getting an ABG and stat echo. Time: 11:22 Consultation #2: I reviewed the patient's case with Dr. Vogel - Cardiology, [facility]. Dr. Vogel will send the tech down at this time. Time: 11:29 Consultation #3: I reviewed the patient's case with Dr. Carbone - Hospitalist, [facility]. Time: 11:34 Additional Consultation(s): 1205: I discussed his preliminary echo results with Dr. Carbone. 1350: I spoke to Dr. Boone and he is comfortable keeping the patient in the ICU. He does not think the patient needs tPA. The patient will be taken to the ICU at this time. Administered Medications Heparin Sodium/Dextrose (Heparin Sodium/Dextrose) 25,000 units in 500 mls @ 25 mls/hr IV .Q20H [facility]; Protocol Stop: 09/23/18 11:56 Last Admin: 08/24/18 12:17 Dose: 1,250 units/hr, 25 mls/hr Discontinued Medications Heparin Sodium (Porcine) (Heparin Iv Bolus) 5,000 units IV ONE ONE Stop: 08/24/18 12:01 Last Admin: 08/24/18 12:17 Dose: 5,000 units Heparin Sodium/Dextrose () 1 ea IV NOW STA; Protocol Stop: 08/24/18 11:26 Last Admin: 08/24/18 13:49 Dose: Not Given Sodium Chloride (Nss 1000ml) 1,000 mls @ 999 mls/hr IV .Q1H1M ONE Stop: 08/24/18 11:10 Last Infusion: 08/24/18 14:12 Dose: 0 mls/hr Admin: 08/24/18 10:56 Dose: 999 mls/hr Piperacillin Sod/Tazobactam Sod (Zosyn) 4.5 gm in 120 mls @ 240 mls/hr IV NOW ONE Stop: 08/24/18 12:04 Last Infusion: 08/24/18 14:12 Dose: 0 mls/hr Admin: 08/24/18 12:00 Dose: 240 mls/hr Ioversol (Optiray 320 125ml) 74 ml IV ONCE PRN PRN Reason: Interaction Checking Stop: 08/28/18 10:44 Last Admin: 08/24/18 10:45 Dose: 74 ml Medical Decision Making Differential Diagnosis Differential diagnosis includes: pulmonary embolism, sepsis, pneumonia, COPD exacerbation, influenza. Medical Records Attestation: I reviewed the patient's medical records. Home Medications Current Medication List: was personally reviewed by me Laboratory Data Attestation: I reviewed the patient's lab results. Result diagrams: 08/24/18 09:45 08/24/18 09:45 Lab Results 08/24/18 08/24/18 08/24/18 Range/Units 09:45 09:45 09:45 WBC 18.00 H (4.8-10.8) K/uL RBC 3.87 L (4.7-6.1) M/uL Hgb 11.4 L (14.0-18.0) g/dL POC Hgb (14.0-18.0) g/dl Hct 36.4 L (42-52) % POC Hct (42-52) % MCV 94.1 (80-100) fL MCH 29.5 (25-34) pg MCHC 31.3 L (32-36) g/dL RDW Std Deviation 61.8 H (36.4-46.3) fL RDW Coeff of Louise 18.4 H (11.5-14.5) % Plt Count 281 (130-400) K/uL MPV 9.7 (7.4-10.4) fL Immature Gran % (Auto) 0.5 % Neut % (Auto) 92.4 % Lymph % (Auto) 4.3 % [place] % (Auto) 2.6 % Eos % (Auto) 0.1 % Baso % (Auto) 0.1 % Immature Gran # (Auto) 0.09 H (0.00-0.02) K/uL Neut # (Auto) 16.65 H (1.4-6.5) K/uL Lymph # (Auto) 0.77 L (1.2-3.4) K/uL [place] # (Auto) 0.47 (0.11-0.59) K/uL Eos # (Auto) 0.01 (0-0.5) K/uL Baso # (Auto) 0.01 (0-0.2) K/uL PT 11.4 (9.0-12.0) Seconds INR 1.1 (0.9-1.1) APTT 26.2 (21.0-31.0) Seconds PTT Ratio 1.0 POC Sodium (135-144) mEq/L Sodium 135 L (136-145) mmol/L POC Potassium (3.3-5.0) mEq/L Potassium 4.1 (3.5-5.1) mmol/L POC Chloride (101-112) mEq/L Chloride 101 (98-107) mmol/L Carbon Dioxide 29 (21-32) mmol/L POC Total CO2 (24-31) mEq/l Anion Gap 5.0 (3-11) POC Anion Gap (16-25) mmol/L POC BUN (7-18) mg/dl BUN 25 H (7-18) mg/dl Creatinine 0.88 (0.6-1.4) mg/dl POC Creatinine (0.6-1.3) mg/dl Est Cr Clr Drug Dosing Not Reportable Est GFR ( Amer) 95.4 Est GFR (Non-Af Amer) 82.3 BUN/Creatinine Ratio 27.8 H (10-20) Glucose 130 H (70-99) mg/dl POC Glucose (other) (70-99) mg/dl Lactate (0.4-2.0) mmol/L Calcium 8.5 (8.5-10.1) mg/dl POC Ioniz Calcium Ailyn (1.12-1.32) mmol/l Total Bilirubin 0.4 (0.2-1) mg/dl AST 19 (15-37) U/L ALT 32 (12-78) U/L Alkaline Phosphatase 80 (45-117) U/L Troponin I 0.016 (0-0.045) ng/ml Total Protein 6.1 L (6.4-8.2) gm/dl Albumin 2.4 L (3.4-5.0) gm/dl Globulin 3.7 (2.5-4.0) gm/dl Albumin/Globulin Ratio 0.6 L (0.9-2) Influenza Type A Ag (Neg) Influenza Type B Ag (Neg) 08/24/18 08/24/18 08/24/18 Range/Units 09:47 10:16 10:23 WBC (4.8-10.8) K/uL RBC (4.7-6.1) M/uL Hgb (14.0-18.0) g/dL POC Hgb 11.6 L (14.0-18.0) g/dl Hct (42-52) % POC Hct 34 L (42-52) % MCV (80-100) fL MCH (25-34) pg MCHC (32-36) g/dL RDW Std Deviation (36.4-46.3) fL RDW Coeff of Louise (11.5-14.5) % Plt Count (130-400) K/uL MPV (7.4-10.4) fL Immature Gran % (Auto) % Neut % (Auto) % Lymph % (Auto) % [place] % (Auto) % Eos % (Auto) % Baso % (Auto) % Immature Gran # (Auto) (0.00-0.02) K/uL Neut # (Auto) (1.4-6.5) K/uL Lymph # (Auto) (1.2-3.4) K/uL [place] # (Auto) (0.11-0.59) K/uL Eos # (Auto) (0-0.5) K/uL Baso # (Auto) (0-0.2) K/uL PT (9.0-12.0) Seconds INR (0.9-1.1) APTT (21.0-31.0) Seconds PTT Ratio POC Sodium 137 (135-144) mEq/L Sodium (136-145) mmol/L POC Potassium 4.3 (3.3-5.0) mEq/L Potassium (3.5-5.1) mmol/L POC Chloride 98 L (101-112) mEq/L Chloride (98-107) mmol/L Carbon Dioxide (21-32) mmol/L POC Total CO2 29 (24-31) mEq/l Anion Gap (3-11) POC Anion Gap 15.0 L (16-25) mmol/L POC BUN 22 H (7-18) mg/dl BUN (7-18) mg/dl Creatinine (0.6-1.4) mg/dl POC Creatinine 0.7 (0.6-1.3) mg/dl Est Cr Clr Drug Dosing Est GFR ( Amer) Est GFR (Non-Af Amer) BUN/Creatinine Ratio (10-20) Glucose (70-99) mg/dl POC Glucose (other) 121 H (70-99) mg/dl Lactate 2.0 (0.4-2.0) mmol/L Calcium (8.5-10.1) mg/dl POC Ioniz Calcium Ailyn 1.14 (1.12-1.32) mmol/l Total Bilirubin (0.2-1) mg/dl AST (15-37) U/L ALT (12-78) U/L Alkaline Phosphatase (45-117) U/L Troponin I (0-0.045) ng/ml Total Protein (6.4-8.2) gm/dl Albumin (3.4-5.0) gm/dl Globulin (2.5-4.0) gm/dl Albumin/Globulin Ratio (0.9-2) Influenza Type A Ag Neg for Influ A (Neg) Influenza Type B Ag Neg for Influ B (Neg) Imaging Data Radiologist's Impression: Radiology results as stated below per my review and the radiologist's interpretation: CT angio chest PE protocol CT DOSE: 250.26 mGy.cm HISTORY: 78 years-old Male with sob/tachy power port. Acute shortness of breath with tachycardia. History of primary bronchogenic carcinoma and prior left pneumonectomy TECHNIQUE: Multiple CTA images of the chest were obtained after the intravenous administration of 74 ml Optiray 320. Coronal and sagittal MIPS were obtained from the axial data set and were submitted for review. All measurements were obtained according to NASCET criteria. A dose lowering technique was utilized adhering to the principles of ALARA. COMPARISON: Chest radiographs of same day, CT chest 08/12/2018. FINDINGS: Study is limited secondary to respiratory motion. CTA: Moderate multichamber cardiac enlargement. Coronary arterial calcifications are noted. Left subclavian Ncrwdt-[id number]-Scyb catheter distal tip terminates about the superior aspect of the right atrium. No thoracic aortic aneurysm or dissection. Tortuosity and patency of the imaged great vessels. Tortuosity of the descending thoracic aorta. Is opacified to the level of the subsegmental branches. The segmental and subsegmental branches however are not well-seen secondary to respiratory motion. Pulmonary bullae are seen within right upper lobe are, segmental and subsegmental branches with probable additional emboli noted about the right middle and lower lobes. Mild straightening of the intraventricular septum. CT CHEST: No dominant thyroid nodule. No new adenopathy of the chest identified. Postoperative changes from prior left pneumonectomy with unchanged left pleural effusion. Trace right pleural effusion. No pneumothorax. Severe emphysema throughout the right lung with chronic interstitial coarsening. Superimposed patchy groundglass densities and irregular consolidative opacities are also noted throughout the right lung with the areas of consolidation progressively worsened from comparison. Spiculated irregular nodule about the basal right lower lobe measures 1.5 x 1.1 cm, unchanged. Irregular 1.2 cm consolidation of the posterior basal segment right lower lobe. Central airways appear to be patent. No acute process of the imaged upper abdomen. Wall thickening with gaseous distention throughout the entirety of the esophagus with moderate hiatal hernia. Soft tissues are unremarkable. Demineralized appearance of the bones with degenerative changes of the shoulders and spine. Compression deformities about the T6 and T7 vertebral bodies appear unchanged. Multilevel intervertebral disc space narrowing with spondylitic spurring and facet arthropathy. No suspicious lytic or blastic bony lesions . IMPRESSION: 1. Limited exam secondary to extensive respiratory motion. 2. Pulmonary emboli noted within all of the lobes of the right lung. Mild straightening of the intraventricular septum may reflect associated right heart strain. 3. Trace right pleural effusion. 4. Progressive patchy multifocal groundglass and consolidative opacities about the right lung. Differential considerations would include postradiation pneumonitis with superimposed aspiration pneumonitis or multifocal pneumonia also within the differential. 5. Irregular spiculated nodule about the basal right lower lobe is unchanged. 6. Postoperative changes from prior left pneumonectomy with stable left pleural effusion. 7. Additional findings as above. The above report was generated using voice recognition software. It may contain grammatical, syntax or spelling errors. Electronically signed by: Aubrey Jason M.D. 08/24/2018 11:00 AM ECG Data Attestation: I personally reviewed and interpreted this ECG as follows: Indication: SOB/dyspnea Rate (beats per minute): 129 Rhythm: sinus tachycardia Findings: + other (limited interpretation due to motion artifact) and + LAFB; no ST elevation Blood Pressure Blood Pressure Findings: Low blood pressure Blood Pressure Disposition: further management by hospitalist JOSÉ MIGUEL [place] I did perform a limited focused review of portions of the patient's old chart on the electronic medical record. The patient was discharged from the hospital 1 week ago after being diagnosed with a right lung infiltrate, hypoxia, and emphysema. The patient was treated with Levaquin. I did evaluate the patient as noted above. His power port was accessed. The patient was placed on a continuous laboratory monitor. Patient is tachycardic and hypotensive. I did give him a fluid bolus of 1 L IV normal saline. I did order and personally review the patient's 12-lead EKG as described above. He has sinus tachycardia with nonspecific changes. I did order and review the patient's blood work as noted in the electronic medical record. White count is 18,000. I-STAT lab demonstrates normal creatinine. I did order a stat CT of the chest. I did review the images myself as well as the radiology report as described above. He does have multiple pulmonary emboli on the right side. There are signs of right heart strain. He also had signs of worsening pneumonia. I did reassess the patient several times. He had improvement of his blood pressure and heart rate but still had fluctuating readings. I did discuss the test results with the patient and his family. There are no contraindications to heparinization at this time. I did discuss the case with the hatchery helper on-call. He recommended starting the heparin and no indication for IV TPA. I did start him on a heparin drip with bolus. I also treated him with Zosyn IV for pneumonia. I did talk to the workforce planner and ordered a stat echocardiogram which was performed at the bedside. I did discuss the case with the hospitalist on-call. Patient was evaluated by the hospitalist, workforce planner and hatchery helper in the ED. He was admitted to the ICU. He did have an ultrasound of the lower legs which showed occlusive right leg DVTs. Impression & Plan Multiple pulmonary emboli, Multifocal pneumonia, Right leg DVT Critical Care Time I have personally spent 55 minutes of critical care time in the direct management of this patient. This includes bedside care, interpretation of diagnostic studies, and testing, discussion with consultants, patient, and family members, and other required patient management activities. These 55 minutes is in excess of all separately billable procedures. Critical Care Time: Yes Total Critical Care Time: 55 Discharge Plan Visit Data *Final* Discharge Date/Time: 08/24/18 15:36 Chief Complaint: Shortness of Breath/Dyspnea Stated Complaint: SHORTNESS OF BREATH ED Provider: Jose Arnold Discharge Problem: Multiple pulmonary emboli, Multifocal pneumonia, Right leg DVT Patient Disposition: Admitted As Inpatient Discharge Instructions Interventions: ED Discharge Assessment Last Done: 08/24/18 15:36 The scribe's documentation has been prepared under my direction and personally reviewed by me in its entirety. I confirm that the note above accurately reflects all work, treatment, procedures, and medical decision making performed by me.
--- NOTE | 2018-08-24 17:15 | Post Operative Brief Note ---
Immediate Post Op Note v1 Date of Surgery August 24, 2018 Pre & Post Diagnosis Operation Date: 08/24/18 14:30 Pre-Op Diagnosis: Pulmonary Embolism Post-Op Diagnosis: Pulmonary Embolism Procedure Operation Date: 08/24/18 14:30 Actual Procedures p Inferior Vena Cava Filter Placement(Right) - Azeem Fan MD Surgeon Azeem Fan MD [employer] Worker Lydia Tejada MD Estimated Blood Loss 2 Findings Consistent with Post-Op Diagnosis Anesthesia Type RN Sedation Complications none Disposition Accompanied Patient To Recovery: No Disposition: Recovery Room
[2018-08-24] MEDS ORDERED: VISIPAQUE IV PRN (17:16)
--- NOTE | 2018-08-24 17:16 | Operative Report ---
Post Operative Report Pre & Post Diagnosis Operation Date: 08/24/18 14:30 <No data on this case meets the specified criteria> Procedure Operation Date: 08/24/18 14:30 <No data on this case meets the specified criteria> Surgeon Dr. Mita Tejada MD Labor Relations Manager Heri Tejada Estimated Blood Loss 2 Findings Consistent with Post-Op Diagnosis pt had a patent IVC and patent Renal veins. Specimens none Drains none Anesthesia Type Local Complications none Disposition Accompanied Patient To Recovery: No Disposition: Recovery Room Indications PE with DVT in the setting of a pneumonectomy Description of Procedure The patient was brought to the angio suite and placed in the supine position. The right groin was prepped and draped in the usual fashion. The right common femoral vein was located with ultrasound. It was patent, compressed easily, and had no filling defects. Local was administered. The vein was then punctured under ultrasound visualization. A guidewire was then passed centrally into the inferior vena cava under fluoroscopic guidance. The puncture site was then dilated and the filter sheath inserted. It was passed to the infra renal vena cava. A venacavagram was done which showed no cava clot and an acceptable size. The renal veins were identified. The filter was then passed through the sheath and deployed in the infra renal vena cava in an upright position. Satisfied with the positioning of the filter, the sheath was removed. Pressure was applied to the puncture site. Adequate hemostatsis was obtained and a sterile dressing was applied. The patient left the angio suite in good condition and tolerated the procedure well. Dr. Fan was present and scrubbed for the entire procedure. I attest to the content of the Intraoperative Record and any orders documented therein. Any exceptions are noted below. I attest to the content of the Intraoperative Record and any orders documented therein. Any exceptions are noted below.
--- NOTE | 2018-08-24 17:17 | Post Anesthesia Assessment ---
Date of Service August 24, 2018 Post Sedation Assessment Vital Signs Temp Pulse Pulse Resp BP BP Pulse Ox 08/24/18 17:12 105 H 20 119/72 92 08/24/18 17:10 105 H 20 116/87 92 08/24/18 17:05 106 H 26 H 116/87 94 08/24/18 17:02 108 H 25 H 126/82 95 08/24/18 17:00 36.8 C 107 H 16 111/75 97 08/24/18 16:59 112 H 17 120/73 95 08/24/18 15:36 100 H 20 93/59 L 99 08/24/18 13:30 109 H 24 101/57 L 100 08/24/18 13:29 109 H 30 H 94/64 L 100 08/24/18 13:15 110 H 20 94/64 L 98 08/24/18 13:00 117 H 24 83/53 L 95 08/24/18 12:49 115 H 20 103/62 99 08/24/18 12:45 116 H 23 103/62 98 08/24/18 12:40 117 H 20 92 08/24/18 12:35 122 H 25 H 89/59 L 88 L 08/24/18 12:31 88/64 L 08/24/18 12:25 115 H 17 69/47 L 96 08/24/18 12:20 115 H 21 96 08/24/18 12:10 118 H 29 H 92 08/24/18 12:00 112 H 31 H 91/62 L 97 08/24/18 11:50 110 H 25 H 97 08/24/18 11:45 113 H 25 H 99/63 L 97 08/24/18 11:40 113 H 25 H 99 08/24/18 11:30 112 H 16 85/59 L 97 08/24/18 11:20 116 H 27 H 99 08/24/18 11:17 113 H 35 H 86/67 L 100 08/24/18 11:15 113 H 33 H 86/56 L 98 08/24/18 11:11 113 H 26 H 91/59 L 97 08/24/18 11:10 113 H 35 H 99 08/24/18 11:00 119 H 26 H 77/51 L 95 08/24/18 10:51 116 H 22 91/62 L 97 08/24/18 10:50 118 H 33 H 98 08/24/18 10:49 117 H 22 08/24/18 10:27 97 08/24/18 10:20 121 H 31 H 98 08/24/18 10:15 118 H 32 H 82/53 L 100 08/24/18 10:10 122 H 19 97 08/24/18 10:00 123 H 22 82/53 L 98 08/24/18 09:59 97 08/24/18 09:57 125 H 124 H 19 84/54 L 84/54 L 100 08/24/18 09:56 97 08/24/18 09:50 124 H 20 100 08/24/18 09:46 123 H 31 H 84/50 L 95 08/24/18 09:40 124 H 18 100 08/24/18 09:30 125 H 29 H 99 08/24/18 09:26 130 H 30 H 99 08/24/18 09:08 36.8 C 131 H 20 97/61 L Recovery Score Activity: Moves 4 extremities Respiration: Deep Breath/Cough Circulation: +/-20% PreAnes Value Consciousness: Fully Awake Oxygen Saturation: O2 needed for >90% Post Anesthesia Score: 9 Discharge Sedation Level of Care: Fast Track Phase II Post Sedation Plan On clinical assessment, the patient appears to have tolerated the sedation without complications. Patient is recovering as anticipated. Patient will continue to be monitored by nursing and may be discharged when sedation discharge criteria are met per below protocol. Upon Completions of procedure and additional 15 minutes continue every 5 minute vital signs and the P.A.R. score; then discharge to a Phase I or Fast Track to Phase II per the following guidelines: * Discharge Patient to appropriate Phase II area if PAR is 8 or greater or return to pre- procedure baseline. The post - procedure orders will be as directed. * If PAR score is less than 8 or not return to pre-procedure baseline then patient will follow Phase I monitoring till PAR is reached for Phase II. The Phase I may be done in procedure room or may call to secure a Phase I area. * �If naloxone or flumazenil are used for reversal, hold in Phase I for continued monitoring from when last reversal dose was given for a minimum of 60 minutes or longer pending the nurse and/or physician discretion of patient condition before discharge to Phase II.� Please call the Sedation Physician to re-evaluate and complete post-note for discharge to Phase II area. Do NOT discharge from procedure sedation or Phase 1 until post- sedation evaluation note is complete by procedure /sedation MD Sedation Discharge Instructions to be given to the patient at discharge to home.
[2018-08-24] MEDS ORDERED: SODIUM CHLORIDE 0.9% 150 ML IV PRN (17:41)
[2018-08-24 19:13] LABS: Partial Thromboplastin Ratio 3.7
--- NOTE | 2018-08-24 20:06 | History & Physical Report ---
Date of Service August 24, 2018 Assessment & Plan (1) Multiple pulmonary emboli: CTA chest on 08/24 noted PEs within all of the lobes of the right lung. CT scan had concern for right heart strain. Stat echo on 08/24 showed normal RV function, but an RVSP of >60 mmHg. Discussion was had to enact tPA, but pulm/cc and patient decided against it. - Heparin gtt - Appreciate pulmonology input (2) Right leg DVT: Noted on Doppler on 08/24. Given extensive clot burden, the concern was that if the DVT embolized, it would be fatal. Underwent uncomplicated IVC filter placement on 08/[address] Fan. - Heparin gtt as above (3) Radiation pneumonitis: CTA chest on 08/24 noted "Progressive patchy multifocal groundglass and consolidative opacities about the right lung. Differential considerations would include postradiation pneumonitis with superimposed aspiration pneumonitis or multifocal pneumonia." Zosyn was started in the ED for concern for HAP (and failure of levofloxacin) given his recent admission and just finishing his course of levofloxacin on 08/23. However, ICU team felt that because he was afebrile, it was not needed. - Will send procalcitonin to help differentiate pneumonitis vs. pneumonia - Hold antibiotics for now - Continue prednisone 20mg PO daily he was one, though given the worsening nature of the CT chest, will need to discuss with pulmonology whether this should be increased at this time (4) Metastatic lung cancer (metastasis from lung to other site): Squamous cell originally diagnosed in 07/2016. S/p left lobectomy. Undergoing weekly paclitaxel infusions with Dr. Ruiz. Pulm/cc team spoke with Dr. Ruiz on admission who felt this would not hamper his continued chemotherapy treatment as long as he was in overall healthy enough condition to get it. - No need for inpatient oncology consult unless situation changes - Palliative care consult (5) Non-ST elevation ID (NSTEMI): Prior CAD history. Only on Plavix. Denies history of GI bleeding or intracranial bleeding. - Continue Plavix (6) DVT prophylaxis: On active anticoagulation for above issues Code: On my interview, patient and family requested being full code. Pulm/cc team informed me that he did not want to be intubated, but they did not change code status. Patient did indicate desire to speak with palliative care, so will enter consult and hold any changes in status for now. History of Present Illness Primary Care Provider: Jay Gudino MD 78yo M w/ hx of left lobectomy for squamous cell lung cancer who presents for shortness of breath and was found to have PEs to the right lung. Patient was in the hospital until 08/17, when he had an episode of possible pneumonia vs. radiation pneumonitis and was hospitalized for almost 2 weeks. He was discharged and has continued a course of levofloxacin which he finished on per family and is still on a steroid taper for the radiation pneumonitis. He reports his cough and sputum productive have improved, but his shortness of breath started to get progressively worse in the last week. He denies any fevers or chills, sweats, or other concerns. Allergies Allergy/AdvReac Type Severity Reaction Status Date / Time No Known Allergies Allergy Unknown Verified 08/24/18 10:25 Home Medications Home Medications Medication Instructions Recorded Confirmed Type Ca-D3-mag lk-oyrd-dff-berny-bor 1 tab PO QAM 08/11/18 08/24/18 History [Calcium 600-D3 Plus] atorvastatin 20 mg PO QAM 08/11/18 08/24/18 History eqkleelo-exr-uqqqn-vit K-lycop 1 tab PO QAM 08/11/18 08/24/18 History [Men's 50 Plus Multivitamin] ipratropium-albuterol [Combivent 1 puffs INH Q6H PRN #4 gm 08/17/18 08/24/18 Rx Respimat] lisinopril [Zestril] 5 mg PO QAM 30 Days #30 tab 08/17/18 08/24/18 Rx clopidogrel [Plavix] 75 mg PO QAM 08/24/18 08/24/18 History levofloxacin 500 mg PO DAILY 08/24/18 08/24/18 History prednisone 30 mg PO QAM 08/24/18 08/24/18 History Past Med/Surg History Medical History Pneumonia Acute respiratory failure with hypoxia Non-ST elevation ID (NSTEMI) (Acute) Carotid stenosis with cerebral infarction less than 8 weeks ago Acute thrombotic stroke TIA (transient ischemic attack) (Acute) Metastatic lung cancer (metastasis from lung to other site) (Acute) Carcinoma of left lung Chronic osteoarthritis Emphysema of lung (Chronic) Hyperlipidemia Squamous cell carcinoma of lung, 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 Henry underwent a left pneumonectomy on 07/18/2016. The tumor measured 5.0 x 4.0 x 4.0 cm. It was a keratinizing squamous cell carcinoma moderately differentiated. There was no pleural or visceral invasion however there was a positive vascular margin. Bronchial margins were negative. There was lymphovascular invasion. 2 peribronchial lymph nodes were positive and one L 10 lymph nodes was positive. Final stage was T2a N2, Stage IIIA Status post combined radiation and chemotherapy, radiation completed 2016 received 6000 cGy. Chemotherapy comprised of weekly Taxol carboplatin. Initiation of consolidation chemotherapy 11/01/2016, 4 cycles recommended" On 10/12/16 11:21 Lisa Vasquez wrote "Mr. Henry underwent a left pneumonectomy on 07/18/2016. The tumor measured 5.0 x 4.0 x 4.0 cm. It was a keratinizing squamous cell carcinoma moderately differentiated. There was no pleural or visceral invasion however there was a positive vascular margin. Bronchial margins were negative. There was lymphovascular invasion. 2 peribronchial lymph nodes were positive and one L 10 lymph nodes was positive. Final stage was T2a N2, Stage IIIA Status post combined radiation and chemotherapy, radiation completed 2016 received 6000 cGy. Chemotherapy comprised of weekly Taxol carboplatin." On 08/09/16 10:26 Hector Conley wrote "Mr. Henry underwent a left pneumonectomy on 07/18/2016. The tumor measured 5.0 x 4.0 x 4.0 cm. It was a keratinizing squamous cell carcinoma moderately differentiated. There was no pleural or visceral invasion however there was a positive vascular margin. Bronchial margins were negative. There was lymphovascular invasion. 2 peribronchial lymph nodes were positive and one L 10 lymph nodes was positive. 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 Polyneuropathy Surgical History History of pneumonectomy (Acute) H/O pneumonectomy (Resolved) Left - 2016 Family History Other Heart attack Leukemia No pertinent family history Pulmonary embolism Social History marital status: Current Living Situation: Spouse Other Information That Helps Us Care for You: No Feels Safe at Home: Yes Safety Concerns: Feels Safe At This Time Smoking Status: Former smoker Tobacco Type: cigarettes Cigarettes per Day: 20 Second Hand Exposure: No Hx Alcohol Use: No Hx Substance Use: No Beliefs That Will Affect Care: None Preferred Language: Vincentian Communication Ability: Effective Review of Systems Constitutional: no fever, no chills and no sweats Eyes: no diplopia Ear, Nose, Mouth, Throat: no ear trauma, no nasal discharge and no dental pain Respiratory: + dyspnea and + dyspnea on exertion; no cough, no chest congestion and no change in sputum Cardiovascular: no chest pain, no dyspnea on exertion, no palpitations and no syncope Gastrointestinal: no abdominal pain, no belching, no constipation, no diarrhea/ loose stools, no blood in stools and no melena Musculoskeletal: no back pain, no joint pain and no muscle weakness Integumentary: no rash, no skin ulcer and no erythema Neurologic: no generalized weakness, no loss of sensation, no numbness and no paresthesia Psychiatric: no depression and no anxiety Endocrine: no fatigue, no polydipsia and no polyphagia Physical Exam 2 Vital Signs (Past 24 Hours): Last Vital Signs Temp 36.7 C 08/24/18 17:30 Pulse 98 H 08/24/18 17:30 Resp 16 08/24/18 17:30 BP 123/77 08/24/18 17:30 Pulse Ox 93 08/24/18 17:30 Constitutional: WD/WN, vitals as above Eyes: EOM intact bilaterally; no conjunctival abnormality ENMT: external ear and nose normal, oropharynx normal Neck: trachea midline, no thyromegaly normal visual inspection Respiratory: + labored breathing, + uses accessory muscles and + tachypneic; no respiratory distress and no cough Cardiovascular: Rate/Rhythm: regular rhythm and + tachycardic Heart Sounds : normal S1 and normal S2 Gastrointestinal (Abdomen): Inspection/Auscultation: abdomen normal to inspection; abdomen not distended Musculoskeletal: no cyanosis or clubbing, extremities motor strength 5/5 Skin: no rashes, warm and dry Neurologic: moves all extremities and awake Psychiatric: Orientation: alert, oriented to person and cooperative _ (1) Right leg DVT Affected thrombotic vein of extremity: unspecified vein of extremity Chronicity: unspecified Qualified Code(s): I82.401 - Acute embolism and thrombosis of unspecified deep veins of right lower extremity (2) Metastatic lung cancer (metastasis from lung to other site) Laterality: unspecified laterality Qualified Code(s): C34.90 - Malignant neoplasm of unspecified part of unspecified bronchus or lung
[2018-08-25] MEDS ORDERED: HEPARIN 100 UNIT/ML 5ML FLUSH FLUSH PRN (00:58)
[2018-08-25 03:59] LABS: Hematocrit (blood only) 34.7 % (42-52); Hemoglobin 11.2 g/dL (14.0-18.0); Mean Corpuscular Hgb Conc 32.3 g/dL (32-36); Mean Platelet Volume 9.9 fL (7.4-10.4); Platelet Count 265 K/uL (130-400); RDW Coefficient of Variation 18.6 % (11.5-14.5); RDW Standard Deviation 63.1 fL (36.4-46.3); Red Blood Count 3.69 M/uL (4.7-6.1); White Blood Count 13.12 K/uL (4.8-10.8)
[2018-08-25 04:19] LABS: BUN Creatinine Ratio 22.8 (10-20); Calcium 8.2 mg/dl (8.5-10.1); Creatinine Clr Calc Pharmacy 67.9 ml/min; Est GFR (African American) 97.7; Est GFR (Non-African American) 84.3; Magnesium 1.9 mg/dl (1.8-2.4); Potassium 4.2 mmol/L (3.5-5.1)
[2018-08-25 04:27] LABS: Partial Thromboplastin Ratio 1.9
[2018-08-25 04:48] LABS: Partial Thromboplastin Time 50.4 Seconds (21.0-31.0)
[2018-08-25] MEDS: CLOPIDOGREL BISULFATE 75 MG TAB PO SCH (08:24)
[2018-08-25] MEDS: ATORVASTATIN 20 MG TAB PO SCH (08:24)
[2018-08-25] MEDS: predniSONE 20 MG TAB PO SCH (08:24)
[2018-08-25] MEDS: HEPARIN STANDARD DEXTROSE 25,000 UNITS/500 ML IV SCH (09:19)
--- NOTE | 2018-08-25 12:49 | Hospitalist Progress Note ---
Date of Service August 25, 2018 Assessment & Plan (1) Multiple pulmonary emboli: CTA chest on 08/24 noted PEs within all of the lobes of the right lung. CT scan had concern for right heart strain. Stat echo on 08/24 showed normal RV function, but an RVSP of >60 mmHg. Discussion was had to enact tPA, but pulm/cc and patient decided against it. continue heparin drip for today and tomorrow will transition to Xarelto oil heaterman since he does not want to do Lovenox injections IVC filter in place to prevent any further emboli still with tachycardia today will continue to monitor closely on telemetry (2) Right leg DVT: Noted on Doppler on 08/24. Given extensive clot burden, the concern was that if the DVT embolized, it would be fatal. Underwent uncomplicated IVC filter placement on 08/[address] Fan. - Heparin gtt as above - will treat intermediate with Xarelto (3) Radiation pneumonitis: CTA chest on 08/24 noted "Progressive patchy multifocal groundglass and consolidative opacities about the right lung. Differential considerations would include postradiation pneumonitis with superimposed aspiration pneumonitis or multifocal pneumonia." Zosyn was started in the ED for concern for HAP (and failure of levofloxacin) given his recent admission and just finishing his course of levofloxacin on 08/23. However, ICU team felt that because he was afebrile, it was not needed. procalcitonin is < 0.05 this morning hold antibiotics continue Prednisone for pneumonitis (4) Metastatic lung cancer (metastasis from lung to other site): Squamous cell originally diagnosed in 07/2016. S/p left lobectomy. Undergoing weekly paclitaxel infusions with Dr. Ruiz. Pulm/cc team spoke with Dr. Ruiz on admission who felt this would not hamper his continued chemotherapy treatment as long as he was in overall healthy enough condition to get it. - No need for inpatient oncology consult unless situation changes - Palliative care consult pending to discuss goals of care (5) Non-ST elevation [place] (NSTEMI): Prior CAD history. Only on Plavix. Denies history of GI bleeding or intracranial bleeding. - Continue Plavix (6) DVT prophylaxis: On active anticoagulation for above issues Code: full code for now patient wishes to discuss further with palliative care Subjective patient says he is feeling a lot better than yesterday breathing is easier, no chest pain or pressure, no leg pain discussed the diagnosis of PE on the right and the DVT explained initial treatment would be the heparin drip and then transition to PO anticoagulation discussed with Dr. Alexandre over the phone, recommended Xarelto if the patient is averse to getting injections patient said he would not want Lovenox intermediate reviewed labs, CBC normal, Cr 0.8 after contrast, electrolytes stable Review of Systems All systems reviewed & are unremarkable except as noted in HPI & below Constitutional: + fatigue and + weakness Respiratory: + cough, + dyspnea on exertion and + hemoptysis (trace blood in mucous); no pain on inspiration and no pain with cough Cardiovascular: + edema; no chest pain Physical Exam 2 Vital Signs (Past 24 Hours): Last Vital Signs Temp 37.0 C 08/25/18 11:43 Pulse 122 H 08/25/18 11:43 Resp 20 08/25/18 11:43 BP 106/70 08/25/18 11:43 Pulse Ox 92 08/25/18 11:43 Constitutional: WD/WN, vitals as above Eyes: PERRL, conjunctivae normal, anicteric sclerae ENMT: external ear and nose normal, oropharynx normal Neck: trachea midline, no thyromegaly Respiratory: normal respiratory effort, lungs clear to auscultation Cardiovascular: Rate/Rhythm: regular rhythm and + tachycardic Heart Sounds : normal S1 and normal S2; no murmur Vessels: normal peripheral pulses; no JVD Extremities: + pedal edema (trace bilaterally) Gastrointestinal (Abdomen): normal bowel sounds, soft, nontender, no hepatosplenomegaly Musculoskeletal: no cyanosis or clubbing, extremities motor strength 5/5 Skin: no rashes, warm and dry Neurologic: patellar DTR's 2+ bilat, sensation intact and PERRL, EOMI, accommodation nl, no face palsy, no dysarthria Psychiatric: A+Ox3, euthymic affect Lymphatic: no cervical or axillary lymphadenopathy Results & Data Laboratory Results Laboratory Results - last 24 hr 08/24/18 08/25/18 08/25/18 18:36 03:41 03:41 WBC 13.12 H RBC 3.69 L Hgb 11.2 L Hct 34.7 L MCV 94.0 MCH 30.4 MCHC 32.3 RDW Std Deviation 63.1 H RDW Coeff of Louise 18.6 H Plt Count 265 MPV 9.9 APTT 97.0 H* PTT Ratio 3.7 Sodium 135 L Potassium 4.2 Chloride 103 Carbon Dioxide 30 Anion Gap 2.0 L BUN 19 H Creatinine 0.83 Est Cr Clr Drug Dosing 67.9 Est GFR ( Amer) 97.7 Est GFR (Non-Af Amer) 84.3 BUN/Creatinine Ratio 22.8 H Glucose 88 Calcium 8.2 L Magnesium 1.9 Procalcitonin 08/25/18 08/25/18 03:41 03:41 WBC RBC Hgb Hct MCV MCH MCHC RDW Std Deviation RDW Coeff of Louise Plt Count MPV APTT 50.4 H* PTT Ratio 1.9 Sodium Potassium Chloride Carbon Dioxide Anion Gap BUN Creatinine Est Cr Clr Drug Dosing Est GFR ( Amer) Est GFR (Non-Af Amer) BUN/Creatinine Ratio Glucose Calcium Magnesium Procalcitonin < 0.05 Medications Administered Current Inpatient Medications Acetaminophen (Tylenol) 650 mg PO Q4H PRN PRN Reason: pain/fever Stop: 09/23/18 16:41 Albuterol (Duoneb) 3 ml NEB Q4R PRN PRN Reason: Shortness Of Breath Or Wheezing Stop: 09/24/18 00:00 Atorvastatin Calcium (Lipitor) 20 mg PO [facility] Stop: 09/24/18 08:59 Last Admin: 08/25/18 08:24 Dose: 20 mg Clopidogrel Bisulfate (Plavix) 75 mg PO [facility] Stop: 09/24/18 08:59 Last Admin: 08/25/18 08:24 Dose: 75 mg Heparin Sodium (Porcine) (Heparin Sod 100 Unit/Ml Flush) 5 ml FLUSH PRN PRN PRN Reason: Flush Stop: 09/24/18 00:59 Heparin Sodium/Dextrose (Heparin Sodium/Dextrose) 25,000 units in 500 mls @ 22.2 mls/hr IV .Q20H [facility]; Protocol Stop: 09/23/18 11:56 Last Admin: 08/25/18 09:19 Dose: 1,100 units/hr, 22 mls/hr Sodium Chloride (Nss 250ml) 150 mls @ 15 mls/hr IV .Q10H PRN PRN Reason: Transfusion Stop: 08/25/18 17:40 Last Infusion: 08/24/18 17:43 Dose: Infused Iodixanol (Visipaque) 15 ml IV UD PRN PRN Reason: procedure Stop: 08/28/18 17:15 Last Admin: 08/24/18 17:18 Dose: 15 ml Ondansetron HCl (Zofran) 4 mg IV Q6H PRN PRN Reason: Nausea Stop: 09/23/18 16:41 Prednisone (Prednisone) 20 mg PO QAM [facility] Stop: 09/24/18 08:59 Last Admin: 08/25/18 08:24 Dose: 20 mg _ (1) Right leg DVT Affected thrombotic vein of extremity: unspecified vein of extremity Chronicity: unspecified Qualified Code(s): I82.401 - Acute embolism and thrombosis of unspecified deep veins of right lower extremity (2) Metastatic lung cancer (metastasis from lung to other site) Laterality: unspecified laterality Qualified Code(s): C34.90 - Malignant neoplasm of unspecified part of unspecified bronchus or lung
[2018-08-26 05:46] LABS: Partial Thromboplastin Ratio 2.4
[2018-08-26 05:53] LABS: Partial Thromboplastin Time 62.3 Seconds (21.0-31.0)
[2018-08-26] MEDS: HEPARIN STANDARD DEXTROSE 25,000 UNITS/500 ML IV SCH (08:28)
[2018-08-26] MEDS: ATORVASTATIN 20 MG TAB PO SCH (08:28)
[2018-08-26] MEDS: predniSONE 20 MG TAB PO SCH (08:28)
[2018-08-26] MEDS: CLOPIDOGREL BISULFATE 75 MG TAB PO SCH (08:28)
--- NOTE | 2018-08-26 11:10 | Hospitalist Progress Note ---
Date of Service August 26, 2018 Assessment & Plan (1) Multiple pulmonary emboli: CTA chest on 08/24 noted PEs within all of the lobes of the right lung. CT scan had concern for right heart strain. Stat echo on 08/24 showed normal RV function, but an RVSP of >60 mmHg. Discussion was had to enact tPA, but pulm/cc and patient decided against it. continue heparin drip for today plan to stop drip tomorrow morning and change to Xarelto 15mg BID typical dosing with 15mg BID x 21 days and then 20mg daily IVC filter in place to prevent any further emboli still with sinus tachycardia and dyspnea on exertion keep on tele today, could go to medical floor tomorrow get PT/OT possible discharge to home on Monday 08/28 (2) Right leg DVT: Noted on Doppler on 08/24. Given extensive clot burden, the concern was that if the DVT embolized, it would be fatal. Underwent uncomplicated IVC filter placement on 08/[address] Fan. - Heparin gtt as above - will treat fdc with Xarelto (3) Radiation pneumonitis: CTA chest on 08/24 noted "Progressive patchy multifocal groundglass and consolidative opacities about the right lung. Differential considerations would include postradiation pneumonitis with superimposed aspiration pneumonitis or multifocal pneumonia." Zosyn was started in the ED for concern for HAP (and failure of levofloxacin) given his recent admission and just finishing his course of levofloxacin on 08/23. However, ICU team felt that because he was afebrile, it was not needed. procalcitonin is < 0.05 on 08/25 hold antibiotics continue Prednisone for pneumonitis and slowly taper, follow up with pulmonology (4) Metastatic lung cancer (metastasis from lung to other site): Squamous cell originally diagnosed in 07/2016. S/p left lobectomy. Undergoing weekly paclitaxel infusions with Dr. Ruiz. Pulm/cc team spoke with Dr. Ruiz on admission who felt this would not hamper his continued chemotherapy treatment as long as he was in overall healthy enough condition to get it. - No need for inpatient oncology consult unless situation changes - Palliative care consult pending to discuss goals of care should follow up with Dr. Ruiz within two weeks for both lung CA and pulmonary emboli (5) Non-ST elevation [place] (NSTEMI): Prior CAD history. Only on Plavix. Denies history of GI bleeding or intracranial bleeding. - Continue Plavix (6) DVT prophylaxis: On active anticoagulation for above issues Code: full code for now patient wishes to discuss further with palliative care again, change to Xarelto tomorrow, PT/OT evals, likely home on 08/28 if he continues to progress will need oxygen on discharge, was already using oxygen at home would get a 2 step on 08/27 or 08/28 Subjective patient feeling well, eating well, no shortness of breath at rest he complains that walking to the restroom and back makes him winded takes a few minutes for him to catch his breath discussed that he has one lung and it is filled with clot it is expected that he will have some dyspnea on exertion, probably for some time even after discharge he had trace hemoptysis today, much less than yesterday no chest pain or pressure we discussed plans going forward, heparin gtt for today, Xareltin tomorrow discussed that he will need anticoagulation, likely lifelong with his malignancy but will be up to Dr. Ruiz updated family at the bedside Review of Systems All systems reviewed & are unremarkable except as noted in HPI & below Respiratory: + cough, + dyspnea on exertion, + hemoptysis (trace) and + sputum production; no pain with cough Physical Exam 2 Vital Signs (Past 24 Hours): Last Vital Signs Temp 36.6 C 08/26/18 08:26 Pulse 126 H 08/26/18 08:26 Resp 20 08/26/18 08:26 BP 95/57 L 08/26/18 08:26 Pulse Ox 92 08/26/18 08:26 Constitutional: WD/WN, vitals as above Eyes: PERRL, conjunctivae normal, anicteric sclerae ENMT: external ear and nose normal, oropharynx normal Neck: trachea midline, no thyromegaly Respiratory: normal respiratory effort, lungs clear to auscultation (no rales on right, absent breath sounds on left due to pneumonectomy) Cardiovascular: Rate/Rhythm: regular rhythm and + tachycardic Heart Sounds : normal S1 and normal S2; no murmur Vessels: normal peripheral pulses; no JVD Extremities: + pedal edema (trace bilaterally) Gastrointestinal (Abdomen): normal bowel sounds, soft, nontender, no hepatosplenomegaly Musculoskeletal: no cyanosis or clubbing, extremities motor strength 5/5 Skin: no rashes, warm and dry Neurologic: patellar DTR's 2+ bilat, sensation intact and PERRL, EOMI, accommodation nl, no face palsy, no dysarthria Psychiatric: A+Ox3, euthymic affect Lymphatic: no cervical or axillary lymphadenopathy Results & Data Laboratory Results Laboratory Results - last 24 hr 08/26/18 05:08 APTT 62.3 H* PTT Ratio 2.4 Medications Administered Current Inpatient Medications Acetaminophen (Tylenol) 650 mg PO Q4H PRN PRN Reason: pain/fever Stop: 09/23/18 16:41 Albuterol (Duoneb) 3 ml NEB Q4R PRN PRN Reason: Shortness Of Breath Or Wheezing Stop: 09/24/18 00:00 Atorvastatin Calcium (Lipitor) 20 mg PO [facility] Stop: 09/24/18 08:59 Last Admin: 08/26/18 08:28 Dose: 20 mg Clopidogrel Bisulfate (Plavix) 75 mg PO [facility] Stop: 09/24/18 08:59 Last Admin: 08/26/18 08:28 Dose: 75 mg Heparin Sodium (Porcine) (Heparin Sod 100 Unit/Ml Flush) 5 ml FLUSH PRN PRN PRN Reason: Flush Stop: 09/24/18 00:59 Heparin Sodium/Dextrose (Heparin Sodium/Dextrose) 25,000 units in 500 mls @ 22.2 mls/hr IV .Q20H [facility]; Protocol Stop: 09/23/18 11:56 Last Admin: 08/26/18 08:28 Dose: 1,100 units/hr, 22 mls/hr Iodixanol (Visipaque) 15 ml IV UD PRN PRN Reason: procedure Stop: 08/28/18 17:15 Last Admin: 08/24/18 17:18 Dose: 15 ml Ondansetron HCl (Zofran) 4 mg IV Q6H PRN PRN Reason: Nausea Stop: 09/23/18 16:41 Prednisone (Prednisone) 20 mg PO [facility] Stop: 09/24/18 08:59 Last Admin: 08/26/18 08:28 Dose: 20 mg _ (1) Right leg DVT Affected thrombotic vein of extremity: unspecified vein of extremity Chronicity: unspecified Qualified Code(s): I82.401 - Acute embolism and thrombosis of unspecified deep veins of right lower extremity (2) Metastatic lung cancer (metastasis from lung to other site) Laterality: unspecified laterality Qualified Code(s): C34.90 - Malignant neoplasm of unspecified part of unspecified bronchus or lung
[2018-08-27] MEDS: ALBUT/IPRATROP 3MG/0.5MG NEB 3 ML VIAL NEB PRN (04:06)
[2018-08-27 05:24] LABS: Partial Thromboplastin Ratio 1.9
[2018-08-27] MEDS: HEPARIN STANDARD DEXTROSE 25,000 UNITS/500 ML IV SCH (05:29)
[2018-08-27 05:30] LABS: Partial Thromboplastin Time 50.3 Seconds (21.0-31.0)
[2018-08-27] MEDS: predniSONE 20 MG TAB PO SCH (08:24)
[2018-08-27] MEDS: ATORVASTATIN 20 MG TAB PO SCH (08:24)
[2018-08-27] MEDS: RIVAROXABAN 15 MG TAB PO SCH ×2 (08:25→16:56)
[2018-08-27] MEDS: CLOPIDOGREL BISULFATE 75 MG TAB PO SCH (08:25)
--- NOTE | 2018-08-27 11:29 | Palliative Care Consultation ---
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 Ruiz, s/p left pneumonectomy, presented with increased SOB. Cristian was in hospital for a couple weeks from end of July to 08/17/17 with radiation pneumonitis/pnemonia. During that time, patient was reportedly (by his ) refusing subcutaneous heparin shots. He was discharged home on 4L oxygen, which was new for him. He returned to the hospital with worsening SOB. CTA showed pulmonary emboli, venous doppler revealed right LE DVT. He was admitted and treated with heparin gtt. On admission, discussion of code status was had. Patient wanted to remain full code and was agreeable to continue this conversation with palliative care. -I met with the patient, his , and his sister, in room 216. Patient is awake , alert and oriented. I introduced palliative care and our service. Patient immediately began to voice his dissatisfaction with the care at [facility]. He stated, "Of all the doctors and nurses who see me, this was missed!" as he pointed to his chest. -Patient stated that the incorrect CT scan was ordered for him during his previous admission and he believes that the pulmonary emboli were not found. I explained that hospitalization and cancer put him at very high risk for clotting and this very well could be a brand new development. Then his proceeded to tell me that he was refusing his heparin shots during last hospitalization. I again explained the use of heparin and that its purpose was to prevent clots from forming. -Patient then stated, "If I don't start making some headway here, I'm leaving and going to [facility]!" He asked that our conversation be postponed. I did make him aware that palliative care is available in outpatient setting at the cancer center if he'd be interested. -Will sign off for now. Please contact me with any further palliative care needs. (2) Multiple pulmonary emboli: (3) Right leg DVT: Affected thrombotic vein of extremity: unspecified vein of extremity Chronicity: unspecified Qualified Code(s): I82.401 - Acute embolism and thrombosis of unspecified deep veins of right lower extremity (4) Metastatic lung cancer (metastasis from lung to other site): Laterality: unspecified laterality Qualified Code(s): C34.90 - Malignant neoplasm of unspecified part of unspecified bronchus or lung Supervising Physician Co-Signing Physician Notes Chart reviewed, patient seen and examined- at bedside. Patient voiced dissatisfaction with medical care and that he feels the clots found on this admission were missed on prior admissions. Reviewed the chart at length-went back and spoke to the patient later, his was not present on the second visit, when he presented in July he had fever and shortness of breath-he was treated with IV antibiotics and got better. The difference on this admission is he presented with no fever very low blood pressure, an echo was obtained that showed right heart strain which indicated possible clots. Explained the different presentation and also explained to patient that he would not have gotten better with IV antibiotics on a previous admission if his shortness of breath had been due to clots. Patient voiced appreciation for delineating the difference between his 2 visits and further explaining his medical care. Also informed the patient of severe emphysema/COPD on scans- patient did not understand that the long history of smoking would cause permanent damage to his lungs. Patient appears to have poor insight also some memory deficits in regards to his care. PE: No acute distress HEENT: EOMI, normal hearing Respiratory:unlabored respirations at rest, slight increase with conversation, no breath sounds on left CV: Regular rate, trace edema bilaterally Abdomen: Soft, nontender Neuro: No focal deficits, mild memory issues Agree with above note, assessment and plan as per ARMIN Montesinos Will continue to follow to assist with medical decision making. Patient's goal is to improve his respiratory function, continue his chemotherapy and return home with his . History of Present Illness Reason for Consultation: Goals of care Requesting Physician: Dr. 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 Ruiz, s/p left pneumonectomy, presented with increased SOB. Cristian was in hospital for a couple weeks from end of July to 08/17/17 with radiation pneumonitis/pnemonia. During that time, patient was reportedly (by his ) refusing subcutaneous heparin shots. He was discharged home on 4L oxygen, which was new for him. He returned to the hospital with worsening SOB. CTA showed pulmonary emboli, venous doppler revealed right LE DVT. He was admitted and treated with heparin gtt. On admission, discussion of code status was had. Patient wanted to remain full code and was agreeable to continue this conversation with palliative care. Thank you kindly for this consult. Allergies Allergy/AdvReac Type Severity Reaction Status Date / Time No Known Allergies Allergy Unknown Verified 08/24/18 10:25 Home Medications Home Medications Medication Instructions Recorded Confirmed Type Ca-D3-mag [id number]-bor 1 tab PO QAM 08/11/18 08/24/18 History [Calcium 600-D3 Plus] atorvastatin 20 mg PO QAM 08/11/18 08/24/18 History [id number]-vit K-lycop 1 tab PO QAM 08/11/18 08/24/18 History [Men's 50 Plus Multivitamin] ipratropium-albuterol [Combivent 1 puffs INH Q6H PRN #4 gm 08/17/18 08/24/18 Rx Respimat] lisinopril [Zestril] 5 mg PO QAM 30 Days #30 tab 08/17/18 08/24/18 Rx clopidogrel [Plavix] 75 mg PO QAM 08/24/18 08/24/18 History levofloxacin 500 mg PO DAILY 08/24/18 08/24/18 History prednisone 30 mg PO QAM 08/24/18 08/24/18 History Patient History Medical History Pneumonia Acute respiratory failure with hypoxia Non-ST elevation [place] (NSTEMI) (Acute) Carotid stenosis with cerebral infarction less than 8 weeks ago Acute thrombotic stroke TIA (transient ischemic attack) (Acute) Metastatic lung cancer (metastasis from lung to other site) (Acute) Carcinoma of left lung Chronic osteoarthritis Emphysema of lung (Chronic) Hyperlipidemia Squamous cell carcinoma of lung, 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 Henry underwent a left pneumonectomy on 07/18/2016. The tumor measured 5.0 x 4.0 x 4.0 cm. It was a keratinizing squamous cell carcinoma moderately differentiated. There was no pleural or visceral invasion however there was a positive vascular margin. Bronchial margins were negative. There was lymphovascular invasion. 2 peribronchial lymph nodes were positive and one L 10 lymph nodes was positive. Final stage was T2a N2, Stage IIIA Status post combined radiation and chemotherapy, radiation completed 2016 received 6000 cGy. Chemotherapy comprised of weekly Taxol carboplatin. Initiation of consolidation chemotherapy 11/01/2016, 4 cycles recommended" On 10/12/16 11:21 Lisa Vasquez wrote "Mr. Henry underwent a left pneumonectomy on 07/18/2016. The tumor measured 5.0 x 4.0 x 4.0 cm. It was a keratinizing squamous cell carcinoma moderately differentiated. There was no pleural or visceral invasion however there was a positive vascular margin. Bronchial margins were negative. There was lymphovascular invasion. 2 peribronchial lymph nodes were positive and one L 10 lymph nodes was positive. Final stage was T2a N2, Stage IIIA Status post combined radiation and chemotherapy, radiation completed 2016 received 6000 cGy. Chemotherapy comprised of weekly Taxol carboplatin." On 08/09/16 10:26 Hector Conley wrote "Mr. Henry underwent a left pneumonectomy on 07/18/2016. The tumor measured 5.0 x 4.0 x 4.0 cm. It was a keratinizing squamous cell carcinoma moderately differentiated. There was no pleural or visceral invasion however there was a positive vascular margin. Bronchial margins were negative. There was lymphovascular invasion. 2 peribronchial lymph nodes were positive and one L 10 lymph nodes was positive. 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 Polyneuropathy Surgical History History of pneumonectomy (Acute) H/O pneumonectomy (Resolved) Left - 2016 Family History Other Heart attack Leukemia No pertinent family history Pulmonary embolism Social History marital status: Current Living Situation: Spouse Other Information That Helps Us Care for You: No Feels Safe at Home: Yes Safety Concerns: Feels Safe At This Time Smoking Status: Former smoker Tobacco Type: cigarettes Cigarettes per Day: 20 Second Hand Exposure: No Hx Alcohol Use: No Hx Substance Use: No Beliefs That Will Affect Care: None Communication Ability: Effective Review of Systems Constitutional: no weakness Ear, Nose, Mouth, Throat: no dysphagia Respiratory: + cough, + dyspnea and + dyspnea on exertion Cardiovascular: no chest pain and no edema Gastrointestinal: no abdominal pain, no nausea and no vomiting Integumentary: no problem reported Neurologic: no confusion Psychiatric: no anxiety Physical Exam 2 Vital Signs (Past 24 Hours): Last Vital Signs Temp 36.3 C L 08/27/18 08:13 Pulse 119 H 08/27/18 08:13 Resp 20 08/27/18 08:13 BP 93/62 L 08/27/18 08:13 Pulse Ox 91 08/27/18 08:13 Time Spent Midlevel 50 minutes with >50% of time spent at bedside with patient and family discussing condition and GOC. Attending Spent 30 minutes in addition to CRN P's 50 minutes as listed above for a total of 80 minutes for total visit time with greater than 50% of time spent at bedside discussing patient's prior medical care, current plan of care as well as goals of care.
[2018-08-28] MEDS: ALBUT/IPRATROP 3MG/0.5MG NEB 3 ML VIAL NEB PRN (03:54)
--- NOTE | 2018-08-28 07:25 | XRay Report ---
XR chest 1V portable CLINICAL HISTORY: Hypoxia COMPARISON STUDY: 08/16/2018 FINDINGS: Post pneumonectomy changes are present on the left. There is a left-sided A-Port catheter. There are nonspecific mixed interstitial and alveolar opacities within the right mid to lower lung zo ne.[ IMPRESSION: 1. No significant change from the prior study 2. Post pneumonectomy changes on the left 3. Persistent mixed interstitial and alveolar opacities within the right mid to lower lung zone. Electronically signed by: Phoenix Edwards M.D. 08/28/2018 7:24 AM
[2018-08-28] MEDS: CLOPIDOGREL BISULFATE 75 MG TAB PO SCH (07:37)
[2018-08-28] MEDS: RIVAROXABAN 15 MG TAB PO SCH ×2 (07:37→16:55)
[2018-08-28] MEDS: predniSONE 20 MG TAB PO SCH (07:37)
[2018-08-28] MEDS: ATORVASTATIN 20 MG TAB PO SCH (07:37)
--- NOTE | 2018-08-28 09:12 | Hospitalist Progress Note ---
Date of Service August 27, 2018 Assessment & Plan (1) Multiple pulmonary emboli: CTA chest on 08/24 noted PEs within all of the lobes of the right lung. CT scan had concern for right heart strain. Stat echo on 08/24 showed normal RV function, but an RVSP of >60 mmHg. Discussion was had to enact tPA, but pulm/cc and patient decided against it. Stopped heparin drip. plan to use Xarelto 15mg BID typical dosing with 15mg BID x 21 days and then 20mg daily IVC filter in place to prevent any further emboli still with sinus tachycardia and dyspnea on exertion. Patient conitnues to be sinus tachy today 08/27. Will keep on medical floor again. Will obtain PT OT in AM. May require 2 step if patient remains hypoxic. Depends on if patient can go home. Patient is looking to go back home. Discharge may be 08/28 or 08/29 (2) Right leg DVT: Noted on Doppler on 08/24. Given extensive clot burden, the concern was that if the DVT embolized, it would be fatal. Underwent uncomplicated IVC filter placement on 08/[address] Fan. 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 Differential considerations would include postradiation pneumonitis with superimposed aspiration pneumonitis or multifocal pneumonia." Zosyn was started in the ED for concern for HAP (and failure of levofloxacin) given his recent admission and just finishing his course of levofloxacin on 08/23. However, ICU team felt that because he was afebrile, it was not needed. procalcitonin is < 0.05 on 08/25 hold antibiotics continue Prednisone for pneumonitis and slowly taper, follow up with pulmonology (4) Metastatic lung cancer (metastasis from lung to other site): Squamous cell originally diagnosed in 07/2016. S/p left lobectomy. Undergoing weekly paclitaxel infusions with Dr. Ruiz. Pulm/cc team spoke with Dr. Ruiz on admission who felt this would not hamper his continued chemotherapy treatment as long as he was in overall healthy enough condition to get it. - No need for inpatient oncology consult unless situation changes - Palliative care consult pending to discuss goals of care should follow up with Dr. Ruiz within two weeks for both lung CA and pulmonary emboli (5) Non-ST elevation [place] (NSTEMI): Prior CAD history. Only on Plavix. Denies history of GI bleeding or intracranial bleeding. - Continue Plavix (6) DVT prophylaxis: On active anticoagulation for above issues Code: full code for now patient wishes to discuss further with palliative care will need oxygen on discharge, was already using oxygen at home would get a 2 step once PT/OT eval are done. Spent 45 minutes in management of patient. Subjective Patient reports feeling better. He reports that he continues to feel SOB when he ambulates to the bathroom. However at rest he feels fine. I explained to patient that he will likely continue to experience SOB on exertion for a few weeks after discharge. Patient denies any hemoptysis today. no chest pain or pressure Constitutional: + fatigue and + weakness Respiratory: + cough, + dyspnea on exertion, + hemoptysis (trace) and + sputum production; no pain with cough Cardiovascular: + edema; no chest pain Physical Exam 2 Vital Signs (Past 24 Hours): Last Vital Signs Temp 36.3 C 08/27/18 08:13 Pulse 119 H 08/27/18 08:13 Resp 20 08/27/18 08:13 BP 93/62 08/27/18 08:13 Pulse Ox 91 08/27/18 08:13 Physical Exam: Constitutional: WD/WN, vitals as above Eyes: PERRL, conjunctivae normal, anicteric sclerae ENMT: external ear and nose normal, oropharynx normal Neck: trachea midline, no thyromegaly Respiratory: normal respiratory effort, lungs clear to auscultation (no rales on right, absent breath sounds on left due to pneumonectomy) Cardiovascular: Rate/Rhythm: regular rhythm and + tachycardic Heart Sounds : normal S1 and normal S2; no murmur Vessels: normal peripheral pulses; no JVD Extremities: + pedal edema (trace bilaterally) Gastrointestinal (Abdomen): normal bowel sounds, soft, nontender, no hepatosplenomegaly Musculoskeletal: no cyanosis or clubbing, extremities motor strength 5/5 Skin: no rashes, warm and dry Neurologic: patellar DTR's 2+ bilat, sensation intact and PERRL, EOMI, accommodation nl, no face palsy, no dysarthria Psychiatric: A+Ox3, euthymic affect Lymphatic: no cervical or axillary lymphadenopathy _ (1) Metastatic lung cancer (metastasis from lung to other site) Laterality: unspecified laterality Qualified Code(s): C34.90 - Malignant neoplasm of unspecified part of unspecified bronchus or lung (2) Right leg DVT Affected thrombotic vein of extremity: unspecified vein of extremity Chronicity: unspecified Qualified Code(s): I82.401 - Acute embolism and thrombosis of unspecified deep veins of right lower extremity
--- NOTE | 2018-08-28 09:22 | Hospitalist Progress Note ---
Date of Service August 28, 2018 Assessment & Plan (1) Multiple pulmonary emboli: CTA chest on 08/24 noted PEs within all of the lobes of the right lung. CT scan had concern for right heart strain. Stat echo on 08/24 showed normal RV function, but an RVSP of >60 mmHg. Discussion was had to enact tPA, but pulm/cc and patient decided against it. Stopped heparin drip. plan to use Xarelto 15mg BID typical dosing with 15mg BID x 21 days and then 20mg daily IVC filter in place to prevent any further emboli still with sinus tachycardia at rest and dyspnea on exertion. Patient conitnues to be sinus tachy today 08/28. awaiting PT/OT May require 2 step if patient remains hypoxic. Depends on if patient can go home. Patient is looking to go back home. (2) Right leg DVT: Noted on Doppler on 08/24. Given extensive clot burden, the concern was that if the DVT embolized, it would be fatal. Underwent uncomplicated IVC filter placement on 08/[address] Fan. - Heparin gtt has been stopped - will treat snf with Xarelto (3) Radiation pneumonitis: CTA chest on 08/24 noted "Progressive patchy multifocal groundglass and consolidative opacities about the right lung. Differential considerations would include postradiation pneumonitis with superimposed aspiration pneumonitis or multifocal pneumonia." Zosyn was started in the ED for concern for HAP (and failure of levofloxacin) given his recent admission and just finishing his course of levofloxacin on 08/23. However, ICU team felt that because he was afebrile, it was not needed. procalcitonin is < 0.05 on 08/25 hold antibiotics continue Prednisone for pneumonitis and slowly taper, follow up with pulmonology (4) Metastatic lung cancer (metastasis from lung to other site): Squamous cell originally diagnosed in 07/2016. S/p left lobectomy. Undergoing weekly paclitaxel infusions with Dr. Ruiz. Pulm/cc team spoke with Dr. Ruiz on admission who felt this would not hamper his continued chemotherapy treatment as long as he was in overall healthy enough condition to get it. - No need for inpatient oncology consult unless situation changes - Palliative care consult pending to discuss goals of care should follow up with Dr. Ruiz within two weeks for both lung CA and pulmonary emboli (5) Non-ST elevation [place] (NSTEMI): Prior CAD history. Only on Plavix. Denies history of GI bleeding or intracranial bleeding. - Continue Plavix (6) Acute and chronic respiratory failure with hypoxia: (7) DVT prophylaxis: On active anticoagulation for above issues Code: full code for now patient wishes to discuss further with palliative care will need oxygen on discharge, was already using oxygen at home would get a 2 step once PT/OT eval are done. Spent 35 minutes in management of patient. Subjective Patient reports no significant improvement from yesterday. He reports that he did have an episode where the nurses were having difficulty improving his oxygenation level. He reports that he continues to feel SOB when he ambulates to the bathroom. Currently at rest patient feels fine. I explained to patient that he will likely continue to experience SOB on exertion for a few weeks after discharge. Patient reports mild hemoptysis today.. no chest pain or pressure Constitutional: + fatigue and + weakness Respiratory: + cough, + dyspnea on exertion, + hemoptysis (trace) and + sputum production; no pain with cough Cardiovascular: + edema; no chest pain Physical Exam 2 Vital Signs (Past 24 Hours): Last Vital Signs Temp 36.8 C 08/28/18 07:31 Pulse 113 H 08/28/18 07:31 Resp 20 08/28/18 07:31 BP 111/69 08/28/18 07:31 Pulse Ox 94 08/28/18 07:31 Physical Exam: Constitutional: WD/WN, vitals as above Eyes: PERRL, conjunctivae normal, anicteric sclerae ENMT: external ear and nose normal, oropharynx normal Neck: trachea midline, no thyromegaly Respiratory: normal respiratory effort, lungs clear to auscultation (no rales on right, absent breath sounds on left due to pneumonectomy) Cardiovascular: Rate/Rhythm: regular rhythm and + tachycardic Heart Sounds : normal S1 and normal S2; no murmur Vessels: normal peripheral pulses; no JVD Extremities: + pedal edema (trace bilaterally) Gastrointestinal (Abdomen): normal bowel sounds, soft, nontender, no hepatosplenomegaly Musculoskeletal: no cyanosis or clubbing, extremities motor strength 5/5 Skin: no rashes, warm and dry Neurologic: patellar DTR's 2+ bilat, sensation intact and PERRL, EOMI, accommodation nl, no face palsy, no dysarthria Psychiatric: A+Ox3, euthymic affect Lymphatic: no cervical or axillary lymphadenopathy _ (1) Metastatic lung cancer (metastasis from lung to other site) Laterality: unspecified laterality Qualified Code(s): C34.90 - Malignant neoplasm of unspecified part of unspecified bronchus or lung (2) Right leg DVT Affected thrombotic vein of extremity: unspecified vein of extremity Chronicity: unspecified Qualified Code(s): I82.401 - Acute embolism and thrombosis of unspecified deep veins of right lower extremity
[2018-08-29 05:37] LABS: Hematocrit (blood only) 34.3 % (42-52); Hemoglobin 10.9 g/dL (14.0-18.0); Mean Corpuscular Hgb Conc 31.8 g/dL (32-36); Mean Corpuscular Volume 93.5 fL (80-100); Platelet Count 296 K/uL (130-400); RDW Coefficient of Variation 18.5 % (11.5-14.5); RDW Standard Deviation 63.1 fL (36.4-46.3); Red Blood Count 3.67 M/uL (4.7-6.1)
[2018-08-29 06:04] LABS: BUN Creatinine Ratio 18.5 (10-20); Calcium 8.4 mg/dl (8.5-10.1); Creatinine Clr Calc Pharmacy 76.9 ml/min; Est GFR (African American) 102.4; Est GFR (Non-African American) 88.3; Potassium 4.3 mmol/L (3.5-5.1)
[2018-08-29] MEDS: CLOPIDOGREL BISULFATE 75 MG TAB PO SCH (08:33)
[2018-08-29] MEDS: predniSONE 20 MG TAB PO SCH (08:33)
[2018-08-29] MEDS: ATORVASTATIN 20 MG TAB PO SCH (08:33)
[2018-08-29] MEDS: RIVAROXABAN 15 MG TAB PO SCH ×2 (08:33→17:04)
--- NOTE | 2018-08-29 09:39 | Consultation Report ---
DATE OF CONSULTATION: 08/29/2018 MEDICAL ONCOLOGY CONSULTATION REASON FOR CONSULTATION: A 78-year-old gentleman well known to [facility], currently under my care for metastatic nonsmall cell lung cancer, presents with multiple pulmonary emboli. HISTORY OF PRESENT ILLNESS: Mr. Henry is a pleasant 78-year-old gentleman well known to [facility], currently under my care, receiving weekly Abraxane for metastatic nonsmall cell lung cancer. This is Mr. Henry's second admission within close proximity. He was in back in late July, brought to the hospital by EMS because of worsening shortness of breath and hypoxia. It was thought that he was suffering from pneumonia, and radiographically demonstrates patchy infiltration which now is suspected to be in part attributable to previous radiation. He once again became short of breath and presented to [facility], was admitted on 08/24/2018 because of progressive shortness of breath. CTA of the chest noted multiple PEs within all lobes of the right lung. CT had also demonstrated concern for possible right heart strain and hence his immediate admission to hospital. The medical service was contemplating transferring because of fear of worsening cardiovascular status attributable to heart strain. He was subsequently placed on anticoagulation, currently on Xarelto. I took note the vascular service recently placed a [place] filter. Mr. Henry at bedside this morning seems to be quite comfortable; however, nursing reports he remains tachycardic at rest, heart rate averaging between 100-110 beats per minute. From a cancer standpoint, radiographically, there has been no direct evidence of disease progression. Mr. Henry's last chemotherapy was administered in mid July when he received day 8, cycle #3 weekly Abraxane. Shortly thereafter, that is when his shortness of breath and hypoxia began to manifest necessitating hospitalization. He is currently on chronic oxygen therapy. Mr. Henry has made it quite clear, he is not ready for palliation or hospice care. He has set the goal of medical recovery and resumption of chemotherapy. PAST MEDICAL HISTORY: Again, significant for metastatic nonsmall cell lung cancer, pneumonia, acute respiratory failure with hypoxia, non-ST elevated [place], carotid stenosis, cerebral infarct, acute thrombotic stroke, TIA, chronic osteoarthritis, emphysema. PAST SURGICAL HISTORY: Status post left pneumonectomy. MEDICATIONS: Include atorvastatin 20 mg p.o. daily, multivitamin 1 tablet p.o. daily, Combivent inhaler 1 puff inhaled q. 6 hours p.r.n., lisinopril 5 mg p.o. daily, Plavix 75 mg p.o. daily, levofloxacin 500 mg p.o. daily, prednisone 30 mg p.o. daily. ALLERGIES: No known drug allergies. SOCIAL HISTORY: He is retired, lives with his , is a reformed smoker, nondrinker. FAMILY HISTORY: Positive for coronary artery disease. REVIEW OF SYSTEMS: Most of Mr. Henry's problems have been respiratory. Negative for fevers or chills. He is not anorexic or losing weight. SKIN: No rashes or lesions. No history of dermatoses. HEENT: He denies headaches, lightheadedness or dizziness. He wears corrective lenses. No hearing deficit. No sinus symptoms, sore throat or dysphagia. LYMPH: No history of lymphoproliferative disease. CARDIAC: No overt cardiac history. He is tachycardic at bedside, but denies angina or palpitations. PULMONARY: He is status post left pneumonectomy and now suffers from multiple pulmonary emboli. He is not overtly short of breath. He is not dyspneic at present. GASTROINTESTINAL: Negative for abdominal pain, nausea, vomiting, diarrhea or constipation, hematochezia or melena stools. GENITOURINARY: No hematuria, dysuria, urinary incontinence. PSYCHIATRIC: Negative for anxiety, depression or psychoses. ENDOCRINE: Negative for diabetes or thyroid disease. NEUROLOGIC: Negative for seizures or migraine headaches, positive history of stroke. HEMATOLOGIC: Positive for chronic anemia, mild leukocytosis. PHYSICAL EXAMINATION: GENERAL: Very pleasant 78-year-old gentleman sitting in a bedside chair, awake, alert and appropriate, in no acute distress. VITAL SIGNS: Temperature 36.4, pulse 108, respiratory rate 20, blood pressure 118/75, O2 sat 91% on 4 liters. SKIN: Warm, dry, noncyanotic without petechia, rash or ecchymosis. HEENT: Head is atraumatic, normocephalic. Eyes: PERRLA, EOMI. Sclerae nonicteric. No conjunctival injection. Nares are patent without rhinorrhea or discharge. Throat clear. Tongue midline. No buccal lesions or ulcerations. NECK: Supple. Trachea is midline. LYMPH: No cervical, supraclavicular, axillary palpable nodes. HEART: Tachycardic, but regular. LUNGS: Clear in the right hemithorax. ABDOMEN: Soft, nontender, nondistended. EXTREMITIES: No clubbing, cyanosis or edema. NEUROLOGICALLY: He is awake, alert and oriented x3. Cranial nerves grossly intact. LABORATORY DATA: WBC count 12,900, hemoglobin 10.9, platelet count 296,000. Sodium 138, potassium 4.3, chloride 99, carbon dioxide 29, BUN 14, creatinine 0.74. IMPRESSION: 1. Multiple pulmonary emboli. 2. Status post [place] filter placement. 3. Acute on chronic respiratory failure. 4. Suspected radiation-induced pneumonitis. 5. Normocytic normochromic anemia. 6. History of stroke. PLAN: I have been asked by the hospitalist service to talk to Mr. Henry about his current clinical status. Admittedly, this gentleman has had difficulty over the past several weeks with now his second hospitalization in the span of 3 weeks. There has been no evidence of disease progression seen on his most recent CAT scan. Therefore, engaged in discussion revisiting where Alex is clinically with the patient himself. He has not had chemotherapy since around 29 of July. Obviously, these hospitalizations have been a major setback in this regard. However, Mr. Henry has done relatively well with chemotherapy when medical stable. Alex has expressed desire to continue his fight once he is medically stable. He is not ready for palliative consult or outpatient hospice care at this juncture. His was not at bedside when I interviewed him this morning. Therefore, from a prognostic standpoint, he understands his disease is terminal and these medical difficulties along the way have certainly presented a challenge moving forward with treatment. I agree with current anticoagulation and placement of Fredrick filter. His worsening pulmonary status is certainly concerning and I made it clear to Mr. Henry, I would not proceed with salvage chemotherapy until he is optimally well. Thank you very much for assisting us in the care of Mr. Henry. If you have questions or concerns regarding my discussion with Alex this morning, feel free to contact me. I asked him to do the same once you examine him this morning to actively engage in his desire to continue treatment once medically stable. Thank you very much again for assisting us in the care of this very pleasant gentleman. [facility] MED[facility] CENTERRaimundo
--- NOTE | 2018-08-29 22:25 | Consultation Report ---
DATE OF CONSULTATION: 08/29/2018 REASON FOR CONSULTATION: Severe hypoxemia and dyspnea. HISTORY OF PRESENT ILLNESS: A 78-year-old white male who is well known by Dr. Miguel Ángel Ruiz/division of oncology from the [facility] and who saw the patient earlier today was readmitted for pulmonary evaluation. He has been receiving weekly Abraxane for metastatic nonsmall cell lung cancer. He was admitted in late July and discharged less than 2 weeks ago because of worsening dyspnea and hypoxemia. He was on home oxygen at 4 L and was treated for an infectious pneumonitis, felt to be bacterial in origin. His breathing became much more problematic and on 08/24/2018 he was readmitted with progressive symptoms of dyspnea. CTA of the chest showed multiple pulmonary emboli involving the right lung. He was placed on intravenous anticoagulant therapy and then currently is on Xarelto. A [place] vena cava filter has been placed. The patient is tachycardic at rest and much more tachycardic when ambulating along with increased O2 demand. Last chemotherapy was in mid-July when he received day #8 cycle #3 of weekly Abraxane. He has had minimal hemoptysis in the recent past and minimal sputum production without pleuritic pain. At rest, he feels fine, but he is quite symptomatic otherwise. He is status post left pneumonectomy with surgery having been performed by Dr. Dixon bolaños. He has had a history of a non-ST elevated [place], carotid stenosis, previous cerebral infarct with an acute thrombotic event, TIA, and has a longstanding history of smoking with emphysema. At home, he utilizes a Combivent inhaler 1 inhalation q. 6 hours p.r.n. and has been on 30 mg of prednisone daily. The plan was not to continue salvage chemotherapy until he had significantly improved. The patient did undergo a left pneumonectomy on 07/18/2016 with the tumor measuring 5.0 x 4.0 x4.0 cm. It was a keratinizing squamous cell carcinoma, moderately well differentiated with no pleural or visceral invasion but with a positive vascular margin. Bronchial margins were negative. Two peribronchial lymph nodes were positive on one L10 lymph node was positive. Final stage was T2a N2 stage IIIA. He received combination radiation and chemotherapy. Radiation completed on 10/03/2016 receiving 6000 cGy and chemotherapy initially comprised of weekly Taxol and carboplatin. He had an uneventful postoperative course at that time. Echocardiogram done during this admission shows moderate LVH with EF of 65%, right ventricular systolic pressures are elevated and estimated greater than 60 mmHg. Right ventricular size and systolic function appeared to be normal. For details of past medical history, medications, family and social history, I refer you to current and past record. PHYSICAL EXAMINATION: GENERAL: Well-developed, well-nourished elderly white male appearing stable at rest currently receiving 4 L of oxygen with saturation of 90%-92%. SKIN: Without lesion. HEENT: Atraumatic, normocephalic. PERRLA. LUNGS: Absent breath sounds left lung field. Right lung some fine scattered wheeze, otherwise some fine rales. CARDIAC: Sinus tachycardia. I do not appreciate a gallop. ABDOMEN: Soft, protuberant. No evidence of hepatosplenomegaly. EXTREMITIES: Trace to +1 pitting edema. No clubbing. Peripheral cyanosis. NEUROLOGIC: Intact. No lateralizing signs. LABORATORY DATA: White count 12,900, H and H 10.9 and 34.3. BUN 14, creatinine 0.7. Influenza type A and B PCR negative. CTA reviewed from 08/24/2018 showed multiple pulmonary emboli throughout the right lung field and virtual lobes. There was a suggestion of straightening of the intraventricular septum. Postoperative changes a left pneumonectomy are noted, severe emphysematous changes throughout the right lung with chronic interstitial coarsening noted and patchy ground-glass densities throughout the right lung. The areas of consolidated opacities appeared to be worse when compared to previous film of 08/12/2018. This spiculated irregular nodule in the right base measured 1.5 x 1.1 cm that is unchanged from that short interval and at 1.2 cm consolidation in the posterior basal segment right lower lobe. OVERALL ASSESSMENT: A 78-year-old white male with severe emphysema, [id number] pulmonary arterial hypertension, status post pneumonectomy for stage IIIA squamous cell carcinoma of the lung status post chemoradiation, currently receiving maintenance chemotherapy with Abraxane with worsening hypoxemia and oxygen requirements with a resting tachycardia and progressive dyspnea with exertion. The patient appears to have metastatic disease to the contralateral lung. In addition, we cannot rule out a radiation pneumonitis potentiated by patient's chemotherapy. The patient is currently on steroid therapy in addition to receiving what should have been adequate antibiotic therapy from most recent hospitalization and the degree of pulmonary hypertension is impressive combined with his diminished ventilatory reserve coupled with new onset of multiple pulmonary emboli to the remaining contralateral lung. All this speaks to a poor prognosis and I see very little indication to suggest a reversible clinical situation. I would continue aerosolized bronchodilator. Would use high dose steroids at this point in time in the absence of any other effective therapy. Cannot rule out lung toxicity from current chemotherapy regimen which is a well-reported entitity with this class of chemotherapy agents.. Unfortunately, I have very little else to offer and appreciate your allowing me to see this nice patient. We will follow along with you. MTDD
--- NOTE | 2018-08-29 22:47 | Hospitalist Progress Note ---
Date of Service August 29, 2018 Assessment & Plan (1) Multiple pulmonary emboli: CTA chest on 08/24 noted PEs within all of the lobes of the right lung. CT scan had concern for right heart strain. Stat echo on 08/24 showed normal RV function, but an RVSP of >60 mmHg. Discussion was had to enact tPA, but pulm/cc and patient decided against it. Stopped heparin drip. plan to use Xarelto 15mg BID typical dosing with 15mg BID x 21 days and then 20mg daily IVC filter in place to prevent any further emboli still with sinus tachycardia at rest and dyspnea on exertion. Patient continues to be sinus tachy today 08/29. PT recommends home, however he desaturates significantly when he ambulates. May require 2 step if patient remains hypoxic. Ordered today, pending. Concern patient may not improve given severe right heart strain, pulmonary hypertension and hypoxia. May consider discussion with palliative care. (2) Right leg DVT: Noted on Doppler on 08/24. Given extensive clot burden, the concern was that if the DVT embolized, it would be fatal. Underwent uncomplicated IVC filter placement on 08/[address] Fan. - Heparin gtt has been stopped - will treat shelter with Xarelto (3) Radiation pneumonitis: CTA chest on 08/24 noted "Progressive patchy multifocal groundglass and consolidative opacities about the right lung. Differential considerations would include postradiation pneumonitis with superimposed aspiration pneumonitis or multifocal pneumonia." Zosyn was started in the ED for concern for HAP (and failure of levofloxacin) given his recent admission and just finishing his course of levofloxacin on 08/23. However, ICU team felt that because he was afebrile, it was not needed. procalcitonin is < 0.05 on 08/25 hold antibiotics continue Prednisone for pneumonitis and slowly taper, follow up with pulmonology (4) Metastatic lung cancer (metastasis from lung to other site): Squamous cell originally diagnosed in 07/2016. S/p left lobectomy. Undergoing weekly paclitaxel infusions with Dr. Ruiz. Pulm/cc team spoke with Dr. Ruiz on admission who felt this would not hamper his continued chemotherapy treatment as long as he was in overall healthy enough condition to get it. - No need for inpatient oncology consult unless situation changes - Palliative care consult pending to discuss goals of care should follow up with Dr. Ruiz within two weeks for both lung CA and pulmonary emboli (5) Non-ST elevation AR (NSTEMI): Prior CAD history. Only on Plavix. Denies history of GI bleeding or intracranial bleeding. - Continue Plavix (6) Acute and chronic respiratory failure with hypoxia: (7) DVT prophylaxis: On active anticoagulation for above issues Code: full code for now patient wishes to discuss further with palliative care will need oxygen on discharge, was already using oxygen at home would get a 2 step ma need palliative care consult as patient refused first consult. Spent 32 minutes in management of patient. Subjective Patient reports no significant improvement from yesterday. He continues to be short of breath on exertion. As per nursing, patient desaturates to the 70s when he ambulates even on 4 liters nasal cannula. Currently at rest patient feels fine. I explained to patient that he will likely continue to experience SOB on exertion for a few weeks after discharge. no chest pain or pressure Constitutional: + fatigue and + weakness Respiratory: + cough, + dyspnea on exertion, + hemoptysis (trace) and + sputum production; no pain with cough Cardiovascular: + edema; no chest pain Physical Exam 2 Vital Signs (Past 24 Hours): Last Vital Signs Temp 36.8 C 08/29/18 18:33 Pulse 121 H 08/29/18 18:33 Resp 20 08/29/18 18:33 BP 122/79 08/29/18 18:33 Pulse Ox 91 08/29/18 18:33 Physical Exam: Constitutional: WD/WN, vitals as above Eyes: PERRL, conjunctivae normal, anicteric sclerae ENMT: external ear and nose normal, oropharynx normal Neck: trachea midline, no thyromegaly Respiratory: normal respiratory effort, lungs clear to auscultation (no rales on right, absent breath sounds on left due to pneumonectomy) Cardiovascular: Rate/Rhythm: regular rhythm and + tachycardic Heart Sounds : normal S1 and normal S2; no murmur Vessels: normal peripheral pulses; no JVD Extremities: + pedal edema (trace bilaterally) Gastrointestinal (Abdomen): normal bowel sounds, soft, nontender, no hepatosplenomegaly Musculoskeletal: no cyanosis or clubbing, extremities motor strength 5/5 Skin: no rashes, warm and dry Neurologic: patellar DTR's 2+ bilat, sensation intact and PERRL, EOMI, accommodation nl, no face palsy, no dysarthria Psychiatric: A+Ox3, euthymic affect Lymphatic: no cervical or axillary lymphadenopathy _ (1) Metastatic lung cancer (metastasis from lung to other site) Laterality: unspecified laterality Qualified Code(s): C34.90 - Malignant neoplasm of unspecified part of unspecified bronchus or lung (2) Right leg DVT Affected thrombotic vein of extremity: unspecified vein of extremity Chronicity: unspecified Qualified Code(s): I82.401 - Acute embolism and thrombosis of unspecified deep veins of right lower extremity
--- NOTE | 2018-08-30 01:56 | Consultation Report ---
DATE OF CONSULTATION: 08/29/2018 ADDENDUM The patient has been receiving Abraxane (nab-paclitaxel) which is a nanoparticle albumin-bound paclitaxel. These agents and its cousin Taxol have been known to be incriminated in inducing pulmonary lung injury with variety of mechanisms. The most common pulmonary toxicity is interstitial pneumonitis which can develop within days to weeks of receiving the drug or may arise later in the course of therapy. Although it is less common with Abraxane, it is certainly a well-reported entity. Capillary leakage resulting in noncardiogenic pulmonary edema can occur. It is possible to develop a hypersensitivity/allergic reaction. My suggestion would be to avoid these agents certainly in the near future unless waiting for the patient's radiographic and clinical presentation involving the right lung to improve. I do think they are metastatic lesions that appear spiculated that are a concern here and we certainly cannot rule out lymphangitic spread of his cancer. The potential for radiation-induced pneumonitis versus drug reaction to Abraxane would make high-dose steroid therapy warranted in this setting. We will follow along with you.
[2018-08-30] MEDS: ATORVASTATIN 20 MG TAB PO SCH (07:54)
[2018-08-30] MEDS: CLOPIDOGREL BISULFATE 75 MG TAB PO SCH (07:54)
[2018-08-30] MEDS: RIVAROXABAN 15 MG TAB PO SCH ×2 (07:54→17:20)
[2018-08-30] MEDS: predniSONE 20 MG TAB PO SCH (07:55)
[2018-08-30] MEDS ORDERED: methylPREDNISolone 40 MG in SYRINGE 0 ML IV SCH (09:00)
[2018-08-30] MEDS ORDERED: methylPREDNISolone 40 MG in SYRINGE 0 ML IV ONE (09:28)
[2018-08-30] MEDS: methylPREDNISolone 80 MG in SYRINGE 0 ML IV SCH ×2 (10:25→21:47)
--- NOTE | 2018-08-30 14:27 | Palliative Care Progress Note ---
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 Ruiz, s/p left pneumonectomy, presented with increased SOB. Patient was in hospital for a couple weeks from end of July to 08/17/17 with radiation pneumonitis/pnemonia. During that time, patient was reportedly (by his ) refusing subcutaneous heparin shots. He was discharged home on 4L oxygen, which was new for him. He returned to the hospital with worsening SOB. CTA showed pulmonary emboli, venous doppler revealed right LE DVT. He was admitted and treated with heparin gtt. On admission, discussion of code status was had. Patient wanted to remain full code. Patient's goals of care at this time are to increase his endurance-discussed that rehab at a skilled facility may be beneficial in achieving that goal- collaborated with case management. Will continue to follow peripherally, able to assist with any medical decision making if patient's clinical status changes. (2) Multiple pulmonary emboli: (3) Right leg DVT: (4) Metastatic lung cancer (metastasis from lung to other site): Subjective Patient awake and alert, no acute distress, sitting up in a chair at bedside. Patient reports he feels approximately the same in regards to his respiratory status, or may be a little bit better. Patient states he still gets very short of breath walking from the bed to the bathroom and back. Patient was contemplating whether or not to do rehab prior to going home-his goal is to improve his function. Discussed the benefits of doing rehab at a skilled facility to help increase his endurance. Collaborated with case management regarding proceeding with rehab placement when patient is medically stable. Of note, both patient and with short-term memory deficits. Had a long discussion with patient on my last visit regarding the difference in presentation on his admission in July versus his current admission-he recalled only a small amount of that information. Review of Systems Patient denies fever, chills, chest pain, increased shortness of breath at rest , or GI issues. No new issues per nursing. Physical Exam 2 Vital Signs (Past 24 Hours): Last Vital Signs Temp 36.3 C L 08/30/18 10:54 Pulse 119 H 08/30/18 10:54 Resp 17 08/30/18 10:54 BP 94/58 L 08/30/18 10:54 Pulse Ox 94 08/30/18 10:54 Physical Exam: PE: Patient in no acute distress at rest, slight increase in shortness of breath with conversation HEENT: EOMI, normal hearing Respirations: Unlabored at rest, on O2 at 4 L nasal cannula. Fair air movement on the right, no breath sounds on the left CV: Tachycardic at rest Abdomen: Not distended Neuro: Alert and oriented, positive memory deficits Psych: Appropriate Time Spent Attending Total time spent 35 minutes with greater than 50% of the time spent at bedside discussing patient's current goals of care, discussing options regarding rehab, as well as reeducating versus his presentation on his admission in July versus his presentation on this current admission. _ (1) Right leg DVT Affected thrombotic vein of extremity: unspecified vein of extremity Chronicity: unspecified Qualified Code(s): I82.401 - Acute embolism and thrombosis of unspecified deep veins of right lower extremity (2) Metastatic lung cancer (metastasis from lung to other site) Laterality: unspecified laterality Qualified Code(s): C34.90 - Malignant neoplasm of unspecified part of unspecified bronchus or lung
--- NOTE | 2018-08-30 14:32 | Progress Note ---
DATE: 08/30/2018 PULMONARY MEDICINE PROGRESS NOTE Chart reviewed, the patient examined. SUBJECTIVE: The patient appears stable, perhaps slightly improved over the past 24 hours. His cough is minimal and he has no pleuritic pain. I discussed with both he and his that I have had a chance to review his entire record including going back to his original pneumonectomy 2 years ago and subsequent treatment for his disease. He has developed moderate to severe pulmonary arterial hypertension, no doubt the result of his previous pneumonectomy, COPD, interstitial lung process with chronic hypoxemia and pulmonary emboli. I am concerned that he may have had a potential drug reaction to the right lung, perhaps from chemotherapy with an interstitial pneumonitis. He may very well have metastatic disease to that right lung with nodular densities visible to me. He may even have lymphangitic carcinomatosis. If indeed what is seen involving the interstitial process is secondary to chemotherapy and/ or chemoradiation, then he should show some improvement with high-dose steroid therapy as we distant him from previous therapy. I would hold off on chemorx until we see radiographic and symptomatic improvement.(if at all) Frankly, there is very little else we have to offer him in this setting except O2 supplementation and would consider as an outpatient treatment for pulmonary arterial hypertension, perhaps with sildenafil. Will discuss his case further with Dr. Alicia along with Dr. Ruiz because of my concerns about the ongoing maintenance chemotherapy with paclitaxel. MTDD
--- NOTE | 2018-08-30 22:55 | Hospitalist Progress Note ---
Date of Service August 30, 2018 Assessment & Plan (1) Multiple pulmonary emboli: CTA chest on 08/24 noted PEs within all of the lobes of the right lung. CT scan had concern for right heart strain. Stat echo on 08/24 showed normal RV function, but an RVSP of >60 mmHg. Discussion was had to enact tPA, but pulm/cc and patient decided against it. Stopped heparin drip. plan to use Xarelto 15mg BID typical dosing with 15mg BID x 21 days and then 20mg daily IVC filter in place to prevent any further emboli still with sinus tachycardia at rest and dyspnea on exertion. Patient continues to be sinus tachy today 08/30. PT recommends home, however he desaturates significantly when he ambulates. 2 steo is held aspatient is not being discharged soon. Consulted pulmonary: will try high dose steroids. Concern patient may not improve given severe right heart strain, pulmonary hypertension and hypoxia. Palliative care involved. Patient wants to see if he improves with treatment. Holding Onc treatment. (2) Right leg DVT: Noted on Doppler on 08/24. Given extensive clot burden, the concern was that if the DVT embolized, it would be fatal. Underwent uncomplicated IVC filter placement on 08/[address] Fan. - Heparin gtt has been stopped - will treat research nurse with Xarelto (3) Radiation pneumonitis: CTA chest on 08/24 noted "Progressive patchy multifocal groundglass and consolidative opacities about the right lung. Differential considerations would include postradiation pneumonitis with superimposed aspiration pneumonitis or multifocal pneumonia." Zosyn was started in the ED for concern for HAP (and failure of levofloxacin) given his recent admission and just finishing his course of levofloxacin on 08/23. However, ICU team felt that because he was afebrile, it was not needed. procalcitonin is < 0.05 on 08/25 hold antibiotics continue Prednisone for pneumonitis and slowly taper, follow up with pulmonology (4) Metastatic lung cancer (metastasis from lung to other site): Squamous cell originally diagnosed in 07/2016. S/p left lobectomy. Undergoing weekly paclitaxel infusions with Dr. Ruiz. Pulm/cc team spoke with Dr. Ruiz on admission who felt this would not hamper his continued chemotherapy treatment as long as he was in overall healthy enough condition to get it. - No need for inpatient oncology consult unless situation changes - Palliative care consult pending to discuss goals of care should follow up with Dr. Ruiz within two weeks for both lung CA and pulmonary emboli (5) Non-ST elevation IN (NSTEMI): Prior CAD history. Only on Plavix. Denies history of GI bleeding or intracranial bleeding. - Continue Plavix (6) Acute and chronic respiratory failure with hypoxia: (7) DVT prophylaxis: On active anticoagulation for above issues Code: full code for now patient wishes to discuss further with palliative care Had extensive talk with family. For now patient is content with staying in the hospital. Patient does not want to be transferred to [facility] at this time. Spent 40 minutes in management of patient. Subjective Patient reports no significant improvement from yesterday. His family is at bedside and were updated. Currently at rest patient feels fine. Still feeling very SOB at rest. no chest pain or pressure Constitutional: + fatigue and + weakness Respiratory: + cough, + dyspnea on exertion, + hemoptysis (trace) and + sputum production; no pain with cough Cardiovascular: + edema; no chest pain Physical Exam 2 Vital Signs (Past 24 Hours): Last Vital Signs Temp 36.3 C L 08/30/18 18:51 Pulse 103 H 08/30/18 20:45 Resp 19 08/30/18 18:51 BP 113/74 08/30/18 18:51 Pulse Ox 91 08/30/18 18:51 Physical Exam: Constitutional: WD/WN, vitals as above Eyes: PERRL, conjunctivae normal, anicteric sclerae ENMT: external ear and nose normal, oropharynx normal Neck: trachea midline, no thyromegaly Respiratory: normal respiratory effort, lungs clear to auscultation (no rales on right, absent breath sounds on left due to pneumonectomy) Cardiovascular: Rate/Rhythm: regular rhythm and + tachycardic Heart Sounds : normal S1 and normal S2; no murmur Vessels: normal peripheral pulses; no JVD Extremities: + pedal edema (trace bilaterally) Gastrointestinal (Abdomen): normal bowel sounds, soft, nontender, no hepatosplenomegaly Musculoskeletal: no cyanosis or clubbing, extremities motor strength 5/5 Skin: no rashes, warm and dry Neurologic: patellar DTR's 2+ bilat, sensation intact and PERRL, EOMI, accommodation nl, no face palsy, no dysarthria Psychiatric: A+Ox3, euthymic affect Lymphatic: no cervical or axillary lymphadenopathy _ (1) Metastatic lung cancer (metastasis from lung to other site) Laterality: unspecified laterality Qualified Code(s): C34.90 - Malignant neoplasm of unspecified part of unspecified bronchus or lung (2) Right leg DVT Affected thrombotic vein of extremity: unspecified vein of extremity Chronicity: unspecified Qualified Code(s): I82.401 - Acute embolism and thrombosis of unspecified deep veins of right lower extremity
[2018-08-31] MEDS: CLOPIDOGREL BISULFATE 75 MG TAB PO SCH (07:58)
[2018-08-31] MEDS: ATORVASTATIN 20 MG TAB PO SCH (07:58)
[2018-08-31] MEDS: RIVAROXABAN 15 MG TAB PO SCH ×2 (07:58→16:20)
[2018-08-31] MEDS: methylPREDNISolone 80 MG in SYRINGE 0 ML IV SCH ×2 (10:47→21:20)
--- NOTE | 2018-08-31 11:06 | Progress Note ---
DATE: 08/31/2018 MEDICAL ONCOLOGY PROGRESS NOTE DIAGNOSES: 1. Multiple pulmonary emboli. 2. Right leg deep vein thrombosis. 3. Radiation versus drug-induced pneumonitis. 4. Metastatic lung cancer. 5. Non-ST elevated myocardial infarction. SUBJECTIVE: I had the pleasure of seeing Alex at bedside. Alex informed me the physician was not to speak to him as I was curious why he continued to be hospitalized. According to the nursing service, they are awaiting placement to a possible rehabilitation assignment. I was contacted later on this morning by the pulmonary service (Dr. Burgos) informing me, there is now suspicion that his pneumonitis may be chemotherapy induced and thus want to continue holding therapy until the infiltrates and his pulmonary status improved. Alex has no complaints of pain; however, he has not been moving about readily. He is presently tolerating his diet and moving his bowels regularly. He continues on 3-4 liters of O2 via nasal cannula. PHYSICAL EXAMINATION: GENERAL: A 78-year-old gentleman, in no acute distress. VITAL SIGNS: Temperature 36.3, pulse 104, respiratory rate 24, blood pressure 121/80. SKIN: Without rash or lesion. HEENT: Oral mucosa without erythema or ulceration. NECK: Supple without JVD or thyromegaly. LYMPH: No cervical, supraclavicular, axillary palpable nodes. HEART: Tachycardic, but regular. PULMONARY: Right hemithorax is clear. ABDOMEN: Soft, nontender, nondistended. EXTREMITIES: No clubbing, cyanosis or edema. NEUROLOGICAL: He is grossly intact. LABORATORY DATA: His last laboratory data that was on the , WBCs 12,900, hemoglobin 10.9, platelet count 296,000. Sodium 138, potassium 4.3, chloride 99, carbon dioxide 29, BUN 14, creatinine 0.74. RADIOGRAPHIC DATA: A chest x-ray last performed on 08/28/2018, again revealing mixed interstitial and alveolar opacities within the right mid to lower lung zone. IMPRESSION: 1. Hypoxia. 2. Pulmonary embolism/lower extremity deep vein thrombosis. 3. Metastatic lung cancer. PLAN: Mr. Henry is a pleasant 78-year-old gentleman who continues to struggle with his pulmonary status. I was contacted by Dr. Burgos this morning and I do agree there is certainly a possibility this could be taxane-induced pneumonitis. Dr. Burgos states Alex is making progress, but is requesting we hold off on chemotherapy until Alex is medically stable. I would agree with this notion. I would also agree Mr. Henry probably require a step down/rehabilitation placement to gain further strength and improve his performance status before resuming chemotherapy. We will continue to follow him periodically during his hospital stay.
--- NOTE | 2018-08-31 12:34 | Progress Note ---
DATE: 08/31/2018 PULMONARY MEDICINE PROGRESS NOTE Chart reviewed, the patient examined. SUBJECTIVE: The patient was somewhat confused and upset this morning about the suggestion to continue chemotherapy after my discussion with the patient yesterday. At this point in time, the significant involvement of his contralateral lung with multiple pulmonary emboli, interstitial pneumonitis, possible metastatic disease, and superimposed infectious pneumonitis given that this patient is status post pneumonectomy for stage IIIA cancer and with significant pulmonary hypertension is a concern. The patient right now is on high-dose steroid therapy with hopefully some clinical improvement. I believe he should be ambulated with O2 supplementation as required. I have spoken with Dr. Miguel Ángel Ruiz/from the [facility] and explained my thinking that certainly the possibility exists that the patient has chemotherapy-induced interstitial pneumonitis. This certainly could have been potentiated by the patient's previous radiotherapy. Nevertheless, we need to hold off on any consideration for chemotherapy until when and if we see radiographic and clinical improvement. Everyone is in agreement with this philosophy and will try to mobilize patient. Continue anticoagulant therapy and administer whatever O2 supplementation is required to maintain patient's adequate saturation. Would be very slow to taper high-dose steroids at this point in time pending clinical improvement.
[2018-09-01] MEDS: RIVAROXABAN 15 MG TAB PO SCH ×2 (08:22→17:12)
[2018-09-01] MEDS: ATORVASTATIN 20 MG TAB PO SCH (08:22)
[2018-09-01] MEDS: CLOPIDOGREL BISULFATE 75 MG TAB PO SCH (08:22)
--- NOTE | 2018-09-01 08:33 | Hospitalist Progress Note ---
Date of Service August 31, 2018 Assessment & Plan (1) Multiple pulmonary emboli: CTA chest on 08/24 noted PEs within all of the lobes of the right lung. CT scan had concern for right heart strain. Stat echo on 08/24 showed normal RV function, but an RVSP of >60 mmHg. Discussion was had to enact tPA, but pulm/cc and patient decided against it. Stopped heparin drip. plan to use Xarelto 15mg BID typical dosing with 15mg BID x 21 days and then 20mg daily IVC filter in place to prevent any further emboli still with sinus tachycardia at rest and dyspnea on exertion. Patient continues to be sinus tachy today 08/31. PT recommends home, however he desaturates significantly when he ambulates. 2 step is held as patient is not being discharged soon. Consulted pulmonary: will try high dose steroids. Concern patient may not improve given severe right heart strain, pulmonary hypertension and hypoxia. Palliative care involved. Patient wants to see if he improves with treatment. Holding chemotherapy treatment as patient is showing signs of interstitial lung disease likely from chemotherapy. Will continue high dose steroids. (2) Right leg DVT: Noted on Doppler on 08/24. Given extensive clot burden, the concern was that if the DVT embolized, it would be fatal. Underwent uncomplicated IVC filter placement on 08/[address] Fan. - Heparin gtt has been stopped - will treat senior care with Xarelto (3) Radiation pneumonitis: CTA chest on 08/24 noted "Progressive patchy multifocal groundglass and consolidative opacities about the right lung. Differential considerations would include postradiation pneumonitis with superimposed aspiration pneumonitis or multifocal pneumonia." Zosyn was started in the ED for concern for HAP (and failure of levofloxacin) given his recent admission and just finishing his course of levofloxacin on 08/23. However, ICU team felt that because he was afebrile, it was not needed. procalcitonin is < 0.05 on 08/25 hold antibiotics continue high dose steroids., follow up with pulmonology (4) Metastatic lung cancer (metastasis from lung to other site): Squamous cell originally diagnosed in 07/2016. S/p left lobectomy. Undergoing weekly paclitaxel infusions with Dr. Ruiz. Pulm/cc team spoke with Dr. Ruiz on admission who felt this would not hamper his continued chemotherapy treatment as long as he was in overall healthy enough condition to get it. - No need for inpatient oncology consult unless situation changes - Palliative care consult pending to discuss goals of care should follow up with Dr. Ruiz within two weeks for both lung CA and pulmonary emboli (5) Non-ST elevation [place] (NSTEMI): Prior CAD history. Only on Plavix. Denies history of GI bleeding or intracranial bleeding. - Continue Plavix (6) Acute and chronic respiratory failure with hypoxia: (7) DVT prophylaxis: On active anticoagulation for above issues Code: full code for now patient wishes to discuss further with palliative care Had extensive talk with family. For now patient is content with staying in the hospital. Patient does not want to be transferred to [facility] at this time. Spent 35 minutes in management of patient. Subjective Patient reports feeling better today. He was able to ambulate to the end of the philip and back. Discucsed with Dr. Burgos who had a discussion with Oncology. no chest pain or pressure Constitutional: + fatigue and + weakness Respiratory: + cough, + dyspnea on exertion, + hemoptysis (trace) and + sputum production; no pain with cough Cardiovascular: + edema; no chest pain Physical Exam 2 Vital Signs (Past 24 Hours): Last Vital Signs Temp 36.3 C 08/31/18 10:40 Pulse 104 08/31/18 10:40 Resp 17 08/31/18 10:40 BP 123/80 08/31/18 10:40 Pulse Ox 94 08/31/18 10:40 Physical Exam: Constitutional: WD/WN, vitals as above Eyes: PERRL, conjunctivae normal, anicteric sclerae ENMT: external ear and nose normal, oropharynx normal Neck: trachea midline, no thyromegaly Respiratory: normal respiratory effort, lungs clear to auscultation (no rales on right, absent breath sounds on left due to pneumonectomy) Cardiovascular: Rate/Rhythm: regular rhythm and + tachycardic Heart Sounds : normal S1 and normal S2; no murmur Vessels: normal peripheral pulses; no JVD Extremities: + pedal edema (trace bilaterally) Gastrointestinal (Abdomen): normal bowel sounds, soft, nontender, no hepatosplenomegaly Musculoskeletal: no cyanosis or clubbing, extremities motor strength 5/5 Skin: no rashes, warm and dry Neurologic: patellar DTR's 2+ bilat, sensation intact and PERRL, EOMI, accommodation nl, no face palsy, no dysarthria Psychiatric: A+Ox3, euthymic affect Lymphatic: no cervical or axillary lymphadenopathy _ (1) Right leg DVT Affected thrombotic vein of extremity: unspecified vein of extremity Chronicity: unspecified Qualified Code(s): I82.401 - Acute embolism and thrombosis of unspecified deep veins of right lower extremity (2) Metastatic lung cancer (metastasis from lung to other site) Laterality: unspecified laterality Qualified Code(s): C34.90 - Malignant neoplasm of unspecified part of unspecified bronchus or lung
[2018-09-01] MEDS ORDERED: PHARMACY GLYCEMIC MGMT CONSULT SCH (09:09)
[2018-09-01] MEDS ORDERED: DEXTROSE 50% 50 ML SYRINGE IV PRN (09:15)
[2018-09-01] MEDS ORDERED: GLUCOSE 40% GEL 15 GM TUBE PO PRN (09:15)
[2018-09-01] MEDS ORDERED: CARBOHYDRATES FOR HYPOGLYCEMIA PO PRN (09:15)
[2018-09-01] MEDS ORDERED: GLUCAGON FOR INJ 1 MG VIAL SQ PRN (09:15)
[2018-09-01] MEDS ORDERED: GLUCOSE 10 TABS/TUBE PO PRN (09:15)
--- NOTE | 2018-09-01 09:19 | XRay Report ---
XR chest PA, lat, obliques CLINICAL HISTORY: Interstitial pneumonitis. COMPARISON STUDY: Chest CT August 2018 and chest radiograph August 28, 2018. FINDINGS: Left subclavian [id number] is in place. Appearance of the left pneumonectomy is unchange d. There is a small right pleural effusion. There is no pneumothorax or evidence for pulmonary edema. Interstitial thickening and right mid and lower lung airspace opacities are similar to prior exam. IMPRESSION: 1. No significant change in interstitial thickening and right mid and lower lung airspace opacities. Pneumonia is favored. 2. Status post left pneumonectomy. 3. Trace right pleural effusion. Electronically signed by: Jose E Abdi M.D. 09/01/2018 9:18 AM
[2018-09-01 09:35] LABS: Basophils # (auto) 0.01 K/uL (0-0.2); Hematocrit (blood only) 36.5 % (42-52); Hemoglobin 11.5 g/dL (14.0-18.0); Immature Granulocytes # (auto) 0.11 K/uL (0.00-0.02); Immature Granulocytes % (auto) 0.5 %; Lymphocytes # (auto) 0.51 K/uL (1.2-3.4); Lymphocytes % (auto) 2.5 %; Mean Corpuscular Hgb Conc 31.5 g/dL (32-36); Mean Corpuscular Volume 93.8 fL (80-100); Mean Platelet Volume 10.4 fL (7.4-10.4); Monocytes # (auto) 0.46 K/uL (0.11-0.59); Monocytes % (auto) 2.3 %; Neutrophils # (auto) 19.29 K/uL (1.4-6.5); Neutrophils % (auto) 94.7 %; Platelet Count 391 K/uL (130-400); RDW Coefficient of Variation 18.6 % (11.5-14.5); RDW Standard Deviation 63.4 fL (36.4-46.3); Red Blood Count 3.89 M/uL (4.7-6.1); White Blood Count 20.38 K/uL (4.8-10.8)
[2018-09-01 09:59] LABS: BUN Creatinine Ratio 27.2 (10-20); Calcium 8.5 mg/dl (8.5-10.1); Creatinine Clr Calc Pharmacy 53.7 ml/min; Est GFR (African American) 82.2; Est GFR (Non-African American) 70.9; Potassium 4.1 mmol/L (3.5-5.1)
--- NOTE | 2018-09-01 10:20 | Pharmacy Report ---
Glycemic Control Consultation - Date of Service September 01, 2018 - Scope Scope: Glycemic Pharmacist consulted by Dr Alicia on 09/01/18 for glycemic control and to write orders per [facility] inpatient glycemic control protocol - Objective Weight: 63 kg Accuchecks BSG (last 24hrs): Laboratory Tests 08/24/18 08/25/18 09:45 03:41 Glucose 130 H 88 09/01/18 09/01/18 09:12 10:08 Glucose 304 H POC Glucose 315 H Laboratory Data (last 24hrs): 09/01/18 09:12 Potassium 4.1 Carbon Dioxide 28 Anion Gap 8.0 Creatinine 1.01 Est Cr Clr Drug Dosing 53.7 Beta-Hydroxybutyric Acd 1.15 - Recent Pertinent Medications Outpatient Anti-diabetic Regimen: * n/a * A1c = 6.3 % 05/18/18; updated A1c ordered Risk Factors for Insulin Resistance: * Steroids: Solu-medrol started on 08/30; tapering down to 80mg IV daily starting today * Diet: Heart healthy - Assessment & Plan Assessment & Plan: ASSESSMENT: * 78 year old male admitted with multiple PEs & DVT, PMH of lung cancer, on IV steroids for pulmonary edema & hypoxia. * Patient on Prednisone chornically at home, receiving high dose IV steroids since 08/30, no blood sugars monitored until today. * Blood sugars in the 300s, will begin Novolog CF and CR based on patient weight and stressed for IV steroid * Steroids tapering to 80mg IV daily today and tomorrow. * No basal at this time until we see how insulin naive patient responds to first dose of Novolog now PLAN FOR INPATIENT GLYCEMIC CONTROL: * Bolus insulin * NovoLog per scale ACHS or Q6hrs while NPO * Goal Range: Low 110 mg/dL - High 140 mg/dL * Correction Factor: 25 mg/dL/unit * Nutritional / Prandial insulin per carb ratio of 1 unit per 8 grams CHO consumed * Please note that the plan above was derived based on current level of insulin resistance and hospital stress. These recommendations are appropriate for inpatient admission only. Plan of care upon discharge will need to be reassessed to avoid potential outpatient hypo/hyperglycemia. Thank you.
[2018-09-01] MEDS: INSULIN ASPART 100 UNITS/ML 3 ML PEN SC SCH ×4 (10:31→20:57)
--- NOTE | 2018-09-01 12:53 | Progress Note ---
DATE: 09/01/2018 MEDICAL ONCOLOGY PROGRESS NOTE DIAGNOSES: 1. Multiple pulmonary emboli. 2. Right leg deep vein thrombosis. 3. Radiation versus drug radiation-induced pneumonitis. 4. Metastatic nonsmall cell lung cancer. 5. Non-ST elevated myocardial infarction. SUBJECTIVE: Alex was seen again at bedside, ready to engage in his lunchtime meal. He reports no worsening shortness of breath. He is ambulating with assistance remains on 4 liters via nasal cannula. Alex was a little bit disappointed, his blood sugars are elevated as is his WBCs both attributable to high-dose corticosteroid therapy. REVIEW OF SYSTEMS: No fevers or chills. Nursing reports no overnight difficulties. PHYSICAL EXAMINATION: GENERAL: A very pleasant 78-year-old gentleman in no acute distress. VITAL SIGNS: Temperature 36.7, pulse 97, respiratory rate 19, blood pressure 123/81. SKIN: Without rash or lesion. HEENT: Oral mucosa without erythema or ulceration. NECK: Supple. Trachea midline. Right hemithorax clear. HEART: Mildly tachy, but regular. ABDOMEN: Soft, nontender, nondistended. EXTREMITIES: No clubbing, cyanosis or edema. NEUROLOGIC: Grossly intact. LABORATORY DATA: WBC count 20,380, hemoglobin 11.5, platelet count 391,000, sodium 135, potassium 4.1, chloride 99, carbon dioxide 28, BUN 28, creatinine 1.01. RADIOGRAPHIC DATA: Patchy opacities, stable. No evidence of worsening. IMPRESSION: 1. Hypoxia/acute respiratory failure. 2. Pulmonary embolism/right lower extremity deep vein thrombosis. 3. Metastatic nonsmall cell lung cancer. 4. Leukocytosis. 5. Hyperglycemia. PLAN: Visited with Mr. Henry with family members present this morning. Obviously, he is not worsening from a pulmonary perspective. He continues high-dose corticosteroids, which unfortunately have resulted in mild elevation in his blood sugar and WBCs. Nonetheless, I think Alex will turn the corner and hopefully be able to resume some sort of chemotherapy at some point. Obviously, may need to consider another agent if Abraxane is proven to be the offending agent causing the underlying pneumonitis. I agree with current medical management and I have nothing further to add at this juncture. Dr. Alexandre will take over service next week. Thank you for allowing me to participate more in his care. HUNTINGTON HOSPITALRaimundo
--- NOTE | 2018-09-01 14:02 | Progress Note ---
DATE: 09/01/2018 PULMONARY MEDICINE PROGRESS NOTE Chart reviewed, the patient examined. SUBJECTIVE: The patient seems slightly better, was able to ambulate yesterday without significant difficulty, in fact the nurses stated he was "going too quickly for comfort." He did desaturate as expected. He is getting edematous and has not worn compression stockings recently. He denies cough, has no pleuritic pain and has not exhibited hemoptysis. OBJECTIVE: CURRENT VITAL SIGNS: Temperature 36.7, pulse 97 and regular, blood pressure 123/81, O2 sat 95% on 4 liters. SKIN: Without lesion. HEENT: Atraumatic, normocephalic. PERRLA. LUNGS: Some fine rales at the right base, otherwise distant P and A. CARDIAC: Sinus tachycardia. No S3. ABDOMEN: Soft, protuberant. EXTREMITIES: +1 pitting edema. No clubbing. Peripheral cyanosis. Negative Homans sign. NEUROLOGICAL: Cranial nerves II-XII grossly intact. No lateralizing signs. LABORATORY DATA: His white count is 20,000, but he is on high-dose steroids. H and H 11.5 and 36.5. A chest x-ray today compared to 08/28 shows no significant change in interstitial thickening, right mid to lower lung airspace opacities, status post left pneumonectomy with trace right pleural effusion. OVERALL ASSESSMENT: A 78-year-old status post pneumonectomy 2 years ago for stage IIIA nonsmall cell carcinoma with pneumonectomy and subsequent readmission with pulmonary emboli, severe pulmonary hypertension, interstitial pneumonitis and probable metastatic disease. As stated previously, we are trying to treat what may be treatable which could include radiation pneumonitis, more likely an interstitial pneumonitis from Abraxane (paclitaxel). It is a well-known phenomenon, developed interstitial pneumonitis from this family of chemotherapy agents, certainly with the possibility of potentiation with radiation. As stated previously, if we are dealing with lymphangitic carcinomatosis, this is an untreatable entity, but I would certainly hold off on chemotherapy at this point, continue high-dose steroid therapy with slow reduction to eventually an oral dose at [address] mg [address] I would place compression stockings and diurese patient additionally. A combination of high-dose steroid therapy, pulmonary hypertension, severe COPD and his previous pneumonectomy certainly has lead to the presence of cor pulmonale and aggravated his proclivity for salt retention. I would continue to ambulate the patient. His spirits seem better today and I think eventually he will be able to be discharged.
[2018-09-01] MEDS: FUROSEMIDE 40 MG TAB PO SCH (14:26)
[2018-09-01] MEDS: methylPREDNISolone 80 MG in SYRINGE 0 ML IV SCH (20:52)
[2018-09-02] MEDS: POTASSIUM CHLORIDE 20 MEQ TABCR PO SCH (08:13)
[2018-09-02] MEDS: FUROSEMIDE 40 MG TAB PO SCH (08:13)
[2018-09-02] MEDS: ATORVASTATIN 20 MG TAB PO SCH (08:14)
[2018-09-02] MEDS: RIVAROXABAN 15 MG TAB PO SCH ×2 (08:14→17:08)
[2018-09-02] MEDS: CLOPIDOGREL BISULFATE 75 MG TAB PO SCH (08:15)
[2018-09-02] MEDS: INSULIN ASPART 100 UNITS/ML 3 ML PEN SC SCH ×4 (08:17→20:51)
--- NOTE | 2018-09-02 08:32 | Hospitalist Progress Note ---
Date of Service September 01, 2018 Assessment & Plan (1) Multiple pulmonary emboli: CTA chest on 08/24 noted PEs within all of the lobes of the right lung. CT scan had concern for right heart strain. Stat echo on 08/24 showed normal RV function, but an RVSP of >60 mmHg. Discussion was had to enact tPA, but pulm/cc and patient decided against it. Stopped heparin drip. plan to use Xarelto 15mg BID typical dosing with 15mg BID x 21 days and then 20mg daily IVC filter in place to prevent any further emboli still with sinus tachycardia at rest and dyspnea on exertion. Patient continues to be sinus tachy today 09/01. PT recommends home, however he desaturates significantly when he ambulates. 2 step is held as patient is not being discharged soon. Consulted pulmonary: will try high dose steroids. Concern patient may not improve given severe right heart strain, pulmonary hypertension and hypoxia. Will taper steroids today to 80 mg daily. Palliative care involved. Patient wants to see if he improves with treatment. Holding chemotherapy treatment as patient is showing signs of interstitial lung disease likely from chemotherapy. Will continue high dose steroids but at a lower dose. (2) Right leg DVT: Noted on Doppler on 08/24. Given extensive clot burden, the concern was that if the DVT embolized, it would be fatal. Underwent uncomplicated IVC filter placement on 08/[address] Fan. - Heparin gtt has been stopped - will treat sample examiner with Xarelto (3) Radiation pneumonitis: CTA chest on 08/24 noted "Progressive patchy multifocal groundglass and consolidative opacities about the right lung. Differential considerations would include postradiation pneumonitis with superimposed aspiration pneumonitis or multifocal pneumonia." Zosyn was started in the ED for concern for HAP (and failure of levofloxacin) given his recent admission and just finishing his course of levofloxacin on 08/23. However, ICU team felt that because he was afebrile, it was not needed. procalcitonin is < 0.05 on 08/25 hold antibiotics continue high dose steroid but at a tapered dose., follow up with pulmonology (4) Metastatic lung cancer (metastasis from lung to other site): Squamous cell originally diagnosed in 07/2016. S/p left lobectomy. Undergoing weekly paclitaxel infusions with Dr. Ruiz. Pulm/cc team spoke with Dr. Ruiz on admission who felt this would not hamper his continued chemotherapy treatment as long as he was in overall healthy enough condition to get it. - No need for inpatient oncology consult unless situation changes - Palliative care consult pending to discuss goals of care should follow up with Dr. Ruiz within two weeks for both lung CA and pulmonary emboli (5) Non-ST elevation [place] (NSTEMI): Prior CAD history. Only on Plavix. Denies history of GI bleeding or intracranial bleeding. - Continue Plavix (6) Acute and chronic respiratory failure with hypoxia: (7) DVT prophylaxis: On active anticoagulation for above issues Code: full code for now For now patient is content with staying in the hospital. Patient does not want to be transferred to [facility] [address] [facility] at this time. Spent 25 minutes in management of patient. Subjective Patient reports feeling no signifcant change from yesterday. Patient again is ambulating the halls, but gets very short of breath. no chest pain or pressure Constitutional: + fatigue and + weakness Respiratory: + cough, + dyspnea on exertion, + hemoptysis (trace) and + sputum production; no pain with cough Cardiovascular: + edema; no chest pain Physical Exam 2 Vital Signs (Past 24 Hours): Last Vital Signs Temp 36.4 C 09/01/18 15:10 Pulse 98 H 09/01/18 15:10 Resp 16 09/01/18 15:10 BP 109/69 09/01/18 15:10 Pulse Ox 97 09/01/18 15:10 Physical Exam: Constitutional: WD/WN, vitals as above Eyes: PERRL, conjunctivae normal, anicteric sclerae ENMT: external ear and nose normal, oropharynx normal Neck: trachea midline, no thyromegaly Respiratory: normal respiratory effort, lungs clear to auscultation (no rales on right, absent breath sounds on left due to pneumonectomy) Cardiovascular: Rate/Rhythm: regular rhythm and + tachycardic Heart Sounds : normal S1 and normal S2; no murmur Vessels: normal peripheral pulses; no JVD Extremities: + pedal edema (trace bilaterally) Gastrointestinal (Abdomen): normal bowel sounds, soft, nontender, no hepatosplenomegaly Musculoskeletal: no cyanosis or clubbing, extremities motor strength 5/5 Skin: no rashes, warm and dry Neurologic: patellar DTR's 2+ bilat, sensation intact and PERRL, EOMI, accommodation nl, no face palsy, no dysarthria Psychiatric: A+Ox3, euthymic affect Lymphatic: no cervical or axillary lymphadenopathy _ (1) Metastatic lung cancer (metastasis from lung to other site) Laterality: unspecified laterality Qualified Code(s): C34.90 - Malignant neoplasm of unspecified part of unspecified bronchus or lung (2) Right leg DVT Affected thrombotic vein of extremity: unspecified vein of extremity Chronicity: unspecified Qualified Code(s): I82.401 - Acute embolism and thrombosis of unspecified deep veins of right lower extremity
--- NOTE | 2018-09-02 10:10 | Progress Note ---
DATE: 09/02/2018 Chart reviewed, the patient is examined. SUBJECTIVE: The patient is sitting in a chair, just completed breakfast. He states nothing has changed since yesterday. He has been wearing the compression stockings and I did diurese him gently yesterday. He is still quite dyspneic when he exerts himself, but is eager to ambulate with the oxygen. His IV medications have been stopped. His steroid dosing has been decreased and I did speak with Dr. Alicia. Attempts will be made to eventually get him discharged to home. He has no pleuritic pain. His cough is dry. He has no other specific complaints for us. OBJECTIVE: VITAL SIGNS: Blood pressure 99/64, pulse 113 and regular, respiratory rate 20, temperature 36.5, O2 sat 93% on 4 liters. SKIN: Without lesion. HEENT: Atraumatic, normocephalic. PERRLA. LUNGS: Some crackles at right base. No audible wheezing. CARDIAC: Sinus tachycardia. No gallop. ABDOMEN: Soft, protuberant. EXTREMITIES: +1 pitting edema. No clubbing. Peripheral cyanosis. NEUROLOGIC: Intact. LABORATORY DATA: Yesterday white count 20,000, H and H 11.5 and 36.5. Chest x-ray was really unchanged and the degree of interstitial thickening right mid to lower lung airspace opacities on the right side. The patient has the changes one would expect from a left pneumonectomy. OVERALL ASSESSMENT: A 78-year-old status post pneumonectomy 2 years ago for stage IIIA nonsmall cell carcinoma on maintenance chemotherapy with Abraxane with potential lung toxicity in the contralateral lung potentiated by radiation therapy as well. Would slowly bring down his steroid dose to an oral dose of 1 mg/kg daily or 60 mg daily for now to be tapered at a later date. I would continue physical therapy and ambulation all in preparation for possible discharge. His overall prognosis remains poor. MTDD
--- NOTE | 2018-09-02 10:49 | Progress Note ---
DATE: 09/02/2018 ADDENDUM The patient has [id number] pulmonary hypertension that is multifactorial in etiology. His pressure which is below 100 systolic would preclude at this point in time consideration for using calcium channel blockers or treatment for his pulmonary hypertension nor would I over aggressively diurese patient given the presence of cor pulmonale with pulmonary hypertension and systemic hypotension.
[2018-09-02] MEDS: methylPREDNISolone 80 MG in SYRINGE 0 ML IV SCH (20:52)
--- NOTE | 2018-09-02 23:16 | Hospitalist Progress Note ---
Date of Service September 02, 2018 Assessment & Plan (1) Multiple pulmonary emboli: CTA chest on 08/24 noted PEs within all of the lobes of the right lung. CT scan had concern for right heart strain. Stat echo on 08/24 showed normal RV function, but an RVSP of >60 mmHg. Discussion was had to enact tPA, but pulm/cc and patient decided against it. Stopped heparin drip. plan to use Xarelto 15mg BID typical dosing with 15mg BID x 21 days and then 20mg daily IVC filter in place to prevent any further emboli still with sinus tachycardia at rest and dyspnea on exertion. Holding beta blockers as patient has P/E and pulmonary hypertension. Patient continues to be sinus tachy today 09/02. PT recommends home, however he desaturates significantly when he ambulates. 2 step is held as patient is not being discharged soon. Consulted pulmonary: will try high dose steroids. Concern patient may not improve given severe right heart strain, pulmonary hypertension and hypoxia. Will taper from 80mg daily to 60 mg of solumedrol daily in AM. Palliative care involved. Patient wants to see if he improves with treatment. Holding chemotherapy treatment as patient is showing signs of interstitial lung disease likely from chemotherapy. Will continue high dose steroids but at a lower dose. Anticipate discharge mid week to rehab. (2) Right leg DVT: Noted on Doppler on 08/24. Given extensive clot burden, the concern was that if the DVT embolized, it would be fatal. Underwent uncomplicated IVC filter placement on 08/[address] Fan. - Heparin gtt has been stopped - will treat alf with Xarelto (3) Radiation pneumonitis: CTA chest on 08/24 noted "Progressive patchy multifocal groundglass and consolidative opacities about the right lung. Differential considerations would include postradiation pneumonitis with superimposed aspiration pneumonitis or multifocal pneumonia." Zosyn was started in the ED for concern for HAP (and failure of levofloxacin) given his recent admission and just finishing his course of levofloxacin on 08/23. However, ICU team felt that because he was afebrile, it was not needed. procalcitonin is < 0.05 on 08/25 hold antibiotics continue high dose steroid but at a tapered dose., follow up with pulmonology (4) Metastatic lung cancer (metastasis from lung to other site): Squamous cell originally diagnosed in 07/2016. S/p left lobectomy. Undergoing weekly paclitaxel infusions with Dr. Ruiz. Pulm/cc team spoke with Dr. Ruiz on admission who felt this would not hamper his continued chemotherapy treatment as long as he was in overall healthy enough condition to get it. - No need for inpatient oncology consult unless situation changes - Palliative care consult pending to discuss goals of care should follow up with Dr. Ruiz within two weeks for both lung CA and pulmonary emboli (5) Non-ST elevation [place] (NSTEMI): Prior CAD history. Only on Plavix. Denies history of GI bleeding or intracranial bleeding. - Continue Plavix (6) Acute and chronic respiratory failure with hypoxia: (7) DVT prophylaxis: On active anticoagulation for above issues Code: full code for now For now patient is content with staying in the hospital. Patient does not want to be transferred to [facility] at this time. Anticipate discharge midweek to rehab. Initally on 80mg BID of solumedrol. For past 2 days, 80mg of solumedrol. On monday will switch to 60 mg of IV solumedrol. Spent 25 minutes in management of patient. Subjective Patient reports being able to walk slightly better. However he continues to feel short of breath when he walks. Discussed with his nurse, she states that he also looks better when he ambulates. no chest pain or pressure Constitutional: + fatigue and + weakness Respiratory: + cough, + dyspnea on exertion, + hemoptysis (trace) and + sputum production; no pain with cough Cardiovascular: + edema; no chest pain Physical Exam 2 Vital Signs (Past 24 Hours): Last Vital Signs Temp 36.6 C 09/02/18 19:07 Pulse 112 H 09/02/18 19:07 Resp 18 09/02/18 19:07 BP 125/79 09/02/18 19:07 Pulse Ox 97 09/02/18 19:07 Physical Exam: Constitutional: WD/WN, vitals as above Eyes: PERRL, conjunctivae normal, anicteric sclerae ENMT: external ear and nose normal, oropharynx normal Neck: trachea midline, no thyromegaly Respiratory: normal respiratory effort, lungs clear to auscultation (no rales on right, absent breath sounds on left due to pneumonectomy) Cardiovascular: Rate/Rhythm: regular rhythm and + tachycardic Heart Sounds : normal S1 and normal S2; no murmur Vessels: normal peripheral pulses; no JVD Extremities: + pedal edema (trace bilaterally) Gastrointestinal (Abdomen): normal bowel sounds, soft, nontender, no hepatosplenomegaly Musculoskeletal: no cyanosis or clubbing, extremities motor strength 5/5 Skin: no rashes, warm and dry Neurologic: patellar DTR's 2+ bilat, sensation intact and PERRL, EOMI, accommodation nl, no face palsy, no dysarthria Psychiatric: A+Ox3, euthymic affect Lymphatic: no cervical or axillary lymphadenopathy _ (1) Right leg DVT Affected thrombotic vein of extremity: unspecified vein of extremity Chronicity: unspecified Qualified Code(s): I82.401 - Acute embolism and thrombosis of unspecified deep veins of right lower extremity (2) Metastatic lung cancer (metastasis from lung to other site) Laterality: unspecified laterality Qualified Code(s): C34.90 - Malignant neoplasm of unspecified part of unspecified bronchus or lung
[2018-09-03 06:44] LABS: Estimated Average Glucose 134 mg/dl
[2018-09-03] MEDS: FUROSEMIDE 40 MG TAB PO SCH (07:48)
[2018-09-03] MEDS: RIVAROXABAN 15 MG TAB PO SCH ×2 (07:48→17:04)
[2018-09-03] MEDS: ATORVASTATIN 20 MG TAB PO SCH (07:49)
[2018-09-03] MEDS: POTASSIUM CHLORIDE 20 MEQ TABCR PO SCH (07:49)
[2018-09-03] MEDS: CLOPIDOGREL BISULFATE 75 MG TAB PO SCH (07:49)
[2018-09-03] MEDS: INSULIN ASPART 100 UNITS/ML 3 ML PEN SC SCH ×4 (07:51→20:26)
--- NOTE | 2018-09-03 10:56 | Pharmacy Report ---
Glycemic Control Progress Note - Date of Service September 03, 2018 - Scope Glycemic Pharmacist consulted for glycemic control to write orders per [facility] inpatient glycemic control protocol. - Objective Accuchecks BSG(last 24 hours):: 09/02/18 09/02/18 09/02/18 11:11 16:17 20:16 POC Glucose 114 H 99 167 H HbA1c:: Hemoglobin A1c 6.3 % (4.5-5.6) H 09/02/18 05:40 - Recent Pertinent Medications The patient is currently receiving: * Basal insulin: Lantus -- units every -- hours * Correctional Insulin: Novolog Correction per scale ACHS Goal Range: Low 120 mg/dL - High 150 mg/dL Correction Factor: 40 mg/dL/unit * Prandial insulin: Per carb ratio of 1 unit per 20 grams CHO consumed - Outpatient Anti-Diabetic Meds N/A - Assessment & Plan ASSESSMENT: * See progress note from 09/01/18 for more background info, in short: * Pt receiving SQ basal bolus insulin regimen for hyperglycemia secondary to baseline DM (outpatient regimen on hold) and Solu-Medrol 60 mg IV q24 hours at bedtime (just decreased from 80 mg q24H) * Patient is currently receiving an average of 2 units of insulin per day * 0 units of basal insulin * 2 units of prandial/correctional insulin * BSGs ranging 92 - 167 mg/dl over the past 24hrs (only one value above 120 mg /dL) * Changes needed to insulin regimen: * AM Fasting BSG = 167 mg/dl. This is above goal range for patient based on inpatient targets and co-morbidities. The patient has not had a single blood sugar during inpatient admission above 180 mg/dL. Will monitor closely today and consider starting Lantus 10 units once BSG over 180 mg/dL. * Post-prandial BSGs are in range therefore no changes needed to CF/CR. If blood sugars trend upwards will tighten. * Total daily dose = <10 units. PLAN FOR INPATIENT GLYCEMIC CONTROL: * STARTING Lantus 10 units SQ HS if blood sugar over 180 mg/dL * Continuing correction factor of 40 mg/dl/unit * Continuing carb ratio of 1 unit per 20 grams CHO consumed * Continuing goal range of Low 120 mg/dL - High 150 mg/dL RECOMMENDATIONS FOR DISCHARGE: * Patient's HbA1C well controlled. Monitor closely as an outpatient. * Please note that the plan above was derived based on current level of insulin resistance and hospital stress. These recommendations are appropriate for inpatient admission only. Plan of care upon discharge will need to be reassessed to avoid potential outpatient hypo/hyperglycemia. Thank you.
--- NOTE | 2018-09-03 14:15 | Hospitalist Progress Note ---
Date of Service September 03, 2018 Assessment & Plan (1) Multiple pulmonary emboli: - CTA on 08/24 with PE in all lobes of R lung and he is S/P L Pneumonectomy - Echo - EF 60-65%, no regional wall motion abnormalities, enlared RV with normal function, > 60 mmHg RV systolic pressure - Currently on Xarelto 15 mg BID x 21 days total then 20 mg daily (therapy started 08/27) and S/P IVC Filter 08/24 - Maintaining on 4 L NC and likely would need 2-step prior to return home to further assess O2 needs especially with ambulation; having some sinus tachycardia but improving and possibly multifactorial between high dose steroids and his underlying pulmonary condition - Palliative care consulted - appreciate assessment and input Present on Admission?: Yes (2) Right leg DVT: - Treatment as above; S/P IVC Filter Present on Admission?: Yes (3) Radiation pneumonitis: CTA with progressive patchy multifocal groundglass and consolidative opacities - concern for postradiation pneumonitis/aspiration pneumonitis/ multifocal pneumonia - Initially treated with Zosyn on admission and finished Levaquin from recent admission on 08/23 - Procalcitonin was low and further antibiotics on hold at this time - Will convert Methylprednisolone to Prednisone at 80 mg x 2 days then 70 mg x 2 days then 60 mg. Per pulmonology note to hold at 60 mg daily for now and eventual taper. Is chronically on Prednisone 30 mg daily at baseline Present on Admission?: Yes (4) Metastatic lung cancer (metastasis from lung to other site): - Squamous cell diagnosed in Jul 2016 and S/P L Pneumonectomy - Normally has weekly Paclitaxel and per Oncology due anticipate continued therapy but consideration for treatment adjustment due to the likely cause of his pneumonitis. - Will need to have F/U with Dr. Ruiz after discharge Present on Admission?: Yes (5) Non-ST elevation [place] (NSTEMI): - H/O NSTEMI and known CAD - Plavix 75 mg daily - denies H/O GI bleed/intracranial bleeding Present on Admission?: Yes (6) Acute and chronic respiratory failure with hypoxia: - Due to above; Maintaining on 4 L NC at this time (7) DVT prophylaxis: - Xarelto Disposition: Will taper off IV steroids and monitor on orals; Remaining stable at this time and likely can transition to rehab in next 1-2 days if po steroids continue to give good respiratory coverage Subjective Patient reports feeling well today. States his breathing feels fine with rest but continues to have dyspnea on exertion. However patient and family at bedside state that his work of breathing is improving and his ambulation is better in regards to his breathing. He reports improvement in his lower extremity edema since starting the MAX hose. Still having some sinus tachycardia but improved from a few days prior Constitutional: + fatigue and + weakness; no fever and no chills Respiratory: + cough and + dyspnea on exertion; no dyspnea Cardiovascular: + edema (improving in b/l legs); no chest pain and no calf pain Gastrointestinal: no abdominal pain, no nausea, no vomiting, no constipation and no diarrhea/loose stools Genitourinary (Male): no dysuria Integumentary: no rash Physical Exam 2 Vital Signs (Past 24 Hours): Last Vital Signs Temp 36.3 C L 09/03/18 11:57 Pulse 103 H 09/03/18 11:57 Resp 18 09/03/18 11:57 BP 100/70 09/03/18 11:57 Pulse Ox 98 09/03/18 11:57 Constitutional: well developed and well nourished; no acute distress and not ill appearing Eyes: + anicteric sclerae ENMT: Ears: no hearing impairment Throat: uvula midline Neck: trachea midline well-healed R CEA incision Respiratory: normal respiratory effort Auscultation: + breath sounds absent (L lung kamara with some mild radiation of R sided sounds to cavity) and + diminished lung sounds; no wheezes Cardiovascular: Rate/Rhythm: regular rate and regular rhythm Extremities: + edema (mild in ankles b/l with TEDs currently placed) Gastrointestinal (Abdomen): Inspection/Auscultation: normal bowel sounds Percussion/Palpation: abdomen soft; abdomen nontender Musculoskeletal: Head/Neck/Chest: normocephalic, head atraumatic and neck supple Skin: no rashes, warm and dry Neurologic: moves all extremities Psychiatric: A+Ox3, euthymic affect _ (1) Right leg DVT Affected thrombotic vein of extremity: unspecified vein of extremity Chronicity: unspecified Qualified Code(s): I82.401 - Acute embolism and thrombosis of unspecified deep veins of right lower extremity (2) Metastatic lung cancer (metastasis from lung to other site) Laterality: unspecified laterality Qualified Code(s): C34.90 - Malignant neoplasm of unspecified part of unspecified bronchus or lung
--- NOTE | 2018-09-03 15:36 | Palliative Care Progress Note ---
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 Ruiz, s/p left pneumonectomy, presented with increased SOB. Patient was in hospital for a couple weeks from end of July to 08/17/17 with radiation pneumonitis/pnemonia. During that time, patient was reportedly (by his ) refusing subcutaneous heparin shots. He was discharged home on 4L oxygen, which was new for him. He returned to the hospital with worsening SOB. CTA showed pulmonary emboli, venous doppler revealed right LE DVT. He was admitted and treated with heparin gtt. On admission, discussion of code status - Patient wishes to remain full code, reiterated wishes today Patient's goals of care at this time are to increase his endurance-discussed that rehab at a skilled facility may be beneficial in achieving that goal- collaborated with case management. Will continue to follow peripherally, able to assist with any medical decision making if patient's clinical status changes. (2) Multiple pulmonary emboli: Patient improving, on Plavix and Xarelto (3) Right leg DVT: On Plavix and Xarelto (4) Metastatic lung cancer (metastasis from lung to other site): Follow-up with oncology Subjective Patient awake and alert, sitting up in a chair at bedside, NAD. Patient's at bedside Patient reports he is now able to ambulate longterm down the hallway and back before getting short of breath where prior to this he had only been able to go to and from the bathroom. Patient is encouraged by his progress and is hoping to do some rehab at a skilled facility. Review of Systems Patient denies fever, chills, chest pain, increased shortness of breath, or GI issues. Patient denies any pain. Physical Exam 2 Vital Signs (Past 24 Hours): Last Vital Signs Temp 36.2 C L 09/03/18 15:20 Pulse 109 H 09/03/18 15:20 Resp 18 09/03/18 15:20 BP 117/76 09/03/18 15:20 Pulse Ox 98 09/03/18 15:20 Physical Exam: PE: No acute distress, less short of breath with conversation, no pursed lip breathing on exam today HEENT: EOMI, normal hearing Respiratory: Improved air movement on the right, no breath sounds on the left CV: Tachycardic, no lower extremity edema Abdomen: Not distended Extremities: Full range of motion Neuro: Alert and oriented x4 Time Spent Attending Total time spent 25 minutes discussing goals of care with both patient and his _ (1) Right leg DVT Affected thrombotic vein of extremity: unspecified vein of extremity Chronicity: unspecified Qualified Code(s): I82.401 - Acute embolism and thrombosis of unspecified deep veins of right lower extremity (2) Metastatic lung cancer (metastasis from lung to other site) Laterality: unspecified laterality Qualified Code(s): C34.90 - Malignant neoplasm of unspecified part of unspecified bronchus or lung
--- NOTE | 2018-09-03 17:18 | Pulmonology Progress Note ---
Date of Service September 03, 2018 Assessment & Plan (1) Acute and chronic respiratory failure with hypoxia: Impression: 1. 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 2. Other entities such as latent infection reactivation but less likely, I would expect the patient to be a lot sicker. 3. COPD, gold level 3 he is on home O2. 4. Non-small cell lung CA status post pneumonectomy on the left. 5. PE on this admission affecting the right main pulmonary artery. 6. Deconditioning. Plan: 1. Keep the patient on prednisone, you may decrease the dose to 60 mg and keep it on for 5 days then taper it by 10 mg every other day. 2. Continue with Xarelto for life. Lovenox is better option. 3. I will obtain galactomannan. 4. Sputum culture if possible. 5. I offered the patient and his a bronchoscopy, considering the risk, the family opted not to do it. 6. Consider discussion with palliative care and hospice. Thank you, will follow. Subjective The patient is comfortable, less short of breath, continue to have cough without sputum production, no hemoptysis reported, no fever, no events overnight. Physical Exam 2 Vital Signs (Past 24 Hours): Last Vital Signs Temp 36.2 C L 09/03/18 15:20 Pulse 109 H 09/03/18 15:20 Resp 18 09/03/18 15:20 BP 117/76 09/03/18 15:20 Pulse Ox 98 09/03/18 15:20 Physical Exam: No fever was reported, he is 98% on 4 L, S1-S2 regular rate and rhythm, crackles mainly on the right, no breath sounds on the left as the patient has pneumonectomy. Abdomen is benign, no edema neurologically he is intact, psychiatrically he is in good spirits. Results & Data Laboratory Results His labs showed leukocytosis, the rest of his labs are acceptable. Diagnostic Findings I have reviewed the CAT scan and the chest x-ray myself which showed multiple pulmonary nodules in the right lung accompanied also with interstitial changes highly suspicious for lymphangitic carcinomatosis.
[2018-09-03] MEDS ORDERED: methylPREDNISolone 60 MG in SYRINGE 0 ML IV SCH (21:00)
[2018-09-03] MEDS ORDERED: INSULIN GLARGINE SOLOSTAR 100 UNITS/ML 3 ML PEN SC SCH (21:00)
[2018-09-04] MEDS: RIVAROXABAN 15 MG TAB PO SCH ×2 (08:16→17:21)
[2018-09-04] MEDS: POTASSIUM CHLORIDE 20 MEQ TABCR PO SCH (08:22)
[2018-09-04] MEDS: INSULIN ASPART 100 UNITS/ML 3 ML PEN SC SCH ×2 (08:24→12:33)
[2018-09-04] MEDS: ATORVASTATIN 20 MG TAB PO SCH (08:25)
[2018-09-04] MEDS: FUROSEMIDE 40 MG TAB PO SCH (08:25)
[2018-09-04] MEDS: CLOPIDOGREL BISULFATE 75 MG TAB PO SCH (08:25)
[2018-09-04] MEDS: predniSONE 20 MG TAB PO SCH (08:26)
[2018-09-04] MEDS ORDERED: predniSONE 20 MG TAB PO SCH (09:00)
--- NOTE | 2018-09-04 14:52 | Pharmacy Report ---
Pharmacy Glycemic Sign Off Nt - Date of Service September 04, 2018 - Assessment & Plan ASSESSMENT: * Pharmacy was consulted by Dr Alicia on 09/01/18 for glycemic control and to write orders per [facility] inpatient glycemic control protocol. * Major changes made by pharmacy to antidiabetic regimen include: * starting Novolog scale * Patient has been receiving/requiring 2 units of insulin per day for adequate glycemic control * BSGs ranging 115 167 mg/dl * Regimen has only required minor adjustments over the past 48hrs to achieve this level of control * Do not anticipate further changes in patient status that would quickly deteriorate glycemic control (i.e. patient to be NPO for upcoming procedure, steroids tapering, starting tube feedings, etc). * Please see recommendations for outpatient antidiabetic regimen below. PLAN FOR INPATIENT GLYCEMIC CONTROL: No changes needed to current regimen. * Discontinue insulin coverage and checks per patient and physician discretion * A1c added to discharge instructions to be communicated to PCP. * Pharmacy is signing off of glycemic consult and will no longer be making adjustments to inpatient regimen. Please feel free to re-consult if needed. Thank you. DISCHARGE RECOMMENDATIONS: * A1c 6.3 % on 09/02/18 * Monitor closely
--- NOTE | 2018-09-04 15:10 | Hospitalist Progress Note ---
Date of Service September 04, 2018 Assessment & Plan (1) Multiple pulmonary emboli: - CTA on 08/24 with PE in all lobes of R lung and he is S/P L Pneumonectomy - Echo - EF 60-65%, no regional wall motion abnormalities, enlared RV with normal function, > 60 mmHg RV systolic pressure - Currently on Xarelto 15 mg BID x 21 days total then 20 mg daily (therapy started 08/27) and S/P IVC Filter 08/24 - Maintaining on 4 L NC and likely would need 2-step prior to return home to further assess O2 needs especially with ambulation; having some sinus tachycardia but improving and possibly multifactorial between high dose steroids and his underlying pulmonary condition - Palliative care consulted - appreciate assessment and input (2) Right leg DVT: - Treatment as above; S/P IVC Filter (3) Radiation pneumonitis: - CTA with progressive patchy multifocal groundglass and consolidative opacities - concern for postradiation pneumonitis/aspiration pneumonitis/ multifocal pneumonia - Initially treated with Zosyn on admission and finished Levaquin from recent admission on 08/23 - Procalcitonin was low and further antibiotics on hold at this time - Will convert to Prednisone at 60 mg x 5 days then taper down by 10 mg QOD. Is chronically on Prednisone 30 mg daily at baseline (4) Metastatic lung cancer (metastasis from lung to other site): - Squamous cell diagnosed in Jul 2016 and S/P L Pneumonectomy - Normally has weekly Paclitaxel and per Oncology due anticipate continued therapy but consideration for treatment adjustment due to the likely cause of his pneumonitis. - Will need to have F/U with Dr. Ruiz after discharge (5) Non-ST elevation [place] (NSTEMI): - H/O NSTEMI and known CAD - Plavix 75 mg daily - denies H/O GI bleed/intracranial bleeding (6) Acute and chronic respiratory failure with hypoxia: - Due to above; Maintaining on 4 L NC at this time (7) DVT prophylaxis: - Xarelto Disposition: Await insurance authorization. Then transition to [place] [facility] Subjective Verbalizes no complaints today and reports breathing feels stable and ambulating further then initially. Awaiting insurance authorization. Updated at bedside Physical Exam 2 Vital Signs (Past 24 Hours): Last Vital Signs Temp 36.6 C 09/04/18 11:22 Pulse 99 H 09/04/18 11:22 Resp 22 09/04/18 11:22 BP 102/65 09/04/18 11:22 Pulse Ox 90 09/04/18 11:22 Constitutional: well developed and well nourished; no acute distress and not ill appearing Eyes: + anicteric sclerae ENMT: Ears: no hearing impairment Throat: uvula midline Neck: trachea midline Respiratory: normal respiratory effort Auscultation: + breath sounds absent (L lung kamara with some mild radiation of R sided sounds to cavity) and + diminished lung sounds; no wheezes Cardiovascular: Rate/Rhythm: regular rate and regular rhythm Extremities: + edema (mild in ankles b/l with TEDs currently placed) Gastrointestinal (Abdomen): Inspection/Auscultation: normal bowel sounds Percussion/Palpation: abdomen soft; abdomen nontender Musculoskeletal: Head/Neck/Chest: normocephalic, head atraumatic and neck supple Skin: no rashes, warm and dry Neurologic: moves all extremities Psychiatric: A+Ox3, euthymic affect _ (1) Metastatic lung cancer (metastasis from lung to other site) Laterality: unspecified laterality Qualified Code(s): C34.90 - Malignant neoplasm of unspecified part of unspecified bronchus or lung (2) Right leg DVT Affected thrombotic vein of extremity: unspecified vein of extremity Chronicity: unspecified Qualified Code(s): I82.401 - Acute embolism and thrombosis of unspecified deep veins of right lower extremity
--- NOTE | 2018-09-04 19:56 | Pulmonology Progress Note ---
Date of Service September 04, 2018 Assessment & Plan (1) Acute and chronic respiratory failure with hypoxia: Impression: 1. 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 2. Other entities such as latent infection reactivation but less likely, I would expect the patient to be a lot sicker. 3. COPD, gold level 3 he is on home O2. 4. Non-small cell lung CA status post pneumonectomy on the left. 5. PE on this admission affecting the right main pulmonary artery. 6. Deconditioning. Plan: 1. Keep the patient on prednisone, you may decrease the dose to 60 mg and keep it on for 5 days then taper it by 10 mg every other day. 2. Continue with Xarelto for life. Lovenox is better option. 3. I will obtain galactomannan. 4. Sputum culture if possible. 5. I offered the patient and his a bronchoscopy, considering the risk, the family opted not to do it. 6. Consider discussion with palliative care and hospice. 7. Disposition plan per the principal team. Thank you, will follow as needed. Subjective Clinically unchanged, respiratory status remains stable. No events overnight. He is ambulatory but having shortness of breath with minimal movement. Physical Exam 2 Vital Signs (Past 24 Hours): Last Vital Signs Temp 36.4 C L 09/04/18 15:14 Pulse 108 H 09/04/18 15:14 Resp 17 09/04/18 15:14 BP 90/42 L 09/04/18 15:14 Pulse Ox 97 09/04/18 15:14 Physical Exam: Vital signs are stable, O2 sat 97% on 4 L, rhonchi on the right , absence of breath sounds on the left, S1-S2, abdomen is benign, skin rash in the periphery, edema in the periphery, neurologically he is intact. Results & Data Laboratory Results No new labs. Diagnostic Findings No new imaging.
[2018-09-05 08:26] LABS: Hematocrit (blood only) 38.8 % (42-52); Hemoglobin 12.1 g/dL (14.0-18.0); Mean Corpuscular Hgb Conc 31.2 g/dL (32-36); Mean Corpuscular Volume 95.6 fL (80-100); Mean Platelet Volume 9.9 fL (7.4-10.4); Platelet Count 398 K/uL (130-400); RDW Coefficient of Variation 18.4 % (11.5-14.5); RDW Standard Deviation 64.2 fL (36.4-46.3); Red Blood Count 4.06 M/uL (4.7-6.1); White Blood Count 12.58 K/uL (4.8-10.8)
[2018-09-05] MEDS: POTASSIUM CHLORIDE 20 MEQ TABCR PO SCH (08:28)
[2018-09-05] MEDS: FUROSEMIDE 40 MG TAB PO SCH (08:28)
[2018-09-05] MEDS: RIVAROXABAN 15 MG TAB PO SCH ×2 (08:28→16:36)
[2018-09-05] MEDS: predniSONE 20 MG TAB PO SCH (08:29)
[2018-09-05] MEDS: ATORVASTATIN 20 MG TAB PO SCH (08:29)
[2018-09-05] MEDS: CLOPIDOGREL BISULFATE 75 MG TAB PO SCH (08:29)
[2018-09-05 09:02] LABS: BUN Creatinine Ratio 24.8 (10-20); Calcium 8.7 mg/dl (8.5-10.1); Creatinine Clr Calc Pharmacy 64.8 ml/min; Est GFR (African American) 96.7; Est GFR (Non-African American) 83.5; Potassium 3.6 mmol/L (3.5-5.1)
--- NOTE | 2018-09-05 15:00 | Hospitalist Progress Note ---
Date of Service September 05, 2018 Assessment & Plan (1) Multiple pulmonary emboli: - CTA on 08/24 with PE in all lobes of R lung and he is S/P L Pneumonectomy - Echo - EF 60-65%, no regional wall motion abnormalities, enlarged RV with normal function, > 60 mmHg RV systolic pressure - Currently on Xarelto 15 mg BID x 21 days total then 20 mg daily (ends 09/16) and S/P IVC Filter 08/24 - Maintaining on 4 L NC and likely would need 2-step prior to return home to further assess O2 needs especially with ambulation; having some sinus tachycardia but improving and possibly multifactorial between high dose steroids and his underlying pulmonary condition - Palliative care consulted - appreciate assessment and input (2) Right leg DVT: - Treatment as above; S/P IVC Filter (3) Radiation pneumonitis: - CTA with progressive patchy multifocal groundglass and consolidative opacities - concern for postradiation pneumonitis/aspiration pneumonitis/ multifocal pneumonia - Initially treated with Zosyn on admission and finished Levaquin from recent admission on 08/23 - Procalcitonin was low and further antibiotics on hold at this time - suggests lymphangitic carcinomatosis - Will convert to Prednisone at 60 mg x 5 days then taper down by 10 mg QOD. Is chronically on Prednisone 30 mg daily at baseline (4) Metastatic lung cancer (metastasis from lung to other site): - Squamous cell diagnosed in Jul 2016 and S/P L Pneumonectomy - Normally has weekly Paclitaxel and per Oncology due anticipate continued therapy but consideration for treatment adjustment due to the likely cause of his pneumonitis. - Will need to have F/U with Dr. Ruiz after discharge (5) Non-ST elevation MD (NSTEMI): - H/O NSTEMI and known CAD - Plavix 75 mg daily - denies H/O GI bleed/intracranial bleeding (6) Acute and chronic respiratory failure with hypoxia: - Due to above; Maintaining on 4 L NC at this time (7) DVT prophylaxis: - Xarelto Disposition: Possible transition to [facility] tomorrow Subjective Feels like his breathing is a little worse today with wheezing. Continues to have intermittent tachycardia but denies chest pain or lightheaded. Tolerating a diet without issue. Remaining on is 4 L NC. Verbalizes no other complaints at this time. Updated over the phone today Constitutional: no fever and no chills Ear, Nose, Mouth, Throat: no dry mouth and no sore throat Respiratory: + dyspnea on exertion and + wheezing; no cough, no dyspnea and no pain on inspiration Cardiovascular: no chest pain, no palpitations, no lightheadedness, no edema and no calf pain Gastrointestinal: no abdominal pain, no nausea, no vomiting, no constipation and no diarrhea/loose stools Genitourinary (Male): no dysuria Integumentary: no rash Physical Exam 2 Vital Signs (Past 24 Hours): Last Vital Signs Temp 36.4 C L 09/05/18 11:02 Pulse 105 H 09/05/18 11:02 Resp 18 09/05/18 11:02 BP 97/61 L 09/05/18 11:02 Pulse Ox 98 09/05/18 11:02 Constitutional: well developed and well nourished; no acute distress and not ill appearing Eyes: + anicteric sclerae ENMT: Ears: no hearing impairment Throat: uvula midline Neck: trachea midline Respiratory: normal respiratory effort Auscultation: + breath sounds absent (L lung kamara with some mild radiation of R sided sounds to cavity) and + diminished lung sounds; no wheezes Cardiovascular: Rate/Rhythm: regular rate and regular rhythm Extremities: + edema (mild in ankles b/l with TEDs currently placed) Gastrointestinal (Abdomen): Inspection/Auscultation: normal bowel sounds Percussion/Palpation: abdomen soft; abdomen nontender Musculoskeletal: Head/Neck/Chest: normocephalic, head atraumatic and neck supple Skin: no rashes, warm and dry Neurologic: moves all extremities Psychiatric: A+Ox3, euthymic affect _ (1) Metastatic lung cancer (metastasis from lung to other site) Laterality: unspecified laterality Qualified Code(s): C34.90 - Malignant neoplasm of unspecified part of unspecified bronchus or lung (2) Right leg DVT Affected thrombotic vein of extremity: unspecified vein of extremity Chronicity: unspecified Qualified Code(s): I82.401 - Acute embolism and thrombosis of unspecified deep veins of right lower extremity
[2018-09-06] MEDS: ATORVASTATIN 20 MG TAB PO SCH (08:15)
[2018-09-06] MEDS: RIVAROXABAN 15 MG TAB PO SCH ×2 (08:15→15:43)
[2018-09-06] MEDS: predniSONE 20 MG TAB PO SCH (08:15)
[2018-09-06] MEDS: CLOPIDOGREL BISULFATE 75 MG TAB PO SCH (08:15)
[2018-09-06] MEDS: POTASSIUM CHLORIDE 20 MEQ TABCR PO SCH (08:15)
[2018-09-06] MEDS ORDERED: FUROSEMIDE 20 MG TAB PO SCH (09:00)
--- NOTE | 2018-09-06 16:12 | Discharge Summary ---
Date of Service September 06, 2018 Admission HPI Per Admitting Provider 78yo M w/ hx of left lobectomy for squamous cell lung cancer who presents for shortness of breath and was found to have PEs to the right lung. Patient was in the hospital until 08/17, when he had an episode of possible pneumonia vs. radiation pneumonitis and was hospitalized for almost 2 weeks. He was discharged and has continued a course of levofloxacin which he finished on per family and is still on a steroid taper for the radiation pneumonitis. He reports his cough and sputum productive have improved, but his shortness of breath started to get progressively worse in the last week. He denies any fevers or chills, sweats, or other concerns. Principal Diagnosis Pulmonary Embolism and DVT Discharge Exam Constitutional well developed and well nourished; no acute distress and not ill appearing Eyes + anicteric sclerae ENMT Ears: no hearing impairment Throat: uvula midline Neck trachea midline Respiratory normal respiratory effort Auscultation: + breath sounds absent (L lung kamara with some mild radiation of R sided sounds to cavity) and + diminished lung sounds; no wheezes Cardiovascular Rate/Rhythm: regular rate and regular rhythm Extremities: + edema (mild in ankles b/l with TEDs currently placed) Gastrointestinal (Abdomen) Inspection/Auscultation: normal bowel sounds Percussion/Palpation: abdomen soft; abdomen nontender Musculoskeletal Head/Neck/Chest: normocephalic, head atraumatic and neck supple Skin no rashes, warm and dry Neurologic moves all extremities Psychiatric A+Ox3, euthymic affect Discharge Data Allergies Allergy/AdvReac Type Severity Reaction Status Date / Time No Known Allergies Allergy Unknown Verified 08/24/18 10:25 Consultations 08/24/18 11:35 ED Decision to Admit Stat 08/24/18 15:09 Consult Vascular Surgery Routine 08/24/18 16:42 Consult Resort Manager Routine Consult Resort Manager Routine 08/24/18 20:29 Consult Palliative Care Routine 08/28/18 14:12 Consult Oncology Routine 08/29/18 10:59 Consult Pulmonology Routine Procedures Performed Operation Date: 08/24/18 14:30 Actual Procedures p Insertion of Vena Cava Filter, Right Femoral Approach, Ulstrasound Localication Right Femoral Vein, Fluoroscopy Position, Moderate Sedation from [id number](Right) - Azeem Fan MD Ordered Studies CT angio chest PE protocol. CTA: Moderate multichamber cardiac enlargement. Coronary arterial calcifications are noted. Left subclavian Eddzbb-b-Bgsf catheter distal tip terminates about the superior aspect of the right atrium. No thoracic aortic aneurysm or dissection. Tortuosity and patency of the imaged great vessels. Tortuosity of the descending thoracic aorta. Is opacified to the level of the subsegmental branches. The segmental and subsegmental branches however are not well-seen secondary to respiratory motion. Pulmonary bullae are seen within right upper lobe are, segmental and subsegmental branches with probable additional emboli noted about the right middle and lower lobes. Mild straightening of the intraventricular septum. CT CHEST: No dominant thyroid nodule. No new adenopathy of the chest identified. Postoperative changes from prior left pneumonectomy with unchanged left pleural effusion. Trace right pleural effusion. No pneumothorax. Severe emphysema throughout the right lung with chronic interstitial coarsening. Superimposed patchy groundglass densities and irregular consolidative opacities are also noted throughout the right lung with the areas of consolidation progressively worsened from comparison. Spiculated irregular nodule about the basal right lower lobe measures 1.5 x 1.1 cm, unchanged. Irregular 1.2 cm consolidation of the posterior basal segment right lower lobe. Central airways appear to be patent. No acute process of the imaged upper abdomen. Wall thickening with gaseous distention throughout the entirety of the esophagus with moderate hiatal hernia. Soft tissues are unremarkable. Demineralized appearance of the bones with degenerative changes of the shoulders and spine. Compression deformities about the T6 and T7 vertebral bodies appear unchanged. Multilevel intervertebral disc space narrowing with spondylitic spurring and facet arthropathy. No suspicious lytic or blastic bony lesions . IMPRESSION: 1. Limited exam secondary to extensive respiratory motion. 2. Pulmonary emboli noted within all of the lobes of the right lung. Mild straightening of the intraventricular septum may reflect associated right heart strain. 3. Trace right pleural effusion. 4. Progressive patchy multifocal groundglass and consolidative opacities about the right lung. Differential considerations would include postradiation pneumonitis with superimposed aspiration pneumonitis or multifocal pneumonia also within the differential. 5. Irregular spiculated nodule about the basal right lower lobe is unchanged. 6. Postoperative changes from prior left pneumonectomy with stable left pleural effusion. 7. Additional findings as above. BILATERAL LOWER EXTREMITY VENOUS DOPPLER FINDINGS: RIGHT: Occlusive thrombus about the popliteal and peroneal veins. The remaining the venous structures about the right lower extremity are patent. LEFT: There is normal compressibility, flow, and augmentation within the left lower extremity deep venous structures. IMPRESSION: 1. Occlusive deep venous thrombosis of the right popliteal and peroneal veins. 2. No sonographic evidence of left deep venous thrombosis. Hospital Course (1) Multiple pulmonary emboli: - CTA on 08/24 with PE in all lobes of R lung and he is S/P L Pneumonectomy - Echo - EF 60-65%, no regional wall motion abnormalities, enlarged RV with normal function, > 60 mmHg RV systolic pressure - Currently on Xarelto 15 mg BID x 21 days (until 09/16/18) total then 20 mg daily and S/P IVC Filter 08/24 - Maintaining on 4 L NC; having some sinus tachycardia but improving and possibly multifactorial between high dose steroids and his underlying pulmonary condition and clot burden -- Held on initiation of rate specific control/CBB/BB therapy given low normal BP - Was slightly volume up and was started on Lasix. Can continue Lasix 20 mg daily but would advise to reassess needs as he may be a candidate for PRN dosing but will need to be monitored to prevent dehydration - Palliative care consulted - patient plan is to continue active treatment (2) Right leg DVT: - Treatment as above; S/P IVC Filter (3) Radiation pneumonitis: - CTA with progressive patchy multifocal groundglass and consolidative opacities - concern for postradiation pneumonitis/aspiration pneumonitis/ multifocal pneumonia/lymphangitis carcinomatosis - Initially treated with Zosyn on admission and finished Levaquin from recent admission on 08/23 - Procalcitonin was low and further antibiotics on hold at this time - Will convert to Prednisone at 60 mg x 2 more days then taper down by 10 mg QOD (4) Metastatic lung cancer (metastasis from lung to other site): - Squamous cell diagnosed in Jul 2016 and S/P L Pneumonectomy - Normally has weekly Paclitaxel and per Oncology due anticipate continued therapy but consideration for treatment adjustment due to the likely cause of his pneumonitis. - Will need to have F/U with Dr. Ruiz after discharge (5) Non-ST elevation MT (NSTEMI): - H/O NSTEMI and known CAD; H/O CVA and Carotid Stenosis S/P CEA - Plavix 75 mg daily and Atorvastatin 20 mg daily- denies H/O GI bleed/ intracranial bleeding (6) Acute and chronic respiratory failure with hypoxia: - Due to above; Maintaining on 4 L NC at this time Total Time Total Time Spent Total Time Spent (In Minutes): Greater than 30 minutes Discharge Plan Discharge Items Patient Disposition: Transfer Intermediate Fac Reason For Visit: PULMONARY EMBOLISM Discharge Diagnosis: Pulmonary Embolism Condition: Fair Discharge Goals: Decrease discomfort, Improve disease control and Increase independence Activity: Resume your previous activity Non-emergency contact: Primary Care Provider Call non-emergency contact if: you have any medication questions, your symptoms worsen, your pain is concerning for you and you have a fever Follow-up/Referrals: Jay Gudino MD [Primary Care Provider] - 09/06/18 4:15 pm (Please, follow up with Dr. Jay Gudino on September 06 at 4:15 pm. *If you need to change this appointment, call the office at [phone].) Miguel Ángel Ruiz DO [Physician] - (Please, follow up with Dr. Ruiz. His nurse will call you with the appointment information. *If you have any questions, call the office at [phone].) Dixon Dunlap DO [Physician] - 09/04/18 8:30 am (Please, follow up at [facility] Pulmonology Office with Dr. Dunlap on MondaySep 04 at 8:30 am. *This office is located in [address] of [facility] - big building next to this hospital. If you need to change this appointment, call the office at [phone].) Diet: Regular Addtl Provider Instructions: Multiple Pulmonary Emboli: - Mr. Henry is S/P L Pneumonectomy and unfortunately has PEs in all lobes of his remaining R lung - Echo - EF 60-65%, no regional wall motion abnormalities, enlarged RV with normal function, > 60 mmHg RV systolic pressure - Has been stable on 4 L NC and likely will need life-long oxygen therapy - Currently on Xarelto 15 mg BID x 21 days (ends 09/16/18) then 20 mg daily and S/ P IVC Filter 08/24 - Has remained with sinus tachycardia but improving and possibly multifactorial between steroids and his underlying pulmonary condition - average heart rates have been 90-110 bpm -- Was decided on to wait on calcium channel blockers or other means of rate control due to low normal blood pressures - May be prone to some fluid retention and was started on low dose of Lasix 20 mg daily and may need to monitor she continuous needs versus PRN dosing based on weight gain but has tolerated well over several days - Palliative care consulted - current plan is to continue treatment and finish rehab to return home Right Leg DVT: - Treatment as above; S/P IVC Filter Radiation Pneumonitis/Lymphangitic Carcinomatosis: - CTA with progressive patchy multifocal groundglass and consolidative opacities - concern for postradiation pneumonitis/aspiration pneumonitis/ multifocal pneumonia - Initially treated with Zosyn on admission and finished Levaquin from recent admission on 08/23 - Procalcitonin was low and further antibiotics on hold at this time - Prednisone at 60 mg x 2 days (09/07 and 09/08) then taper down by 10 mg QOD Metastatic lung cancer (metastasis from lung to other site): - Squamous cell diagnosed in Jul 2016 and S/P L Pneumonectomy - Normally has weekly Paclitaxel and per Oncology do anticipate continued therapy but consideration for treatment adjustments due to the likely cause of his pneumonitis. - Will need to have F/U with Dr. Ruiz after discharge Non-ST elevation MT (NSTEMI)/ History of CVA and Carotid Stenosis S/P R CEA: - H/O NSTEMI and known CAD - Plavix 75 mg daily - denies H/O GI bleed/intracranial bleeding Prescriptions: New rivaroxaban [Xarelto] 15 mg Tablet 15 mg PO BIDM Qty: 21 RF: 0 potassium chloride [Klor-Con M20] 20 mEq Tablet,Er Particles/Crystals 20 meq PO QAM 14 Days Qty: 14 RF: 0 furosemide 20 mg Tablet 20 mg PO QAM 14 Days Qty: 14 RF: 0 prednisone 10 mg tablet 10 mg PO DIRECTED Qty: 42 RF: 0 Continue atorvastatin 20 mg tablet 20 mg PO QAM RF: 0 smvhhlrq-led-abidj-vit K-lycop [Men's 50 Plus Multivitamin] 400-20-370 mcg Tablet 1 tab PO QAM RF: 0 Ca-D3-mag uf-bzoe-ary-berny-bor [Calcium 600-D3 Plus] 600 mg calcium- 800 unit- 50 mg Tablet 1 tab PO QAM RF: 0 ipratropium-albuterol [Combivent Respimat] 20-100 mcg/actuation mist 1 puffs INH Q6H PRN (Reason: sob) Qty: 4 RF: 0 clopidogrel [Plavix] 75 mg tablet 75 mg PO QAM RF: 0 Discontinued lisinopril [Zestril] 5 mg Tablet 5 mg PO QAM 30 Days Qty: 30 RF: 0 levofloxacin 500 mg tablet 500 mg PO DAILY RF: 0 Stand-Alone Forms: [facility] Discharge Orders: Discharge Order (Routine); Ordered 09/06/18 Ordered By: Lisbeth Cartwright Skilled Items Patient informed of condition?: Yes DNR: No Discharge Level of Care: Skilled Communicable Disease: No Discharge Prognosis: Stable Admission Data Admit Date/Time: 08/24/18 12:48 Attending Provider: Napoleon Garcia Admit Provider: Darrell Carbone Primary Care Provider: Jay uGdino Other Providers: Bryce Boone ; Darrell Carbone ; Azeem Fan ; Yari Dean ; Miguel Ángel Ruiz V ; Abhijeet Burgos Service: Telemetry Other Interventions: Discharge Summary Assessment (RN) Last Done: 09/06/18 11:40 Pending Studies at Discharge: No DC Date/Time DO NOT enter until pt leaves facility: 09/06/18 16:07 Supervising Physician Co-Signing Physician Notes Attending note: patient seen and examined with Lisbeth Cartwright PA-C. I agree with her discharge summary. - Right sided PE, multiple, in setting of lung cancer continue treatment with Xarelto, will be lifelong - Chronic hypoxia: due to left pneumonectomy and now complicated by pneumonitis on right and PE continue oxygen supplementation for sats > 90 Dyspnea: due to deconditioning, recommend rehab, to [facility] today
[2018-09-08 15:03] LABS: Aspergillus Flavus Negative (Negative); Aspergillus Niger Negative (Negative)
== END 2018-09-06 16:07 | DRG 166 ==
LOC: ED 09:00 → 2S 12:48 → SUATTDRO 12:48 → 1E 12:48 → 2S 15:36